=== PATIENT | male | born 1935 | race Caucasian/White ===

== ENCOUNTER 2017-04-10 13:11 | Emergency (ER) | payer OTHER ==
[~2017-04-10] VITALS: Ht 172.7 cm; Wt 80.1 kg
[~2017-04-10 13:11] MED LIST: ASPI81TA28 PO; CHOL1CAP57 PO; METO25TA3 PO; RXC5 PO
[2017-04-10 13:22] VITALS: TEMP 36.6; Ht 172.7 cm; Wt 80.1 kg
[2017-04-10] MEDS ORDERED: UNKNOWN ABX (14:14)
[2017-04-10] MEDS ORDERED: SODIUM CHLORIDE 0.9% 1000ML 1,000 ML IV STA (14:14)
--- NOTE | 2017-04-10 14:25 | EMERGENCY ROOM VISIT NOTE ---
History Report prepared by Luci: Raymundo Martinez Under the Supervision of: Dr. Robbin Doyle M.D. First contact with patient: 13:57 Chief Complaint: URINARY SYMPTOMS Stated Complaint: BLOCKED KIDNEYS Nursing Triage Summary: Patient states he does not have a bladder. Patient states his neprostomy tubes were not draining last night or this AM finally started to drain now but here to be evaluated. History of Present Illness The patient is a 81 year old male who presents to the Emergency Room with complaints of lack of urine drainage in his nephrostomy bag that her first noticed last night. The patient states that there was no urine draining into his nephrostomy bag last night, but it started to drain today on their way into the department. The bag normally fills up constantly. The patient notes that he usually drinks a lot of water throughout the day, and did so yesterday. There was no urine in the nephrostomy bag with his water consumption. He also notes not eating much yesterday, secondary to having some stomach pain yesterday which ruined his appetite. This pain is resolved now. He is currently diagnosed with a Kidney Stone and follows with Dr. Vital. He cannot have the stone operated on due to is positioning. The patient has his nephrostomy tubes secondary to prostate cancer and total bladder and prostate removal. He denies any further fevers, chills, chest pain, vomiting, or headaches. Source of History: patient Onset: Last night Position: other () Quality: other (Nephrostomy not draining) Timing: resolved Associated Symptoms: + abdominal pain, No fevers, No chest pain, No vomiting Review of Systems See HPI for pertinent positives and negatives. A total of ten systems were reviewed and were otherwise negative. Past Medical & Surgical Medical Problems: (1) Prostate cancer Surgical Problems: (1) Heart valve replaced PMHx of Prostate Cancer, cardiac valve replacement, nephrostomies. Family History FH: arthritis Fx of Arthritis. Social History Smoking Status: Never Smoker Drug Use: none Marital Status: Housing Status: lives with significant other Occupation Status: retired Current/Historical Medications Scheduled Aspirin (Aspirin Ec), 81 MG PO DAILY Cefpodoxime Proxetil (Cefpodoxime Proxetil), 1 TAB PO BID Cephalexin Monohydrate (Keflex), 1 CAP PO QID Saccharomyces Boulardii (Florastor), 1 CAP PO BID Scheduled PRN Oxycodone HCl (Oxycodone HCl), 5-10 MG PO Q4H PRN for Pain Allergies Coded Allergies: Ciprofloxacin (Verified Allergy, Unknown, ITCHING, 03/15/14) Tetanus Toxoid (Verified Allergy, Unknown, ITCHING, 03/15/14) Physical Exam Vital Signs Date Time Temp Pulse Resp B/P (MAP) Pulse Ox O2 Delivery O2 Flow Rate FiO2 04/10/17 18:51 91 16 123/65 96 Room Air 04/10/17 18:20 67 18 163/91 99 Room Air 04/10/17 16:08 72 18 138/57 98 Room Air 04/10/17 15:53 73 04/10/17 15:28 72 18 109/43 04/10/17 13:22 36.6 99 16 117/71 98 Room Air Physical Exam GENERAL: Awake, alert, well-appearing, in no distress HENT: Normocephalic, atraumatic. Oropharynx unremarkable. EYES: Normal conjunctiva. Sclera non-icteric. NECK: Supple. No nuchal rigidity. FROM. No JVD. RESPIRATORY: Clear to auscultation. CARDIAC: Regular rate, normal rhythm. Extremities warm and well perfused. Pulses equal. ABDOMEN: Soft, non-distended. No tenderness to palpation. No rebound or guarding. No masses. RECTAL: Deferred. There is a nephrostomy bag in the RLQ draining light yellow urine, no blood. MUSCULOSKELETAL: Chest examination reveals no tenderness. The back is symmetrical on inspection without obvious abnormality. There is no CVA tenderness to palpation. No joint edema. LOWER EXTREMITIES: Calves are equal size bilaterally and non-tender. No edema. No discoloration. NEURO: Normal sensorium. No sensory or motor deficits noted. SKIN: No rash or jaundice noted. Medical Decision & Procedures ER Provider Diagnostic Interpretation: Radiology results as stated below per my review and radiologist interpretation: CT OF THE ABDOMEN AND PELVIS WITH CONTRAST CLINICAL HISTORY: flank pain, ?obstructed nephrostomy COMPARISON STUDY: CT of the abdomen and pelvis March 27, 2017. TECHNIQUE: Following IV administration of 94 mL of Optiray-320, axial images of the abdomen and pelvis were obtained from the lung bases to the proximal femurs. Images were reviewed in the axial, sagittal, and coronal planes. IV contrast was administered without complication. A dose lowering technique was utilized adhering to the principles of ALARA. CT DOSE: 409.93 mGy.cm FINDINGS: Visualized portions of the lower chest demonstrate moderate cardiomegaly. There is a prosthetic aortic valve. There is mild nodularity of the liver surface. No hepatic lesions are identified on this portal venous phase study. The spleen, adrenal glands and pancreas are unremarkable. There is no biliary or pancreatic ductal dilatation. Postoperative findings within the lumbosacral spine are noted. There are several old lower thoracic and lumbar spine compression fractures. No pneumatosis, free air or portal venous gas is present. The patient is status post prostatectomy and cystectomy with a right lower quadrant ileal diversion with urostomy. Moderate left and mild right hydronephrosis is noted. Left-sided collecting system dilatation has slightly diminished compared to exam of March 27, 2017. Right-sided collecting system dilatation has mildly increased. Note is made of a 2.5 x 1.1 x 0.8 cm proximal left ureteral calculus which is more proximal in location when compared to study of March 27, 2017. Urothelial thickening, slightly greater on the left is again noted, most prominent within the left ureter. Minimal left perinephric infiltration has diminished since exam of March 27, 2017. There is a 2.2 cm cyst within the lower pole of the left kidney. A right lower quadrant parastomal hernia is noted. There is also a left lower abdominal ventral hernia which contains small bowel loops. There is no bowel obstruction. No lymphadenopathy is present. There are no suspicious osseous lesions. IMPRESSION: 1. Status post cystectomy and prostatectomy with a right lower quadrant ileal diversion with urostomy. Moderate left and mild right hydronephrosis. Left-sided collecting system dilatation slightly improved since study of March 27, 2017 and right sided dilatation slightly increased. Minimal delayed left nephrogram with minimal left perinephric infiltration which is diminished since prior CT. Nonspecific urothelial thickening which could be correlated with urinalysis as this represents a nonspecific finding. 2. 2.5 x 1.1 x 0.8 cm proximal left ureteral calculus which is not resulting in the collecting system dilatation. 3. Several lower abdominal bowel containing hernias without resultant bowel obstruction. 4. Suspected cirrhosis. Electronically signed by: Jose Luis Damon M.D. 04/10/2017 5:17 PM Dictated Date/Time: 04/10/2017 5:06 PM Laboratory Results 04/10/17 14:50 Red Blood Count 3.60, Mean Corpuscular Volume 81.7, Mean Corpuscular Hemoglobin 28.1, Mean Corpuscular Hemoglobin Concent 34.4, Mean Platelet Volume 9.3, Neutrophils (%) (Auto) 64.0, Lymphocytes (%) (Auto) 19.9, Monocytes (%) (Auto) 11.7, Eosinophils (%) (Auto) 2.2, Basophils (%) (Auto) 0.5, Neutrophils # (Auto ) 7.02, Lymphocytes # (Auto) 2.18, Monocytes # (Auto) 1.29, Eosinophils # (Auto ) 0.24, Basophils # (Auto) 0.06 04/10/17 14:50 Test 04/10/17 14:50 04/10/17 15:10 White Blood Count 10.98 K/uL (4.8-10.8) Red Blood Count 3.60 M/uL (4.7-6.1) Hemoglobin 10.1 g/dL (14.0-18.0) Hematocrit 29.4 % (42-52) Mean Corpuscular Volume 81.7 fL (80-100) Mean Corpuscular Hemoglobin 28.1 pg (25-34) Mean Corpuscular Hemoglobin Concent 34.4 g/dl (32-36) Platelet Count 417 K/uL (130-400) Mean Platelet Volume 9.3 fL (7.4-10.4) Neutrophils (%) (Auto) 64.0 % Lymphocytes (%) (Auto) 19.9 % Monocytes (%) (Auto) 11.7 % Eosinophils (%) (Auto) 2.2 % Basophils (%) (Auto) 0.5 % Neutrophils # (Auto) 7.02 K/uL (1.4-6.5) Lymphocytes # (Auto) 2.18 K/uL (1.2-3.4) Monocytes # (Auto) 1.29 K/uL (0.11-0.59) Eosinophils # (Auto) 0.24 K/uL (0-0.5) Basophils # (Auto) 0.06 K/uL (0-0.2) RDW Standard Deviation 45.9 fL (36.4-46.3) RDW Coefficient of Variation 15.2 % (11.5-14.5) Immature Granulocyte % (Auto) 1.7 % Immature Granulocyte # (Auto) 0.19 K/uL (0.00-0.02) Red Blood Cell Morphology Unremarkable Anion Gap 8.0 mmol/L (3-11) Est Creatinine Clear Calc Drug Dose 61.0 ml/min Estimated GFR () 87.9 Estimated GFR (Non- 75.8 BUN/Creatinine Ratio 12.9 (10-20) Calcium Level 8.3 mg/dl (8.5-10.1) Total Bilirubin 0.2 mg/dl (0.2-1) Direct Bilirubin < 0.1 mg/dl (0-0.2) Aspartate Amino Transf (AST/SGOT) 12 U/L (15-37) Alanine Aminotransferase (ALT/SGPT) 14 U/L (12-78) Alkaline Phosphatase 80 U/L (45-117) Total Protein 8.0 gm/dl (6.4-8.2) Albumin 2.7 gm/dl (3.4-5.0) Lipase 142 U/L (73-393) Urine Color YELLOW Urine Appearance CLOUDY (CLEAR) Urine pH 8.5 (4.5-7.5) Urine Specific Emma 1.015 (1.000-1.030) Urine Protein 1+ (NEG) Urine Glucose (UA) NEG (NEG) Urine Ketones TRACE (NEG) Urine Occult Blood NEG (NEG) Urine Nitrite POS (NEG) Urine Bilirubin NEG (NEG) Urine Urobilinogen NEG (NEG) Urine Leukocyte Esterase LARGE (NEG) Urine WBC (Auto) >30 /hpf (0-5) Urine RBC (Auto) 0-4 /hpf (0-4) Urine Hyaline Casts (Auto) 1-5 /lpf (0-5) Urine Epithelial Cells (Auto) 5-10 /lpf (0-5) Urine Bacteria (Auto) 3+ (NEG) Laboratory results reviewed by me Medications Administered Medications (Trade) Dose Ordered Sig/Latonya Route Start Time Stop Time Status Last Admin Dose Admin Sodium Chloride 1,000 ml @ 999 mls/hr Q1H1M STAT IV 04/10/17 14:14 04/10/17 15:14 DC 04/10/17 14:14 999 MLS/HR Ceftriaxone Sodium (Rocephin Inj) 1 gm NOW STAT IV 04/10/17 17:34 04/10/17 17:36 DC 04/10/17 17:34 1 GM ED Course 141: The patient was evaluated in room B10. A complete history and physical exam was performed. 141: Ordered Sodium Chloride 1000 mL @ 999 mL/hr IV. 1733: Ordered Rocephin Inj 1 gm IV. 1911: I reevaluated the patient. Discussed results and discharge instructions: He verbalized understanding and agreement. The patient is ready for discharge. Medical Decision I reviewed the patient's past medical history, medications, and the nursing notes as described above. Differential diagnosis: Etiologies such as appendicitis, diverticulitis, PUD, biliary pathology, UTI, pancreatitis, obstruction, mesenteric ischemia, aortic pathology, infections, inflammatory bowel disease, renal colic, as well as others were entertained. The patient is a 81 y/o gentleman with a pmhx of prostate cancer s/p bladder resection s/p urostomy who presents to the emergency department with ?transient nephrostomy obstruction that occurred last night but apparently resolved [employer] and has clear yellow urine in bag per HPI. On arrival, the patient is well- appearing in NAD, AFVSS. Nephrostomy site is c/d/i. CT scan shows mildly increased right-sided collecting fullness overall improvement from prior and known left 2.5cm ureteral stone without signs of obstruction. WBC marginally elevated 10.9. Sodium 129 in the setting of clinically dry appearance. Given IVF. UA c/w infection. Given IV dose of CTX. Patient had previously been on Keflex for ?UTI/infected stone. Thus coverage broadened with cefpodoxime. Patient is currently being followed by Dr. Vital, urology, with plan for decompression of his large left ureter stone. Given well-appearing, afebrile and stable vitals no indication for admission at this time for emergent procedure. Reasonable to d/c with close f/u for scheduled procedure. Findings and plan for follow-up reviewed with patient. Patient agreeable and d/c'd per discharge instructions. Medication Reconcilliation Current Medication List: was personally reviewed by me Impression Primary Impression: Urinary tract infection Additional Impressions: Ureterolithiasis Hyponatremia Scribe Attestation The scribe's documentation has been prepared under my direction and personally reviewed by me in its entirety. I confirm that the note above accurately reflects all work, treatment, procedures, and medical decision making performed by me. Departure Information Dispostion Home / Self-Care Prescriptions Saccharomyces Boulardii (Florastor) 250 Mg Cap 1 CAP PO BID for 10 Days, #20 CAP Prov: Robbin Doyle M.D. 04/10/17 Cefpodoxime Proxetil (CEFPODOXIME PROXETIL) 100 Mg Tab 1 TAB PO BID for 7 Days, #14 TABS Prov: Robbin Doyle M.D. 04/10/17 Referrals Kobi Escobar M.D. (PCP) Lg Vital M.D. Patient Instructions ED Hyponatremia, Kidney Stones, [facility], Urinary Tract Infecs Men Additional Instructions Please follow up with your urologist, Dr. Vital, tomorrow for re-evaluation. You should also follow up with your doctor to recheck you sodium, which was low today (likely from mild dehydration). Your urine showed signs of infection. Your CT scan overall shows improvement. Otherwise, your exam, lab results, and CT scan did not show signs of an emergent condition at this time. Cefpodoxime as directed. Florastor, probiotic, to help prevent antibiotic associated diarrhea. Drink plenty of fluids to ensure hydration. Return to the emergency department for worsening symptoms as described in the accompanying instructions. Problem Qualifiers
[2017-04-10] MEDS ORDERED: CEPH500C2 PO (14:30)
[2017-04-10] MEDS ORDERED: OPTIRAY 320 IV PRN (14:45)
[2017-04-10 15:06] LABS: HEMATOCRIT 29.4 % (42-52); HEMOGLOBIN 10.1 g/dL (14.0-18.0); MEAN CELL VOLUME 81.7 fL (80-100); MEAN CORPUSCULAR HEMOGLOBIN 28.1 pg (25-34); MEAN CORPUSCULAR HGB CONC 34.4 g/dl (32-36); MEAN PLATELET VOLUME 9.3 fL (7.4-10.4); PLATELET COUNT 417 K/uL (130-400); RED CELL DISTRIBUTION WIDTH CV 15.2 % (11.5-14.5); RED CELL DISTRIBUTION WIDTH SD 45.9 fL (36.4-46.3); WHITE BLOOD COUNT 10.98 K/uL (4.8-10.8)
[2017-04-10 15:22] LABS: ALBUMIN 2.7 gm/dl (3.4-5.0); ALT/SGPT 14 U/L (12-78); BLOOD UREA NITROGEN 12 mg/dl (7-18); CALCIUM 8.3 mg/dl (8.5-10.1); CARBON DIOXIDE 21 mmol/L (21-32); CREATININE 0.95 mg/dl (0.60-1.40); GLUCOSE 110 mg/dl (70-99); LIPASE 142 U/L (73-393); POTASSIUM 3.7 mmol/L (3.5-5.1); SODIUM 129 mmol/L (136-145)
[2017-04-10 15:25] LABS: ALKALINE PHOSPHATASE 80 U/L (45-117); AST/SGOT 12 U/L (15-37)
[2017-04-10 15:58] LABS: BASO % 0.5 %; BASO ABS # 0.06 K/uL (0-0.2); EOS % 2.2 %; EOS ABS # 0.24 K/uL (0-0.5); IG# 0.19 K/uL (0.00-0.02); LYMPH % 19.9 %; LYMPH ABS # 2.18 K/uL (1.2-3.4); MONO % 11.7 %; MONO ABS # 1.29 K/uL (0.11-0.59); NEUT ABS # 7.02 K/uL (1.4-6.5)
--- NOTE | 2017-04-10 17:18 | DIAGNOSTIC IMAGING REPORT ---
CT OF THE ABDOMEN AND PELVIS WITH CONTRAST CLINICAL HISTORY: flank pain, ?obstructed nephrostomy COMPARISON STUDY: CT of the abdomen and pelvis March 27, 2017. TECHNIQUE: Following IV administration of 94 mL of Optiray-320, axial images of the abdomen and pelvis were obtained from the lung bases to the proximal femurs. Images were reviewed in the axial, sagittal, and coronal planes. IV contrast was administered without complication. A dose lowering technique was utilized adhering to the principles of ALARA. CT DOSE: 409.93 mGy.cm FINDINGS: Visualized portions of the lower chest demonstrate moderate cardiomegaly. There is a prosthetic aortic valve. There is mild nodularity of the liver surface. No hepatic lesions are identified on this portal venous phase study. The spleen, adrenal glands and pancreas are unremarkable. There is no biliary or pancreatic ductal dilatation. Postoperative findings within the lumbosacral spine are noted. There are several old lower thoracic and lumbar spine compression fractures. No pneumatosis, free air or portal venous gas is present. The patient is status post prostatectomy and cystectomy with a right lower quadrant ileal diversion with urostomy. Moderate left and mild right hydronephrosis is noted. Left-sided collecting system dilatation has slightly diminished compared to exam of March 27, 2017. Right-sided collecting system dilatation has mildly increased. Note is made of a 2.5 x 1.1 x 0.8 cm proximal left ureteral calculus which is more proximal in location when compared to study of March 27, 2017. Urothelial thickening, slightly greater on the left is again noted, most prominent within the left ureter. Minimal left perinephric infiltration has diminished since exam of March 27, 2017. There is a 2.2 cm cyst within the lower pole of the left kidney. A right lower quadrant parastomal hernia is noted. There is also a left lower abdominal ventral hernia which contains small bowel loops. There is no bowel obstruction. No lymphadenopathy is present. There are no suspicious osseous lesions. IMPRESSION: 1. Status post cystectomy and prostatectomy with a right lower quadrant ileal diversion with urostomy. Moderate left and mild right hydronephrosis. Left-sided collecting system dilatation slightly improved since study of March 27, 2017 and right sided dilatation slightly increased. Minimal delayed left nephrogram with minimal left perinephric infiltration which is diminished since prior CT. Nonspecific urothelial thickening which could be correlated with urinalysis as this represents a nonspecific finding. 2. 2.5 x 1.1 x 0.8 cm proximal left ureteral calculus which is not resulting in the collecting system dilatation. 3. Several lower abdominal bowel containing hernias without resultant bowel obstruction. 4. Suspected cirrhosis. Electronically signed by: Jose Luis Damon M.D. 04/10/2017 5:17 PM Dictated Date/Time: 04/10/2017 5:06 PM
[2017-04-10] MEDS ORDERED: CEFTRIAXONE SOD INJ 1 GM ADDVIAL IV STA (17:34)
[2017-04-10 18:51] VITALS: BP 123/65; PULSE 91; O2SAT 96
[2017-04-10] MEDS ORDERED: CEFP100T7 PO (19:02)
[2017-04-10] MEDS ORDERED: SACC250C3 PO (19:05)
== END 2017-04-10 19:19 | disposition home or self-care (01) ==
LOC: C.EDB 13:12
DX: N39.0 Urinary tract infection, site not specified (principal); N20.1 Calculus of ureter; E87.1 Hypo-osmolality and hyponatremia; Z85.46 Personal history of malignant neoplasm of prostate; Z95.2 Presence of prosthetic heart valve; Z93.6 Other artificial openings of urinary tract status; Z90.79 Acquired absence of other genital organ(s); Z90.6 Acquired absence of other parts of urinary tract; Z82.61 Family history of arthritis; Z79.82 Long term (current) use of aspirin

== ENCOUNTER 2017-05-22 06:45 | Day surgery (SDC) | payer MEDICARE, OTHER ==
[2017-05-07 13:48] VITALS: Ht 170.2 cm; Wt 80.3 kg
--- NOTE | 2017-05-07 14:22 | PAT Medication Instructions ---
Service Date May 07, 2017. Current Home Medication List Aspirin (Aspirin Ec), 81 MG PO QPM Metoprolol Succinate (Metoprolol Succinate ER), 1 TAB PO QAM Nitrofurantoin Monohyd Macrocr (Macrobid), 1 TAB PO QAM Omeprazole (Prilosec), 20 MG PO QAM Oxycodone Hcl (Oxycontin), 1 TAB PO TID PRN for Pain Senna/Docusate Sod (Senokot S), 1 TAB PO QPM Medication Instructions For Your Scheduled Surgery -Contact your prescriber for instructions for: Aspirin (Aspirin Ec), 81 MG PO QPM - Take the following medications the morning of surgery with a sip of water: Metoprolol Succinate (Metoprolol Succinate ER), 1 TAB PO QAM Nitrofurantoin Monohyd Macrocr (Macrobid), 1 TAB PO QAM Omeprazole (Prilosec), 20 MG PO QAM Oxycodone Hcl (Oxycontin), 1 TAB PO TID PRN for Pain (if needed, can be taken up to four hours before surgery) - Take the following medications as scheduled the night before surgery: Oxycodone Hcl (Oxycontin), 1 TAB PO TID PRN for Pain (if needed) Senna/Docusate Sod (Senokot S), 1 TAB PO QPM If you have any questions please call us at [phone] or [phone] or [phone]
[2017-05-07 15:22] LABS: BASO % 0.7 %; BASO ABS # 0.07 K/uL (0-0.2); EOS % 1.5 %; EOS ABS # 0.15 K/uL (0-0.5); HEMATOCRIT 31.9 % (42-52); HEMOGLOBIN 10.5 g/dL (14.0-18.0); IG# 0.08 K/uL (0.00-0.02); LYMPH % 24.1 %; LYMPH ABS # 2.41 K/uL (1.2-3.4); MEAN CELL VOLUME 81.2 fL (80-100); MEAN CORPUSCULAR HEMOGLOBIN 26.7 pg (25-34); MEAN CORPUSCULAR HGB CONC 32.9 g/dl (32-36); MONO % 10.5 %; MONO ABS # 1.05 K/uL (0.11-0.59); NEUT % 62.4 %; NEUT ABS # 6.24 K/uL (1.4-6.5); PLATELET COUNT 367 K/uL (130-400); RED CELL DISTRIBUTION WIDTH CV 16.5 % (11.5-14.5); RED CELL DISTRIBUTION WIDTH SD 49.4 fL (36.4-46.3)
[2017-05-07 15:28] LABS: BLOOD UREA NITROGEN 14 mg/dl (7-18); CALCIUM 8.3 mg/dl (8.5-10.1); CARBON DIOXIDE 23 mmol/L (21-32); CREATININE 1.05 mg/dl (0.60-1.40); GLUCOSE 104 mg/dl (70-99); SODIUM 133 mmol/L (136-145)
[~2017-05-22] VITALS: Ht 170.2 cm; Wt 80.3 kg
[~2017-05-22 06:45] MED LIST changes: +CEFAZOLIN 2000MG IV PUSH 15 ML IV SCH; -CHOL1CAP57 PO; +LACTATED RINGER'S 1000ML 1,000 ML IV SCH; -METO25TA3 PO; +NITR-5 PO; +OXYC20TA50 PO; +PRLSR20 PO; -RXC5 PO; +SENN-65 PO; +TPRSR/25 PO
[2017-05-22 07:23] VITALS: BP 104/63; PULSE 89; TEMP 37; O2SAT 97
[2017-05-22] MEDS ORDERED: fentanyl patch (07:51)
[2017-05-22] MEDS ORDERED: EpHEDrine SULFATE INJ 50 MG/ML AMP IV PRN (08:15)
[2017-05-22] MEDS ORDERED: ATROPINE SULFATE 0.1 MG/ML 5ML SYR IV PRN (08:15)
[2017-05-22] MEDS ORDERED: ONDANSETRON INJ 2 MG/ML 2 ML VIAL IV PRN (08:15)
--- NOTE | 2017-05-22 08:15 | History & Physical Bridge Note ---
H&P Re-Evaluation Bridge Note: I have examined the patient, reviewed the History & Physical and in the interval since the performance of the History & Physical I have noted the following changes of clinical significance: No changes noted
[2017-05-22] MEDS ORDERED: LIDOCAINE HCL 2% 2 ML VIAL (20MG/ML) ONE (08:24)
[2017-05-22] MEDS ORDERED: OXYTOCIN INJ 10 UNITS/ML VIAL ONE (08:24)
[2017-05-22] MEDS ORDERED: PROPOFOL IV EMULSION 10 MG/ML 20 ML VIAL IV ONE (08:24)
[2017-05-22] MEDS ORDERED: DEXAMETHASONE SOD INJ 4 MG/ML VIAL ONE (08:24)
[2017-05-22] MEDS ORDERED: ONDANSETRON INJ 2 MG/ML 2 ML VIAL ONE (08:25)
[2017-05-22] MEDS ORDERED: LIDOCAINE/EPINEPHRINE 1% 20 ML VIAL ONE (08:25)
[2017-05-22] MEDS ORDERED: FENTANYL CITRATE INJ 50 MCG/1 ML 2 ML VIAL ONE (08:26)
[2017-05-22] MEDS ORDERED: CEFU250T15 PO (08:44)
--- NOTE | 2017-05-22 08:48 | Discharge Instructions ---
Discharge Instructions Date of Service May 22, 2017. Admission Reason for Admission: Left Ureteral Stone, Ileal Conduit Discharge Discharge Diagnosis / Problem: Stone Discharge Goals Goal(s): Decrease discomfort, Improve function Activity Recommendations Activity Limitations: per Instructions/Follow-up section Lifting Limitations: gradually increase as tolerated Exercise/Sports Limitations: gradually increase as tolerated Shower/Bathe: tomorrow . Instructions / Follow-Up Instructions / Follow-Up Call if any fevers or chills. Call if any severe issues or worsening issues. May have pain in flank or pain in abd and pelvis. Monitor output. Expect to have blood in urine. Current Hospital Diet Patient's current hospital diet: Discharge Diet Recommended Diet: Regular Diet Procedures Procedures Performed: Antegrade ureteroscopy with nephrostogram and laser lithotripsy with stent placement and nephrostomy exchange. Pending Studies Studies pending at discharge: no Medical Emergencies . Who to Call and When: Medical Emergencies: If at any time you feel your situation is an emergency, please call 911 immediately. . Non-Emergent Contact Non-Emergency issues call your: Primary Care Provider, Urologist Call Non-Emergent contact if: you have a fever, temperature is above 101, temperature is above 101.5, your pain is not controlled, your pain is worsening . . "Provider Documentation" section prepared by Lg Constantino. .
[2017-05-22] MEDS ORDERED: OXYCODONE HCL IR 5 MG TAB (IMMEDIATE RELEASE) PO PRN (09:00)
[2017-05-22] MEDS ORDERED: Cysto-Conray II 17.2% 250ML BOTTLE ONE (09:28)
[2017-05-22] MEDS ORDERED: PHENYLEPHRINE 100MCG/ML 5ML SYR ONE (10:25)
--- NOTE | 2017-05-22 10:36 | [facility] Operative Report ---
Operative Report Operative Date May 22, 2017. Pre-Operative Diagnosis Left Obstructing Distal Stone with Ileal Conduit diversion Post-Operative Diagnosis Same Procedure(s) Performed Left Antegrade ureteroscopy with nephrostogram, dilation of nephrotomy, exchange of nephrostomy tube, stent placement, Antegrade pyelogram, laser lithotripsy. Surgeon Amanuel Constantino Needle Leader Surgeon(s) Stu Estimated Blood Loss Minimal Findings Large obstructing stone of left distal ureter Specimens Stone Fragment Drains 10 Fr Nephrostomy Tube on left. 7 x 28 Ureteral Stent Left Anesthesia Type General Complication(s) none Disposition Recovery Room / PACU Indications Large obstructing stone that could not be accessed retrograde through conduit. Had nephrostomy tube placed. Risks and benefits discussed. Description of Procedure Patient was consented and brought back to the operating room. Patient was placed under anesthesia in the supine position. The patient was moved to the lateral position with the left flank up. Patient was prepped and draped in the regular sterile fashion. The nephrostomy tube was prepped into the field. A time out was completed. A nephrostogram was completed and the pelvis examined with fluoroscopy. The nephrostomy tube was released and a wire was placed. It was visualized into the pelvis. The tube was removed and a incision was made into the skin at the site of the wire. The 8-10 dilator was selected and the track was dilated. A dual lumen ureteral catheter was placed and nephrostogram was completed with antegrade pyelogram. At this point, a second safety wire was placed and secured. The sheath was removed and a ureteral access 12-14Fr x 28cm was placed. A flexible ureteroscope was placed. The entire ureter was examined down to the distal segment. The large stone was appreciated to have migrated to the renal pelvis. A laser fiber was selected and the stone was pulverized to dust and small fragments. Larger fragments were removed with a basket. The stone was completely fragmented. A ureteral balloon dilator was then selected and the distal ureter was dilated up to 12mmhg. The scope was moved into the conduit. At this point, a 7fr ureteral stent was placed. The scope was removed and the sheath was removed. The 10 Fr Nephrostomy tube was placed over the safety wire. It was secured in place with a 3-0 nylon suture. The patient was cleaned and bandaged and transferred to the supine position. The patient was cleaned, aroused from anesthesia, and transferred to the pacu in stable condition having tolerated the procedure well with no complications. I was present and participated in all aspects of the procedure. Dr. Vital was intergral and assisted with the entire case including dilation, wire manipulation, and tube placements. Also assisted with access and stone treatment. Nurse Peraza was madden in manipulation of wire and management of scope as well as dilation. The patient will be monitored in the PACU until transferred. I attest to the content of the Intraoperative Record and any orders documented therein. Any exceptions are noted below.
--- NOTE | 2017-05-22 10:52 | DIAGNOSTIC IMAGING REPORT ---
RETROGRADE INCLUDES KUB CLINICAL HISTORY: LEFT PERCUTANEOUS ANTEGRADE lithotripsy TECHNIQUE: Image intensifier assistance for operative guidance COMPARISON STUDY: None FINDINGS: Image intensifier assistance for laser lithotripsy and ureteroscopy IMPRESSION: Image intensifier assistance for laser lithotripsy and ureteroscopy. The above report was generated using voice recognition software. It may contain grammatical, syntax or spelling errors. Electronically signed by: Alan Martínez M.D. 05/22/2017 10:51 AM Dictated Date/Time: 05/22/2017 10:50 AM
[2017-05-22] MEDS: FENTANYL CITRATE INJ 50 MCG/1 ML 2 ML VIAL IV PRN ×2 (10:57→11:15)
--- NOTE | 2017-05-22 11:25 | Anesthesiology Progress Note ---
Anesthesia Post Op Note Date & Time May 22, 2017 at 11:24 Vital Signs Pain Intensity: 4.0 Vital Signs Past 12 Hours Date Time Temp Pulse Resp B/P (MAP) Pulse Ox O2 Delivery O2 Flow Rate FiO2 05/22/17 11:15 36.0 70 19 118/56 100 Nasal Cannula 2 05/22/17 11:05 66 10 116/58 100 Nasal Cannula 2 05/22/17 10:55 70 20 98/59 100 Nasal Cannula 2 05/22/17 10:45 81 26 115/64 95 Nasal Cannula 2 05/22/17 10:38 36.0 72 14 121/62 100 Nasal Cannula 2 05/22/17 07:23 37 89 18 104/63 (77) 97 Room Air Notes Mental Status: alert / awake / arousable, participated in evaluation Pt Amnestic to Procedure: Yes Nausea / Vomiting: adequately controlled Pain: adequately controlled Airway Patency, RR, SpO2: stable & adequate BP & HR: stable & adequate Hydration State: stable & adequate Anesthetic Complications: no major complications apparent
[2017-05-22 11:50] VITALS: BP 115/58; PULSE 70; TEMP 36.6; O2SAT 94
[2017-05-22 12:20] VITALS: BP 105/51; PULSE 77; O2SAT 92
[2017-05-22 12:55] VITALS: BP 100/56; PULSE 77; TEMP 36.6; O2SAT 96
--- NOTE | 2017-05-30 08:49 | EDITING REQUIRED CODING QUERY ---
CALCULUS SIZE Please provide the size of the calculus that was treated during this admission" SIZE OF CALCULUS: 2.6 CM Thank you for your assistance, Libby Mckeon - Cytogeneticist
== END 2017-05-22 13:30 | disposition home or self-care (01) ==
LOC: C.ACU 06:45
PROVIDERS: ATTEND Urology
DX: N20.2 Calculus of kidney with calculus of ureter (principal); F11.20 Opioid dependence, uncomplicated; Z93.6 Other artificial openings of urinary tract status; Z87.440 Personal history of urinary (tract) infections; I25.10 Atherosclerotic heart disease of native coronary artery without angina pectoris; Z95.2 Presence of prosthetic heart valve; Z90.79 Acquired absence of other genital organ(s); Z79.82 Long term (current) use of aspirin

== ENCOUNTER → 2017-06-26 | Outpatient (CLI) | payer OTHER ==
[~2017-06-26] MED LIST changes: -ASPI81TA28 PO; -CEFAZOLIN 2000MG IV PUSH 15 ML IV SCH; -LACTATED RINGER'S 1000ML 1,000 ML IV SCH; +fentanyl patch
[2017-06-26 17:33] LABS: BLOOD UREA NITROGEN 24 mg/dl (7-18); CREATININE 1.21 mg/dl (0.60-1.40)
== END | disposition home or self-care (01) ==
LOC: C.LABPBG 15:11
PROVIDERS: ATTEND Urology
DX: Z12.5 Encounter for screening for malignant neoplasm of prostate (principal)

== ENCOUNTER → 2017-07-02 | Outpatient (CLI) | payer OTHER ==
--- NOTE | 2017-07-02 12:31 | DIAGNOSTIC IMAGING REPORT ---
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 A dose lowering technique was utilized adhering to the principles of ALARA. COMPARISON STUDY: 04/10/2017 FINDINGS: Lung bases remain clear. Minimal dependent basilar atelectasis. Configuration of the liver and gallbladder are unremarkable. Right kidney is considered negative for hydronephrosis. There is no right ureteral distention. There has been placement of a left ureteral stent. The fullness of the left renal pelvis and left ureter at the prior study has resolved. Calcification procedure described in the mid and or proximal left ureter is not identified currently. There are findings of cystectomy and prostatectomy. There is a right-sided ileal conduit. There are no obstructive urinary tract changes at the current time. The bowel pattern is considered nonobstructive. Postoperative changes are again noted. Several ventral hernias have been described are similar. These contain several loops of bowel but are considered nonobstructing. Postoperative changes of the low lumbar spine are noted and appear stable. IMPRESSION: 1. Interval placement of a left ureteral stent with removal of the previously described left ureteral calculus. 2. Left renal hydronephrosis has resolved. 3. Stable postoperative changes of a cystectomy and prostatectomy with a patent right ileal conduit. 3. Minimal findings of hepatic cirrhosis unchanged. The above report was generated using voice recognition software. It may contain grammatical, syntax or spelling errors. Electronically signed by: Alan Martínez M.D. 07/02/2017 12:30 PM Dictated Date/Time: 07/02/2017 12:24 PM
== END | disposition home or self-care (01) ==
LOC: C.CTS 10:50
PROVIDERS: ATTEND Urology
DX: N20.1 Calculus of ureter (principal); Z90.79 Acquired absence of other genital organ(s); K74.60 Unspecified cirrhosis of liver

== ENCOUNTER 2018-07-28 20:00 | Inpatient (IN) ==
--- OUTSIDE RECORDS SUMMARY | 2018-07-28 20:03 | External Medical Summary | Continuity of Care Document ---
:1935 Author Name Leo Matthews, Provider Address Unavailable Unavailable , Care Team Providers Name Role Phone Unavailable Unavailable Unavailable Lg Constantino II, DO Unavailable [email or web address] 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 Dougie PENALOZA DO Lg Start: 07-May-2017 Quantity: 20 Refills: 0 Triamcinolone Acetonide Cassie SEXTON Refills: 0 Senokot TABS , M.D. Refills: 0 Omeprazole TBEJesus M.DRico Refills: 0 Nystatin 188955 UNIT/GM External Cream , M.D. Refills: 0 Ketoconazole 2 % External Shampoo , M.DRico Refills: 0 Cephalexin TABS , M.D. Refills: 0 Metoprolol Succinate ER 25 MG Oral Tablet Extended Release 2 4 Hour , M.D. Refills: 0 oxyCODONE HCl TABS , M.D. Refills: 0 Aspirin 81 MG TABS; Take 1 tablet daily KATERIN Salgado Start: 15-Mar-2014 Refills: 0 Procedures Aortic Valve Replacement History of Lower Back Surgery Status: Co mpleted History of Bladder Cystectomy Status: Co mpleted History of hernia repair Status: Complet ed History of prostatectomy Status: Complet ed Immunizations Immunizations not documented Family History Mother Family history of cerebrovascular accident (V17.1) (Z82.3) S tatus: Active Family history of diabetes mellitus (V18.0) (Z83.3) Status: Active Father Family history of colon cancer (V16.0) (Z80.0) Status: Activ e Social History - Smoking Status Former smoker Plan of Treatment Planned Observations Planned Goals not documented Results No Known Results Results not documented Encounters Appointment; Zhao Vital M.D. 16-Feb-2018 14:45 Encounter Diagnosis: Problem not documented Appointment; Zhao Vital M.D. 30-Sep-2017 14:00 Encounter Diagnosis: Problem not documented Appointment; Zhao Vital M.D. 02-Jul-2017 13:10 Encounter Diagnosis: Problem not documented Appointment; Zhao Vital M.D. 04-Jun-2017 14:15 Encounter Diagnosis: Problem not documented Appointment; Zhao Vital M.D. 22-May-2017 11:00 Encounter Diagnosis: Problem not documented Appointment; Lg Constantino II, DO 22-May-2017 11:00 Encounter Diagnosis: Problem not documented Appointment; Adelina Peraza CRNP 22-May-2017 11:00 Encounter Diagnosis: Problem not documented Appointment; Lg Constantino II, DO 07-May-2017 11:20 Encounter Diagnosis: Problem not documented Appointment; Zhao Vital M.D. 03-Apr-2017 13:45 Encounter Diagnosis: Problem not documented
[2018-07-28] MEDS ORDERED: SODIUM CHLORIDE 0.9% 1000ML 1,000 ML IV SCH (21:00)
--- NOTE | 2018-07-28 21:13 | XRay Report ---
XR chest 1V portable CLINICAL HISTORY: 82 years-old Male presenting with Chest Pain. TECHNIQUE: Portable upright AP view of the chest was obtained. COMPARISON: 03/15/2014. FINDINGS: Median sternotomy wires with breakage of several wires and significant wire displacement into the par asternal soft tissues at the level of the clavicular heads. Atherosclerosis of the aortic arch. Posts urgical changes of aortic valve replacement. Cardiac silhouette mildly enlarged. Mitral annular calci fication. Mild pulmonary vascular prominence and bronchial wall cuffing. Coarsened lung markings like ly indicate prominent interstitial lung markings/interlobular septal thickening. Mildly low lung volu mes. No large effusion or pneumothorax. Degenerative changes of the thoracic spine. Degenerative singletary ges of the left glenohumeral joint. Upper abdomen normal. IMPRESSION: 1. Breakage in displacement of the median sternotomy wires. Displacement of the wires is new from pr ior. 2. Mild cardiomegaly with volume overload and congestive change. No vinny pulmonary edema. 3. Low lung volumes with hypoventilatory changes. Electronically signed by: Patrick Mosher M.D. 07/28/2018 9:11 PM
[2018-07-28 21:54] LABS: Appearance Urine Clear (Clear); Bilirubin Urine Negative (Negative); Blood Urine Trace (Negative); Color Urine Yellow; Epithelial Cell Urine Auto >30 /lpf (0-5); Glucose Urine UA Negative (Negative); Ketones Urine 1+ (Negative); Leukocyte Esterase Urine Trace (Negative); Nitrite Urine Negative (Negative); Protein Urine Negative (Negative); Specific Gravity Urine 1.013 (1.000-1.030); Urobilinogen Urine Negative (Negative); pH Urine 5.5 (4.5-7.5)
[2018-07-28 22:00] LABS: INR 1.3 (0.9-1.1); Prothrombin Time 12.8 Seconds (9.0-12.0)
[2018-07-28 22:14] LABS: Bacteria Urine Automated 1+ (Negative)
[2018-07-28 22:15] LABS: RBC Urine Automated 0-4 /hpf (0-4)
[2018-07-28 22:15] LABS: Base Excess VBG -5.8 mEq/L; Oxygen Saturation VBG 62.6 %; pH VBG 7.38 (7.36-7.41)
[2018-07-28 22:27] LABS: Albumin Globulin Ratio 0.7 (0.9-2); Albumin Level 3.7 gm/dl (3.4-5.0); BUN Creatinine Ratio 7.9 (10-20); Bilirubin,Total 0.4 mg/dl (0.2-1); Calcium 9.6 mg/dl (8.5-10.1); Est GFR (African American) 93.6; Est GFR (Non-African American) 80.8; Globulin 5.2 gm/dl (2.5-4.0); Magnesium 2.3 mg/dl (1.8-2.4); Phosphorus 3.3 mg/dl (2.5-4.9); Total Protein 8.9 gm/dl (6.4-8.2); Troponin I 0.04 ng/ml (0-0.045)
--- NOTE | 2018-07-28 22:28 | CT Scan Report ---
CT head/brain wo con CLINICAL HISTORY: 82 years-old Male presenting with ams. TECHNIQUE: Multidetector CT imaging of the head was performed without the use of intravenous contrast . IV contrast: None. One or more dose lowering techniques were used consistent with the principles of ALARA (as low as reasonably achievable), including automatic exposure control, mA or kV adjustment t o individual patient size, and/or use of iterative reconstruction. COMPARISON: None. CT DOSE (mGy.cm): The estimated cumulative dose is 537.48 mGy.cm. 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 Proportional ventricular and sulcal prominence, likely age-related parenchymal volume loss. No hemorr citlali. Periventricular and subcortical white matter hypoattenuation, nonspecific but likely indicative of chronic small vessel ischemic change. Old left cerebellar hemispheric infarct. Old acute or infar ct in the right caudate head. Old lacunar infarct may also be present in the periventricular white ma tter of the right parietal lobe. No acute territorial infarct. No mass effect or midline shift. No ex tra-axial fluid collection. Paranasal sinuses and mastoid air cells clear. Calvarium intact. IMPRESSION: 1. Chronic small vessel ischemic change and multiple lacunar and/or small infarcts. No acute intracr anial abnormality. Electronically signed by: Patrick Mosher M.D. 07/28/2018 10:27 PM
[2018-07-28] MEDS ORDERED: cefTRIAXone SODIUM 1,000 MG/50 ML BAG IV STA (23:09)
[2018-07-28 23:54] LABS: Basophils # (auto) 0.08 K/uL (0-0.2); Basophils % (auto) 0.9 %; Eosinophils % (auto) 4.7 %; Hematocrit (blood only) 36.1 % (42-52); Immature Granulocytes # (auto) 0.06 K/uL (0.00-0.02); Immature Granulocytes % (auto) 0.7 %; Lymphocytes # (auto) 1.82 K/uL (1.2-3.4); Lymphocytes % (auto) 21.5 %; Mean Corpuscular Hgb Conc 33.2 g/dL (32-36); Mean Platelet Volume 11.3 fL (7.4-10.4); Monocytes # (auto) 0.78 K/uL (0.11-0.59); Monocytes % (auto) 9.2 %; Neutrophils # (auto) 5.32 K/uL (1.4-6.5); Platelet Count 376 K/uL (130-400); RDW Coefficient of Variation 15.9 % (11.5-14.5); RDW Standard Deviation 48.3 fL (36.4-46.3); White Blood Count 8.46 K/uL (4.8-10.8)
--- NOTE | 2018-07-29 00:41 | Emergency Department Note ---
Entered by Shena Strickland acting as a scribe for Robbin Doyle MD History of Present Illness General Chief complaint: Weakness Stated complaint: weakness Time Seen by Provider: 07/28/18 20:36 Source: family History of Present Illness Onset (ago): hour(s) (today) Location: head Pain Consistency: + other (worsening) Quality: + other (weakness) Associated symptoms: no fever/chills and no nausea/vomiting The patient is a 82 year old male who presents to the Emergency Room with complaints of worsening weakness that began today, per the patient's family. The patient's family states that the patient has been asleep all day and is unable to stand. The patient's family states that the patient has been confused over the past month, but states that this is worse from his baseline. Per the patient's family, the patient went to [facility] 3 days ago after seizure activity, and state that the patient had an EEG done that showed seizure activity. The patient's family states that the patient was discharged today, and state that they were told the patient was confused this morning at [place] prior to discharge. The patient's family states that the patient was started on Depakote last night for his seizure activity. The patient's family denies fever, nausea, vomiting, and diarrhea. The patient's family states that the patient takes aspirin regularly. Home Medications Home Medications Medication Instructions Recorded Confirmed Type Lactobacillus acidophilus 0 cell PO DAILY 07/28/18 07/28/18 History [Probiotic] aspirin 325 mg PO DAILY 07/28/18 07/28/18 History divalproex 250 mg PO BID 07/28/18 07/28/18 History oxycodone 15 mg PO Q6 PRN 07/28/18 07/28/18 History ranitidine HCl [Zantac] 150 mg PO BID 07/28/18 07/28/18 History Allergies Allergy/AdvReac Type Severity Reaction Status Date / Time tetanus toxoid, adsorbed AdvReac Mild ITCHING Verified 07/28/18 20:31 RASH Past Med/Surg History Medical History Prostate cancer (Chronic) Social History Preferred Language: Danish Communication Ability: Effective Dish Technician Required: No Beliefs That Will Affect Care: None Current Living Situation: Significant Other Other Information That Helps Us Care for You: No Feels Safe at Home: Yes Safety Concerns: Feels Safe At This Time Smoking Status: Former smoker Do You Dip or Chew Tobacco: No Smoking End Date: 1969 Tobacco Cessation Education Requested by Patient: No Hx Alcohol Use: No Hx Substance Use: No Review of Systems See HPI for pertinent positives & negatives. and A total of 10 systems reviewed and were otherwise negative Physical Exam Vital Signs Vital Signs - 24 hr 07/28/18 23:30 07/28/18 23:37 07/28/18 23:38 Pulse Rate 84 88 Pulse Rate [Apical] 76 Pulse Rate from SpO2 Sensor 84 89 Respiratory Rate 21 18 19 Blood Pressure 148/78 H 151/81 H Blood Pressure [Right Arm] 151/81 H Blood Pressure Mean 101 104 Blood Pressure Mean [Right Arm] 104 Pulse Oximetry 92 98 98 Oxygen Delivery Method Room Air 07/29/18 00:00 07/29/18 00:01 07/29/18 00:02 Pulse Rate 82 77 97 H Pulse Rate [Apical] Pulse Rate from SpO2 Sensor 82 76 89 Respiratory Rate 21 23 20 Blood Pressure 64/37 L 87/61 L Blood Pressure [Right Arm] Blood Pressure Mean 46 69 Blood Pressure Mean [Right Arm] Pulse Oximetry 94 99 85 L Oxygen Delivery Method 07/29/18 00:04 Pulse Rate 86 Pulse Rate [Apical] Pulse Rate from SpO2 Sensor 85 Respiratory Rate 19 Blood Pressure 128/80 Blood Pressure [Right Arm] Blood Pressure Mean 96 Blood Pressure Mean [Right Arm] Pulse Oximetry 100 Oxygen Delivery Method GENERAL: Fatigued appearing. Awake, alert, in no distress HENT: Normocephalic, atraumatic. Oropharynx with dry mucous membranes and otherwise unremarkable. EYES: Normal conjunctiva. Sclera non-icteric. EOMI. No nystamgus. PEARRL. NECK: Supple. No nuchal rigidity. FROM. No JVD. RESPIRATORY: CTAB. CARDIAC: Regular rate, normal rhythm. Extremities warm and well perfused. Pulses equal. ABDOMEN: Soft, non-distended. No tenderness to palpation. No rebound or guarding . No masses. RECTAL: Deferred. MUSCULOSKELETAL: Chest examination reveals no tenderness. The back is symmetrical on inspection without obvious abnormality. There is no CVA tenderness to palpation. No joint edema. LOWER EXTREMITIES: Calves are equal size bilaterally and non-tender. No edema. No discoloration. NEURO: Normal sensorium. No sensory or motor deficits noted. Generalized weakness with 4/5 strength and SILT x4 extremities. SKIN: No rash or jaundice noted. Course 2036: The patient was evaluated in room C12B, and a complete history and physical examination were performed. 2342: I [facility] for further evaluation. Consultations Consultation #1: I discussed the [facility] the patient for further evaluation. Time: 23:42 Administered Medications Aspirin (Ecotrin) 325 mg PO DAILY YOUSIF Stop: 08/28/18 08:59 Last Admin: 07/29/18 08:04 Dose: 325 mg Documented by: [id number] Gadobutrol (Gadavist 65ml) 7.5 ml IV ONCE PRN PRN Reason: Interaction Checking Stop: 08/02/18 14:03 Last Admin: 07/29/18 14:05 Dose: 7.5 ml Documented by: [id number] Ceftriaxone Sodium 1,000 mg/ (Dextrose) 50 mls @ 100 mls/hr IV Q24H YOUSIF; Protocol Stop: 08/07/18 21:59 Last Infusion: 07/29/18 22:10 Dose: 0 mls/hr Documented by: [id number] Admin: 07/29/18 21:40 Dose: 100 mls/hr Documented by: [id number] Oxycodone HCl (Roxicodone Immediate Rel) 5 mg PO Q4H PRN PRN Reason: Pain Stop: 08/12/18 01:15 Last Admin: 07/29/18 22:39 Dose: 5 mg Documented by: [id number] Admin: 07/29/18 11:37 Dose: 5 mg Documented by: [id number] Admin: 07/29/18 06:40 Dose: 5 mg Documented by: [id number] Ranitidine HCl (Zantac) 150 mg PO BID YOUSIF Stop: 08/28/18 08:59 Last Admin: 07/29/18 21:40 Dose: 150 mg Documented by: [id number] Admin: 07/29/18 08:04 Dose: 150 mg Documented by: [id number] Discontinued Medications Sodium Chloride (Nss 1000ml) 1,000 mls @ 999 mls/hr IV .Q1H1M YOUSIF Stop: 07/28/18 22:00 Last Infusion: 07/29/18 00:48 Dose: 0 mls/hr Documented by: [id number] Admin: 07/28/18 22:47 Dose: 999 mls/hr Documented by: [id number] Ceftriaxone Sodium (Rocephin) 1,000 mg in 50 mls @ 100 mls/hr IV NOW STA Stop: 07/28/18 23:38 Last Infusion: 07/29/18 00:34 Dose: 0 mls/hr Documented by: [id number] Admin: 07/28/18 23:39 Dose: 100 mls/hr Documented by: [id number] Medical Decision Making Differential Diagnosis Differential diagnosis: Etiologies such as metabolic, infection, hypo/hyperglycemia, electrolyte abnormalities, cardiac sources, intracerebral event, toxicologic, neurologic, as well as others were entertained. Medical Records Attestation: I reviewed the patient's medical records. Home Medications Current Medication List: was personally reviewed by me Laboratory Data Attestation: I reviewed the patient's lab results. Result diagrams: 07/28/18 21:04 07/28/18 21:04 Lab Results 07/28/18 07/28/18 07/28/18 Range/Units 21:04 21:04 21:04 WBC 8.46 (4.8-10.8) K/uL RBC 4.30 L (4.7-6.1) M/uL Hgb 12.0 L (14.0-18.0) g/dL Hct 36.1 L (42-52) % MCV 84.0 (80-100) fL MCH 27.9 (25-34) pg MCHC 33.2 (32-36) g/dL RDW Std Deviation 48.3 H (36.4-46.3) fL RDW Coeff of Dandre 15.9 H (11.5-14.5) % Plt Count 376 (130-400) K/uL MPV 11.3 H (7.4-10.4) fL Immature Gran % (Auto) 0.7 % Neut % (Auto) 63.0 % Lymph % (Auto) 21.5 % Mcduffie % (Auto) 9.2 % Eos % (Auto) 4.7 % Baso % (Auto) 0.9 % Immature Gran # (Auto) 0.06 H (0.00-0.02) K/uL Neut # (Auto) 5.32 (1.4-6.5) K/uL Lymph # (Auto) 1.82 (1.2-3.4) K/uL Mcduffie # (Auto) 0.78 H (0.11-0.59) K/uL Eos # (Auto) 0.40 (0-0.5) K/uL Baso # (Auto) 0.08 (0-0.2) K/uL PT 12.8 H (9.0-12.0) Seconds INR 1.3 H (0.9-1.1) VBG pH (7.36-7.41) VBG pCO2 (38-50) mmHg VBG pO2 mmHg VBG HCO3 mmol/L VBG O2 Saturation % VBG Base Excess mEq/L Barometric Pressure mm/Hg Sodium 141 (136-145) mmol/L Potassium 4.0 (3.5-5.1) mmol/L Chloride 111 H (98-107) mmol/L Carbon Dioxide 20 L (21-32) mmol/L Anion Gap 9.0 (3-11) BUN 7 (7-18) mg/dl Creatinine 0.89 (0.6-1.4) mg/dl Est Cr Clr Drug Dosing 64.0 ml/min Est GFR ( Amer) 93.6 Est GFR (Non-Af Amer) 80.8 BUN/Creatinine Ratio 7.9 L (10-20) Glucose 84 (70-99) mg/dl Calcium 9.6 (8.5-10.1) mg/dl Phosphorus 3.3 (2.5-4.9) mg/dl Magnesium 2.3 (1.8-2.4) mg/dl Total Bilirubin 0.4 (0.2-1) mg/dl Direct Bilirubin (0-0.2) mg/dl AST 25 (15-37) U/L ALT 18 (12-78) U/L Alkaline Phosphatase 89 (45-117) U/L Ammonia Troponin I 0.040 (0-0.045) ng/ml Total Protein 8.9 H (6.4-8.2) gm/dl Albumin 3.7 (3.4-5.0) gm/dl Globulin 5.2 H (2.5-4.0) gm/dl Albumin/Globulin Ratio 0.7 L (0.9-2) Lipase 106 (73-393) U/L TSH 1.190 (0.300-4.500) uIu/ml Urine Color Urine Appearance (Clear) Urine pH (4.5-7.5) Ur Specific [place] (1.000-1.030) Urine Protein (Negative) Urine Glucose (UA) (Negative) Urine Ketones (Negative) Urine Blood (Negative) Urine Nitrite (Negative) Urine Bilirubin (Negative) Urine Urobilinogen (Negative) Ur Leukocyte Esterase (Negative) Urine WBC (Auto) (0-5) /hpf Urine RBC (Auto) (0-4) /hpf U Hyaline Cast (Auto) (0-5) /lpf U Epithel Cells (Auto) (0-5) /lpf Urine Bacteria (Auto) (Negative) Ur Renal Epithelial Cell Valproic Acid (50-100) mcg/ml 07/28/18 07/28/18 07/28/18 Range/Units 21:04 21:06 22:03 WBC (4.8-10.8) K/uL RBC (4.7-6.1) M/uL Hgb (14.0-18.0) g/dL Hct (42-52) % MCV (80-100) fL MCH (25-34) pg MCHC (32-36) g/dL RDW Std Deviation (36.4-46.3) fL RDW Coeff of Dandre (11.5-14.5) % Plt Count (130-400) K/uL MPV (7.4-10.4) fL Immature Gran % (Auto) % Neut % (Auto) % Lymph % (Auto) % Mcduffie % (Auto) % Eos % (Auto) % Baso % (Auto) % Immature Gran # (Auto) (0.00-0.02) K/uL Neut # (Auto) (1.4-6.5) K/uL Lymph # (Auto) (1.2-3.4) K/uL Mcduffie # (Auto) (0.11-0.59) K/uL Eos # (Auto) (0-0.5) K/uL Baso # (Auto) (0-0.2) K/uL PT (9.0-12.0) Seconds INR (0.9-1.1) VBG pH (7.36-7.41) VBG pCO2 (38-50) mmHg VBG pO2 mmHg VBG HCO3 mmol/L VBG O2 Saturation % VBG Base Excess mEq/L Barometric Pressure mm/Hg Sodium (136-145) mmol/L Potassium (3.5-5.1) mmol/L Chloride (98-107) mmol/L Carbon Dioxide (21-32) mmol/L Anion Gap (3-11) BUN (7-18) mg/dl Creatinine (0.6-1.4) mg/dl Est Cr Clr Drug Dosing ml/min Est GFR ( Amer) Est GFR (Non-Af Amer) BUN/Creatinine Ratio (10-20) Glucose (70-99) mg/dl Calcium (8.5-10.1) mg/dl Phosphorus (2.5-4.9) mg/dl Magnesium (1.8-2.4) mg/dl Total Bilirubin (0.2-1) mg/dl Direct Bilirubin (0-0.2) mg/dl AST (15-37) U/L ALT (12-78) U/L Alkaline Phosphatase (45-117) U/L Ammonia Cancelled Troponin I (0-0.045) ng/ml Total Protein (6.4-8.2) gm/dl Albumin (3.4-5.0) gm/dl Globulin (2.5-4.0) gm/dl Albumin/Globulin Ratio (0.9-2) Lipase (73-393) U/L TSH (0.300-4.500) uIu/ml Urine Color Yellow Urine Appearance Clear (Clear) Urine pH 5.5 (4.5-7.5) Ur Specific [place] 1.013 (1.000-1.030) Urine Protein Negative (Negative) Urine Glucose (UA) Negative (Negative) Urine Ketones 1+ H (Negative) Urine Blood Trace H (Negative) Urine Nitrite Negative (Negative) Urine Bilirubin Negative (Negative) Urine Urobilinogen Negative (Negative) Ur Leukocyte Esterase Trace H (Negative) Urine WBC (Auto) 10-30 H (0-5) /hpf Urine RBC (Auto) 0-4 (0-4) /hpf U Hyaline Cast (Auto) 10-30 H (0-5) /lpf U Epithel Cells (Auto) >30 H (0-5) /lpf Urine Bacteria (Auto) 1+ H (Negative) Ur Renal Epithelial Cell Not Reportable Valproic Acid 34 L (50-100) mcg/ml 07/28/18 Range/Units 22:03 WBC (4.8-10.8) K/uL RBC (4.7-6.1) M/uL Hgb (14.0-18.0) g/dL Hct (42-52) % MCV (80-100) fL MCH (25-34) pg MCHC (32-36) g/dL RDW Std Deviation (36.4-46.3) fL RDW Coeff of Dandre (11.5-14.5) % Plt Count (130-400) K/uL MPV (7.4-10.4) fL Immature Gran % (Auto) % Neut % (Auto) % Lymph % (Auto) % Mcduffie % (Auto) % Eos % (Auto) % Baso % (Auto) % Immature Gran # (Auto) (0.00-0.02) K/uL Neut # (Auto) (1.4-6.5) K/uL Lymph # (Auto) (1.2-3.4) K/uL Mcduffie # (Auto) (0.11-0.59) K/uL Eos # (Auto) (0-0.5) K/uL Baso # (Auto) (0-0.2) K/uL PT (9.0-12.0) Seconds INR (0.9-1.1) VBG pH 7.38 (7.36-7.41) VBG pCO2 31 L (38-50) mmHg VBG pO2 33 mmHg VBG HCO3 18 mmol/L VBG O2 Saturation 62.6 % VBG Base Excess -5.8 mEq/L Barometric Pressure 735.3 mm/Hg Sodium (136-145) mmol/L Potassium (3.5-5.1) mmol/L Chloride (98-107) mmol/L Carbon Dioxide (21-32) mmol/L Anion Gap (3-11) BUN (7-18) mg/dl Creatinine (0.6-1.4) mg/dl Est Cr Clr Drug Dosing ml/min Est GFR ( Amer) Est GFR (Non-Af Amer) BUN/Creatinine Ratio (10-20) Glucose (70-99) mg/dl Calcium (8.5-10.1) mg/dl Phosphorus (2.5-4.9) mg/dl Magnesium (1.8-2.4) mg/dl Total Bilirubin (0.2-1) mg/dl Direct Bilirubin (0-0.2) mg/dl AST (15-37) U/L ALT (12-78) U/L Alkaline Phosphatase (45-117) U/L Ammonia Troponin I (0-0.045) ng/ml Total Protein (6.4-8.2) gm/dl Albumin (3.4-5.0) gm/dl Globulin (2.5-4.0) gm/dl Albumin/Globulin Ratio (0.9-2) Lipase (73-393) U/L TSH (0.300-4.500) uIu/ml Urine Color Urine Appearance (Clear) Urine pH (4.5-7.5) Ur Specific [place] (1.000-1.030) Urine Protein (Negative) Urine Glucose (UA) (Negative) Urine Ketones (Negative) Urine Blood (Negative) Urine Nitrite (Negative) Urine Bilirubin (Negative) Urine Urobilinogen (Negative) Ur Leukocyte Esterase (Negative) Urine WBC (Auto) (0-5) /hpf Urine RBC (Auto) (0-4) /hpf U Hyaline Cast (Auto) (0-5) /lpf U Epithel Cells (Auto) (0-5) /lpf Urine Bacteria (Auto) (Negative) Ur Renal Epithelial Cell Valproic Acid (50-100) mcg/ml Imaging Data Radiologist's Impression: Radiology results as stated below per my review and the radiologist's interpretation: XR chest 1V portable CLINICAL HISTORY: 82 years-old Male presenting with Chest Pain. TECHNIQUE: Portable upright AP view of the chest was obtained. COMPARISON: 03/15/2014. FINDINGS: Median sternotomy wires with breakage of several wires and significant wire displacement into the parasternal soft tissues at the level of the clavicular heads. Atherosclerosis of the aortic arch. Postsurgical changes of aortic valve replacement. Cardiac silhouette mildly enlarged. Mitral annular calcification. Mild pulmonary vascular prominence and bronchial wall cuffing. Coarsened lung markings likely indicate prominent interstitial lung markings/interlobular septal thickening. Mildly low lung volumes. No large effusion or pneumothorax. Degenerative changes of the thoracic spine. Degenerative changes of the left glenohumeral joint. Upper abdomen normal. IMPRESSION: 1. Breakage in displacement of the median sternotomy wires. Displacement of the wires is new from prior. 2. Mild cardiomegaly with volume overload and congestive change. No vinny pulmonary edema. 3. Low lung volumes with hypoventilatory changes. Electronically signed by: Patrick Mosher M.D. 07/28/2018 9:[address] head/brain wo con CLINICAL HISTORY: 82 years-old Male presenting with ams. TECHNIQUE: Multidetector CT imaging of the head was performed without the use of intravenous contrast. IV contrast: None. One or more dose lowering techniques were used consistent with the principles of ALARA (as low as reasonably achievable), including automatic exposure control, mA or kV adjustment to individual patient size, and/or use of iterative reconstruction. COMPARISON: None. CT DOSE (mGy.cm): The estimated cumulative dose is 537.48 mGy.cm. FINDINGS: [employer] topogram: Unremarkable. Proportional ventricular and sulcal prominence, likely age-related parenchymal volume loss. No hemorrhage. Periventricular and subcortical white matter hypoattenuation, nonspecific but likely indicative of chronic small vessel ischemic change. Old left cerebellar hemispheric infarct. Old acute or infarct in the right caudate head. Old lacunar infarct may also be present in the periventricular white matter of the right parietal lobe. No acute territorial infarct. No mass effect or midline shift. No extra-axial fluid collection. Paranasal sinuses and mastoid air cells clear. Calvarium intact. IMPRESSION: 1. Chronic small vessel ischemic change and multiple lacunar and/or small infarcts. No acute intracranial abnormality. Electronically signed by: Patirck Mosher M.D. 07/28/2018 10:27 PM ECG Data Attestation: I personally reviewed and interpreted this ECG as follows: Indication: weakness Rate (beats per minute): 77 Rhythm: sinus rhythm Findings: + other (no overt acute ischemia) and + left axis deviation Blood Pressure Blood Pressure Findings: Elevated blood pressure Blood Pressure Disposition: further management by hospitalist MAT Lopez The patient is a pleasant 82 y/o gentleman with a pmhx of GERD who presents to the emergency department with persistent generalized weakness and confusion after being discharged from [facility] after admission for new seizure episode, which per family was identified on spot EEG and patient was placed on Depakote per HPI. Of note, family report patient was confused this morning and exhibit generalized weakness. They report he did not ambulate prior to discharge and needed significant assistance to get in and out of the car. On arrival the patient is in NAD, AFVSS. He appears clinically dry. He exhibits generalized weakness without any focal deficits. He is alert and oriented. EKG unremarkable without evidence of acute ischemia. CXR with question of pulmonary congestion h owever patient is without respiratory symptoms and 100% on RA. Unclear significance of displacement of sternotomy wire. WBC and platelets wnl. H/H 12/36.1 similar to prior range. Bicarb 20 c/w patient's clinically dry appearance. Electrolytes unremarkable. Troponin within normal range. UA c/w infection and ordered for CTX. CT head with chronic small vessel ischemic change and multiple lacunar and/or small infarcts. Given patient's generalized weakness in the setting of UTI and new seziure d/o, reasonable to admit for further management. Case d/w Dr. Gleason, [facility] hospitalist, who will evaluate the patient for admission. Impression & Plan UTI (urinary tract infection), Generalized weakness Discharge Plan Visit Data *Final* Discharge Date/Time: 07/29/18 00:54 Chief Complaint: Weakness Stated Complaint: weakness ED Provider: Robbin Doyle Discharge Problem: UTI (urinary tract infection), Generalized weakness Patient Disposition: Admitted As Inpatient Discharge Instructions Interventions: ED Discharge Assessment Last Done: 07/29/18 00:54 Discharge Problem: UTI (urinary tract infection) Qualifiers: Urinary tract infection type: site unspecified Hematuria presence: with hematuria Qualified Code(s): N39.0 - Urinary tract infection, site not specified The scribe's documentation has been prepared under my direction and personally reviewed by me in its entirety. I confirm that the note above accurately reflects all work, treatment, procedures, and medical decision making performed by me.
--- NOTE | 2018-07-29 00:53 | History & Physical Report ---
Date of Service July 29, 2018 Assessment & Plan (1) Generalized weakness: 82 y/o M Hx suspected CVA, urostomy with recurrent UTIs, GERD, new diagnosis of seizure disorder, dementia, chronic back pain. The pt was admitted to [facility] one day prior following what was apparently witnessed seizure activity by his while he was sleeping. A seizure disorder was confirmed on EEG by a neurologist at [facility], and he was then placed on Keppra and discharged. The family states that at the time of discharge he was exhibiting lethargy, confusion and was too weak to support his own weight. He was wheeled out of [facility] in a chair. The family wanted to return him to [facility], however, he was diverted to [facility] as [facility] now claims that they do not actually have a neurologist in house. Initial labs demonstrate a + UA without additional abnormalities. A CT head does not show acute abnormalities but does show multiple prior lacunar infarcts. 1) AMS, weakness, cannot ambulate independently - current differential includes a UTI or effects of Keppra which he was started on one day prior. We have placed the pt on IVF, antibiotics and held his Keppra. Would consider a neurology consult AM if we can confirm a seizure disorder and his lethargy is confirmed as related to Keppra. PT/OT requested. 2) Regarding his seizure disorder, he does have risk factors of dementia and CVAs. We will obtain an MRI with gadolinium. As above Keppra is held and we may need an alternative. 3) Chronic back pain - I have cut back his narcotic dose due to lethargy. 4) GERD - cont Ranitidine. Full code - SCDs due to seizure risk Total time for this admit including review of labs, meds, imaging, records - discussion with pt, family and ER attending - 38 min History of Present Illness Chief Complaint: Weakness, confusion, cannot ambulate Primary Care Provider: Kobi Parr 82 y/o M Hx suspected CVA, urostomy with recurrent UTIs, GERD, new diagnosis of seizure disorder, dementia, chronic back pain. The pt was admitted to [facility] one day prior following what was apparently witnessed seizure activity by his while he was sleeping. A seizure disorder was confirmed on EEG by a neurologist at [facility], and he was then placed on Keppra and discharged. The family states that at the time of discharge he was exhibiting lethargy, confusion and was too weak to support his own weight. He was wheeled out of [facility] in a chair. The family wanted to return him to [facility], however, he was diverted to [facility] as [facility] now claims that they do not actually have a neurologist in house. Initial labs demonstrate a + UA without additional abnormalities. A CT head does not show acute abnormalities but does show multiple prior lacunar infarcts. PMH: 1) Prostate CA - radical prostatectomy 2) Urostomy resulted form complicated prostatectomy - recurrent UTIs 3) Lumbar and cervical spinal stenosis 4) Dementia - family states cognitive decline has been recent since of brother 5) GERD 6) Suspected seizure disorder 7) Chronic back pain with narcotic dependence 8) Family states that he had an MRI one month ago which showed an occult CVA - multiple CVA are reported on current CT Surgical: 1) Lumbar surgery 2) Cervical spinal surgery 3) Radical prostatectomy 4) Urostomy 5) Penile implant Social: Does not drink or smoke Family: Mother - DM, multiple CVAs Father owing to bladder CA Allergies Allergy/AdvReac Type Severity Reaction Status Date / Time tetanus toxoid, adsorbed AdvReac Mild ITCHING Verified 07/28/18 20:31 RASH Home Medications Home Medications Medication Instructions Recorded Confirmed Type Lactobacillus acidophilus 0 cell PO DAILY 07/28/18 07/28/18 History [Probiotic] aspirin 325 mg PO DAILY 07/28/18 07/28/18 History divalproex 250 mg PO BID 07/28/18 07/28/18 History oxycodone 15 mg PO Q6 PRN 07/28/18 07/28/18 History ranitidine HCl [Zantac] 150 mg PO BID 07/28/18 07/28/18 History Past Med/Surg History Medical History Prostate cancer (Chronic) Social History Preferred Language: German Current Living Situation: Significant Other Feels Safe at Home: Yes Smoking Status: Former smoker Review of Systems Review of Systems: The pt cannot provide an ROS - he is brought in for weakness, confusion and as he cannot ambulate Physical Exam Physical Exam: General: Lethargic, eldelry male, AAO x 1, no distress ENT: No erythema or exudates, no thrush Eyes: STEPHAN, EOMI Head and neck: Normocephalic, atraumatic, No JVD, neck is supple. Chest/heart: Nontender, S1,2, RRR, no murmurs, no gallops Lungs: CTAB, no wheezing or crackles Abdomen: Nontender, nondistended, BS+ - a urostomy bag i functional and contains clear urine. Neuro: AAO x 3, speech is clear, no unilateral weakness or loss of sensation, coordination intact Musculoskeletal: No joint inflammation, muscle tenderness, FROM Skin: No acute rashes or ulcers Extremities: No clubbing, cyanosis, edema Results & Data Vital Signs (Past 12 Hours) Vital Signs Temp Pulse Pulse Resp BP BP Pulse Ox 07/28/18 23:37 76 18 151/81 H 98 07/28/18 22:32 82 18 110/72 98 07/28/18 20:55 99 07/28/18 20:30 75 18 123/65 98 07/28/18 20:04 97.7 F 81 18 97/74 L 97
[2018-07-29] MEDS ORDERED: ONDANSETRON INJ 2 MG/ML 2 ML VIAL IV PRN (01:16)
[2018-07-29] MEDS ORDERED: ALUMINUM/MAGNESIUM SUSP 30 ML UDC PO PRN (01:16)
[2018-07-29] MEDS ORDERED: MAGNESIUM HYDROXIDE SUSP 30 ML UDC PO PRN (01:16)
[2018-07-29] MEDS ORDERED: ACETAMINOPHEN 325 MG TAB PO PRN (01:16)
[2018-07-29] MEDS ORDERED: POLYETHYLENE (MIRALAX) 17 GM PACK PO PRN (01:16)
[2018-07-29] MEDS: OXYCODONE HCL IR 5 MG TAB (IMMEDIATE RELEASE) PO PRN ×3 (06:40→22:39)
[2018-07-29] MEDS: ASPIRIN 325 MG ECTAB PO SCH (08:04)
[2018-07-29] MEDS ORDERED: PNEUMOCOCCAL POLYSACCHARIDES 25 MCG/0.5 ML VIAL/SYR IM ONE (09:00)
[2018-07-29] MEDS ORDERED: PNEUMOCOCCAL ADMINISTRATION CHARGE ONE (09:00)
--- NOTE | 2018-07-29 10:12 | Neurology Consultation ---
Date of Consultation July 29, 2018 Assessment & Plan (1) Observed seizure-like activity: Observed seizure-like episode that occurred Friday afternoon during sleep. This patient reportedly had another similar episode sometime within the past 6 months. At this point, I am not really sure if this patient has epilepsy. Other possibilities could include periodic limb movement disorder, other parasomnia, or myoclonic jerking related to narcotic analgesic use. I have recommended an up-to-date EEG. Would hold on anticonvulsant therapy at this point in time. Would also consider an outpatient sleep medicine evaluation. (2) Cerebrovascular disease: This patient's CT of the head does reveal fairly extensive chronic cerebrovascular disease as well as several old lacunar infarcts. He may have an element of mild cognitive impairment related to cerebrovascular disease. However, he only exhibits mild difficulty with orientation and short-term memory at this point in time. He otherwise seems to have fairly intact cognitive functioning. Nonetheless, a more thorough outpatient cognitive assessment should be completed. I agree with obtaining the brain MRI as ordered to evaluate for acute or subacute stroke. I would also recommend a carotid ultrasound. Continue with daily aspirin. This patient appears to be taking a daily full dose aspirin which may be acceptable in light of his cardiac history. However, for stroke risk reduction I would typically recommend 81 mg/day or Plavix 75 mg/day. It may also be of value to check a fasting lipid panel and an echocardiogram as well in this patient. History of Present Illness Reason for Consultation: Recent diagnosis of seizure, lethargy, weakness Requesting Physician: Toan Gleason MD Attending Physician: Nick Calvo History of Present Illness The patient is an 82-year-old male who was brought to [facility] for further assessment of generalized weakness, somnolence, and inability to care for himself which is been a progressive problem for the past few months. He was admitted to [facility] this past Friday after an episode of seizure-like activity that occurred during an afternoon nap. The episode was witnessed by his fishery biologist who reportedly heard some noises and thrashing around from the other room. He reportedly was exhibiting some generalized shaking movements which lasted for less than a minute. There was no incontinence. 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 The above event was described to me by this patient's daughter, Sally, over the telephone this morning. The patient's grandson was at bedside who is aware of some of the above details. In speaking with the patient's family, it sounds like the patient was admitted to [facility] for several days and was just discharged yesterday. He reportedly had an EEG completed which was interpreted as possible seizures and he was started on Depakote. He was not seen by a neurologist during his admission to [facility] as it sounds like they do not have an inpatient neurology service. In speaking with the patient's daughter further, it sounds like he may have had a similar episode sometime within the past 6 months. He does not have a past medical history of epilepsy or seizure disorder. However, as above, he has a history of a suspected mild dementia, chronic cerebrovascular disease, aortic valve replacement surgery, most recently done in February in [place], and chronic low back pain for which he uses oxycodone, typically on a daily basis. The patient indicates that he often takes his oxycodone prior to his afternoon nap. His grandson does indicate that he does tend to sleep throughout the day. The patient is not a very reliable historian, however. In fact, he is not really aware of the seizure-like episode that resulted in his admission to [facility] recently. He currently denies headache, fever, weakness, or other more specific neurological symptoms at this point in time. Additional details as below. Family history noncontributory in light of patient's advanced age Allergies Allergy/AdvReac Type Severity Reaction Status Date / Time tetanus toxoid, adsorbed AdvReac Mild ITCHING Verified 07/28/18 20:31 RASH Home Medications Home Medications Medication Instructions Recorded Confirmed Type Lactobacillus acidophilus 0 cell PO DAILY 07/28/18 07/28/18 History [Probiotic] aspirin 325 mg PO DAILY 07/28/18 07/28/18 History divalproex 250 mg PO BID 07/28/18 07/28/18 History oxycodone 15 mg PO Q6 PRN 07/28/18 07/28/18 History ranitidine HCl [Zantac] 150 mg PO BID 07/28/18 07/28/18 History Patient History Medical History Prostate cancer (Chronic) Social History Preferred Language: Ecuadorean 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 Beliefs That Will Affect Care: None Current Living Situation: Significant Other Other Information That Helps Us Care for You: No Feels Safe at Home: Yes Safety Concerns: Feels Safe At This Time Smoking Status: Former smoker Do You Dip or Chew Tobacco: No Smoking End Date: 1969 Tobacco Cessation Education Requested by Patient: No Hx Alcohol Use: No Hx Substance Use: No Review of Systems Constitutional: + fatigue, + weakness and + daytime sleepiness; no fever and no chills Eyes: no blind spots and no diplopia Ear, Nose, Mouth, Throat: + hearing loss Respiratory: no cough and no dyspnea Cardiovascular: no chest pain and no palpitations Gastrointestinal: no nausea and no vomiting Genitourinary: no dysuria Musculoskeletal: + back pain; no myalgia Integumentary: no rash and no lesions Neurologic: as per Subjective / HPI, + seizure-like activity, + behavioral changes and + confusion; no headache(s) Psychiatric: + behavioral changes and + confusion; no depression, no anxiety, no hallucinations and no auditory hallucinations Hematologic / Lymphatic: + easy bruising; no lymphadenopathy Physical Exam Physical Exam: The patient is a well-developed, well-nourished elderly male. He is alert and oriented to person, place, and day of the week. Recent memory mildly impaired, 2 out of 3 objects with delayed recall, remote memory intact. Attention and concentration intact. Patient able to spell world forwards and backwards. Patient exhibits a normal spontaneous speech pattern. He is able to name objects and repeat phrases. Patient exhibits an age-appropriate fund of knowledge and normal comprehension of vocabulary. Visual chua full to confrontation. Visual acuity normal. Pupils equal round react to light and accommodation. Eye movements normal. Facial sensation and expression are intact. No facial droop. Hearing intact to finger rub bilaterally. Palate elevates to midline. Shoulder shrug intact. Tongue protrudes to midline. There are no signs of lingual laceration or tongue bite. Sensation intact to all modalities in all 4 limbs. Deep tendon reflexes are intact and symmetrical, plantar responses equivocal bilaterally. There is no dysdiadochokinesia or dysmetria vraxex-im-[id number] or [id number]-jj-[id number] bilaterally. Ophthalmoscopic examination reveals normal-appearing optic disks and posterior segments. No papilledema or hemorrhages. Carotid pulses normal bilaterally, no bruits to auscultation. There is a sternotomy scar and a soft systolic murmur at the right sternal border. Gait and station not tested due to safety concerns. Patient exhibits normal muscle strength and tone for all 4 limbs. No atrophy. No abnormal movements observed. Results & Data Vital Signs (Past 12 Hours) Vital Signs Temp Pulse Pulse Resp BP BP Pulse Ox 07/29/18 07:12 36.9 C 84 18 102/65 94 07/29/18 01:55 78 07/29/18 01:17 36.6 C 84 16 121/77 100 07/29/18 01:05 36.6 C 77 18 121/77 100 07/29/18 00:54 76 21 122/84 99 07/29/18 00:41 79 21 122/89 100 07/29/18 00:33 87 22 122/89 100 07/29/18 00:32 89 19 07/29/18 00:04 86 19 128/80 100 07/29/18 00:02 97 H 20 87/61 L 85 L 07/29/18 00:01 77 23 64/37 L 99 07/29/18 00:00 82 21 94 07/28/18 23:38 88 19 151/81 H 98 07/28/18 23:37 76 18 151/81 H 98 07/28/18 23:30 84 21 148/78 H 92 07/28/18 23:01 67 18 154/88 H 92 07/28/18 23:00 63 19 99 07/28/18 22:32 82 18 110/72 98 07/28/18 22:31 81 21 97 07/28/18 22:30 77 22 119/75 98 07/28/18 22:29 82 26 H 110/72 98 07/28/18 22:00 78 19 100 Pulse Ox 07/29/18 07:12 07/29/18 01:55 07/29/18 01:17 07/29/18 01:05 100 07/29/18 00:54 07/29/18 00:41 07/29/18 00:33 07/29/18 00:32 07/29/18 00:04 07/29/18 00:02 07/29/18 00:01 07/29/18 00:00 07/28/18 23:38 07/28/18 23:37 07/28/18 23:30 07/28/18 23:01 07/28/18 23:00 07/28/18 22:32 07/28/18 22:31 07/28/18 22:30 07/28/18 22:29 07/28/18 22:00 Laboratory Results Recent labs reviewed. WBC 8.46, hemoglobin 12.0, hematocrit 36.1, platelet count 376, sodium 141, potassium 4.0, BUN 7, creatinine 0.89, glucose 84, calcium 9.6, magnesium 2.3, transaminases normal, TSH 1.190, urinalysis positive, valproic acid level [address] of the head completed yesterday reveals generalized atrophy, periventricular and subcortical white matter hypoattenuation suggestive of chronic small vessel ischemic change, and old left cerebellar infarct as well as an old lacunar infarct within the right caudate head. Images and report reviewed. No hemorrhage or acute process appreciated. A chest x-ray reveals mild cardiomegaly with volume overload and congestive change, no vinny pulmonary edema. Electrocardiogram reveals normal sinus rhythm, 77 bpm
--- NOTE | 2018-07-29 13:18 | Procedure Note ---
EEG Procedure Note Date of Service July 29, 2018 Start / End Times Start Time: 11:01 AM End Time: 11:13 AM Referring Physician Gage Betancur MD History History of recent seizure-like episode occurring during sleep Home Medication List Home Medications Medication Instructions Recorded Confirmed Type Lactobacillus acidophilus 0 cell PO DAILY 07/28/18 07/28/18 History [Probiotic] aspirin 325 mg PO DAILY 07/28/18 07/28/18 History divalproex 250 mg PO BID 07/28/18 07/28/18 History oxycodone 15 mg PO Q6 PRN 07/28/18 07/28/18 History ranitidine HCl [Zantac] 150 mg PO BID 07/28/18 07/28/18 History Inpatient Medication List Aspirin (Ecotrin) 325 mg PO DAILY [facility] Stop: 08/28/18 08:59 Last Admin: 07/29/18 08:04 Dose: 325 mg Documented by: [id number] Oxycodone HCl (Roxicodone Immediate Rel) 5 mg PO Q4H PRN PRN Reason: Pain Stop: 08/12/18 01:15 Last Admin: 07/29/18 11:37 Dose: 5 mg Documented by: [id number] Admin: 07/29/18 06:40 Dose: 5 mg Documented by: [id number] Ranitidine HCl (Zantac) 150 mg PO BID [facility] Stop: 08/28/18 08:59 Last Admin: 07/29/18 08:04 Dose: 150 mg Documented by: [id number] Discontinued Medications Sodium Chloride (Nss 1000ml) 1,000 mls @ 999 mls/hr IV .Q1H1M YOUSIF Stop: 07/28/18 22:00 Last Infusion: 07/29/18 00:48 Dose: 0 mls/hr Documented by: [id number] Admin: 07/28/18 22:47 Dose: 999 mls/hr Documented by: [id number] Ceftriaxone Sodium (Rocephin) 1,000 mg in 50 mls @ 100 mls/hr IV NOW STA Stop: 07/28/18 23:38 Last Infusion: 07/29/18 00:34 Dose: 0 mls/hr Documented by: [id number] Admin: 07/28/18 23:39 Dose: 100 mls/hr Documented by: [id number] Description This is a 21 electrode EEG with a single channel dedicated to limited EKG. The electrodes were placed in accordance with the International 10-20 system. There is a posterior dominant rhythm of 9 Hz which is symmetrically distributed and attenuates with eye opening. There is a normal anterior to posterior organization. Photic stimulation is unremarkable. Hyperventilation is not performed. There is admixed polymorphic 6 Hz theta activity, of moderate amplitude, seen throughout the majority of the study. There is intermittent movement artifact. Sleep was not captured. There is no focal or lateralized slowing. No epileptiform abnormalities observed. Interpretation This awake/drowsy EEG captures a relatively normal-appearing 9 Hz background rhythm. There is a moderate degree of admixed theta activity potentially consistent with a mild nonspecific encephalopathy. Clinical Correlation There is a relatively normal-appearing awake/drowsy EEG with some findings suggestive of a mild nonspecific encephalopathy. There are no findings suggestive of a seizure disorder at this time. Further clinical correlation may be needed.
[2018-07-29] MEDS ORDERED: GADOBUTROL 65ML VIAL IV PRN (14:04)
--- NOTE | 2018-07-29 14:15 | Magnetic Resonance Report ---
MR brain wo/w con CLINICAL HISTORY: new sz d/o seizure. Mental status change. COMPARISON STUDY: CT brain 07/28/2018 7.5 TECHNIQUE: Utilizing a 1.5 Yanni magnet and dedicated coil, multiplanar, multiecho imaging of the br ain was performed pre and postcontrast administration. IV administration of 7.5 mL of Gadavist contr ast was uneventful. FINDINGS: Atrophy. Considerable chronic small vessel change. Compensatory prominence of the ventricular system. Small old infarcts of the left cerebellum, right fani, as well as periventricular regions. No abnormal postcontrast enhancement. IMPRESSION: 1. Findings of generalized cerebellar as well as cerebral atrophy. 2. Compensatory ventricular dilatation. 3. Several old scattered infarcts. 4. No abnormal postcontrast enhancement The above report was generated using voice recognition software. It may contain grammatical, syntax or spelling errors. Electronically signed by: Alan Matrínez M.D. 07/29/2018 2:14 PM
--- NOTE | 2018-07-29 14:50 | Ultrasound Report ---
BILATERAL CAROTID DOPPLER STUDY HISTORY: Old infarcts. cerebrovascular disease COMPARISON: None. TECHNIQUE: Real-time, grayscale, and color Doppler sonography of the carotid arteries was performed. Imaging reviewed in the transverse and longitudinal planes. All measurements were calculated based on NASCET criteria. FINDINGS: Antegrade flow is seen in the bilateral vertebral arteries. The brachial pressures were not obtained. Mild calcified plaque within the right carotid bifurcation. The peak systolic velocity within the right ICA is 63 cm/s. The right systolic ratio is 0.9. The peak systolic velocity within the left ICA is 79 cm/s. The left systolic ratio is 1.2. IMPRESSION: No hemodynamically significant stenosis seen within the carotid arteries. Electronically signed by: Rigo Rodriguez M.D. 07/29/2018 2:48 PM
[2018-07-29] MEDS: cefTRIAXone SODIUM 1,000 MG in DEXTROSE 5% 50 ML IV SCH (21:40)
[2018-07-30 07:06] LABS: Chol HDL Ratio 4; Cholesterol 123 mg/dl (0-200); HDL Cholesterol 29 mg/dl; LDL Cholesterol Calculated 81 mg/dl; Triglycerides 63 mg/dl (0-150); VLDL Cholesterol 13 mg/dl
[2018-07-30] MEDS: ASPIRIN 325 MG ECTAB PO SCH (08:06)
--- NOTE | 2018-07-30 09:57 | Neurology Progress Note ---
Date of Service July 30, 2018 Assessment & Plan (1) Cerebrovascular disease: Chronic cerebrovascular disease with evidence of a few scattered small chronic lacunar infarcts. 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 As recommended previously, continue with antiplatelet therapy. PT/OT. Patient may need placement if he is unable to care for himself. (2) Observed seizure-like activity: No convincing evidence for epilepsy in this patient, at least at this time. I would hold on restarting the Depakote. Consider obtaining an outpatient sleep medicine evaluation as the observed episode occurred during sleep. I am unable to exclude periodic limb movement disorder, parasomnia, or myoclonic jerking related to narcotic analgesic use. Subjective Follow-up for functional decline, recent episode of seizure-like activity, test results The patient is an 82-year-old male who was admitted for further assessment of generalized weakness, functional decline, and a recent seizure-like episode that occurred this past Friday afternoon during sleep. He was initially evaluated at [facility] and thought to possibly have a seizure disorder and was started on Depakote. He was not seen by a neurologist at that time but did have an EEG completed. The patient was subsequently admitted to [facility] for further assessment although he has not experienced any further seizure-like episodes. He did complete the requested follow-up EEG yesterday. This study was generally unremarkable and without evidence of an underlying seizure disorder. He also completed the requested brain MRI as well. This test was negative for acute stroke or other acute process but did reveal chronic small vessel ischemic disease as well as scattered lacunar infarcts as described below. There is also an element of generalized atrophy. Currently, the patient is without specific neurological complaint. He denies headache, vision disturbance, focal weakness, or muscle pain. Additional details as below. Review of Systems Constitutional: no fever, no chills and no body aches Eyes: no blind spots and no diplopia Musculoskeletal: no back pain and no myalgia Neurologic: as per Subjective / HPI; no headache(s) Physical Exam Physical Exam: The patient is alert and oriented to person and hospital only. He exhibits some difficulty with delayed recall but otherwise has intact memory. Attention and concentration are normal. Patient exhibits a normal spontaneous speech pattern and normal comprehension of vocabulary. Visual chua full to confrontation. Visual acuity normal. Pupils equal round reactive to light and accommodation. Eye movements normal. Horizontal and vertical gaze intact. There is no nystagmus. Facial sensation intact. There is no facial droop or weakness. Hearing intact. Palate elevates to midline. Shoulder shrug intact. Tongue protrudes to midline. There is no pronator drift. There is no dysdiadochokinesia or dysmetria [id number]-sx-[id number] or jczy-ng-[id number] bilaterally. Muscle strength normal throughout. Muscle tone normal. No atrophy. No abnormal movements appreciated. Results & Data Vital Signs (Past 12 Hours) Vital Signs Temp Pulse Pulse Resp BP Pulse Ox 07/30/18 07:43 37.5 C 79 22 125/73 100 07/30/18 06:46 36.5 C 83 20 116/72 99 07/30/18 03:03 36.5 C 80 20 119/66 96 07/29/18 23:24 36.6 C 91 H 20 117/68 98 07/29/18 23:18 84 Diagnostic Findings A carotid ultrasound completed yesterday was unremarkable. No hemodynamically significant stenosis. Antegrade flow in both vertebral arteries. Brain MRI completed yesterday reviewed. There is generalized atrophy involving the cerebellum and cerebrum. There are scattered small chronic infarcts within the left cerebellum, right fani, and right caudate head as identified on the previous CT of the head. There is an element of hydrocephalus ex vacuo. There is no evidence of acute or subacute stroke. I reviewed the images as well as the radiologist interpretation of this test and agree. An EEG was completed yesterday. This study revealed a normal-appearing 9 Hz background rhythm with admixed theta activity suggestive of a mild nonspecific encephalopathy. Epileptiform abnormalities were not observed.
[2018-07-30] MEDS: OXYCODONE HCL IR 5 MG TAB (IMMEDIATE RELEASE) PO PRN (12:25)
[2018-07-30] MEDS: cefTRIAXone SODIUM 1,000 MG in DEXTROSE 5% 50 ML IV SCH (20:47)
--- NOTE | 2018-07-30 22:14 | Hospitalist Progress Note ---
Date of Service July 30, 2018 Assessment & Plan (1) Generalized weakness: 82 y/o M Hx suspected CVA, urostomy with recurrent UTIs, GERD, new diagnosis of seizure disorder, dementia, chronic back pain. The pt was admitted to [facility] one day prior following what was apparently witnessed seizure activity by his while he was sleeping. A seizure disorder was confirmed on EEG by a neurologist at [facility], and he was then placed on Keppra and discharged. The family states that at the time of discharge he was exhibiting lethargy, confusion and was too weak to support his own weight. He was wheeled out of [facility] in a chair. The family wanted to return him to [facility], however, he was diverted to [facility] as [facility] now claims that they do not actually have a neurologist in house. Initial labs demonstrate a + UA without additional abnormalities. A CT head does not show acute abnormalities but does show multiple prior lacunar infarcts. 1) AMS, weakness, cannot ambulate independently Patient has imgaing that supports chronic cerebrovascular disease which likely is playing a role in his confusion and memory problems. Appreciate input from Neurology. - Chronic cerebrovascular disease with evidence of a few scattered small chronic lacunar infarcts. 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 As recommended previously, continue with antiplatelet therapy. PT/OT. Patient may need placement if he is unable to care for himself. Observed seizure-like activity: No convincing evidence for epilepsy in this patient, at least at this time. I would hold on restarting the Depakote. Consider obtaining an outpatient sleep medicine evaluation as the observed episode occurred during sleep. I am unable to exclude periodic limb movement disorder, parasomnia, or myoclonic jerking related to narcotic analgesic use. 2) Regarding his seizure disorder, he does have risk factors of dementia and CVAs. 3) Chronic back pain - I have cut back his narcotic dose due to lethargy. Patient is currently improved in regards to his lethargy. 4) GERD - cont Ranitidine. Full code - SCDs due to seizure risk Spent 25 minutes in management of patient. Subjective Patient currently has no new complaints at this time. Patient denies any headaches, nausea, vomiting, diarrhea. Review of Systems Review of Systems: All systems reviewed & are unremarkable except as noted in HPI & below Physical Exam Physical Exam: General: In no distress, no longer lethargic, eldelry male ENT: No erythema or exudates, no thrush Eyes: STEPHAN, EOMI Head and neck: Normocephalic, atraumatic, No JVD, neck is supple. Chest/heart: Nontender, S1,2, RRR, no murmurs, no gallops Lungs: CTAB, no wheezing or crackles Abdomen: Nontender, nondistended, BS+ - a urostomy bag i functional and contains clear urine. Neuro: AAO x 2, speech is clear, no unilateral weakness or loss of sensation, coordination intact Musculoskeletal: No joint inflammation, muscle tenderness, FROM Skin: No acute rashes or ulcers Extremities: No clubbing, cyanosis, edema Results & Data Vital Signs (Past 12 Hours) Vital Signs Temp Pulse Pulse Resp BP BP Pulse Ox 07/30/18 19:27 37.1 C 85 20 119/71 97 07/30/18 18:02 77 07/30/18 15:40 36.6 C 76 18 120/72 98 07/30/18 11:17 36.9 C 86 22 137/82 96
[2018-07-31] MEDS: ASPIRIN 325 MG ECTAB PO SCH (07:45)
--- NOTE | 2018-07-31 10:22 | Neurology Progress Note ---
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 Further evaluation and management as an outpatient may be beneficial. Would not start a cholinesterase inhibitor at this time, however. (2) Cerebrovascular disease: Chronic cerebrovascular disease. Patient should continue with daily aspirin. 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 He does not have signs or symptoms suggestive of Parkinson's disease at this time. (3) Observed seizure-like activity: Episode of seizure-like activity occurring during an afternoon nap this past Friday. Patient's recent EEG was negative for epileptiform abnormalities, but did reveal a mild nonspecific encephalopathy, probably consistent with what appears to be a mild dementia in the context of cerebrovascular disease. I would hold on restarting an anticonvulsant at this time. Would consider obtaining an outpatient sleep medicine assessment to exclude other potential sleep associated issues such as periodic limb movement disorder, parasomnias, or myoclonic jerking of the limbs. However, if this patient were to have additional episodes concerning for seizures, I would reconsider another trial of an anticonvulsant in that context. Subjective Follow-up for functional decline, seizure-like episode The patient is an 82-year-old male who was admitted for further evaluation of functional decline and a recent seizure-like episode that occurred this past Friday afternoon while the patient was taking a nap. He was initially assessed at [facility] and thought to possibly have a seizure disorder on the basis of an EEG done at that institution at that time. He was not seen by a neurologist, however. He was discharged with a prescription for a low-dose of Depakote. However, due to generalized weakness, somnolence, an apparent inability of the patient to care for himself he was brought to [facility] for further evaluation. A repeat EEG done in our institution revealed some changes suggestive of a mild encephalopathy but was not suggestive of epilepsy. A brain MRI has revealed generalized atrophy with an element of hydrocephalus ex vacuo as well as scattered chronic lacunar infarcts and periventricular white matter ischemic disease. A carotid ultrasound is unremarkable. The patient has not had any witnessed seizure-like episodes during this hospitalization although he remains modestly confused. He expresses an interest in going home today if possible. He currently denies headache, vision loss, or difficulty with speech or swallowing. He has been evaluated by physical therapy. The patient is able to ambulate with a walker with supervision. He has reportedly had a few falls at home since this past February. Recommendations are for a short stay in rehabilitation. Review of Systems Constitutional: no fever and no chills Eyes: no blind spots and no diplopia Musculoskeletal: no myalgia Neurologic: as per Subjective / HPI, + gait abnormality, + falls and + generalized weakness Physical Exam Physical Exam: The patient is alert and oriented to person and hospital only. Delayed recall is impaired. Attention intact although concentration slightly impaired. Patient exhibits a normal spontaneous speech pattern. He is able to name objects and repeat phrases. Patient is up with normal fund of knowledge and comprehension of vocabulary. Visual chua full to confrontation. Visual acuity normal. Pupils equal round reactive to light and accommodation. Eye movements normal. There is no nystagmus. Facial sensation intact. There is no facial droop or weakness. Hearing intact. Palate elevates to midline. Shoulder shrug intact. Tongue protrudes to midline. There is no dysdiadochokinesia or dysmetria [id number] or [id number] bilaterally. Patient exhibits normal muscle strength and tone for all 4 limbs proximally and distally. There is no atrophy. No abnormal movements observed. Results & Data Vital Signs (Past 12 Hours) Vital Signs Temp Pulse Pulse Resp BP BP Pulse Ox 07/31/18 07:44 37.5 C 96 H 18 103/56 L 96 07/31/18 03:19 36.5 C 93 H 18 125/78 100 07/31/18 00:03 87 07/30/18 23:07 36.8 C 86 16 118/77 98 Diagnostic Findings Brain MRI completed July 29, 2018 reveals generalized cerebellar and cerebral atrophy with an element of compensatory ventricular dilatation and several scattered old lacunar infarcts. I reviewed the images as well as the radiologist interpretation of this test. A carotid ultrasound completed July 29, 2018 was negative for hemodynamically significant stenosis within either carotid artery. Antegrade flow for both vertebral arteries appreciated. EEG completed July 29, 2018 revealed a mild nonspecific encephalopathy due to the presence of a moderate degree of admixed theta activity seen throughout the study. No epileptiform abnormalities observed, however.
[2018-07-31] MEDS: OXYCODONE HCL IR 5 MG TAB (IMMEDIATE RELEASE) PO PRN (16:48)
[2018-07-31] MEDS: cefTRIAXone SODIUM 1,000 MG in DEXTROSE 5% 50 ML IV SCH (21:46)
--- NOTE | 2018-07-31 23:13 | Hospitalist Progress Note ---
Date of Service July 31, 2018 Assessment & Plan (1) Generalized weakness: 82 y/o M Hx suspected CVA, urostomy with recurrent UTIs, GERD, new diagnosis of seizure disorder, dementia, chronic back pain. The pt was admitted to [facility] one day prior following what was apparently witnessed seizure activity by his while he was sleeping. A seizure disorder was confirmed on EEG by a neurologist at [facility], and he was then placed on Keppra and discharged. The family states that at the time of discharge he was exhibiting lethargy, confusion and was too weak to support his own weight. He was wheeled out of [facility] in a chair. The family wanted to return him to [facility], however, he was diverted to [facility] as [facility] now claims that they do not actually have a neurologist in house. Initial labs demonstrate a + UA without additional abnormalities. A CT head does not show acute abnormalities but does show multiple prior lacunar infarcts. 1) AMS, weakness, cannot ambulate independently Patient has imgaing that supports chronic cerebrovascular disease which likely is playing a role in his confusion and memory problems. Appreciate input from Neurology. - Chronic cerebrovascular disease with evidence of a few scattered small chronic lacunar infarcts. 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 As recommended previously, continue with antiplatelet therapy. PT/OT. Patient may need placement if he is unable to care for himself. Observed seizure-like activity: No convincing evidence for epilepsy in this patient, at least at this time. I would hold on restarting the Depakote. Consider obtaining an outpatient sleep medicine evaluation as the observed episode occurred during sleep. I am unable to exclude periodic limb movement disorder, parasomnia, or myoclonic jerking related to narcotic analgesic use. Patient is currently going through a family appeal for placement. 2) Regarding his seizure disorder, he does have risk factors of dementia and CVAs. 3) Chronic back pain - I have cut back his narcotic dose due to lethargy. Patient is currently improved in regards to his lethargy. 4) GERD - cont Ranitidine. Full code - SCDs due to seizure risk Spent 25 minutes in management of patient. Subjective Patient states that he would like to go home today. He currently denies any headaches, blurry vision, paralysis, chest pain, nausea vomiting. Family is working on the [employer]. Review of Systems Review of Systems: All systems reviewed & are unremarkable except as noted in HPI & below Physical Exam Physical Exam: General: In no distress, no longer lethargic, eldelry male ENT: No erythema or exudates, no thrush Eyes: STEPHAN, EOMI Head and neck: Normocephalic, atraumatic, No JVD, neck is supple. Chest/heart: Nontender, S1,2, RRR, no murmurs, no gallops Lungs: CTAB, no wheezing or crackles Abdomen: Nontender, nondistended, BS+ - a urostomy bag i functional and contains clear urine. Neuro: AAO x 2, speech is clear, no unilateral weakness or loss of sensation, coordination intact Musculoskeletal: No joint inflammation, muscle tenderness, FROM Skin: No acute rashes or ulcers Extremities: No clubbing, cyanosis, edema Results & Data Vital Signs (Past 12 Hours) Vital Signs Temp Pulse Resp BP Pulse Ox 07/31/18 15:09 37 C 87 16 96/63 L 99 07/31/18 13:10 36.4 C L 88 18 124/81 99 07/31/18 12:00 36.7 C 104 H 18 114/69 99
[2018-08-01] MEDS: ASPIRIN 325 MG ECTAB PO SCH (08:58)
[2018-08-01] MEDS: OXYCODONE HCL IR 5 MG TAB (IMMEDIATE RELEASE) PO PRN (14:48)
[2018-08-01] MEDS: cefTRIAXone SODIUM 1,000 MG in DEXTROSE 5% 50 ML IV SCH (21:13)
--- NOTE | 2018-08-01 23:57 | Hospitalist Progress Note ---
Date of Service August 01, 2018 Assessment & Plan (1) Generalized weakness: 82 y/o M Hx suspected CVA, urostomy with recurrent UTIs, GERD, new diagnosis of seizure disorder, dementia, chronic back pain. The pt was admitted to [facility] one day prior following what was apparently witnessed seizure activity by his while he was sleeping. A seizure disorder was confirmed on EEG by a neurologist at [facility], and he was then placed on Keppra and discharged. The family states that at the time of discharge he was exhibiting lethargy, confusion and was too weak to support his own weight. He was wheeled out of [facility] in a chair. The family wanted to return him to [facility], however, he was diverted to [facility] as [facility] now claims that they do not actually have a neurologist in house. Initial labs demonstrate a + UA without additional abnormalities. A CT head does not show acute abnormalities but does show multiple prior lacunar infarcts. 1) AMS, weakness, cannot ambulate independently Patient has imgaing that supports chronic cerebrovascular disease which likely is playing a role in his confusion and memory problems. Appreciate input from Neurology. - Chronic cerebrovascular disease with evidence of a few scattered small chronic lacunar infarcts. 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 As recommended previously, continue with antiplatelet therapy. PT/OT. Patient may need placement if he is unable to care for himself. Observed seizure-like activity: No convincing evidence for epilepsy in this patient, at least at this time. I would hold on restarting the Depakote. Consider obtaining an outpatient sleep medicine evaluation as the observed episode occurred during sleep. I am unable to exclude periodic limb movement disorder, parasomnia, or myoclonic jerking related to narcotic analgesic use. Patient is currently going through a family appeal for placement. 2) Regarding his seizure disorder, he does have risk factors of dementia and CVAs. 3) Chronic back pain - I have cut back his narcotic dose due to lethargy. Patient is currently improved in regards to his lethargy. 4) GERD - cont Ranitidine. Full code - SCDs due to seizure risk Spent 25 minutes in management of patient. Awaiting family appeal. Subjective Patient is a poor historian. Does not recall any previous conversations. Only concern is that he wants to go home. No other complaints. Review of Systems Review of Systems: Unobtainable due to mental health condition Physical Exam Physical Exam: General: In no distress, no longer lethargic, eldelry male ENT: No erythema or exudates, no thrush Eyes: STEPHAN, EOMI Head and neck: Normocephalic, atraumatic, No JVD, neck is supple. Chest/heart: Nontender, S1,2, RRR, no murmurs, no gallops Lungs: CTAB, no wheezing or crackles Abdomen: Nontender, nondistended, BS+ - a urostomy bag i functional and contains clear urine. Neuro: AAO x 2, speech is clear, no unilateral weakness or loss of sensation, coordination intact Musculoskeletal: No joint inflammation, muscle tenderness, FROM Skin: No acute rashes or ulcers Extremities: No clubbing, cyanosis, edema Results & Data Vital Signs (Past 12 Hours) Vital Signs Temp Pulse Resp BP Pulse Ox 08/01/18 23:00 36.7 C 93 H 20 94/60 L 98 08/01/18 16:00 37.2 C 76 18 113/74 100
[2018-08-02] MEDS: OXYCODONE HCL IR 5 MG TAB (IMMEDIATE RELEASE) PO PRN ×4 (01:19→18:12)
[2018-08-02] MEDS: ASPIRIN 325 MG ECTAB PO SCH (08:55)
[2018-08-02] MEDS: cefTRIAXone SODIUM 1,000 MG in DEXTROSE 5% 50 ML IV SCH (21:40)
--- NOTE | 2018-08-02 22:35 | Hospitalist Progress Note ---
Date of Service August 02, 2018 Assessment & Plan (1) Generalized weakness: 82 y/o M Hx suspected CVA, urostomy with recurrent UTIs, GERD, new diagnosis of seizure disorder, dementia, chronic back pain. The pt was admitted to [facility] one day prior following what was apparently witnessed seizure activity by his while he was sleeping. A seizure disorder was confirmed on EEG by a neurologist at [facility], and he was then placed on Keppra and discharged. The family states that at the time of discharge he was exhibiting lethargy, confusion and was too weak to support his own weight. He was wheeled out of [facility] in a chair. The family wanted to return him to [facility], however, he was diverted to [facility] as [facility] now claims that they do not actually have a neurologist in house. Initial labs demonstrate a + UA without additional abnormalities. A CT head does not show acute abnormalities but does show multiple prior lacunar infarcts. 1) AMS, weakness, cannot ambulate independently Patient has imgaing that supports chronic cerebrovascular disease which likely is playing a role in his confusion and memory problems. Appreciate input from Neurology. - Chronic cerebrovascular disease with evidence of a few scattered small chronic lacunar infarcts. 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 As recommended previously, continue with antiplatelet therapy. PT/OT. Patient may need placement if he is unable to care for himself. Observed seizure-like activity: No convincing evidence for epilepsy in this patient, at least at this time. I would hold on restarting the Depakote. Consider obtaining an outpatient sleep medicine evaluation as the observed episode occurred during sleep. I am unable to exclude periodic limb movement disorder, parasomnia, or myoclonic jerking related to narcotic analgesic use. Patient is currently going through a family appeal for placement. 2) Regarding his seizure disorder, he does have risk factors of dementia and CVAs. 3) Chronic back pain - I have cut back his narcotic dose due to lethargy. Patient is currently improved in regards to his lethargy. 4) GERD - cont Ranitidine. Full code - SCDs due to seizure risk Spent 25 minutes in management of patient. Awaiting family appeal for placement. Subjective Family is at [facility] and are updated. Currently awaiting for family appeal. Patient is comfortable and does not provide further medical history. Review of Systems Review of Systems: All systems reviewed & are unremarkable except as noted in HPI & below Physical Exam Physical Exam: General: In no distress, no longer lethargic, eldelry male ENT: No erythema or exudates, no thrush Eyes: STEPHAN, EOMI Head and neck: Normocephalic, atraumatic, No JVD, neck is supple. Chest/heart: Nontender, S1,2, RRR, no murmurs, no gallops Lungs: CTAB, no wheezing or crackles Abdomen: Nontender, nondistended, BS+ - a urostomy bag i functional and contains clear urine. Neuro: AAO x 2 (knows location and self), speech is clear, no unilateral weakness or loss of sensation, coordination intact Musculoskeletal: No joint inflammation, muscle tenderness, FROM Skin: No acute rashes or ulcers Extremities: No clubbing, cyanosis, edema Results & Data Vital Signs (Past 12 Hours) Vital Signs Temp Pulse Resp BP Pulse Ox 08/02/18 15:04 36.8 C 88 18 92/54 L 95
[2018-08-03] MEDS: ASPIRIN 325 MG ECTAB PO SCH (07:51)
[2018-08-03] MEDS: OXYCODONE HCL IR 5 MG TAB (IMMEDIATE RELEASE) PO PRN ×3 (08:06→17:52)
[2018-08-03] MEDS ORDERED: NICOTINE POLACRILEX 2 MG GUM MT PRN (10:00)
--- NOTE | 2018-08-03 10:02 | Hospitalist Progress Note ---
Date of Service August 03, 2018 Assessment & Plan (1) Generalized weakness: 82 y/o M Hx suspected CVA, urostomy with recurrent UTIs, GERD, new diagnosis of seizure disorder, dementia, chronic back pain. The pt was admitted to [place] one day prior following what was apparently witnessed seizure activity by his while he was sleeping. A seizure disorder was confirmed on EEG by a neurologist at [place], and he was then placed on Keppra and discharged. The family states that at the time of discharge he was exhibiting lethargy, confusion and was too weak to support his own weight. He was wheeled out of [place] in a chair. The family wanted to return him to [place], however, he was diverted to [facility] as [facility] now claims that they do not actually have a neurologist in house. Initial labs demonstrate a + UA without additional abnormalities. A CT head does not show acute abnormalities but does show multiple prior lacunar infarcts. AMS, weakness, cannot ambulate independently Patient has imgaing that supports chronic cerebrovascular disease which likely i s playing a role in his confusion and memory problems. Appreciate input from Neurology. - Chronic cerebrovascular disease with evidence of a few scattered small chronic lacunar infarcts. 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 As recommended previously, continue with antiplatelet therapy. PT/OT. Patient may need placement if he is unable to care for himself. Patient is currently going through a family appeal for placement. (2) Observed seizure-like activity: per neurology: Observed seizure-like activity: No convincing evidence for epilepsy in this patient, at least at this time. I would hold on restarting the Depakote. Consider obtaining an outpatient sleep medicine evaluation as the observed episode occurred during sleep. I am unable to exclude periodic limb movement disorder, parasomnia, or myoclonic jerking related to narcotic analgesic use. (3) Cerebrovascular disease: imaging of brain shows several areas of prior infarct contributing to mild dementia he is cooperative per neurology, would not initiate medications for dementia at this time (4) Mild dementia: see above (5) Lumbar stenosis: narcotic dosing decreased during admission less lethargy would continue on lower dose on discharge (6) GERD (gastroesophageal reflux disease): continue on Ranitidine Subjective patient doing well, c/o about not having his Snuff says he has chewed since he was 14 yo, says he goes through a can a week I told RN that if it would make him calm and cooperative, he can have his snuff no other complaints patient oriented to person, place, time, he knew today was no seizure activity seen while here, appreciate plan for discharge currently undergoing family appeal for SNF, not likely to get answer today with the holiday Review of Systems Review of Systems: All systems reviewed & are unremarkable except as noted in HPI & below Respiratory: no cough and no dyspnea Cardiovascular: no chest pain and no edema Gastrointestinal: no abdominal pain, no nausea, no vomiting, no constipation and no diarrhea/loose stools Musculoskeletal: + back pain (chronic, mild to moderate) Physical Exam Constitutional: WD/WN, vitals as above Eyes: PERRL, conjunctivae normal, anicteric sclerae ENMT: external ear and nose normal, oropharynx normal Neck: trachea midline, no thyromegaly Respiratory: normal respiratory effort, lungs clear to auscultation Cardiovascular: RRR, no murmur, no edema Gastrointestinal (Abdomen): normal bowel sounds, soft, nontender, no hepatosplenomegaly Musculoskeletal: Head/Neck/Chest: normocephalic and head atraumatic Spine: + limited thoraco-lumbar ROM (due to pain) Extremities: strength 5/5 throughout; no muscle atrophy, no cyanosis and no clubbing Skin: no rashes, warm and dry Neurologic: patellar DTR's 2+ bilat, sensation intact and PERRL, EOMI, accommodation nl, no face palsy, no dysarthria Psychiatric: A+Ox3, euthymic affect Lymphatic: no cervical or axillary lymphadenopathy Results & Data Vital Signs (Past 12 Hours) Vital Signs Temp Pulse Resp BP Pulse Ox 08/03/18 07:21 36.2 C L 94 H 18 107/72 98 08/02/18 23:05 36.8 C 83 18 101/65 96 Medications Administered Current Inpatient Medications Acetaminophen (Tylenol) 650 mg PO Q4H PRN PRN Reason: Pain or Fever Stop: 08/28/18 01:15 Al Hydrox/Mg Hydrox/Simethicone (Maalox) 15 ml PO Q4H PRN PRN Reason: Dyspepsia Stop: 08/28/18 01:15 Aspirin (Ecotrin) 325 mg PO DAILY [facility] Stop: 08/28/18 08:59 Last Admin: 08/03/18 07:51 Dose: 325 mg Documented by: Ceftriaxone Sodium 1,000 mg/ (Dextrose) 50 mls @ 100 mls/hr IV Q24H YOUSIF; Protocol Stop: 08/07/18 21:59 Last Infusion: 08/02/18 22:10 Dose: Infused Documented by: Magnesium Hydroxide (Milk Of Magnesia) 30 ml PO Q12H PRN PRN Reason: Constipation Stop: 08/28/18 01:15 Nicotine Polacrilex (Nicorette 2mg) 1 piece MT Q8 PRN PRN Reason: Agitation Stop: 09/02/18 09:59 Ondansetron HCl (Zofran) 4 mg IV Q6H PRN PRN Reason: Nausea Stop: 08/28/18 01:15 Oxycodone HCl (Roxicodone Immediate Rel) 5 mg PO Q4H PRN PRN Reason: Pain Stop: 08/12/18 01:15 Last Admin: 08/03/18 12:00 Dose: 5 mg Documented by: Polyethylene Glycol (Miralax Powder Packet) 17 gm PO DAILY PRN PRN Reason: Constipation Stop: 08/28/18 01:15 Ranitidine HCl (Zantac) 150 mg PO BID [facility] Stop: 08/28/18 08:59 Last Admin: 08/03/18 07:51 Dose: 150 mg Documented by:
[2018-08-03] MEDS: cefTRIAXone SODIUM 1,000 MG in DEXTROSE 5% 50 ML IV SCH (21:29)
[2018-08-04] MEDS: OXYCODONE HCL IR 5 MG TAB (IMMEDIATE RELEASE) PO PRN ×2 (08:40→18:50)
[2018-08-04] MEDS: ASPIRIN 325 MG ECTAB PO SCH (08:40)
[2018-08-04] MEDS: cefTRIAXone SODIUM 1,000 MG in DEXTROSE 5% 50 ML IV SCH (21:13)
[2018-08-05] MEDS: OXYCODONE HCL IR 5 MG TAB (IMMEDIATE RELEASE) PO PRN ×2 (05:55→10:56)
[2018-08-05] MEDS: ASPIRIN 325 MG ECTAB PO SCH (07:39)
--- NOTE | 2018-08-12 07:03 | Discharge Summary ---
Date of Service August 05, 2018 Admission HPI Per Admitting Provider 82 y/o M Hx suspected CVA, urostomy with recurrent UTIs, GERD, new diagnosis of seizure disorder, dementia, chronic back pain. The pt was admitted to [facility] one day prior following what was apparently witnessed seizure activity by his while he was sleeping. A seizure disorder was confirmed on EEG by a neurologist at [facility], and he was then placed on Keppra and discharged. The family states that at the time of discharge he was exhibiting lethargy, confusion and was too weak to support his own weight. He was wheeled out of [facility] in a chair. The family wanted to return him to [facility], however, he was diverted to [facility] as [facility] now claims that they do not actually have a neurologist in house. Initial labs demonstrate a + UA without additional abnormalities. A CT head does not show acute abnormalities but does show multiple prior lacunar infarcts. PMH: 1) Prostate CA - radical prostatectomy 2) Urostomy resulted form complicated prostatectomy - recurrent UTIs 3) Lumbar and cervical spinal stenosis 4) Dementia - family states cognitive decline has been recent since of brother 5) GERD 6) Suspected seizure disorder 7) Chronic back pain with narcotic dependence 8) Family states that he had an MRI one month ago which showed an occult CVA - multiple CVA are reported on current CT Surgical: 1) Lumbar surgery 2) Cervical spinal surgery 3) Radical prostatectomy 4) Urostomy 5) Penile implant Social: Does not drink or smoke Family: Mother - DM, multiple CVAs Father owing to bladder CA Admission Exam Per Admitting Provider General: Lethargic, eldelry male, AAO x 1, no distress ENT: No erythema or exudates, no thrush Eyes: STEPHAN, EOMI Head and neck: Normocephalic, atraumatic, No JVD, neck is supple. Chest/heart: Nontender, S1,2, RRR, no murmurs, no gallops Lungs: CTAB, no wheezing or crackles Abdomen: Nontender, nondistended, BS+ - a urostomy bag i functional and contains clear urine. Neuro: AAO x 3, speech is clear, no unilateral weakness or loss of sensation, coordination intact Musculoskeletal: No joint inflammation, muscle tenderness, FROM Skin: No acute rashes or ulcers Extremities: No clubbing, cyanosis, edema Principal Diagnosis Chronic cerebrovascular disease Discharge Exam Constitutional WD/WN, vitals as above Eyes PERRL, conjunctivae normal, anicteric sclerae ENMT external ear and nose normal, oropharynx normal Neck trachea midline, no thyromegaly Respiratory normal respiratory effort, lungs clear to auscultation Cardiovascular RRR, no murmur, no edema Gastrointestinal (Abdomen) normal bowel sounds, soft, nontender, no hepatosplenomegaly Musculoskeletal Head/Neck/Chest: normocephalic and head atraumatic Spine: + limited thoraco-lumbar ROM (due to pain) Extremities: strength 5/5 throughout; no muscle atrophy, no cyanosis and no clubbing Skin no rashes, warm and dry Neurologic patellar DTR's 2+ bilat, sensation intact and PERRL, EOMI, accommodation nl, no face palsy, no dysarthria Psychiatric A+Ox3, euthymic affect Lymphatic no cervical or axillary lymphadenopathy Discharge Data Allergies Allergy/AdvReac Type Severity Reaction Status Date / Time tetanus toxoid, adsorbed AdvReac Mild ITCHING Verified 07/28/18 20:31 RASH Consultations 07/28/18 23:27 ED Decision to Admit Stat 07/29/18 01:16 Consult Neurology Routine Ordered Studies 07/28/18 20:56 CT head/brain wo con Stat 07/29/18 02:28 MR brain wo/w con Stat 07/29/18 10:12 US carotid doppler BI Routine Hospital Course (1) Generalized weakness: 82 y/o M Hx suspected CVA, urostomy with recurrent UTIs, GERD, new diagnosis of seizure disorder, dementia, chronic back pain. The pt was admitted to [facility] one day prior following what was apparently witnessed seizure activity by his while he was sleeping. A seizure disorder was confirmed on EEG by a neurologist at [facility], and he was then placed on Keppra and discharged. The family states that at the time of discharge he was exhibiting lethargy, confusion and was too weak to support his own weight. He was wheeled out of [facility] in a chair. The family wanted to return him to [facility], however, he was diverted to [facility] as [facility] now claims that they do not actually have a neurologist in house. Initial labs demonstrate a + UA without additional abnormalities. A CT head does not show acute abnormalities but does show multiple prior lacunar infarcts. AMS, weakness, cannot ambulate independently Patient has imgaing that supports chronic cerebrovascular disease which likely is playing a role in his confusion and memory problems. Appreciate input from Neurology. - Chronic cerebrovascular disease with evidence of a few scattered small chronic lacunar infarcts. 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 As recommended previously, continue with antiplatelet therapy. PT/OT. Patient may need placement if he is unable to care for himself. patient was denied rehab as well as SNF due to being too strong he will go home with family and home PT/OT, home nursing checks patient very happy about going home (2) Observed seizure-like activity: per neurology: Observed seizure-like activity: No convincing evidence for epilepsy in this patient, at least at this time. I would hold on restarting the Depakote. Consider obtaining an outpatient sleep medicine evaluation as the observed episode occurred during sleep. I am unable to exclude periodic limb movement disorder, parasomnia, or myoclonic jerking related to narcotic analgesic use. discussed on discharge instructions that it would be important to arrange for formal sleep study as outpatient (3) Cerebrovascular disease: imaging of brain shows several areas of prior infarct contributing to mild dementia he is cooperative per neurology, would not initiate medications for dementia at this time (4) Mild dementia: see above (5) Lumbar stenosis: narcotic dosing decreased during admission less lethargy would continue on lower dose on discharge, see instructions (6) GERD (gastroesophageal reflux disease): continue on Ranitidine Total Time Total Time Spent Total Time Spent (In Minutes): 35 minutes Total Time Includes: Examination of the Patient, Discharge Planning and Medication Reconciliation Discharge Plan Discharge Items Patient Disposition: Home - Home Health Services Reason For Visit: WEAKNESS, AMS, SEIZURES, UTI Discharge Diagnosis: Weakness Chronic cerebrovascular disease Observed seizure like activity, no true seizures Condition: Good Discharge Goals: Improve disease control and Improve function Activity: Resume your previous activity Non-emergency contact: Primary Care Provider Call non-emergency contact if: you have any medication questions, your symptoms worsen, your pain is not controlled and you have a fever Follow-up/Referrals: Kobi Escobar [Primary Care Provider] - 08/28/18 9:40 am Diet: Regular Addtl Provider Instructions: Medications: - Oxycodone: on this chronically, dose reduced to 5mg from 15mg because he was lethargic tolerating the lower dose of 5mg, pain reasonably controlled - DIVALPROEX: this medication stopped under direction of neurology Admitted for concerns for seizures, noted at home no seizure activity on EEG, just some slowing neurology does not recommend starting anticonvulsant at this time feels that the patient needs to have dedicated sleep movement study to rule out limb movement disorders patient has some weakness, will go home with home health Cerebrovascular disease, mild vascular dementia pleasant, cooperative, oriented neurology does not recommend starting Aricept or Namenda at this time FOLLOW UP - Dr. Escobar within one week, call for follow up - [facility], Dr. eBtancur, in one month [phone] Prescriptions: New oxycodone 5 mg Tablet 5 mg PO Q4H PRN (Reason: pain) 30 Days Qty: 60 RF: 0 Continued aspirin 325 mg Tablet 325 mg PO DAILY RF: 0 ranitidine HCl [Zantac] 150 mg Tablet 150 mg PO BID RF: 0 Probiotic 10 billion cell Capsule PO DAILY RF: 0 Discontinued divalproex 250 mg Tablet,Delayed Release (Dr/Ec) 250 mg PO BID RF: 0 oxycodone 15 mg Tablet 15 mg PO Q6 PRN (Reason: Pain) RF: 0 Stand-Alone Forms: [facility] Discharge Orders: Discharge Order (Routine); Ordered 08/05/18 Ordered By: Armando Luna Admission Data Admit Date/Time: 07/31/18 09:25 Attending Provider: Armando Luna Admit Provider: Toan Gleason Primary Care Provider: Kobi Escobar Other Providers: Gage Betancur Roy Service: Medical Other Interventions: Discharge Summary Assessment (RN) Last Done: 08/05/18 12:05 DC Date/Time DO NOT enter until pt leaves facility: 08/05/18 14:21
== END 2018-08-05 14:21 | disposition home health service (06) | DRG 948 ==
LOC: ED 20:00 → 2S 20:00 → SUATTDRO 07-29 00:23 → 2S 07-29 00:54 → SUATTDRO 07-31 09:25 → 4E 07-31 12:55
DX: Z85.46 Personal history of malignant neoplasm of prostate; F03.90 Unspecified dementia, unspecified severity, without behavioral disturbance, psychotic disturbance, mood disturbance, and anxiety; K21.9 Gastro-esophageal reflux disease without esophagitis; M48.061 Spinal stenosis, lumbar region without neurogenic claudication; Z96.0 Presence of urogenital implants; G40.909 Epilepsy, unspecified, not intractable, without status epilepticus; Z90.79 Acquired absence of other genital organ(s); G89.29 Other chronic pain; Z86.73 Personal history of transient ischemic attack (TIA), and cerebral infarction without residual deficits; I67.9 Cerebrovascular disease, unspecified; R41.82 Altered mental status, unspecified; R53.1 Weakness

== ENCOUNTER 2018-09-09 20:21 | Inpatient (IN) ==
[2018-09-09] MEDS ORDERED: SODIUM CHLORIDE 0.9% 500 ML IV SCH (21:30)
[2018-09-09] MEDS ORDERED: SODIUM CHLORIDE 0.9% 1000ML 1,000 ML IV SCH (21:30)
--- NOTE | 2018-09-09 21:47 | XRay Report ---
XR chest 1V portable CLINICAL HISTORY: weakness COMPARISON STUDY: 07/28/2018 FINDINGS: The heart is at the upper limits of normal in size. There are postsurgical changes of a mid line sternotomy. Aortic valve prosthesis visualized. There are mitral annulus calcifications. There i s no overt failure. There is minor left lung interstitial thickening slightly improved when compared to prior study. There are no pleural effusions. Fractured sternal wire right which project over the m edial clavicles.[ IMPRESSION: AP portable study. No evidence of focal pulmonary consolidation. No evidence of overt darrick lure. Electronically signed by: Se Butt M.D. 09/09/2018 9:46 PM
--- NOTE | 2018-09-09 22:29 | CT Scan Report ---
CT head/brain wo con CLINICAL HISTORY: Acute change in mental status COMPARISON STUDY: 07/28/2018 TECHNIQUE: Axial CT of the brain is performed from the vertex to the skull base. IV contrast was not administered for this examination. A dose lowering technique was utilized adhering to the principles of ALARA. CT DOSE: 537.48 mGy.cm FINDINGS: No intra or extra-axial mass lesions are visualized. There is no CT evidence of acute cortical infarc tion. There is no evidence of midline shift. There is no acute hemorrhage. No calvarial fractures ar e visualized. There are extensive white matter hypodensities likely on a small vessel basis. There is an old left c erebellar infarct. There is an old right caudate lacunar infarct. There is mild ventricular prominence a finding which is felt to be secondary to volume loss There is no evidence of acute sinusitis IMPRESSION: 1. No acute intracranial findings 2. Extensive white matter disease likely on a small vessel ischemic basis. Chronic lacunar infarcts. 3. No evidence of acute hemorrhage Electronically signed by: Se Butt M.D. 09/09/2018 10:28 PM
[2018-09-09 23:01] LABS: Basophils # (auto) 0.05 K/uL (0-0.2); Basophils % (auto) 0.4 %; Eosinophils # (auto) 0.01 K/uL (0-0.5); Eosinophils % (auto) 0.1 %; Hemoglobin 10.5 g/dL (14.0-18.0); Immature Granulocytes # (auto) 0.09 K/uL (0.00-0.02); Immature Granulocytes % (auto) 0.7 %; Lymphocytes # (auto) 1.12 K/uL (1.2-3.4); Mean Corpuscular Hgb Conc 33.9 g/dL (32-36); Mean Corpuscular Volume 81.2 fL (80-100); Mean Platelet Volume 10.3 fL (7.4-10.4); Monocytes # (auto) 1.16 K/uL (0.11-0.59); Monocytes % (auto) 9.3 %; Neutrophils # (auto) 10.08 K/uL (1.4-6.5); Neutrophils % (auto) 80.5 %; Platelet Count 279 K/uL (130-400); RDW Coefficient of Variation 14.9 % (11.5-14.5); RDW Standard Deviation 44.2 fL (36.4-46.3); Red Blood Count 3.82 M/uL (4.7-6.1); White Blood Count 12.51 K/uL (4.8-10.8)
[2018-09-09 23:18] LABS: Albumin Level 3.2 gm/dl (3.4-5.0); BUN Creatinine Ratio 15.6 (10-20); Calcium 8.5 mg/dl (8.5-10.1); Est GFR (African American) 90.7; Est GFR (Non-African American) 78.3; Magnesium 2.3 mg/dl (1.8-2.4)
[2018-09-09 23:28] LABS: Albumin Globulin Ratio 0.7 (0.9-2); Bilirubin,Total 0.4 mg/dl (0.2-1); Globulin 4.4 gm/dl (2.5-4.0); Total Protein 7.6 gm/dl (6.4-8.2); Troponin I 0.016 ng/ml (0-0.045)
[2018-09-10 01:31] LABS: Appearance Urine Turbid (Clear); Bacteria Urine Automated 4+ (Negative); Bilirubin Urine Negative (Negative); Blood Urine 2+ (Negative); Color Urine Yellow; Epithelial Cell Urine Auto >30 /lpf (0-5); Glucose Urine UA Negative (Negative); Ketones Urine Negative (Negative); Leukocyte Esterase Urine 3+ (Negative); Nitrite Urine Negative (Negative); Protein Urine 1+ (Negative); Specific Gravity Urine 1.017 (1.000-1.030); Urobilinogen Urine Negative (Negative); WBC Urine Automated >30 /hpf (0-5)
[2018-09-10] MEDS ORDERED: cefTRIAXone SODIUM 2,000 MG in DEXTROSE 5% 50 ML IV STA (01:50)
--- NOTE | 2018-09-10 03:29 | History & Physical Report ---
Date of Service September 10, 2018 Assessment & Plan (1) Altered mental status: Uncertain baseline functional status. Patient is answering most questions appropriately at present. Oriented to self and location. Possibly secondary to underlying infection. Patient thought to have a seizure disorder during his last hospital stay. He was evaluated by Neurology who states there was no convincing evidence for epilepsy. Presently not on any AEDs. -Observation to medical floor -Delirium prevention strategies with frequent orientation -IVF and antibiotics as below. Present on Admission?: Yes (2) Acute UTI: Family voiced some concern for possible UTI. Patient with history of recurrent UTIs. UA is difficult to interpret - patient with urostomy, poor specimen. Presently afebrile, hemodynamically stable, mild leukocytosis -Ceftriaxone 1gm IV daily -Follow cultures Present on Admission?: Yes (3) Fracture of left fibula: S/p mechanical fall. No pain at present -Ortho consult - appreciate assistance -PT/OT evaluation for gait instability -Percocent PRN pain - patient is on 5mg po TID PRN at home, will continue this (was previously on 15mg po TID which was decreased during last hospital stay due to lethargy) Present on Admission?: Yes (4) GERD (gastroesophageal reflux disease): Chronic. Stable -Continue Ranitidine 150mg po BID Present on Admission?: Yes (5) Mild dementia: Most likely secondary from vascular dementia. Unknown baseline functional status -Continue Aricept -Family discussion for additional history per day team Present on Admission?: Yes (6) Cerebrovascular disease: Patient with nonfocal exam. No concern for TIA/CVA at this time -Continue ASA 325mg po daily F/E/N - NSS at 80mL/hr x 1 liter, montior electrolytes Ppx - low risk for DVT Code - Full Dispo - Observation to medical floor History of Present Illness Chief Complaint: AMS Primary Care Provider: Kobi Parr Patient is a poor historian. No family at bedside. History obtained through ER physician Donny Muhammad is an 82yo C male with history of Dementia, urostomy tube, recently diagnosed seizure disorder, GERD presenting with AMS, increased confusion. Also with mechanical fall yesterday resulting in pain in left ankle. Patient sleeping comfortably, easily arousable. No complaints ER Course: Ceftriaxone, NSS 1500mL Allergies Allergy/AdvReac Type Severity Reaction Status Date / Time tetanus toxoid, adsorbed AdvReac Mild ITCHING Verified 09/09/18 22:36 RASH Home Medications Home Medications Medication Instructions Recorded Confirmed Type Probiotic 0 cell PO DAILY 07/28/18 09/09/18 History aspirin 325 mg PO DAILY 07/28/18 09/09/18 History ranitidine HCl [Zantac] 150 mg PO BID 07/28/18 09/09/18 History donepezil 5 mg PO HS 09/09/18 09/09/18 History megestrol 10 PO QAM 09/09/18 History oxycodone 15 mg PO TID PRN 09/09/18 09/09/18 History quetiapine 25 mg PO HS 09/09/18 09/09/18 History Past Med/Surg History Medical History GERD (gastroesophageal reflux disease) Mild dementia Cerebrovascular disease Observed seizure-like activity UTI (urinary tract infection) (Acute) Generalized weakness (Acute) Lumbar stenosis (Acute 03/23/14) Prostate cancer (Chronic) Surgical History History of prostatectomy History of urostomy Family History Other Family history non-contributory Social History Preferred Language: Czech Communication Ability: Effective Beliefs That Will Affect Care: None Current Living Situation: Significant Other Feels Safe at Home: Yes Smoking Status: Current some day smoker Hx Alcohol Use: No Hx Substance Use: No Review of Systems Review of Systems: Unobtainable due to cognitive status Patient with no additional complaints Physical Exam Physical Exam: General: patient resting comfortably, NAD, non-toxic in appearance, AA&O to person and location Skin: warm, dry, intact, no rashes or lesions HEENT: NC/AT, PERRL, EOMI, anicteric sclera, conjunctiva without injection, external ear normal to inspection and nontender, nares patent, moist mucus membranes, dentition intact, no oropharyngeal lesions, neck supple, trachea midline, no LAD, no thyromegaly, no JVD Heart: +S1/S2, regular, no m/r/g Lungs: equal air entry bilaterally, no rales/rhonchi/wheezes Abd: +BS, soft, NT/ND, no masses/organomegaly/ascites, urostomy in place with urine in bag, slightly cloudy with some sediment Ext: warm, 2+ pulses in UE/LE bilaterally, no clubbing/cyanosis or edema, soft wrap on left ankle Neuro: nonfocal, patient AA&O x 2, speech intact, no facial droop, moving all extremities on command with equal strength 5/5 Results & Data Vital Signs (Past 12 Hours) Vital Signs Temp Pulse Pulse Resp BP BP Pulse Ox 09/10/18 02:30 87 18 117/64 09/10/18 01:10 85 18 124/73 95 09/09/18 22:23 88 18 118/79 93 09/09/18 20:33 36.8 C 90 18 112/51 L 92 Laboratory Results Lab Results 09/09/18 09/09/18 09/10/18 Range/Units 22:49 22:49 01:00 WBC 12.51 H (4.8-10.8) K/uL RBC 3.82 L (4.7-6.1) M/uL Hgb 10.5 L (14.0-18.0) g/dL Hct 31.0 L (42-52) % MCV 81.2 (80-100) fL MCH 27.5 (25-34) pg MCHC 33.9 (32-36) g/dL RDW Std Deviation 44.2 (36.4-46.3) fL RDW Coeff of Dandre 14.9 H (11.5-14.5) % Plt Count 279 (130-400) K/uL MPV 10.3 (7.4-10.4) fL Immature Gran % (Auto) 0.7 % Neut % (Auto) 80.5 % Lymph % (Auto) 9.0 % [place] % (Auto) 9.3 % Eos % (Auto) 0.1 % Baso % (Auto) 0.4 % Immature Gran # (Auto) 0.09 H (0.00-0.02) K/uL Neut # (Auto) 10.08 H (1.4-6.5) K/uL Lymph # (Auto) 1.12 L (1.2-3.4) K/uL [place] # (Auto) 1.16 H (0.11-0.59) K/uL Eos # (Auto) 0.01 (0-0.5) K/uL Baso # (Auto) 0.05 (0-0.2) K/uL Sodium 135 L (136-145) mmol/L Potassium 4.0 (3.5-5.1) mmol/L Chloride 107 (98-107) mmol/L Carbon Dioxide 20 L (21-32) mmol/L Anion Gap 8.0 (3-11) BUN 14 (7-18) mg/dl Creatinine 0.92 (0.6-1.4) mg/dl Est Cr Clr Drug Dosing 62.0 ml/min Est GFR ( Amer) 90.7 Est GFR (Non-Af Amer) 78.3 BUN/Creatinine Ratio 15.6 (10-20) Glucose 114 H (70-99) mg/dl Calcium 8.5 (8.5-10.1) mg/dl Magnesium 2.3 (1.8-2.4) mg/dl Total Bilirubin 0.4 (0.2-1) mg/dl AST 34 (15-37) U/L ALT 20 (12-78) U/L Alkaline Phosphatase 78 (45-117) U/L Troponin I 0.016 (0-0.045) ng/ml Total Protein 7.6 (6.4-8.2) gm/dl Albumin 3.2 L (3.4-5.0) gm/dl Globulin 4.4 H (2.5-4.0) gm/dl Albumin/Globulin Ratio 0.7 L (0.9-2) TSH 1.920 (0.300-4.500) uIu/ml Urine Color Yellow Urine Appearance Turbid A (Clear) Urine pH 6.0 (4.5-7.5) Ur Specific [place] 1.017 (1.000-1.030) Urine Protein 1+ H (Negative) Urine Glucose (UA) Negative (Negative) Urine Ketones Negative (Negative) Urine Blood 2+ H (Negative) Urine Nitrite Negative (Negative) Urine Bilirubin Negative (Negative) Urine Urobilinogen Negative (Negative) Ur Leukocyte Esterase 3+ H (Negative) Urine WBC (Auto) >30 H (0-5) /hpf Urine RBC (Auto) 5-10 H (0-4) /hpf U Hyaline Cast (Auto) 5-10 H (0-5) /lpf U Epithel Cells (Auto) >30 H (0-5) /lpf Urine Bacteria (Auto) 4+ H (Negative) Urine Crystals Not Reportable Diagnostic Findings CT head/brain wo con CLINICAL HISTORY: Acute change in mental status COMPARISON STUDY: 07/28/2018 TECHNIQUE: Axial CT of the brain is performed from the vertex to the skull base. IV contrast was not administered for this examination. A dose lowering technique was utilized adhering to the principles of ALARA. CT DOSE: 537.48 mGy.cm FINDINGS: No intra or extra-axial mass lesions are visualized. There is no CT evidence of acute cortical infarction. There is no evidence of midline shift. There is no acute hemorrhage. No calvarial fractures are visualized. There are extensive white matter hypodensities likely on a small vessel basis. 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 There is an old right caudate lacunar infarct. There is mild ventricular prominence a finding which is felt to be secondary to volume loss There is no evidence of acute sinusitis IMPRESSION: 1. No acute intracranial findings 2. Extensive white matter disease likely on a small vessel ischemic basis. Chronic lacunar infarcts. 3. No evidence of acute hemorrhage Electronically signed by: Se Butt M.D. 09/09/2018 10:28 PM Dictated: 09/09/[id number] Transcribed: 09/09/[id number] XR chest 1V portable CLINICAL HISTORY: weakness COMPARISON STUDY: 07/28/2018 FINDINGS: The heart is at the upper limits of normal in size. There are posts urgical changes of a midline sternotomy. Aortic valve prosthesis visualized. There are mitral annulus calcifications. There is no overt failure. There is minor left lung interstitial thickening slightly improved when compared to prior study. There are no pleural effusions. Fractured sternal wire right which project over the medial clavicles.[ IMPRESSION: AP portable study. No evidence of focal pulmonary consolidation. No evidence of overt failure. Electronically signed by: Se Butt M.D. 09/09/2018 9:46 PM Dictated: [id number]/[id number] Transcribed: 09/09/182143 Ankle X-ray - small fracture of distal left fibula Code Status & VTE Plan Code Status FULL PG Care Time/CCT Total # of Minutes Spent Total Time Spent with Patient: Total time spent is greater than 50% in coordination of care (as documented) at patient's floor/unit and/or counseling patient: (1) Altered mental status Altered mental status type: unspecified Qualified Code(s): R41.82 - Altered mental status, unspecified (2) Fracture of left fibula Encounter type: initial encounter Fibula location: distal Fracture morphology: unspecified fracture morphology Fracture type: closed Qualified Code(s): S82.832A - Other fracture of upper and lower end of left fibula, initial encounter for closed fracture (3) GERD (gastroesophageal reflux disease) Esophagitis presence: esophagitis presence not specified Qualified Code(s): K21.9 - Gastro-esophageal reflux disease without esophagitis
--- NOTE | 2018-09-10 03:51 | Emergency Department Note ---
Entered by Cj Gan acting as a scribe for ED Provider Note CHIEF COMPLAINT: Altered Mental Status HISTORY OF PRESENT ILLNESS: The patient is an 82 year old male who presents to the Emergency Room with complaints of constant generalized weakness that was noticed by family today. Per the family, he has increased fatigue and has slept for most of the day. When he finally went to get out of bed this evening, the patient fell slowly to the ground. Per his , he was " weight" at the time and extremely weak. Per the family, the patient has been healthy for the past couple of days with exception of some confusion yesterday. Per the nursing note, the patient also had a fever en route, but upon arrival to the ED, he did not have one. Per the patient's family, the patient is susceptible to UTIs because of his Urostomy that he has. His family notes that these symptoms are typical for him when he has a UTI. He originally had the urostomy placed due to problems with his prost ate. Per the daughter, the patient was just started on Seroquel 2 weeks ago, but has not had any other medications changes. Pt denies LOC, headache, chills, diaphoresis, visual changes, neck pain, chest pain, breathing difficulties, nausea, vomiting, abdominal pain, back pain, melena, hematochezia, urinary symptoms, numbness, lymphadenopathy, rash, or other complaints. REVIEW OF SYSTEMS: See HPI for pertinent positives and negatives. A total of ten systems were r eviewed and were otherwise negative. PMHx/PSHx: GERD, Mild Dementia, UTI, Generalized weakness, Lumbar stenosis, Prostate cancer SOCIAL HISTORY: Patient lives at home. PHYSICAL EXAM: GENERAL: Sleeping but easily arousable, very tired-appearing, in no distress HENT: Normocephalic, atraumatic. Oropharynx unremarkable. EYES: Normal conjunctiva. Sclera non-icteric. NECK: Inspection normal. Non-tender. Supple. No nuchal rigidity. FROM. No masses. RESPIRATORY: Clear to auscultation. No wheezes. No rales. Normal respiratory effort. CARDIAC: Normal rate. Normal rhythm. No murmurs. No rubs. Extremities warm and well perfused. Pulses equal. No JVD. GI: Soft, non-distended. No tenderness to palpation. No rebound or guarding. No masses. Urostomy in the RLQ. RECTAL: Deferred. MUSCULOSKELETAL: Atraumatic. Chest examination reveals no tenderness. The back is symmetrical on inspection without obvious abnormality. There is no CVA tenderness to palpation. No joint edema. LOWER EXTREMITIES: Calves are equal size bilaterally and non-tender. No edema. No discoloration. NEURO: Mildly demented sensorium. No sensory or motor deficits noted. SKIN: No rash or jaundice noted. EMERGENCY DEPARTMENT COURSE: 2119: The patient was evaluated in room A03, and a complete history and physical examination were performed. 2357: I reevaluated the patient and updated him and his family with all results obtained thus far. 0045: The patient is now complaining of right knee and left ankle pain so I am ordering X-Rays on those two areas. 0235: I spoke to Dr. Wilkerson - [facility] Hospitalist about the patient's case and she will be accepting him for further evaluation. PROCEDURE: Splinting Indication: Left fibula fracture Verbal consent obtained. Risks and benefits were explained with the usual customary discussion. The injured extremity was identified. The patient was prepped and measured for the placement of a short leg posterior Ortho-glass splint. Splint applied in the standard fashion over a layer of webril and secured using an elastic bandage. Set into a position of function. Normal neurovascular status after placement verified. The patient tolerated the procedure well and the care of the splint was discussed with the patient/family. No complications. MEDICAL DECISION MAKING: Prior records/ancillary studies reviewed and summarized above. Nursing notes reviewed and agree them. Additional history obtained from family. The patient's history was concerning for altered mental status. Differential diagnosis: Etiologies such as infection, hypoglycemia, electrolyte abnormalities, cardiac sources, intracerebral event, toxicologic, neurologic, as well as others were entertained. Physical examination: As above. The patient was noted to have increased swelling in the left ankle after initial examination and he did have some lateral distal fibular tenderness. The patient was easily arousable and would converse. He would easily fall back asleep. ER treatment provided: IV Lock Normal saline hydration Splinting IV Rocephin On reassessment the patient was stable. Diagnostics interpretation by me: ECG: No acute ischemia. The labs revealed mild leukocytosis on CBC. Chemistry panel was unremarkable. Urinalysis concerning. Culture pending. Imaging studies: CT scan of the head negative for acute process. Chest x-ray, right knee x-ray, and left ankle x-ray performed. No acute process other than distal fibula cortical fracture noted. Consultation: A consultation was placed with the hospitalist. The case was discussed and diagnostics were reviewed. The patient was evaluated in the ER for further treatment. IMPRESSION: Altered mental status UTI Left fibula fracture PLAN: Admitted as inpatient The scribe's documentation has been prepared under my direction and personally reviewed by me in its entirety. I confirm that the note above accurately reflects all work, treatment, procedures, and medical decision making performed by me. Impression & Plan Altered mental status, Acute UTI, Fracture of left fibula Past Med/Surg History Medical History GERD (gastroesophageal reflux disease) Mild dementia Cerebrovascular disease Observed seizure-like activity UTI (urinary tract infection) (Acute) Generalized weakness (Acute) Lumbar stenosis (Acute 03/23/14) Prostate cancer (Chronic) Surgical History History of prostatectomy History of urostomy Family History Other Family history non-contributory Social History Preferred Language: Tanzanian Communication Ability: Effective Beliefs That Will Affect Care: None Current Living Situation: Significant Other Feels Safe at Home: Yes Smoking Status: Current some day smoker Hx Alcohol Use: No Hx Substance Use: No Results & Data Vital Signs Vital Signs - 24 hr 09/09/18 20:33 09/09/18 22:23 09/10/18 01:10 Temperature 36.8 C Temperature Source Oral Sepsis Recent Fever Within 48 Hours No Sepsis New/Unexplained Change in Mental Status No Sepsis Action Taken by Nursing No Action Required Pulse Rate 90 Pulse Rate [Apical] 88 85 Pulse Rhythm [Apical] Regular Pulse Strength [Apical] Normal Respiratory Rate 18 18 18 Respiratory Effort / Characteristics Non-Labored Spontaneous Respiratory Depth Normal Respiratory Pattern Regular Blood Pressure 112/51 L Blood Pressure [Left Arm] 118/79 124/73 Blood Pressure Mean 71 Blood Pressure Mean [Left Arm] 92 90 Blood Pressure Position [Left Arm] Sitting Pulse Oximetry 92 93 95 Oxygen Delivery Method Room Air Room Air Room Air 09/10/18 02:30 Temperature Temperature Source Sepsis Recent Fever Within 48 Hours Sepsis New/Unexplained Change in Mental Status Sepsis Action Taken by Nursing Pulse Rate Pulse Rate [Apical] 87 Pulse Rhythm [Apical] Regular Pulse Strength [Apical] Normal Respiratory Rate 18 Respiratory Effort / Characteristics Non-Labored Spontaneous Respiratory Depth Normal Respiratory Pattern Regular Blood Pressure Blood Pressure [Left Arm] 117/64 Blood Pressure Mean Blood Pressure Mean [Left Arm] 81 Blood Pressure Position [Left Arm] Lying Pulse Oximetry Oxygen Delivery Method Home Medications Current Medication List: was personally reviewed by me Laboratory Data Attestation: I reviewed the patient's lab results. Result diagrams: 09/09/18 22:49 09/09/18 22:49 Lab Results 09/09/18 09/09/18 09/10/18 Range/Units 22:49 22:49 01:00 WBC 12.51 H (4.8-10.8) K/uL RBC 3.82 L (4.7-6.1) M/uL Hgb 10.5 L (14.0-18.0) g/dL Hct 31.0 L (42-52) % MCV 81.2 (80-100) fL MCH 27.5 (25-34) pg MCHC 33.9 (32-36) g/dL RDW Std Deviation 44.2 (36.4-46.3) fL RDW Coeff of Dandre 14.9 H (11.5-14.5) % Plt Count 279 (130-400) K/uL MPV 10.3 (7.4-10.4) fL Immature Gran % (Auto) 0.7 % Neut % (Auto) 80.5 % Lymph % (Auto) 9.0 % Mcduffie % (Auto) 9.3 % Eos % (Auto) 0.1 % Baso % (Auto) 0.4 % Immature Gran # (Auto) 0.09 H (0.00-0.02) K/uL Neut # (Auto) 10.08 H (1.4-6.5) K/uL Lymph # (Auto) 1.12 L (1.2-3.4) K/uL Mcduffie # (Auto) 1.16 H (0.11-0.59) K/uL Eos # (Auto) 0.01 (0-0.5) K/uL Baso # (Auto) 0.05 (0-0.2) K/uL Sodium 135 L (136-145) mmol/L Potassium 4.0 (3.5-5.1) mmol/L Chloride 107 (98-107) mmol/L Carbon Dioxide 20 L (21-32) mmol/L Anion Gap 8.0 (3-11) BUN 14 (7-18) mg/dl Creatinine 0.92 (0.6-1.4) mg/dl Est Cr Clr Drug Dosing 62.0 ml/min Est GFR ( Amer) 90.7 Est GFR (Non-Af Amer) 78.3 BUN/Creatinine Ratio 15.6 (10-20) Glucose 114 H (70-99) mg/dl Calcium 8.5 (8.5-10.1) mg/dl Magnesium 2.3 (1.8-2.4) mg/dl Total Bilirubin 0.4 (0.2-1) mg/dl AST 34 (15-37) U/L ALT 20 (12-78) U/L Alkaline Phosphatase 78 (45-117) U/L Troponin I 0.016 (0-0.045) ng/ml Total Protein 7.6 (6.4-8.2) gm/dl Albumin 3.2 L (3.4-5.0) gm/dl Globulin 4.4 H (2.5-4.0) gm/dl Albumin/Globulin Ratio 0.7 L (0.9-2) TSH 1.920 (0.300-4.500) uIu/ml Urine Color Yellow Urine Appearance Turbid A (Clear) Urine pH 6.0 (4.5-7.5) Ur Specific Harris 1.017 (1.000-1.030) Urine Protein 1+ H (Negative) Urine Glucose (UA) Negative (Negative) Urine Ketones Negative (Negative) Urine Blood 2+ H (Negative) Urine Nitrite Negative (Negative) Urine Bilirubin Negative (Negative) Urine Urobilinogen Negative (Negative) Ur Leukocyte Esterase 3+ H (Negative) Urine WBC (Auto) >30 H (0-5) /hpf Urine RBC (Auto) 5-10 H (0-4) /hpf U Hyaline Cast (Auto) 5-10 H (0-5) /lpf U Epithel Cells (Auto) >30 H (0-5) /lpf Urine Bacteria (Auto) 4+ H (Negative) Urine Crystals Not Reportable Administered Medications Sodium Chloride (Nss 1000ml) 1,000 mls @ 125 mls/hr IV .Q8H YOUSIF Stop: 09/10/18 05:29 Last Admin: 09/10/18 01:02 Dose: 125 mls/hr Documented by: [id number] Discontinued Medications Sodium Chloride (Nss) 500 mls @ 999 mls/hr IV .Q31M YOUSIF Stop: 09/09/18 22:00 Last Infusion: 09/09/18 23:00 Dose: 0 mls/hr Documented by: [id number] Admin: 09/09/18 22:20 Dose: 999 mls/hr Documented by: [id number] Ceftriaxone Sodium 2,000 mg/ (Dextrose) 70 mls @ 100 mls/hr IV NOW STA Stop: 09/10/18 02:31 Last Admin: 09/10/18 02:23 Dose: 100 mls/hr Documented by: [id number] Imaging Data Attestation: I personally reviewed and interpreted this imaging study as follows: My Impression: X ray results are stated below per my interpretation: Left Ankle X-Ray Findings concerning for a distal fibula fracture. Right Knee X-Ray No fracture or dislocation. Radiologist's Impression: Radiology results as stated below per my review and the radiologist's interpretation: XR chest 1V portable CLINICAL HISTORY: weakness COMPARISON STUDY: 07/28/2018 FINDINGS: The heart is at the upper limits of normal in size. There are postsurgical changes of a midline sternotomy. Aortic valve prosthesis visu alized. There are mitral annulus calcifications. There is no overt failure. There is minor left lung interstitial thickening slightly improved when compared to prior study. There are no pleural effusions. Fractured sternal wire right which project over the medial clavicles.[ IMPRESSION: AP portable study. No evidence of focal pulmonary consolidation. No evidence of overt failure. Electronically signed by: Se Butt M.D. 09/09/2018 9:[address] head/brain wo con CLINICAL HISTORY: Acute change in mental status COMPARISON STUDY: 07/28/2018 TECHNIQUE: Axial CT of the brain is performed from the vertex to the skull base. IV contrast was not administered for this examination. A dose lowering technique was utilized adhering to the principles of ALARA. CT DOSE: 537.48 mGy.cm FINDINGS: No intra or extra-axial mass lesions are visualized. There is no CT evidence of acute cortical infarction. There is no evidence of midline shift. There is no acute hemorrhage. No calvarial fractures are visualized. There are extensive white matter hypodensities likely on a small vessel basis. 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 There is an old right caudate lacunar infarct. There is mild ventricular prominence a finding which is felt to be secondary to volume loss There is no evidence of acute sinusitis IMPRESSION: 1. No acute intracranial findings 2. Extensive white matter disease likely on a small vessel ischemic basis. Chronic lacunar infarcts. 3. No evidence of acute hemorrhage Electronically signed by: Se Butt M.D. 09/09/2018 10:28 PM ECG Data Attestation: I personally reviewed and interpreted this ECG as follows: Indication: altered mental status Rate (beats per minute): 91 Rhythm: normal sinus Findings: + 1st degree AV block; no PAC, no PVC, no ST depression and no ST elevation Blood Pressure Blood Pressure Findings: Normal blood pressure Discharge Plan Visit Data Chief Complaint: Altered Mental Status ED Provider: Vin Calixto Discharge Problem: Altered mental status, Acute UTI, Fracture of left fibula Patient Disposition: Being Evaluated by Hospitalist Forms Stand Alone Forms: My [facility] Prescriptions Prescriptions: No Action aspirin 325 mg Tablet 325 mg PO DAILY RF: 0 ranitidine HCl [Zantac] 150 mg Tablet 150 mg PO BID RF: 0 Probiotic 10 billion cell Capsule PO DAILY RF: 0 megestrol 400 mg/10 mL (40 mg/mL) suspension 10 PO QAM RF: 0 donepezil 5 mg Tablet 5 mg PO HS RF: 0 quetiapine 25 mg tablet 25 mg PO HS RF: 0 oxycodone 15 mg tablet 15 mg PO TID PRN (Reason: Pain) RF: 0 Referrals Referrals: Kobi Parr [Primary Care Provider] - Discharge Problem: Altered mental status Qualifiers: Altered mental status type: unspecified Qualified Code(s): R41.82 - Altered mental status, unspecified Fracture of left fibula Qualifiers: Encounter type: initial encounter Fibula location: distal Fracture type: closed Fracture morphology: unspecified fracture morphology Qualified Code(s): S82.832A - Other fracture of upper and lower end of left fibula, initial encounter for closed fracture The scribe's documentation has been prepared under my direction and personally reviewed by me in its entirety. I confirm that the note above accurately reflects all work, treatment, procedures, and medical decision making performed by me.
[2018-09-10] MEDS ORDERED: SODIUM CHLORIDE 0.9% 1000ML 1,000 ML IV SCH (04:24)
--- NOTE | 2018-09-10 06:13 | XRay Report ---
XR ankle LT min 3V routine HISTORY: 82 years-old Male fall acute left ankle pain status post fall COMPARISON: None available TECHNIQUE: 3 views of the left ankle FINDINGS: Mild to moderate anterolateral soft tissue swelling with small joint effusion. Acute nondisplaced fra cture of the distal fibula is noted at the level of the tibial plafond and. Tibia and talus appear in tact. Marginal spurring of the calcaneus. Peripheral arterial calcifications noted. 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 IMPRESSION: Acute nondisplaced fracture of the distal fibula. The above report was generated using voice recognition software. It may contain grammatical, syntax o r spelling errors. Electronically signed by: Lawrence Dennis M.D. 09/10/2018 6:11 AM
--- NOTE | 2018-09-10 06:25 | XRay Report ---
XR knee RT 2V routine HISTORY: 82 years-old Male fall, pain acute right knee pain status post fall COMPARISON: None available TECHNIQUE: 3 views of the right knee FINDINGS: Demineralized appearance of the bones. Oblique imaging on the crosstable lateral view limits the stud y. There is no definite acute fracture or dislocation identified. Ill-defined lucency projecting over the posterior tibial plateau on the lateral projection may be artifactual. Mild tricompartmental ost eoarthritis. Trace joint effusion. IMPRESSION: 1. Limited study secondary to positioning. 2. No acute fracture or dislocation identified. 3. Mild tricompartmental osteoarthritis with trace joint effusion. The above report was generated using voice recognition software. It may contain grammatical, syntax o r spelling errors. Electronically signed by: Lawrence Dennis M.D. 09/10/2018 6:24 AM
[2018-09-10] MEDS ORDERED: LACTOBACILLUS ACIDOPHILUS CELL PO SCH (09:00)
[2018-09-10] MEDS: ASPIRIN 325 MG ECTAB PO SCH (09:02)
--- NOTE | 2018-09-10 09:11 | Orthopedic Consultation ---
Date of Consultation September 10, 2018 Assessment & Plan (1) Fracture of left fibula: Nondisplaced distal fibula fracture, continue nonweightbearing left lower extremity, orthotics consult placed for cam boot walker, ice/elevation and pain control. Patient will need to follow-up in the office in 1 to 2 weeks for repeat x-rays, [id number]. Thank you for the consultation. History of Present Illness Reason for Consultation: Left distal fibula fracture Attending Physician: Nick Calvo History of Present Illness Patient is an 82-year-old male who presented to [facility] secondary to altered mental status, sustained fall from standing height. Patient is poor historian. Diagnosed with left nondisplaced distal fibula fracture. Patient currently denies pain. Denies any associated injuries. Patient reports "that about both knees went out on him." Allergies Allergy/AdvReac Type Severity Reaction Status Date / Time tetanus toxoid, adsorbed AdvReac Mild ITCHING Verified 09/09/18 22:36 RASH Home Medications Home Medications Medication Instructions Recorded Confirmed Type Probiotic 0 cell PO DAILY 07/28/18 09/09/18 History aspirin 325 mg PO DAILY 07/28/18 09/09/18 History ranitidine HCl [Zantac] 150 mg PO BID 07/28/18 09/09/18 History donepezil 5 mg PO HS 09/09/18 09/09/18 History megestrol 10 PO QAM 09/09/18 History oxycodone 15 mg PO TID PRN 09/09/18 09/09/18 History quetiapine 25 mg PO HS 09/09/18 09/09/18 History Patient History Medical History GERD (gastroesophageal reflux disease) Mild dementia Cerebrovascular disease Observed seizure-like activity UTI (urinary tract infection) (Acute) Generalized weakness (Acute) Lumbar stenosis (Acute 03/23/14) Prostate cancer (Chronic) Surgical History History of prostatectomy History of urostomy Family History Other Family history non-contributory Social History Preferred Language: Faroese Communication Ability: Effective Educational Adviser Required: No Beliefs That Will Affect Care: None Current Living Situation: Other Current Living Situation Comment: scar Feels Safe at Home: Yes Smoking Status: Unknown if ever smoked Hx Alcohol Use: No Hx Substance Use: No Review of Systems Review of Systems: All systems reviewed & are unremarkable except as noted in HPI & below Constitutional: as per Subjective / HPI Physical Exam Physical Exam: Left lower extremity neurovascular sensory intact, physical exam limited secondary to mental status. Skin clean dry and intact, compartment soft nontender. Constitutional: WD/WN, vitals as above Results & Data Vital Signs (Past 12 Hours) Vital Signs Temp Pulse Pulse Pulse Resp BP BP 09/10/18 07:01 37.3 C 93 H 16 133/79 09/10/18 04:10 37.3 C 95 H 16 116/71 09/10/18 04:00 87 18 128/81 09/10/18 02:30 87 18 117/64 09/10/18 01:10 85 18 124/73 09/09/18 22:23 88 18 118/79 Pulse Ox 09/10/18 07:01 96 09/10/18 04:10 95 09/10/18 04:00 94 09/10/18 02:30 09/10/18 01:10 95 09/09/18 22:23 93 Diagnostic Findings XR knee RT 2V routine HISTORY: 82 years-old Male fall, pain acute right knee pain status post fall COMPARISON: None available TECHNIQUE: 3 views of the right knee FINDINGS: Demineralized appearance of the bones. Oblique imaging on the crosstable lateral view limits the study. There is no definite acute fracture or dislocation identified. Ill-defined lucency projecting over the posterior tibial plateau on the lateral projection may be artifactual. Mild tricompartmental osteoarthritis. Trace joint effusion. IMPRESSION: 1. Limited study secondary to positioning. 2. No acute fracture or dislocation identified. 3. Mild tricompartmental osteoarthritis with trace joint effusion. XR ankle LT min 3V routine HISTORY: 82 years-old Male fall acute left ankle pain status post fall COMPARISON: None available TECHNIQUE: 3 views of the left ankle FINDINGS: Mild to moderate anterolateral soft tissue swelling with small joint effusion. Acute nondisplaced fracture of the distal fibula is noted at the level of the tibial plafond and. Tibia and talus appear intact. Marginal spurring of the calcaneus. Peripheral arterial calcifications noted. There is mild tibiotalar osteoarthritis. IMPRESSION: Acute nondisplaced fracture of the distal fibula. (1) Fracture of left fibula Encounter type: initial encounter Fibula location: distal Fracture morphology: unspecified fracture morphology Fracture type: closed Qualified Code(s): S82.832A - Other fracture of upper and lower end of left fibula, initial encounter for closed fracture
[2018-09-10 18:30] LABS: Basophils # (auto) 0.05 K/uL (0-0.2); Basophils % (auto) 0.5 %; Eosinophils % (auto) 0.9 %; Hematocrit (blood only) 33.7 % (42-52); Hemoglobin 11.3 g/dL (14.0-18.0); Immature Granulocytes # (auto) 0.11 K/uL (0.00-0.02); Lymphocytes # (auto) 1.19 K/uL (1.2-3.4); Lymphocytes % (auto) 10.8 %; Mean Corpuscular Hgb Conc 33.5 g/dL (32-36); Mean Platelet Volume 10.8 fL (7.4-10.4); Monocytes # (auto) 1.51 K/uL (0.11-0.59); Monocytes % (auto) 13.7 %; Neutrophils # (auto) 8.05 K/uL (1.4-6.5); Neutrophils % (auto) 73.1 %; Platelet Count 260 K/uL (130-400); RDW Coefficient of Variation 14.9 % (11.5-14.5); RDW Standard Deviation 45.3 fL (36.4-46.3); Red Blood Count 4.06 M/uL (4.7-6.1); White Blood Count 11.01 K/uL (4.8-10.8)
[2018-09-10 18:46] LABS: BUN Creatinine Ratio 15.6 (10-20); Calcium 8.3 mg/dl (8.5-10.1); Creatinine Clr Calc Pharmacy 70.4 ml/min; Est GFR (African American) 97.3; Est GFR (Non-African American) 83.9; Potassium 3.8 mmol/L (3.5-5.1)
[2018-09-10] MEDS: DONEPEZIL HCL 5 MG TAB PO SCH (20:14)
[2018-09-10] MEDS: QUETIAPINE FUMARATE 25 MG TABLET PO SCH (20:14)
[2018-09-10] MEDS: cefTRIAXone SODIUM 1,000 MG in DEXTROSE 5% 50 ML IV SCH (22:04)
[2018-09-11] MEDS: ACETAMINOPHEN 325 MG TAB PO PRN (03:52)
[2018-09-11 07:16] LABS: BUN Creatinine Ratio 19.1 (10-20); Calcium 8.3 mg/dl (8.5-10.1); Est GFR (African American) 99.9; Est GFR (Non-African American) 86.2; Potassium 3.6 mmol/L (3.5-5.1)
[2018-09-11] MEDS: ASPIRIN 325 MG ECTAB PO SCH (09:17)
[2018-09-11] MEDS: DONEPEZIL HCL 5 MG TAB PO SCH (20:18)
[2018-09-11] MEDS: QUETIAPINE FUMARATE 25 MG TABLET PO SCH (20:18)
[2018-09-11] MEDS: OXYCODONE HCL IR 5 MG TAB (IMMEDIATE RELEASE) PO PRN (21:24)
[2018-09-11] MEDS: cefTRIAXone SODIUM 1,000 MG in DEXTROSE 5% 50 ML IV SCH (22:04)
--- NOTE | 2018-09-11 22:57 | Hospitalist Progress Note ---
Date of Service September 11, 2018 Assessment & Plan (1) Altered mental status: Uncertain baseline functional status. Patient is answering most questions appropriately at present. Oriented to self and location. Possibly secondary to underlying infection. Patient thought to have a seizure disorder during his last hospital stay. He was evaluated by Neurology who states there was no convincing evidence for epilepsy. Presently not on any AEDs. -Admit to medical floor. -Delirium prevention strategies with frequent orientation -IVF and antibiotics as below. It appears to likely is more toxic encephalopathy from CBD oil rather than encephalopathy from UTI. However, givien elevated WBC and confusion and dirty urine. These findings force us to treat the UTI. (2) Acute UTI: Family voiced some concern for possible UTI. Patient with history of recurrent UTIs. UA is difficult to interpret - patient with urostomy, poor specimen. Presently afebrile, hemodynamically stable, mild leukocytosis -Ceftriaxone 1gm IV daily -Follow cultures: final cultures pending. No sensitivities as of yet. WBC though is improving. (3) Fracture of left fibula: S/p mechanical fall. No pain at present continue nonweightbearing left lower extremity, orthotics consult placed for cam boot walker, ice/elevation and pain control. Patient will need to follow-up in the Ortho office in 1 to 2 weeks for repeat x- ray -PT/OT evaluation for gait instability -Percocent PRN pain - patient is on 5mg po TID PRN at home, will continue this (was previously on 15mg po TID which was decreased during last hospital stay due to lethargy) (4) GERD (gastroesophageal reflux disease): Chronic. 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 Unknown baseline functional status -Continue Aricept - (6) Cerebrovascular disease: Patient with nonfocal exam. No concern for TIA/CVA at this time -Continue ASA 325mg po daily Ppx - low risk for DVT Code - Full Dispo: Pending placement. Patient will need to be non weight bearing. This will be difficult for patient. Subjective Patient had been sleepy the day prior. But today is more wake. His daughter is at bedside and states he took 4 drops of a drug know as CBD. Daughter suspects this is what causing him to be drowsy and unresponsive for 2 days (day rior to hospital stay and yesterday). Patient is more awake and has no complaints at this time. Review of Systems Review of Systems: All systems reviewed & are unremarkable except as noted in HPI & below Physical Exam Physical Exam: General: patient resting comfortably, NAD, non-toxic in appearance Skin: warm, dry, intact, no rashes or lesions HEENT: NC/AT, PERRL, EOMI, anicteric sclera, conjunctiva without injection, external ear normal to inspection and nontender, nares patent, moist mucus membranes, dentition intact, no oropharyngeal lesions, neck supple, trachea midline, no LAD, no thyromegaly, no JVD Heart: +S1/S2, regular, no m/r/g Lungs: equal air entry bilaterally, no rales/rhonchi/wheezes Abd: +BS, soft, NT/ND, no masses/organomegaly/ascites, urostomy in place with urine in bag, urine appears more clear today. Ext: warm, 2+ pulses in UE/LE bilaterally, no clubbing/cyanosis or edema, left ankle in boot. Neuro: nonfocal, patient AA&O x 2, speech intact, no facial droop, moving all extremities on command with equal strength 5/5 Results & Data Vital Signs (Past 12 Hours) Vital Signs Temp Pulse Resp BP Pulse Ox 09/11/18 15:38 36.5 C 79 18 107/62 98 PG Care Time/CCT Total # of Minutes Spent Total Time Spent with Patient: Total time spent is greater than 50% in coordination of care (as documented) at patient's floor/unit and/or counseling patient: (1) Fracture of left fibula Encounter type: initial encounter Fibula location: distal Fracture morphology: unspecified fracture morphology Fracture type: closed Qualified Code(s): S82.832A - Other fracture of upper and lower end of left fibula, initial encounter for closed fracture (2) Altered mental status Altered mental status type: unspecified Qualified Code(s): R41.82 - Altered mental status, unspecified (3) GERD (gastroesophageal reflux disease) Esophagitis presence: esophagitis presence not specified Qualified Code(s): K21.9 - Gastro-esophageal reflux disease without esophagitis
[2018-09-12] MEDS: OXYCODONE HCL IR 5 MG TAB (IMMEDIATE RELEASE) PO PRN ×3 (06:31→21:49)
[2018-09-12] MEDS: ASPIRIN 325 MG ECTAB PO SCH (07:31)
--- NOTE | 2018-09-12 16:29 | Hospitalist Progress Note ---
Date of Service September 12, 2018 Assessment & Plan (1) Altered mental status: It appears to likely is more toxic encephalopathy from CBD oil rather than encephalopathy from UTI. However, given elevated WBC and confusion and dirty urine, cannot definitively rule out urinary tract infection. (2) Acute UTI: See above, treating with ceftriaxone, bug is pansensitive. (3) Fracture of left fibula: S/p mechanical fall. No pain at present continue nonweightbearing left lower extremity, orthotics consult placed for cam boot walker, ice/elevation and pain control. for SNF/rehab emphasis (4) GERD (gastroesophageal reflux disease): Chronic. Stable. no complaints today. 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 Unknown baseline functional status -Continue Aricept -dtr present, notes that he's around baseline (6) Cerebrovascular disease: no acute symptoms. continue current meds. consider ?81mg asa as outpt. Dispo: Pending placement. Patient will need to be non weight bearing. This will be difficult for patient. (7) DVT prophylaxis: lovenox Subjective Generally feeling okay. Pain controlled. Not able to get around very well. Wants to go home. Later revisited with daughter present, and as we discussed the situation, home is absolutely not a viable option, in his current status. Review of Systems Review of Systems: All systems reviewed & are unremarkable except as noted in HPI & below Physical Exam Physical Exam: General he is awake and alert pleasant no distress. HEENT normocephalic atraumatic mucous membranes moist. Breathing is unlabored no accessory muscle use good effort. Skin shows no rashes no pallor or icterus. Left leg is in a boot, no tenderness, distally appears neurovascularly intact. Results & Data Vital Signs (Past 12 Hours) Vital Signs Temp Pulse Resp BP Pulse Ox 09/12/18 15:37 36.7 C 90 16 98/63 L 98 09/12/18 07:17 36.6 C 93 H 16 108/69 97 PG Care Time/CCT Total # of Minutes Spent Total Time Spent with Patient: Total time spent is greater than 50% in coordination of care (as documented) at patient's floor/unit and/or counseling patient: (1) Altered mental status Altered mental status type: unspecified Qualified Code(s): R41.82 - Altered mental status, unspecified (2) Fracture of left fibula Encounter type: initial encounter Fibula location: distal Fracture morphology: unspecified fracture morphology Fracture type: closed Qualified Code(s): S82.832A - Other fracture of upper and lower end of left fibula, initial encounter for closed fracture (3) GERD (gastroesophageal reflux disease) Esophagitis presence: esophagitis presence not specified Qualified Code(s): K21.9 - Gastro-esophageal reflux disease without esophagitis
[2018-09-12] MEDS: QUETIAPINE FUMARATE 25 MG TABLET PO SCH (20:06)
[2018-09-12] MEDS: DONEPEZIL HCL 5 MG TAB PO SCH (20:06)
[2018-09-12] MEDS: cefTRIAXone SODIUM 1,000 MG in DEXTROSE 5% 50 ML IV SCH (21:51)
[2018-09-12 22:08] LABS: INR 1.2 (0.9-1.1); Prothrombin Time 12.1 Seconds (9.0-12.0)
[2018-09-12] MEDS: ACETAMINOPHEN 325 MG TAB PO PRN (22:26)
[2018-09-13] MEDS: OXYCODONE HCL IR 5 MG TAB (IMMEDIATE RELEASE) PO PRN ×2 (04:57→17:58)
[2018-09-13] MEDS: ASPIRIN 325 MG ECTAB PO SCH (09:11)
[2018-09-13] MEDS: ENOXAPARIN INJ 40 MG/0.4 ML SYR SQ SCH (09:11)
--- NOTE | 2018-09-13 14:39 | Hospitalist Progress Note ---
Date of Service September 13, 2018 Assessment & Plan (1) Altered mental status: most likely toxic encephalopathy from CBD oil rather than encephalopathy from UTI. However, given elevated WBC and confusion and dirty urine, cannot definitively rule out urinary tract infection. -recommend against CBD/THC preps in the future -treat urine (2) Acute UTI: See above, treating with ceftriaxone, will have to treat for 7 days total, but since pansensitive, transition to PO abx at discharge (3) Fracture of left fibula: S/p mechanical fall. No pain at present continue nonweightbearing left lower extremity, orthotics consult placed for cam boot walker, ice/elevation and pain control. for SNF/rehab emphasis -emphasized need for non weight bearing (and PHYSICIAN PRESIDENT came to room when i left to continue to monitor/redirect) (4) GERD (gastroesophageal reflux disease): Chronic. 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 Unknown baseline functional status -Continue Aricept -continue to reassure, redirect -dtr present, notes that he's around baseline (6) Cerebrovascular disease: no acute symptoms. continue current meds. consider ?81mg asa as outpt. Dispo: Pending placement. anticipate SNF 09/14/18 (7) DVT prophylaxis: jessica Turcios Seems a little bit confused today asking if he can go home tonight and come back tomorrow. Seems to have forgotten all of her conversations from yesterday including the ones with his daughter. Denies any complaints. No significant leg pain. Review of Systems Review of Systems: Unobtainable due to cognitive status Physical Exam Physical Exam: gen - pleasantly confused but nad heent - nc at mmm lungs - unlabored no accessory muscles good effort skin - no rashes no pallor or icterus msk - L leg walking boot, doing a poor job of not bearing weight (had to redirect even during interview/exam) but no noted pain/external deformity neuro - no focal deficits Results & Data Vital Signs (Past 12 Hours) Vital Signs Temp Pulse Resp BP Pulse Ox 09/13/18 07:13 36.9 C 85 16 96/59 L 99 PG Care Time/CCT Total # of Minutes Spent Total Time Spent with Patient: Total time spent is greater than 50% in coordination of care (as documented) at patient's floor/unit and/or counseling patient: (1) Altered mental status Altered mental status type: unspecified Qualified Code(s): R41.82 - Altered mental status, unspecified (2) Fracture of left fibula Encounter type: initial encounter Fibula location: distal Fracture morphology: unspecified fracture morphology Fracture type: closed Qualified Code(s): S82.832A - Other fracture of upper and lower end of left fibula, initial encounter for closed fracture (3) GERD (gastroesophageal reflux disease) Esophagitis presence: esophagitis presence not specified Qualified Code(s): K21.9 - Gastro-esophageal reflux disease without esophagitis
[2018-09-13] MEDS: QUETIAPINE FUMARATE 25 MG TABLET PO SCH (20:19)
[2018-09-13] MEDS: DONEPEZIL HCL 5 MG TAB PO SCH (20:19)
[2018-09-13] MEDS: cefTRIAXone SODIUM 1,000 MG in DEXTROSE 5% 50 ML IV SCH (22:08)
[2018-09-14] MEDS: OXYCODONE HCL IR 5 MG TAB (IMMEDIATE RELEASE) PO PRN ×3 (02:02→20:46)
[2018-09-14] MEDS: ACETAMINOPHEN 325 MG TAB PO PRN (05:50)
[2018-09-14] MEDS: ASPIRIN 325 MG ECTAB PO SCH (08:26)
[2018-09-14] MEDS: ENOXAPARIN INJ 40 MG/0.4 ML SYR SQ SCH (08:28)
[2018-09-14] MEDS: cephALEXin 500 MG CAP PO SCH ×3 (09:12→20:48)
--- NOTE | 2018-09-14 17:17 | Hospitalist Progress Note ---
Date of Service September 14, 2018 Assessment & Plan (1) Altered mental status: most likely toxic encephalopathy from CBD oil rather than encephalopathy from UTI. However, given elevated WBC and confusion and dirty urine, cannot definitively rule out urinary tract infection. -recommend against CBD/THC preps in the future -Finish course of treatment for urine culture with Keflex. (2) Acute UTI: See above, initially treated with ceftriaxone, will finish out 7 days of total treatment for presumed complicated UTI, but given that it is pansensitive we will DC ceftriaxone and utilize cephalexin instead. (3) Fracture of left fibula: S/p mechanical fall. No pain at present continue nonweightbearing left lower extremity, orthotics consult placed for cam boot walker, ice/elevation and pain control. for SNF/rehab emphasis -Stable once approved (4) GERD (gastroesophageal reflux disease): Chronic. 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 Unknown baseline functional status -Continue Aricept -continue to reassure, redirect -Per discussion with daughter on Friday, notes that he's around baseline (6) Cerebrovascular disease: no acute symptoms. continue current meds. consider ?81mg asa as outpt. Dispo: Pending placement. anticipate SNF (7) DVT prophylaxis: lovenox Subjective Feeling okay. No significant pain. Awaiting transfer to [facility], awaiting insurance authorization for this. No new complaints otherwise. Review of Systems Review of Systems: All systems reviewed & are unremarkable except as noted in HPI & below Physical Exam Physical Exam: General he is awake and alert pleasant no distress. HEENT normocephalic atraumatic mucous membranes moist. Breathing unlabored no accessory muscle use good effort. Skin shows no rashes no pallor or icterus. Left leg in a walking boot. Results & Data Vital Signs (Past 12 Hours) Vital Signs Temp Pulse Resp BP BP Pulse Ox 09/14/18 15:13 36.3 C L 78 18 106/58 L 97 09/14/18 08:30 36.9 C 82 18 107/60 PG Care Time/CCT Total # of Minutes Spent Total Time Spent with Patient: Total time spent is greater than 50% in coordination of care (as documented) at patient's floor/unit and/or counseling patient: (1) Altered mental status Altered mental status type: unspecified Qualified Code(s): R41.82 - Altered mental status, unspecified (2) Fracture of left fibula Encounter type: initial encounter Fibula location: distal Fracture morphology: unspecified fracture morphology Fracture type: closed Qualified Code(s): S82.832A - Other fracture of upper and lower end of left fibula, initial encounter for closed fracture (3) GERD (gastroesophageal reflux disease) Esophagitis presence: esophagitis presence not specified Qualified Code(s): K21.9 - Gastro-esophageal reflux disease without esophagitis
[2018-09-14] MEDS: DONEPEZIL HCL 5 MG TAB PO SCH (20:48)
[2018-09-14] MEDS: QUETIAPINE FUMARATE 25 MG TABLET PO SCH (20:48)
[2018-09-15] MEDS: OXYCODONE HCL IR 5 MG TAB (IMMEDIATE RELEASE) PO PRN ×2 (03:14→09:30)
[2018-09-15 06:03] LABS: Hematocrit (blood only) 33.9 % (42-52); Hemoglobin 11.5 g/dL (14.0-18.0); Mean Corpuscular Hgb Conc 33.9 g/dL (32-36); Mean Corpuscular Volume 82.3 fL (80-100); Mean Platelet Volume 10.1 fL (7.4-10.4); Platelet Count 382 K/uL (130-400); RDW Coefficient of Variation 14.6 % (11.5-14.5); RDW Standard Deviation 44.1 fL (36.4-46.3); Red Blood Count 4.12 M/uL (4.7-6.1); White Blood Count 8.25 K/uL (4.8-10.8)
[2018-09-15 06:32] LABS: Creatinine Clr Calc Pharmacy 67.1 ml/min; Est GFR (African American) 95.4; Est GFR (Non-African American) 82.3
[2018-09-15] MEDS: ENOXAPARIN INJ 40 MG/0.4 ML SYR SQ SCH (08:34)
[2018-09-15] MEDS: cephALEXin 500 MG CAP PO SCH (08:35)
[2018-09-15] MEDS: ASPIRIN 325 MG ECTAB PO SCH (08:35)
[2018-09-15] MEDS: ACETAMINOPHEN 325 MG TAB PO PRN (12:09)
--- NOTE | 2018-09-15 15:53 | Discharge Summary ---
Date of Service September 15, 2018 Admission HPI Per Admitting Provider Patient is a poor historian. No family at bedside. History obtained through ER physician Donny Muhammad is an 82yo C male with history of Dementia, urostomy tube, recently diagnosed seizure disorder, GERD presenting with AMS, increased confusion. Also with mechanical fall yesterday resulting in pain in left ankle. Patient sleeping comfortably, easily arousable. 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 HEENT normocephalic atraumatic mucous members moist. Breathing unlabored no accessory muscle use good effort. Skin shows no rashes no pallor or icterus. Foot in walking boot. Discharge Data Allergies Allergy/AdvReac Type Severity Reaction Status Date / Time tetanus toxoid, adsorbed AdvReac Mild ITCHING Verified 09/09/18 22:36 RASH Consultations 09/10/18 01:33 ED Decision to Admit Stat 09/10/18 02:01 ED Decision to Admit Stat 09/10/18 04:24 Consult Case Management - Discharge Planning Routine Consult Orthopedic Surgery Routine Ordered Studies 09/09/18 21:21 CT head/brain wo con Stat Hospital Course (1) Altered mental status: most likely toxic encephalopathy from CBD oil rather than encephalopathy from UTI. However, given elevated WBC and confusion and dirty urine, cannot definitively rule out urinary tract infection. -recommend against CBD/THC preps in the future -Finish course of treatment for urine culture with Keflex. -Seems to be back to baseline mentation (2) Acute UTI: See above, initially treated with ceftriaxone, will finish out 7 days of total treatment for presumed complicated UTI, course of treatment to be completed with cephalexin (3) Fracture of left fibula: S/p mechanical fall. No pain at present continue nonweightbearing left lower extremity, orthotics consult placed for cam boot walker, ice/elevation and pain control. for SNF/rehab emphasis Outpatient orthopedic follow-up (4) GERD (gastroesophageal reflux disease): Chronic. 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 Unknown baseline functional status -Continue Aricept -continue to reassure, redirect -Per discussion with daughter on Friday, notes that he's around baseline (6) Cerebrovascular disease: no acute symptoms. continue current meds. consider ?81mg asa as outpt. Dispo: SNF, rehab emphasis (7) DVT prophylaxis: lovenox Total Time Total Time Spent Total Time Spent (In Minutes): Less than 30 Discharge Plan Discharge Items Patient Disposition: Transfer [facility] Reason For Visit: FALL Discharge Diagnosis: fall, fibular fracture Discharge Goals: Decrease discomfort, Diagnostic testing and Therapeutic intervention Activity: Per 'Additional Instructions' section Non-emergency contact: Primary Care Provider and Surgeon Call non-emergency contact if: you have any medication questions, your symptoms worsen and your pain is not controlled Follow-up/Referrals: Kobi Parr [Primary Care Provider] - Diet: Regular Addtl Provider Instructions: altered mental status -most likely was toxic induced encephalopathy from CBD oil, but could not rule out delirium from UTI - urine culture positive for [place] sensitive Klebsiella -stable for SNF transfer -no CBD -finish 2 more days keflex 500mg TID for possible UTI fibular fracture -boot, PT/OT, orthopedics follow up (Dr Magana, [facility]) -----A/P from Dr Magana' consult as follows: (1) Fracture of left fibula: Nondisplaced distal fibula fracture, continue nonweightbearing left lower extremity, orthotics consult placed for cam boot walker, ice/elevation and pain control. Patient will need to follow-up in the office in 1 to 2 weeks for repeat x-rays, [id number]. Thank you for the consultation. Prescriptions: New acetaminophen [Mapap (acetaminophen)] 325 mg Tablet 650 mg PO Q4H Qty: 20 RF: 0 cephalexin 500 mg Capsule 500 mg PO TID Qty: 9 RF: 0 Continued aspirin 325 mg Tablet 325 mg PO DAILY RF: 0 ranitidine HCl [Zantac] 150 mg Tablet 150 mg PO BID RF: 0 Probiotic 10 billion cell Capsule PO DAILY RF: 0 megestrol 400 mg/10 mL (40 mg/mL) suspension 10 PO QAM RF: 0 donepezil 5 mg Tablet 5 mg PO HS RF: 0 quetiapine 25 mg tablet 25 mg PO HS RF: 0 oxycodone 15 mg tablet 15 mg PO TID PRN (Reason: Pain) Qty: 20 RF: 0 Stand-Alone Forms: [facility] Discharge Orders: Discharge Order (Routine); Ordered 09/15/18 Ordered By: Jered López Skilled Items Patient informed of condition?: Yes DNR: No Discharge Level of Care: Skilled Communicable Disease: No Discharge Prognosis: Improving Admission Data Admit Date/Time: 09/11/18 17:33 Attending Provider: Jered López Admit Provider: Cheyenne Wilkerson Primary Care Provider: Kobi Parr Other Providers: Cheyenne Wilkerson ; Justin Mcgrath ; Master Cam ; Israel Jackson ; Carlyn Burks Thomas J ; Kenia Fong ; Karlos Felix ; Alan Lew ; Allen Sherman ; Alan Goss Andrew J. ; Allen Crooks ; Ubaldo Lazcano ; Pietro Farfan ; Leonel Rosario ; Patrick Barillas ; Ben Shaikh ; Kenia Aguilar Casey R ; Manuel Lopez ; Vin Chen ; Nick Calvo Service: Medical Other Interventions: Discharge Summary Assessment (RN) Last Done: 09/15/18 11:31 DC Date/Time DO NOT enter until pt leaves facility: 09/15/18 12:30
== END 2018-09-15 12:30 | DRG 917 ==
LOC: 3N 20:21 → ED 20:21 → SUATTDRO 09-10 03:05 → 3N 09-10 04:00 → SUATTDRO 09-11 17:33

== ENCOUNTER 2019-11-01 17:07 | Inpatient (IN) ==
[2019-11-01] MEDS ORDERED: ONDANSETRON INJ 2 MG/ML 2 ML VIAL IV PRN (20:58)
[2019-11-01] MEDS ORDERED: bisacodyL 10 MG SUPP PR PRN (20:58)
[2019-11-01] MEDS ORDERED: NALOXONE HCL 0.4 MG/1 ML VIAL/CARP IV PRN (20:58)
[2019-11-01] MEDS ORDERED: MAGNESIUM HYDROXIDE SUSP 30 ML UDC PO PRN (20:58)
[2019-11-01] MEDS ORDERED: MELATONIN 3 MG TAB PO PRN (21:07)
[2019-11-01] MEDS ORDERED: LORazepam 0.5 MG/1 ML VIAL IV PRN (21:07)
[2019-11-01] MEDS: ACETAMINOPHEN 325 MG TAB PO PRN (21:29)
[2019-11-01] MEDS: D5W AND NSS 1,000 ML IV SCH (21:31)
--- NOTE | 2019-11-01 21:33 | History & Physical Report ---
Date of Service November 01, 2019 Assessment & Plan (1) Closed right hip fracture: Donny Muhammad is a 83 y/o male with past medical hx of prostate cancer, ostomy, heart valve replacement, vascular dementia, bladder cancer, failure to thrive who presented from [facility] for Transfer for Orthopedic consultation for right hip fracture. Xray from outside facility reported acute minimally displaced fracture of right femoral neck. - Outside images sent to radiology to upload for our veiw - Pre-op labs, ECG, CXR ordered. Outside labs reviewed and unremarkable. - Case Management consult, will not be able to return to retirement. Daughter notes that they were unable to be discharged back to retirement from ED as Donny's pain from hip fracture couldn't be managed at facility, this may have led to decision to transfer here. - Hip fracture nursing protocols ordered - Fall precautions - Analgesic orders placed - Anesthesiology and Ortho consult orders placed. - Not currently on any blood thinners or anti-platelets. 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 She is aware of risk of opioids causing further drop in BP that could be life threatening and would like to have pain managed. - Will have maintenance fluids running (3) Dementia: c/w home Quietapine 25mg PO qHS. 1:1 PRN On Ativan PRN at home, will add Ativan 0.5mg IV PRN order for agitation. (4) Prostate cancer: noted in hx Admission and Anticipated Discharge Date Admission Date: November 01, 2019 History of Present Illness Chief Complaint: Right Hip Fracture Primary Care Provider: Radha Oconnor MD Caveat: History Limited by dementia Donny Muhammad is a 83 y/o male with past medical hx of prostate cancer, ostomy, heart valve replacement, vascular dementia, bladder cancer, failure to thrive who presented from [facility] for Transfer for Orthopedic consultation for right hip fracture. He had a fall at assisted living home about one week ago. Donny states he tripped on bedsheets and fell onto right side. He's been having right hip pain, unable to ambulate, been in wheelchair. He was on hospice at longterm for failure to thrive. Staff thought injury was minor hip bruise. He had an outpatient xray yesterday that resulted in acute minimally displaced fracture of right femoral neck. Family notes that they sought surgical repair and patient was transferred here. Daughter notes that Dr. Kristina Hennessy was notified prior to arrival of patient to our facility. Allergies Allergy/AdvReac Type Severity Reaction Status Date / Time ciprofloxacin [From Cipro] Allergy Unknown Unknown Verified 11/01/19 21:10 tetanus toxoid, adsorbed AdvReac Mild ITCHING Verified 12/25/18 11:03 RASH Home Medications Home Medications Medication Instructions Recorded Confirmed Type Probiotic 0 cell PO DAILY 07/28/18 12/25/18 History aspirin 325 mg PO DAILY 07/28/18 12/25/18 History ranitidine HCl [Zantac] 150 mg PO BID 07/28/18 12/25/18 History quetiapine 25 mg PO HS 09/09/18 12/25/18 History acetaminophen [Mapap 650 mg PO Q4H #20 tab 09/14/18 12/25/18 Rx (acetaminophen)] oxycodone 15 mg PO TID PRN #20 tab 09/14/18 12/25/18 Rx artificial tears(hypromellose) 0.3 1 drops OP BID PRN 12/25/18 12/25/18 History % eye drops paroxetine HCl 10 mg tablet 10 mg PO DAILY 12/25/18 12/25/18 History vitamin B complex-vitamin C-folic 1 tab PO DAILY 12/25/18 12/25/18 History acid 0.8 mg tablet donepezil 5 mg tablet 5 mg PO DAILY #30 tab 02/17/19 Rx Past Med/Surg History Medical History (Updated 11/01/19 @ 21:26 by Louis Mari DO) Cerebrovascular disease Generalized weakness GERD (gastroesophageal reflux disease) Lumbar stenosis (03/23/14) Mild dementia Observed seizure-like activity Prostate cancer UTI (urinary tract infection) Surgical History History of prostatectomy History of urostomy Family History Other Family history non-contributory Social History Smoking Status: Former smoker Second Hand Exposure: No; Do You Dip or Chew Tobacco: Yes; Tobacco Cessation Education Requested by Patient: No Hx Alcohol Use: No Hx Substance Use: No Preferred Language: Burmese Communication Ability: Effective Family Nurse Required: No Beliefs That Will Affect Care: None Current Living Situation: Personal Care Facility Current Living Situation Comment: fiance Other Information That Helps Us Care for You: No Feels Safe at Home: Yes Safety Concerns: Feels Safe At This Time Review of Systems Constitutional: no fever and no chills Eyes: no diplopia and no spots in vision Ear, Nose, Mouth, Throat: no nasal congestion, no nasal obstruction and no epistaxis Respiratory: no cough and no dyspnea Cardiovascular: no chest pain and no palpitations Gastrointestinal: no abdominal pain, no nausea and no vomiting Genitourinary: no dysuria Musculoskeletal: as per Subjective / HPI Integumentary: no rash and no lesions Neurologic: + falls; no localized weakness and no headache(s) Physical Exam Constitutional: WD/WN, vitals as above cooperative and comfortable Eyes: PERRL, conjunctivae normal, anicteric sclerae ENMT: external ear and nose normal, oropharynx normal Neck: normal visual inspection and trachea midline Respiratory: normal respiratory effort, lungs clear to auscultation Cardiovascular: Rate/Rhythm: regular rate and regular rhythm Heart Sounds: + murmur (3/6 systolic) Extremities: no pedal edema old well healed midline sternal surgical scar Gastrointestinal (Abdomen): Percussion/Palpation: abdomen soft; abdomen nontender, no guarding and abdomen not rigid right abdomen with ostomy Musculoskeletal: Head/Neck/Chest: normocephalic and head atraumatic in bed supine with legs crossed, tenderness to palpation to right hip, N/V intact distally; no deformity or tenderness to ankle or knee. Skin: no rashes, warm and dry Neurologic: moves all extremities and awake Psychiatric: Orientation: alert, oriented to person and oriented to place Genitourinary: Mcdonald urine cath in place Results & Data Results & Data ([facility]) Vital Signs (Past 12 Hours) Vital Signs Temp Pulse Resp BP Pulse Ox 11/01/19 20:33 36.6 C 89 20 81/47 L 94 Code Status & VTE Plan VTE Prophylaxis Plan VTE Prophylaxis will be ordered: Yes Supervising Physician Co-Signing Physician Notes Patient seen and examined, chart reviewed, case discussed with Dr. aGrcia and I agree with his assessment and plan as documented above. Briefly, patient is an 83-year-old male presenting with closed right hip fracture after a fall approximately 1 week ago. Patient with history of prostate cancer, urostomy tube, heart valve replacement, vascular dementia. On physical exam patient is afebrile, low blood pressure currently 91/58, no respiratory distress Generalresting comfortably, no acute distress, nontoxic in appearance, very hard of hearing Skinwarm, dry, intact, no rashes or lesions Heart+ S1, S2, regular, 3/6 systolic ejection murmur Lungs CTA Abdomen+ bowel sounds, soft, nontender Extremitieswarm, well-perfused, 2+ pulses Labs and images reviewed Assessment/[id number] male presenting with closed right hip fracture. Patient with RCR I score = 1, advanced age of 83, elevated proBNP = 506. He may proceed to surgery with no additional testing. He should have an EKG obtained in the PACU and daily troponin monitoring in the postoperative period Remainder of plan as above Resident Activity Tracking Resident Involvement: Resident Care Provided Care Provided: Adult [facility] Medicine
[2019-11-01 22:06] LABS: Basophils # (auto) 0.06 K/uL (0-0.2); Basophils % (auto) 0.6 %; Eosinophils % (auto) 2.8 %; Hematocrit (blood only) 29.7 % (42-52); Immature Granulocytes # (auto) 0.06 K/uL (0.00-0.02); Immature Granulocytes % (auto) 0.6 %; Lymphocytes # (auto) 1.65 K/uL (1.2-3.4); Lymphocytes % (auto) 15.3 %; Mean Corpuscular Hemoglobin 30.2 pg (25-34); Mean Corpuscular Hgb Conc 33.7 g/dL (32-36); Mean Corpuscular Volume 89.7 fL (80-100); Mean Platelet Volume 11.6 fL (7.4-10.4); Monocytes # (auto) 1.11 K/uL (0.11-0.59); Monocytes % (auto) 10.3 %; Neutrophils # (auto) 7.59 K/uL (1.4-6.5); Neutrophils % (auto) 70.4 %; Platelet Count 354 K/uL (130-400); RDW Coefficient of Variation 13.9 % (11.5-14.5); Red Blood Count 3.31 M/uL (4.7-6.1); White Blood Count 10.77 K/uL (4.8-10.8)
[2019-11-01 22:16] LABS: INR 1.3 (0.9-1.1); Prothrombin Time 13.5 Seconds (9.0-12.0)
[2019-11-01 22:24] LABS: Albumin Level 2.4 gm/dl (3.4-5.0); Calcium 8.4 mg/dl (8.5-10.1); Est GFR (African American) 72.6; Est GFR (Non-African American) 62.6; Potassium 3.8 mmol/L (3.5-5.1)
[2019-11-01] MEDS: DOCUSATE SODIUM/SENNA 50/8.6MG TAB PO SCH (22:25)
[2019-11-01 22:29] LABS: Albumin Globulin Ratio 0.5 (0.9-2); Bilirubin,Total 0.3 mg/dl (0.2-1); Globulin 4.9 gm/dl (2.5-4.0); Total Protein 7.3 gm/dl (6.4-8.2)
--- NOTE | 2019-11-01 23:01 | Billing Data ---
Date of Service November 01, 2019 Coding Level of Care Code 99627 Initial Inpt Care Lvl 3
[2019-11-01] MEDS: MoRPHine SULFATE 2 MG/ML CARP IV PRN (23:32)
[2019-11-02] MEDS ORDERED: VANCOMYCIN CONSULT ACTIVE PRN (07:22)
--- NOTE | 2019-11-02 07:53 | XRay Report ---
XR chest 1V portable CLINICAL HISTORY: pre-op COMPARISON STUDY: Chest radiograph September 09, 2018. FINDINGS: Lung volumes are normal. Lungs are clear. There is no pneumothorax or pleural effusion. The re is no evidence for pulmonary edema. Note is made of median sternotomy wires (several of which are fractured, unchanged), prosthetic aortic valve and extensive mitral annular calcification. Cardiomedi astinal silhouette is stable. Postoperative findings within the cervical spine are incidentally noted . IMPRESSION: No acute cardiopulmonary findings. No change in appearance of the chest. ACT 112: Negative or not required by law. Electronically signed by: Jose Luis Damon M.D. 11/02/2019 7:52 AM
--- NOTE | 2019-11-02 08:43 | Electrocardiogram Report ---
Test Reason : Blood Pressure : / mmHG Vent. Rate : 086 BPM Atrial Rate : 086 BPM P-R Int : 218 ms QRS Dur : 070 ms QT Int : 350 ms P-R-T Axes : 017 -20 -06 degrees QTc Int : 418 ms Poor data quality, interpretation may be adversely affected Sinus rhythm with 1st degree A-V block Low voltage QRS Borderline ECG When compared with ECG of 09-SEP-2018 21:01, No significant change was found Confirmed by Mega Perez ([id number]) on 11/02/2019 8:43:01 AM Referred By: Jeremy Brown Confirmed By:Mega Perez
[2019-11-02] MEDS ORDERED: VANCOMYCIN HCL 1,000 MG/270 ML BAG IV SCH (09:00)
--- NOTE | 2019-11-02 09:26 | Ultrasound Report ---
US venous doppler LE BI CLINICAL HISTORY: right hip fracture DECREASED MOBILITY. POSSIBLE DVT. COMPARISON STUDY: No previous studies for comparison. FINDINGS: Real-time and color flow Doppler imaging were performed. Flow was seen within the femoral, popliteal and calf veins with no intraluminal thrombus demonstrated. The saphenous vein is patent. IMPRESSION: No evidence of lower extremity DVT. ACT 112: Negative or not required by law. Electronically signed by: Se Butt M.D. 11/02/2019 9:25 AM
--- NOTE | 2019-11-02 10:06 | Orthopedic Consultation ---
Date of Consultation November 02, 2019 Assessment & Plan (1) Closed right hip fracture: Patient is scheduled for hemiarthroplasty of his right hip later today. Surgery is planned for November 02, 2019. He has been admitted by the medical service and has been cleared for surgery without any further preoperative testing. Due to him lying in bed for the last week bilateral lower extremity ultrasounds were performed. He was negative for DVT. He is currently n.p.o. He is not on any blood thinners. Dr. Acevedo will get consent from his daughter over the phone. Risks and complications of the procedure were explained and include but are not limited to infection, pain, bleeding, scarrin g, nerve and blood vessel damage, wound problems, weakness, stiffness, incomplete relief of symptoms, hardware failure, loosening, wear, leg length discrepancy, dislocation, blood clots, embolism, heart attack, stroke and . All questions were answered and informed consent was obtained by Dr. Acevedo. Postoperative course was discussed. After surgery he will be allowed to be out of bed, weight-bear as tolerated with posterior hip precautions in place. All questions were answered. Please call with any further questions. History of Present Illness Reason for Consultation: Left hip pain Attending Physician: Sarita Cohn MD History of Present Illness Patient is an 83-year-old male who presented to [facility]. He was transferred from the [facility]. He had an outpatient x-ray of his right hip which revealed femoral neck fracture. That he fell approximately 1 week ago and has been unable to ambulate since. He has been on bed rest and currently on hospice due to failure to thrive. According to him his facility stopped thought that he had a bruise on his right hip. He was out of bed to wheelchair but was unable to ambulate. He has had continued pain in his right hip so an x-ray was obtained. He was found to have a right femoral neck fracture. He was transferred to [facility] for further orthopedic care. He was admitted to the [facility]. He denies any other complaints. Denies any other injuries. Dr. Acevedo has seen and evaluated the patient. He was consulted for care of his right hip fracture. Allergies Allergy/AdvReac Type Severity Reaction Status Date / Time ciprofloxacin [From Cipro] Allergy Unknown Unknown Verified 11/01/19 21:10 tetanus toxoid, adsorbed AdvReac Mild ITCHING Verified 12/25/18 11:03 RASH Home Medications Home Medications Medication Instructions Recorded Confirmed Type Probiotic 0 cell PO DAILY 07/28/18 12/25/18 History aspirin 325 mg PO DAILY 07/28/18 12/25/18 History ranitidine HCl [Zantac] 150 mg PO BID 07/28/18 12/25/18 History quetiapine 25 mg PO HS 09/09/18 12/25/18 History acetaminophen [Mapap 650 mg PO Q4H #20 tab 09/14/18 12/25/18 Rx (acetaminophen)] oxycodone 15 mg PO TID PRN #20 tab 09/14/18 12/25/18 Rx artificial tears(hypromellose) 0.3 1 drops OP BID PRN 12/25/18 12/25/18 History % eye drops paroxetine HCl 10 mg tablet 10 mg PO DAILY 12/25/18 12/25/18 History vitamin B complex-vitamin C-folic 1 tab PO DAILY 12/25/18 12/25/18 History acid 0.8 mg tablet donepezil 5 mg tablet 5 mg PO DAILY #30 tab 02/17/19 Rx Patient History Medical History (Updated 11/01/19 @ 21:26 by Louis Mari DO) Cerebrovascular disease Generalized weakness GERD (gastroesophageal reflux disease) Lumbar stenosis (03/23/14) Mild dementia Observed seizure-like activity Prostate cancer UTI (urinary tract infection) Surgical History History of prostatectomy History of urostomy Family History Other Family history non-contributory Social History Smoking Status: Former smoker Second Hand Exposure: No; Do You Dip or Chew Tobacco: Yes; Tobacco Cessation Education Requested by Patient: No Hx Alcohol Use: No Hx Substance Use: No Preferred Language: Greenlandic Communication Ability: Effective Deaf And Hard Of Hearing Teacher Required: No Beliefs That Will Affect Care: None Current Living Situation: Personal Care Facility Current Living Situation Comment: fiance Other Information That Helps Us Care for You: No Feels Safe at Home: Yes Safety Concerns: Feels Safe At This Time Review of Systems Review of Systems: All systems reviewed & are unremarkable except as noted in HPI & below Physical Exam Constitutional: + thin; no acute distress and no language barrier Eyes: PERRL, conjunctivae normal, anicteric sclerae ENMT: external ear and nose normal, oropharynx normal Neck: normal visual inspection Respiratory: normal respiratory effort, lungs clear to auscultation Cardiovascular: RRR, no murmur, no edema Vessels: posterior tibial pulses present and dorsalis pedis pulses present Extremities: normal capillary refill; no calf tenderness and no pedal edema Gastrointestinal (Abdomen): normal bowel sounds, soft, nontender, no hepatosplenomegaly Musculoskeletal: Exam of bilateral upper extremities and left lower extremity reveals no evidence of tenderness with range of motion of all joints. He is able to actively move his arms without discomfort. He tolerates range of motion of his left ankle, left knee and left hip without discomfort. There is no distal edema to other extremity. He does have some old healing excoriations on his left thigh left lower leg and right lower leg. No effusion to either knee. His right leg is slightly shortened and held in a mild external rotation. He has pain with logrolling of his right hip. He is nontender of his right knee today. He has no calf tenderness. Nontender throughout his right foot or right ankle. Distal sensation seems to be normal. He has an old healed incision on the lateral aspect of his right thigh. No evidence of ecchymosis or skin breakdown but his right lower extremity. Results & Data ([facility]) Vital Signs (Past 12 Hours) Vital Signs Temp Pulse Resp BP Pulse Ox 11/02/19 07:57 36.9 C 77 14 99/61 L 97 11/01/19 22:55 36.6 C 83 16 91/58 L 96 Laboratory Results 11/01/19 11/01/19 11/01/19 Range/Units Unknown 22:10 22:10 WBC (4.8-10.8) K/uL RBC (4.7-6.1) M/uL Hgb (14.0-18.0) g/dL Hct (42-52) % MCV (80-100) fL MCH (25-34) pg MCHC (32-36) g/dL RDW Std Deviation (36.4-46.3) fL RDW Coeff of Dandre (11.5-14.5) % Plt Count (130-400) K/uL MPV (7.4-10.4) fL Immature Gran % (Auto) % Neut % (Auto) % Lymph % (Auto) % Monroe % (Auto) % Eos % (Auto) % Baso % (Auto) % Neut # (Auto) (1.4-6.5) K/uL Lymph # (Auto) (1.2-3.4) K/uL Monroe # (Auto) (0.11-0.59) K/uL Eos # (Auto) (0-0.5) K/uL Baso # (Auto) (0-0.2) K/uL Immature Gran # (Auto) (0.00-0.02) K/uL PT (9.0-12.0) Seconds INR (0.9-1.1) Sodium (136-145) mmol/L Potassium (3.5-5.1) mmol/L Chloride (98-107) mmol/L Carbon Dioxide (21-32) mmol/L Anion Gap (3-11) BUN (7-18) mg/dl Creatinine (0.6-1.4) mg/dl Est Cr Clr Drug Dosing ml/min Est GFR ( Amer) Est GFR (Non-Af Amer) BUN/Creatinine Ratio (10-20) Glucose (70-99) mg/dl Calcium (8.5-10.1) mg/dl Total Bilirubin (0.2-1) mg/dl AST (15-37) U/L ALT (12-78) U/L Alkaline Phosphatase (45-117) U/L NT-Pro-B Natriuret Pep (0-1800) pg/ml Total Protein (6.4-8.2) gm/dl Albumin (3.4-5.0) gm/dl Globulin (2.5-4.0) gm/dl Albumin/Globulin Ratio (0.9-2) Nasal Screen MRSA (PCR) Positive A (Negative) COVID-19 Eval Order Covid19 [facility]Now [facility] SARS-CoV-2, RNA, NAAT NEGATIVE (NEGATIVE) Blood Type Antibody Screen 11/01/19 11/01/19 11/01/19 Range/Units 21:57 21:57 21:57 WBC 10.77 (4.8-10.8) K/uL RBC 3.31 L (4.7-6.1) M/uL Hgb 10.0 L (14.0-18.0) g/dL Hct 29.7 L (42-52) % MCV 89.7 (80-100) fL MCH 30.2 (25-34) pg MCHC 33.7 (32-36) g/dL RDW Std Deviation 46.0 (36.4-46.3) fL RDW Coeff of Dandre 13.9 (11.5-14.5) % Plt Count 354 (130-400) K/uL MPV 11.6 H (7.4-10.4) fL Immature Gran % (Auto) 0.6 % Neut % (Auto) 70.4 % Lymph % (Auto) 15.3 % Monroe % (Auto) 10.3 % Eos % (Auto) 2.8 % Baso % (Auto) 0.6 % Neut # (Auto) 7.59 H (1.4-6.5) K/uL Lymph # (Auto) 1.65 (1.2-3.4) K/uL Monroe # (Auto) 1.11 H (0.11-0.59) K/uL Eos # (Auto) 0.30 (0-0.5) K/uL Baso # (Auto) 0.06 (0-0.2) K/uL Immature Gran # (Auto) 0.06 H (0.00-0.02) K/uL PT 13.5 H (9.0-12.0) Seconds INR 1.3 H (0.9-1.1) Sodium 136 (136-145) mmol/L Potassium 3.8 (3.5-5.1) mmol/L Chloride 108 H (98-107) mmol/L Carbon Dioxide 21 (21-32) mmol/L Anion Gap 7.0 (3-11) BUN 21 H (7-18) mg/dl Creatinine 1.10 (0.6-1.4) mg/dl Est Cr Clr Drug Dosing 51.0 ml/min Est GFR ( Amer) 72.6 Est GFR (Non-Af Amer) 62.6 BUN/Creatinine Ratio 19.0 (10-20) Glucose 137 H (70-99) mg/dl Calcium 8.4 L (8.5-10.1) mg/dl Total Bilirubin 0.3 (0.2-1) mg/dl AST 27 (15-37) U/L ALT 28 (12-78) U/L Alkaline Phosphatase 142 H (45-117) U/L NT-Pro-B Natriuret Pep 506 (0-1800) pg/ml Total Protein 7.3 (6.4-8.2) gm/dl Albumin 2.4 L (3.4-5.0) gm/dl Globulin 4.9 H (2.5-4.0) gm/dl Albumin/Globulin Ratio 0.5 L (0.9-2) Nasal Screen MRSA (PCR) (Negative) COVID-19 Eval Order SARS-CoV-2, RNA, NAAT (NEGATIVE) Blood Type Antibody Screen 11/01/19 Range/Units 21:57 WBC (4.8-10.8) K/uL RBC (4.7-6.1) M/uL Hgb (14.0-18.0) g/dL Hct (42-52) % MCV (80-100) fL MCH (25-34) pg MCHC (32-36) g/dL RDW Std Deviation (36.4-46.3) fL RDW Coeff of Dandre (11.5-14.5) % Plt Count (130-400) K/uL MPV (7.4-10.4) fL Immature Gran % (Auto) % Neut % (Auto) % Lymph % (Auto) % Monroe % (Auto) % Eos % (Auto) % Baso % (Auto) % Neut # (Auto) (1.4-6.5) K/uL Lymph # (Auto) (1.2-3.4) K/uL Monroe # (Auto) (0.11-0.59) K/uL Eos # (Auto) (0-0.5) K/uL Baso # (Auto) (0-0.2) K/uL Immature Gran # (Auto) (0.00-0.02) K/uL PT (9.0-12.0) Seconds INR (0.9-1.1) Sodium (136-145) mmol/L Potassium (3.5-5.1) mmol/L Chloride (98-107) mmol/L Carbon Dioxide (21-32) mmol/L Anion Gap (3-11) BUN (7-18) mg/dl Creatinine (0.6-1.4) mg/dl Est Cr Clr Drug Dosing ml/min Est GFR ( Amer) Est GFR (Non-Af Amer) BUN/Creatinine Ratio (10-20) Glucose (70-99) mg/dl Calcium (8.5-10.1) mg/dl Total Bilirubin (0.2-1) mg/dl AST (15-37) U/L ALT (12-78) U/L Alkaline Phosphatase (45-117) U/L NT-Pro-B Natriuret Pep (0-1800) pg/ml Total Protein (6.4-8.2) gm/dl Albumin (3.4-5.0) gm/dl Globulin (2.5-4.0) gm/dl Albumin/Globulin Ratio (0.9-2) Nasal Screen MRSA (PCR) (Negative) COVID-19 Eval Order SARS-CoV-2, RNA, NAAT (NEGATIVE) Blood Type A Positive Antibody Screen NEGATIVE Diagnostic Findings US venous doppler LE BI CLINICAL HISTORY: right hip fracture DECREASED MOBILITY. POSSIBLE DVT. COMPARISON STUDY: No previous studies for comparison. FINDINGS: Real-time and color flow Doppler imaging were performed. Flow was seen within the femoral, popliteal and calf veins with no intraluminal thrombus demonstrated. The saphenous vein is patent. IMPRESSION: No evidence of lower extremity DVT. XR chest 1V portable CLINICAL HISTORY: pre-op COMPARISON STUDY: Chest radiograph September 09, 2018. FINDINGS: Lung volumes are normal. Lungs are clear. There is no pneumothorax or pleural effusion. There is no evidence for pulmonary edema. Note is made of median sternotomy wires (several of which are fractured, unchanged), prosthetic aortic valve and extensive mitral annular calcification. Cardiomediastinal silhouette is stable. Postoperative findings within the cervical spine are incidentally noted. IMPRESSION: No acute cardiopulmonary findings. No change in appearance of the chest. HIP UNI w Pelvis 2-3 views; report noted, report shows recent right femoral neck fracture with modest displacement.
[2019-11-02] MEDS: NICOTINE 14 MG/24 HR PATCH TD SCH (10:08)
[2019-11-02] MEDS: OXYCODONE HCL IR 5 MG TAB (IMMEDIATE RELEASE) PO PRN (10:09)
[2019-11-02] MEDS: D5W AND NSS 1,000 ML IV SCH ×2 (10:10→23:34)
--- NOTE | 2019-11-02 10:18 | Orthopedic Progress Note ---
Date of Service November 02, 2019 Assessment & Plan Admission and Anticipated Discharge Date Admission Date: November 01, 2019 X-rays are reviewed demonstrating a displaced femoral neck fracture. There is evidence of a prior femur fracture which is healed with mild varus deformity. His labs are noted. Medical consult noted. Spoke with both of his daughters. Clare has power of real estate attorney. They were educated about the options. We talked about the diagnosis. We discussed nonoperative and operative management. He does ambulate with a walker and was previously in assisted living. I discussed with him that there is a possibility that we might not be able to fix it given the length of time. I did because of his immobility ordered an ultrasound which was negative for DVT in both lower extremities. He will need DVT prophylaxis postoperatively. We discussed the indications options risks and benefits of operative intervention specifically a hip hemiarthroplasty and they agreed to proceed. An informed consent was obtained over the phone. Subjective Don is 83. He was in a detention for dementia. He fell 2 weeks ago and is not ambulated since. He was evaluated yesterday and found to have a hip fracture and transferred to [facility]. He complains of pain in the right hip and is not been able to ambulate. Physical Exam Physical Exam: The right leg is shortened and externally rotated. He has a lateral hip incision which is well-healed there is tenderness of the right hip area he has a 1+ dorsalis pedis pulse. He reports intact sensation to the foot he can flex and extend his ankle and toes with strength 4+ to 5- out of 5. He cannot move his knee. He can bend the left leg without difficulty. He is alert and oriented to person place and year but not month or day of the week. Results & Data ([facility]) Vital Signs (Past 12 Hours) Vital Signs Temp Pulse Resp BP Pulse Ox 11/02/19 07:57 36.9 C 77 14 99/61 L 97 11/01/19 22:55 36.6 C 83 16 91/58 L 96
--- NOTE | 2019-11-02 11:16 | Hospitalist Progress Note ---
Date of Service November 02, 2019 Assessment & Plan (1) Closed right hip fracture: Donny Muhammad is a 83 y/o male with past medical hx of prostate cancer, urostomy w/ ileal conduit, AVR, vascular dementia, bladder cancer, failure to thrive who presented from [facility] for Transfer for Orthopedic consultation for right hip fracture. He and his daughter have revoked Hospice for treatment of his hip fracture due to severe pain. Xray from outside facility reported acute minimally displaced fracture of right femoral neck. -pain management with APAP, oxycodone, IV morphine -bowel regimen -bedrest -awaiting Ortho consultation, plan for surgery-with a h/o TAVR, no ongoing chest pain. Patient with RCR I score = 1, advanced age of 83, elevated proBNP = 506. He may proceed to surgery with no additional testing. He should have an EKG obtained in the PACU and daily troponin monitoring in the postoperative period. Check stat ECHO now for EF and valve function -check baseline trop now -follow CBC as was anemic preop, type and screen already completed -PT/OT evals post-op keep NPO and continue IVFs, Mcdonald in place (2) Hypotension: Daughter notes he chronically has low BP. She is aware of risk of opioids causing further drop in BP that could be life threatening and would like to have pain managed. - Will have maintenance fluids running (3) Dementia: c/w home Quietapine 25mg PO qHS. 1:1 PRN On Ativan PRN at home, will add Ativan 0.5mg IV PRN order for agitation. (4) Prostate cancer: noted in hx (5) S/P TAVR (transcatheter aortic valve replacement): x 2, most recent was 2019 at [facility] No recent ECHO in our system, asymptomatic No evidence of heart failure here Check STAT ECHO now for EF and valve fxn (6) History of urostomy: noted, urine slightly cloudy from ileal conduit (7) Nicotine dependence: chews tobacco/snuff -continue NRT TD patch (8) DVT prophylaxis: SCDs -Dispo-continued stay, will need rehab Admission and Anticipated Discharge Date Admission Date: November 01, 2019 Subjective Having pain in right hip. Denies CP or SOB, no nausea or abd pain. Is hard of hearing and daughter at bedside. Reports he fell 2 weeks ago and pain became unmanageable Pt does inquire if he can have a penile implant while he is here. Discussed his care with ANesthesiology Review of Systems Review of Systems: All systems reviewed & are unremarkable except as noted in HPI & below Physical Exam Constitutional: WD/WN, vitals as above Eyes: + anicteric sclerae Neck: trachea midline, no thyromegaly Respiratory: normal respiratory effort, lungs clear to auscultation Cardiovascular: Rate/Rhythm: regular rate and regular rhythm Heart Sounds: + murmur (1/6 PEPE at RUSB) Vessels: no JVD Extremities: no edema Chest (Breasts): Chest: normal inspection of chest Gastrointestinal (Abdomen): normal bowel sounds, soft, nontender, no hepatosplenomegaly Inspection/Auscultation: + abdomen abnormal to inspection (ileal conduit urostomy in place with bag with cloudy yellow urine) Musculoskeletal: Extremities: extremities normal to inspection (+TTP over right hip, shortened and int rotated, 2+ DP pulses bilat); no cyanosis and no clubbing Skin: no rashes, warm and dry Neurologic: moves all extremities and awake; no focal motor deficits Psychiatric: Orientation: alert, oriented to person, oriented to place and cooperative Eye Contact: good eye contact Speech: normal rate/rhythm/volume of speech Affect: euthymic affect Lymphatic: no lymphedema Results & Data Results & Data ([facility]) Vital Signs (Past 12 Hours) Vital Signs Temp Pulse Resp BP Pulse Ox 11/02/19 07:57 36.9 C 77 14 99/61 L 97 Laboratory Results 11/01/19 11/01/19 11/01/19 Range/Units Unknown 22:10 22:10 WBC (4.8-10.8) K/uL RBC (4.7-6.1) M/uL Hgb (14.0-18.0) g/dL Hct (42-52) % MCV (80-100) fL MCH (25-34) pg MCHC (32-36) g/dL RDW Std Deviation (36.4-46.3) fL RDW Coeff of Dandre (11.5-14.5) % Plt Count (130-400) K/uL MPV (7.4-10.4) fL Immature Gran % (Auto) % Neut % (Auto) % Lymph % (Auto) % [place] % (Auto) % Eos % (Auto) % Baso % (Auto) % Neut # (Auto) (1.4-6.5) K/uL Lymph # (Auto) (1.2-3.4) K/uL [place] # (Auto) (0.11-0.59) K/uL Eos # (Auto) (0-0.5) K/uL Baso # (Auto) (0-0.2) K/uL Immature Gran # (Auto) (0.00-0.02) K/uL PT (9.0-12.0) Seconds INR (0.9-1.1) Sodium (136-145) mmol/L Potassium (3.5-5.1) mmol/L Chloride (98-107) mmol/L Carbon Dioxide (21-32) mmol/L Anion Gap (3-11) BUN (7-18) mg/dl Creatinine (0.6-1.4) mg/dl Est Cr Clr Drug Dosing ml/min Est GFR ( Amer) Est GFR (Non-Af Amer) BUN/Creatinine Ratio (10-20) Glucose (70-99) mg/dl Calcium (8.5-10.1) mg/dl Total Bilirubin (0.2-1) mg/dl AST (15-37) U/L ALT (12-78) U/L Alkaline Phosphatase (45-117) U/L NT-Pro-B Natriuret Pep (0-1800) pg/ml Total Protein (6.4-8.2) gm/dl Albumin (3.4-5.0) gm/dl Globulin (2.5-4.0) gm/dl Albumin/Globulin Ratio (0.9-2) Nasal Screen MRSA (PCR) Positive A (Negative) COVID-19 Eval Order Covid19 IDNow [facility] SARS-CoV-2, RNA, NAAT NEGATIVE (NEGATIVE) Blood Type Antibody Screen 11/01/19 11/01/19 11/01/19 Range/Units 21:57 21:57 21:57 WBC 10.77 (4.8-10.8) K/uL RBC 3.31 L (4.7-6.1) M/uL Hgb 10.0 L (14.0-18.0) g/dL Hct 29.7 L (42-52) % MCV 89.7 (80-100) fL MCH 30.2 (25-34) pg MCHC 33.7 (32-36) g/dL RDW Std Deviation 46.0 (36.4-46.3) fL RDW Coeff of Dandre 13.9 (11.5-14.5) % Plt Count 354 (130-400) K/uL MPV 11.6 H (7.4-10.4) fL Immature Gran % (Auto) 0.6 % Neut % (Auto) 70.4 % Lymph % (Auto) 15.3 % [place] % (Auto) 10.3 % Eos % (Auto) 2.8 % Baso % (Auto) 0.6 % Neut # (Auto) 7.59 H (1.4-6.5) K/uL Lymph # (Auto) 1.65 (1.2-3.4) K/uL [place] # (Auto) 1.11 H (0.11-0.59) K/uL Eos # (Auto) 0.30 (0-0.5) K/uL Baso # (Auto) 0.06 (0-0.2) K/uL Immature Gran # (Auto) 0.06 H (0.00-0.02) K/uL PT 13.5 H (9.0-12.0) Seconds INR 1.3 H (0.9-1.1) Sodium 136 (136-145) mmol/L Potassium 3.8 (3.5-5.1) mmol/L Chloride 108 H (98-107) mmol/L Carbon Dioxide 21 (21-32) mmol/L Anion Gap 7.0 (3-11) BUN 21 H (7-18) mg/dl Creatinine 1.10 (0.6-1.4) mg/dl Est Cr Clr Drug Dosing 51.0 ml/min Est GFR ( Amer) 72.6 Est GFR (Non-Af Amer) 62.6 BUN/Creatinine Ratio 19.0 (10-20) Glucose 137 H (70-99) mg/dl Calcium 8.4 L (8.5-10.1) mg/dl Total Bilirubin 0.3 (0.2-1) mg/dl AST 27 (15-37) U/L ALT 28 (12-78) U/L Alkaline Phosphatase 142 H (45-117) U/L NT-Pro-B Natriuret Pep 506 (0-1800) pg/ml Total Protein 7.3 (6.4-8.2) gm/dl Albumin 2.4 L (3.4-5.0) gm/dl Globulin 4.9 H (2.5-4.0) gm/dl Albumin/Globulin Ratio 0.5 L (0.9-2) Nasal Screen MRSA (PCR) (Negative) COVID-19 Eval Order SARS-CoV-2, RNA, NAAT (NEGATIVE) Blood Type Antibody Screen 11/01/19 Range/Units 21:57 WBC (4.8-10.8) K/uL RBC (4.7-6.1) M/uL Hgb (14.0-18.0) g/dL Hct (42-52) % MCV (80-100) fL MCH (25-34) pg MCHC (32-36) g/dL RDW Std Deviation (36.4-46.3) fL RDW Coeff of Dandre (11.5-14.5) % Plt Count (130-400) K/uL MPV (7.4-10.4) fL Immature Gran % (Auto) % Neut % (Auto) % Lymph % (Auto) % [place] % (Auto) % Eos % (Auto) % Baso % (Auto) % Neut # (Auto) (1.4-6.5) K/uL Lymph # (Auto) (1.2-3.4) K/uL [place] # (Auto) (0.11-0.59) K/uL Eos # (Auto) (0-0.5) K/uL Baso # (Auto) (0-0.2) K/uL Immature Gran # (Auto) (0.00-0.02) K/uL PT (9.0-12.0) Seconds INR (0.9-1.1) Sodium (136-145) mmol/L Potassium (3.5-5.1) mmol/L Chloride (98-107) mmol/L Carbon Dioxide (21-32) mmol/L Anion Gap (3-11) BUN (7-18) mg/dl Creatinine (0.6-1.4) mg/dl Est Cr Clr Drug Dosing ml/min Est GFR ( Amer) Est GFR (Non-Af Amer) BUN/Creatinine Ratio (10-20) Glucose (70-99) mg/dl Calcium (8.5-10.1) mg/dl Total Bilirubin (0.2-1) mg/dl AST (15-37) U/L ALT (12-78) U/L Alkaline Phosphatase (45-117) U/L NT-Pro-B Natriuret Pep (0-1800) pg/ml Total Protein (6.4-8.2) gm/dl Albumin (3.4-5.0) gm/dl Globulin (2.5-4.0) gm/dl Albumin/Globulin Ratio (0.9-2) Nasal Screen MRSA (PCR) (Negative) COVID-19 Eval Order SARS-CoV-2, RNA, NAAT (NEGATIVE) Blood Type A Positive Antibody Screen NEGATIVE Diagnostic Findings Images reviewed PG Care Time/CCT Total # of Minutes Spent Total Time Spent with Patient: Total time spent is greater than 50% in coordination of care (as documented) at patient's floor/unit and/or counseling patient: Coding Level of Care Code 39831 Subseq Hosp Care Lvl 3 Diagnoses Closed right hip fracture S72.001A Hypotension I95.9 Dementia F03.90 Prostate cancer C61 S/P TAVR (transcatheter aortic valve replacement) Z95.2 History of urostomy Z98.890 Nicotine dependence F17.200 DVT prophylaxis Z29.9
--- NOTE | 2019-11-02 11:36 | Anesthesiology Consultation ---
Date of Service November 02, 2019 Assessment & Plan Chart Review Chart Review: Acceptable Risk for Surgery (Pending echocardiogram) Consults Requested none Teaching & Discussion Discussed with Hospitalist: Echocardiogram requested to assess EF and exclude hemodynamically significant valvular disease. History Surgery Operation Date: 11/02/19 12:10 Proposed Procedures p Right Bipolar Hemiarthroplasty - Patrick Acevedo MD Height/Weight Height: 5 ft 8 in Weight: 70.6 kg Allergies Allergy/AdvReac Type Severity Reaction Status Date / Time ciprofloxacin [From Cipro] Allergy Unknown Unknown Verified 11/01/19 21:10 tetanus toxoid, adsorbed AdvReac Mild ITCHING Verified 12/25/18 11:03 RASH Medications Home Medications Medication Instructions Recorded Confirmed Last Taken Probiotic 0 cell PO DAILY 07/28/18 12/25/18 07/28/18 aspirin 325 mg PO DAILY 07/28/18 12/25/18 07/28/18 ranitidine HCl [Zantac] 150 mg PO BID 07/28/18 12/25/18 07/28/18 08:00 quetiapine 25 mg PO HS 09/09/18 12/25/18 Unknown acetaminophen [Mapap 650 mg PO Q4H #20 tab 09/14/18 12/25/18 Unknown (acetaminophen)] oxycodone 15 mg PO TID PRN #20 tab 09/14/18 12/25/18 Unknown artificial tears(hypromellose) 0.3 1 drops OP BID PRN 12/25/18 12/25/18 Unknown % eye drops paroxetine HCl 10 mg tablet 10 mg PO DAILY 12/25/18 12/25/18 Unknown vitamin B complex-vitamin C-folic 1 tab PO DAILY 12/25/18 12/25/18 Unknown acid 0.8 mg tablet donepezil 5 mg tablet 5 mg PO DAILY #30 tab 02/17/19 Unknown Active Medications Generic Name Dose Route Start Last Admin Trade Name Freq PRN Reason Stop Dose Admin Acetaminophen 650 mg 11/01/19 20:58 11/01/19 21:29 Acetaminophen 325 Mg Tab PO 12/01/19 20:57 650 mg Q6H PRN Administration MILD Pain (Scale 1,2,3) Dextrose/Sodium Chloride 1,000 mls @ 100 mls/hr 11/01/19 21:00 11/02/19 10:10 D5w And Nss IV 12/01/19 20:59 100 mls/hr .Q10H YOUSIF Administration Miscellaneous 1 ea 11/02/19 08:59 11/02/19 10:10 Remove Nicoderm Patch N/A 12/02/19 08:58 1 ea [id number] YOUSIF Administration Morphine Sulfate 2 mg 11/01/19 20:58 11/01/19 23:32 Morphine Sulfate 2 Mg/Ml Carp IV 11/15/19 20:57 2 mg Q2H PRN Administration SEVERE Pain (Scale 7,8,9,10) Nicotine 14 mg 11/02/19 09:00 11/02/19 10:08 Nicotine 14 Mg/24 Hr Patch TD 12/02/19 08:59 14 mg QAM YOUSIF Administration Oxycodone HCl 5 mg 11/01/19 20:58 11/02/19 10:09 Oxycodone Hcl Ir 5 Mg Tab (Immediate Release) PO 11/15/19 20:57 5 mg Q4H PRN Administration MODERATE Pain (Scale 4,5,6) Senna/Docusate Sodium 2 tab 11/01/19 21:00 11/01/19 22:25 Docusate Sodium/Senna 50/8.6mg Tab PO 12/01/19 20:59 2 tab HS YOUSIF Administration NPO Date Last Intake of Fluids: 11/01/19 Date Last Intake of Solids: 11/01/19 Past Medical History Medical History Cerebrovascular disease Generalized weakness GERD (gastroesophageal reflux disease) Lumbar stenosis (03/23/14) Nicotine dependence Observed seizure-like activity Prostate cancer UTI (urinary tract infection) Past Family History Family History Other Family history non-contributory Past Surgical History Surgical History History of prostatectomy History of urostomy S/P TAVR (transcatheter aortic valve replacement) Social History Smoking Status: Former smoker Do You Dip or Chew Tobacco: Yes Hx Alcohol Use: No Hx Substance Use: No substance use type: does not use Physical Exam Vital Signs Last Vital Signs Temp 36.9 C 11/02/19 07:57 Pulse 77 11/02/19 07:57 Resp 14 11/02/19 07:57 BP 99/61 L 11/02/19 07:57 Pulse Ox 97 11/02/19 07:57 Testing Laboratory Results 11/01/19 21:57 11/01/19 21:57 PT 13.5 Seconds (9.0-12.0) H 11/01/19 21:57 INR 1.3 (0.9-1.1) H 11/01/19 21:57 Blood Type A Positive 11/01/19 21:57 Antibody Screen NEGATIVE 11/01/19 21:57
[2019-11-02] MEDS: MoRPHine SULFATE 2 MG/ML CARP IV PRN ×2 (11:51→20:22)
[2019-11-02 12:18] LABS: Basophils # (auto) 0.05 K/uL (0-0.2); Basophils % (auto) 0.6 %; Eosinophils # (auto) 0.45 K/uL (0-0.5); Hemoglobin 10.4 g/dL (14.0-18.0); Immature Granulocytes # (auto) 0.07 K/uL (0.00-0.02); Immature Granulocytes % (auto) 0.8 %; Lymphocytes % (auto) 15.4 %; Mean Corpuscular Hgb Conc 32.5 g/dL (32-36); Mean Corpuscular Volume 92.2 fL (80-100); Mean Platelet Volume 11.5 fL (7.4-10.4); Monocytes # (auto) 0.97 K/uL (0.11-0.59); Monocytes % (auto) 10.7 %; Neutrophils # (auto) 6.14 K/uL (1.4-6.5); Neutrophils % (auto) 67.5 %; Platelet Count 364 K/uL (130-400); RDW Coefficient of Variation 14.2 % (11.5-14.5); RDW Standard Deviation 47.8 fL (36.4-46.3); Red Blood Count 3.47 M/uL (4.7-6.1); White Blood Count 9.08 K/uL (4.8-10.8)
[2019-11-02 12:35] LABS: BUN Creatinine Ratio 17.7 (10-20); Calcium 8.4 mg/dl (8.5-10.1); Creatinine Clr Calc Pharmacy 58.4 ml/min; Est GFR (African American) 85.6; Est GFR (Non-African American) 73.8; Potassium 3.8 mmol/L (3.5-5.1)
--- NOTE | 2019-11-02 13:59 | XCELERA ---
[id number]
[2019-11-02] MEDS ORDERED: PROPOFOL IV EMULSION 10 MG/ML 20 ML VIAL IV ONE (15:31)
[2019-11-02] MEDS ORDERED: LIDOCAINE HCL 2% 2 ML VIAL/AMP(20MG/ML) INFIL ONE (15:31)
[2019-11-02] MEDS ORDERED: fentaNYL citrate 100 MCG/2 ML VIAL ONE (15:31)
[2019-11-02] MEDS ORDERED: ONDANSETRON INJ 2 MG/ML 2 ML VIAL IV PRN (15:45)
[2019-11-02] MEDS ORDERED: ePHEDrine sulfate 50 MG/ML AMP IV PRN (15:45)
[2019-11-02] MEDS ORDERED: ATROPINE SULFATE 0.1 MG/ML 10ML SYR IV PRN (15:45)
[2019-11-02] MEDS ORDERED: VANCOMYCIN HCL 1000MG/20ML VIAL ONE ×3 (16:08→17:00)
[2019-11-02] MEDS ORDERED: THROMBIN FOR SOLN 20000 UNIT KIT ONE (16:08)
[2019-11-02] MEDS ORDERED: BACITRACIN INJ 50,000 UNIT VIAL ONE (16:08)
[2019-11-02] MEDS ORDERED: TRANEXAMIC ACID / 0.7% NACL 1000MG/100ML BAG IV ONE (17:40)
[2019-11-02] MEDS ORDERED: PHENYLEPHRINE 100MCG/ML 5ML SYR ONE (18:39)
[2019-11-02] MEDS ORDERED: PHENYLEPHRINE HCL 10 MG/ML VIAL ONE (18:39)
--- NOTE | 2019-11-02 18:54 | Operative Report ---
Post Operative Report Pre & Post Diagnosis Operation Date: 11/02/19 12:10 Pre-Op Diagnosis: RIGHT HIP FRACTURE Post-Op Diagnosis: RIGHT HIP FRACTURE I identified the patient and participated in the time-out.: Yes Procedure Operation Date: 11/02/19 12:10 Actual Procedures p Right Bipolar Hemiarthroplasty, Cemented (Right) - Patrick Acevedo MD Surgeon Patrick Acevedo MD Blood Typer Libby Allen Estimated Blood Loss 25 Findings Consistent with Post-Op Diagnosis Specimens Femoral head Drains None Anesthesia Type Spinal MAC Complications none Disposition Accompanied Patient To Recovery: No Disposition: Recovery Room Indications Patient is 83. 2-week status post fall resulting in a right hip fracture. He has some dementia and lives in a fpc. He was transferred here from [place]. The exam and radiographs are consistent with a subacute right femoral neck fracture. Ultrasound of both lower extremity showed no evidence of blood clot preoperatively. Description of Procedure His family identified the operative site as the right hip. I marked with my initials and a preop surgical timeout was performed. Preop dose of IV antibiotics was given. He received vancomycin and Ancef preoperatively. He was positioned lateral decubitus with the right side up after administration of the anesthetic. Bony prominences of the lower extremity were padded and the axillary roll was inserted. Both hips were somewhat stiff. The other knee did not fully straighten. DVT prophylaxis with SCDs. Postoperatively we will get him on Lovenox. Routine prep and drape was performed followed by a posterior approach to the hip. He had a prior femoral fracture and had a anterolateral incision which could not be incorporated. Electrocautery was utilized down through the subcutaneous tissues. The iliotibial band and gluteal fascia were divided in line with the incision. Charnley retractor inserted. Short external rotators were released off of the proximal femur. The gluteus minimus was dissected off of the joint capsule and a capsulotomy was performed. There was some old bone fragments present and no hemorrhage was noted there was some serous fluid within the joint and the fracture margins looked to be nonacute in nature whitish-araujo without acute hemorrhage. The capsule and short external rotators were tagged and dissected posteriorly for later repair. The femoral head was then removed and sized to a 54. Ligamentum teres was cauterized. The labrum was intact and the socket looked unremarkable. Leg was placed into the 9090 position. Soft tissue around the lateral neck was removed. Box osteotome was utilized followed by the canal finder and lateralizing reamer. Broaching began at size 2 and proceeded up to a size 8 with good fit and fill. Broaching done and 30 degrees anteversion. Trialing was performed and there was reasonable stability with the +1.5 neck. Subsequently the trial components were removed. 3 bags of Simplex P cement were mixed along with 2 g of vancomycin powder per bag. The canals. Prepared with plugging and pulse lavage as well as meticulously dried. The cement was retrograde filled pressurized and the implant was inserted and 30 degrees anteversion with care to avoid varus. Prior to insertion of the final stem with a trial in place a lateral radiograph was obtained demonstrating good positioning of the implant which I wanted to check because of his lateral bowing of the proximal femur from his prior fracture. The shaft of the femur was very large. Implant was held until the cement had hardened. Trialing again was performed in the best stability was obtained with the +5 neck length. Negative shuck in mid position in full extension. A little tight in full extension. There was instability in maximum abduction at 45 degrees internal rotation. The final implants were inserted. Short external rotators and joint capsule were repaired back to the greater trochanter through the abductor mechanism and bone as appropriate with #1 Ethibond. Copious irrigation was performed. Meticulous hemostasis was performed. The gluteal fascia and IT band were closed with running and interrupted #1 Vicryl. Skin was closed in layers with 0 and 2-0 Vicryl and adriano on the skin. Xeroform 4 x 4's ABD foam tape. Abduction pillow. Patient wake from anesthesia without difficulty taken to the recovery room in stable condition. The femoral head was sent for specimen. There were no complications. Counts were correct. Blood loss is estimated to be 25 cc. At the conclusion the operation spoke the patient's daughter informed her of my findings. Postoperative instructions were discussed. He will be started on Lovenox the morning after surgery. He can weight-bear as tolerated with total hip precautions. I attest to the content of the Intraoperative Record and any orders documented therein. Any exceptions are noted below.
[2019-11-02] MEDS: fentaNYL citrate 100 MCG/2 ML VIAL IV PRN ×4 (19:07→19:26)
--- NOTE | 2019-11-02 19:35 | Anesthesiology Progress Note ---
Date of Service November 02, 2019 Anesthesia Post Procedure Vital Signs Vital Signs: Temp Pulse Pulse Pulse Resp BP BP 11/02/19 19:25 90 13 106/60 11/02/19 19:15 89 15 94/54 L 11/02/19 19:05 89 17 92/48 L 11/02/19 18:58 36.2 C L 90 18 91/65 L 11/02/19 14:56 36.9 C 71 16 86/52 L 11/02/19 07:57 36.9 C 77 14 99/61 L 11/01/19 22:55 36.6 C 83 16 91/58 L 11/01/19 20:33 36.6 C 89 20 81/47 L Pulse Ox 11/02/19 19:25 100 11/02/19 19:15 98 11/02/19 19:05 100 11/02/19 18:58 100 11/02/19 14:56 95 11/02/19 07:57 97 11/01/19 22:55 96 11/01/19 20:33 94 Pain Intensity Right Hip: Pain Intensity: 5 Transfer of Care Handoff Completed per policy Notes Mental Status: alert / awake / arousable Patient Amnestic to Procedure: Yes Nausea / Vomiting: adequately controlled Pain: adequately controlled Airway Patency, RR, SpO2: stable & adequate BP & HR: stable & adequate Hydration State: stable & adequate Neuraxial Anesthesia: was administered and sensory block is resolving Anesthetic Complications: no major complications apparent
--- NOTE | 2019-11-02 19:42 | XRay Report ---
XR hip RT min 2V CLINICAL HISTORY: Post-Operative implant position. Right hip prosthesis. COMPARISON STUDY: None. FINDINGS: Status post right hip hemiarthroplasty. The hardware is intact. No fracture or dislocation. Skin adriano are in place. Surgical clips within the deep pelvis. Partially visualized lumbar spinal fusion hardware. Small plug-like radiopaque foreign body overlying the left anterior pelvis may be e xternal to the patient. IMPRESSION: Status post right hip hemiarthroplasty. No evidence for hardware complications. A small plug-like radiopaque foreign body overlying the left anterior pelvis may be external to the patient. Clinical correlation recommended. ACT 112: Negative or not required by law. Electronically signed by: Rigo Rodriguez M.D. 11/02/2019 7:41 PM
--- NOTE | 2019-11-02 19:43 | Fluoroscopy Report ---
FL hip RT 2-3V CLINICAL HISTORY: Right hip prosthesis. COMPARISON STUDY: None. FLUOROSCOPY TIME: 7 seconds. FINDINGS: 3 fluoroscopic spot images of the right hip demonstrate placement of a femoral spacer which appears in good position. A skin retractor is also noted. IMPRESSION: Fluoroscopy provided for right hip prosthesis. ACT 112: Negative or not required by law. Electronically signed by: Rigo Rodriguez M.D. 11/02/2019 7:41 PM
[2019-11-02] MEDS ORDERED: CALCIUM CARBONATE 500 MG CHEWABLE TAB PO PRN (20:06)
[2019-11-02] MEDS: DOCUSATE SODIUM/SENNA 50/8.6MG TAB PO SCH (20:43)
[2019-11-02] MEDS: QUETIAPINE FUMARATE 25 MG TABLET PO SCH (20:44)
[2019-11-03] MEDS: D5W AND NSS 1,000 ML IV SCH ×2 (02:22→12:37)
[2019-11-03] MEDS: ACETAMINOPHEN 325 MG TAB PO PRN ×2 (04:13→08:45)
[2019-11-03 06:35] LABS: Basophils # (auto) 0.07 K/uL (0-0.2); Basophils % (auto) 0.5 %; Eosinophils # (auto) 0.15 K/uL (0-0.5); Eosinophils % (auto) 1.1 %; Hemoglobin 10.4 g/dL (14.0-18.0); Immature Granulocytes # (auto) 0.09 K/uL (0.00-0.02); Immature Granulocytes % (auto) 0.7 %; Lymphocytes # (auto) 1.06 K/uL (1.2-3.4); Lymphocytes % (auto) 8.1 %; Mean Corpuscular Hemoglobin 29.7 pg (25-34); Mean Corpuscular Hgb Conc 32.5 g/dL (32-36); Mean Corpuscular Volume 91.4 fL (80-100); Mean Platelet Volume 12.2 fL (7.4-10.4); Monocytes # (auto) 1.13 K/uL (0.11-0.59); Monocytes % (auto) 8.6 %; Neutrophils # (auto) 10.63 K/uL (1.4-6.5); Platelet Count 337 K/uL (130-400); RDW Coefficient of Variation 14.3 % (11.5-14.5); RDW Standard Deviation 46.7 fL (36.4-46.3); White Blood Count 13.13 K/uL (4.8-10.8)
[2019-11-03 07:05] LABS: BUN Creatinine Ratio 12.8 (10-20); Calcium 8.2 mg/dl (8.5-10.1); Est GFR (Non-African American) 68.1
--- NOTE | 2019-11-03 08:20 | Anesthesiology Progress Note ---
Date of Service November 03, 2019 Anesthesia Post Procedure Vital Signs Vital Signs: Temp Pulse Pulse Resp BP BP Pulse Ox 11/03/19 07:03 38.0 C H 106 H 18 102/56 L 100 11/03/19 05:07 37.2 C 11/03/19 04:18 97/63 L 11/03/19 04:12 11/03/19 04:06 38 C H 102 H 20 96/57 L 98 11/02/19 23:30 11/02/19 23:05 37.4 C 114 H 20 101/66 99 11/02/19 22:13 104 H 18 111/74 96 11/02/19 21:01 71 16 118/75 95 11/02/19 20:35 36.5 C 71 16 115/76 95 11/02/19 20:05 36.6 C 71 20 96/56 L 95 11/02/19 19:45 91 H 13 115/62 99 11/02/19 19:35 36.4 C L 89 12 116/66 100 11/02/19 19:25 90 13 106/60 100 11/02/19 19:15 89 15 94/54 L 98 11/02/19 19:05 89 17 92/48 L 100 11/02/19 18:58 36.2 C L 90 18 91/65 L 100 11/02/19 14:56 36.9 C 71 16 86/52 L 95 Pulse Ox 11/03/19 07:03 11/03/19 05:07 11/03/19 04:18 11/03/19 04:12 99 11/03/19 04:06 11/02/19 23:30 99 11/02/19 23:05 11/02/19 22:13 11/02/19 21:01 11/02/19 20:35 11/02/19 20:05 11/02/19 19:45 11/02/19 19:35 11/02/19 19:25 11/02/19 19:15 11/02/19 19:05 11/02/19 18:58 11/02/19 14:56 Pain Intensity Right Hip: Pain Intensity: 0 Back: Pain Intensity: 0 Notes Mental Status: alert / awake / arousable Nausea / Vomiting: adequately controlled Pain: adequately controlled Airway Patency, RR, SpO2: stable & adequate BP & HR: stable & adequate Hydration State: stable & adequate Neuraxial Anesthesia: was administered and sensory block resolved Anesthetic Complications: no major complications apparent and Pt Satisfied with anesthetic care
[2019-11-03] MEDS: NICOTINE 14 MG/24 HR PATCH TD SCH (08:46)
[2019-11-03] MEDS: ENOXAPARIN INJ 40 MG/0.4 ML SYR SQ SCH (08:46)
[2019-11-03] MEDS ORDERED: NICOTINE 14 MG/24 HR PATCH TD SCH (09:00)
[2019-11-03] MEDS ORDERED: VANCOMYCIN CONSULT ACTIVE PRN (09:29)
--- NOTE | 2019-11-03 09:38 | Orthopedic Progress Note ---
Date of Service November 03, 2019 Assessment & Plan (1) Closed right hip fracture: May be out of bed, weight bear as tolerated right hip. Posterior hip precautions at all times. Abduction pillow when in bed, standard pillow/abduction pillow between legs when in chair Use walker to assist with ambulation. Ice to right hip as needed for pain/swelling. Elevate right leg as needed for swelling Keep heels off of bed. Continue post op antibiotics Start Lovenox today for DVT prophylaxis. Lovenox 40 mg daily x 2-4 weeks. PT/OT to start today Regular diet Will recheck tomorrow and plan to change dressing then. Reinforce as needed today. Will discuss findings with Dr. Acevedo. (2) Vitamin D deficiency: Will plan to order Vitamin D 50,000 IU weekly x 6 weeks. Order placed for 1 dose today. Recheck Vitamin D is approximately 6 weeks. Admission and Anticipated Discharge Date Admission Date: November 01, 2019 Subjective Resting in bed, sleepy, but arousable. Alberto to get him to follow some commands. States that he does have pain. Physical Exam Physical Exam: Exam of right lower extremity: Dressing clean, dry, intact. Mild distal edema into foot and toes. Dorsalis pedis and posterior tibial pulse 1+. states he's able to feel me touching his toes of both feet. Foot and right knee nontender. no calf tenderness. Abduction pillow in place. Foot is warm. Able to dorsiflex both great toes and hold against resistance. Will not dorsiflex his right or left ankle. Results & Data ([facility]) Vital Signs (Past 12 Hours) Vital Signs Temp Pulse Resp BP BP Pulse Ox Pulse Ox 11/03/19 07:03 38.0 C H 106 H 18 102/56 L 100 11/03/19 05:07 37.2 C 11/03/19 04:18 97/63 L 11/03/19 04:12 99 11/03/19 04:06 38 C H 102 H 20 96/57 L 98 11/02/19 23:30 99 11/02/19 23:05 37.4 C 114 H 20 101/66 99 11/02/19 22:13 104 H 18 111/74 96 Laboratory Results 11/03/19 11/03/19 11/03/19 Range/Units 05:22 05:22 05:22 WBC 13.13 H (4.8-10.8) K/uL RBC 3.50 L (4.7-6.1) M/uL Hgb 10.4 L (14.0-18.0) g/dL Hct 32.0 L (42-52) % MCV 91.4 (80-100) fL MCH 29.7 (25-34) pg MCHC 32.5 (32-36) g/dL RDW Std Deviation 46.7 H (36.4-46.3) fL RDW Coeff of Dandre 14.3 (11.5-14.5) % Plt Count 337 (130-400) K/uL MPV 12.2 H (7.4-10.4) fL Immature Gran % (Auto) 0.7 % Neut % (Auto) 81.0 % Lymph % (Auto) 8.1 % [place] % (Auto) 8.6 % Eos % (Auto) 1.1 % Baso % (Auto) 0.5 % Neut # (Auto) 10.63 H (1.4-6.5) K/uL Lymph # (Auto) 1.06 L (1.2-3.4) K/uL [place] # (Auto) 1.13 H (0.11-0.59) K/uL Eos # (Auto) 0.15 (0-0.5) K/uL Baso # (Auto) 0.07 (0-0.2) K/uL Immature Gran # (Auto) 0.09 H (0.00-0.02) K/uL Sodium 140 (136-145) mmol/L Potassium 4.0 (3.5-5.1) mmol/L Chloride 112 H (98-107) mmol/L Carbon Dioxide 21 (21-32) mmol/L Anion Gap 7.0 (3-11) BUN 13 (7-18) mg/dl Creatinine 1.02 (0.6-1.4) mg/dl Est Cr Clr Drug Dosing 54.0 ml/min Est GFR ( Amer) 79.0 Est GFR (Non-Af Amer) 68.1 BUN/Creatinine Ratio 12.8 (10-20) Glucose 168 H (70-99) mg/dl Calcium 8.2 L (8.5-10.1) mg/dl Troponin I (0-0.045) ng/ml 25-OH Vitamin D Total 14.1 L (30-100) ng/ml 11/02/19 11/02/19 11/02/19 Range/Units 11:54 11:54 11:54 WBC 9.08 (4.8-10.8) K/uL RBC 3.47 L (4.7-6.1) M/uL Hgb 10.4 L (14.0-18.0) g/dL Hct 32.0 L (42-52) % MCV 92.2 (80-100) fL MCH 30.0 (25-34) pg MCHC 32.5 (32-36) g/dL RDW Std Deviation 47.8 H (36.4-46.3) fL RDW Coeff of Dandre 14.2 (11.5-14.5) % Plt Count 364 (130-400) K/uL MPV 11.5 H (7.4-10.4) fL Immature Gran % (Auto) 0.8 % Neut % (Auto) 67.5 % Lymph % (Auto) 15.4 % [place] % (Auto) 10.7 % Eos % (Auto) 5.0 % Baso % (Auto) 0.6 % Neut # (Auto) 6.14 (1.4-6.5) K/uL Lymph # (Auto) 1.40 (1.2-3.4) K/uL [place] # (Auto) 0.97 H (0.11-0.59) K/uL Eos # (Auto) 0.45 (0-0.5) K/uL Baso # (Auto) 0.05 (0-0.2) K/uL Immature Gran # (Auto) 0.07 H (0.00-0.02) K/uL Sodium 139 (136-145) mmol/L Potassium 3.8 (3.5-5.1) mmol/L Chloride 111 H (98-107) mmol/L Carbon Dioxide 23 (21-32) mmol/L Anion Gap 5.0 (3-11) BUN 17 (7-18) mg/dl Creatinine 0.96 (0.6-1.4) mg/dl Est Cr Clr Drug Dosing 58.4 ml/min Est GFR ( Amer) 85.6 Est GFR (Non-Af Amer) 73.8 BUN/Creatinine Ratio 17.7 (10-20) Glucose 127 H (70-99) mg/dl Calcium 8.4 L (8.5-10.1) mg/dl Troponin I < 0.015 (0-0.045) ng/ml 25-OH Vitamin D Total (30-100) ng/ml Vitamin D 14.1 Diagnostic Findings XR hip RT min 2V CLINICAL HISTORY: Post-Operative implant position. Right hip prosthesis. COMPARISON STUDY: None. FINDINGS: Status post right hip hemiarthroplasty. The hardware is intact. No fracture or dislocation. Skin adriano are in place. Surgical clips within the deep pelvis. Partially visualized lumbar spinal fusion hardware. Small plug-like radiopaque foreign body overlying the left anterior pelvis may be external to the patient. IMPRESSION: Status post right hip hemiarthroplasty. No evidence for hardware complications. A small plug-like radiopaque foreign body overlying the left anterior pelvis may be external to the patient. Clinical correlation recommended.
[2019-11-03] MEDS ORDERED: ERGOCALCIFEROL 50,000 UNITS CAP PO SCH (10:00)
[2019-11-03] MEDS ORDERED: CEFAZOLIN 1000MG 1,000 MG/7.5 ML SYR IV ONE (10:00)
[2019-11-03] MEDS ORDERED: VANCOMYCIN HCL 1,000 MG in SODIUM CHLORIDE 0.9% 500 ML IV ONE (10:00)
[2019-11-03 11:07] LABS: Appearance Urine Turbid (Clear); Bacteria Urine Automated Negative (Negative); Bilirubin Urine Negative (Negative); Blood Urine 2+ (Negative); Color Urine Dark Yellow; Epithelial Cell Urine Auto >30 /lpf (0-5); Glucose Urine UA Negative (Negative); Ketones Urine Negative (Negative); Leukocyte Esterase Urine 3+ (Negative); Nitrite Urine Negative (Negative); Protein Urine 2+ (Negative); Specific Gravity Urine 1.015 (1.000-1.030); Urobilinogen Urine Negative (Negative); WBC Urine Automated >30 /hpf (0-5); pH Urine 6.5 (4.5-7.5)
[2019-11-03 11:28] LABS: Cast Urine Automated 0 /lpf (0-5); Mucus Urine Present (None Prsent)
[2019-11-03] MEDS ORDERED: [UNRECOGNIZED DRUG - OTHER] PO SCH (11:30)
[2019-11-03] MEDS: OXYCODONE HCL IR 5 MG TAB (IMMEDIATE RELEASE) PO PRN ×2 (14:04→20:24)
[2019-11-03] MEDS: DOCUSATE SODIUM/SENNA 50/8.6MG TAB PO SCH (20:23)
[2019-11-03] MEDS: QUETIAPINE FUMARATE 25 MG TABLET PO SCH (20:23)
--- NOTE | 2019-11-03 23:22 | Hospitalist Progress Note ---
Date of Service November 03, 2019 Assessment & Plan (1) Closed right hip fracture: Donny Muhammad is a 83 y/o male with past medical hx of prostate cancer, urostomy w/ ileal conduit, AVR, vascular dementia, bladder cancer, failure to thrive who presented from [facility] for Transfer for Orthopedic consultation for right hip fracture. He and his daughter have revoked Hospice for treatment of his hip fracture due to severe pain. Xray from outside facility reported acute minimally displaced fracture of right femoral neck. Now s/p bipolar hemiarthroplasty on 11/01 -pain management with APAP, oxycodone, IV morphine -bowel regimen -trop post-op day #1 neg -hgb stable from preop, follow CBC in AM -PT/OT evals -with low grade fever--> could be atelectasis but will check UA although caution given ileal conduit may provide false positive culture IS (2) Hypotension: Daughter notes he chronically has low BP. She is aware of risk of opioids causing further drop in BP that could be life threatening and would like to have pain managed. - stable (3) Dementia: c/w home Quietapine 25mg PO qHS. On Ativan PRN at home, continue Ativan 0.5mg IV PRN order for agitation. (4) Prostate cancer: noted in hx (5) S/P TAVR (transcatheter aortic valve replacement): x 2, most recent was 2019 at [facility] ECHO here with preserved EF (6) History of urostomy: noted, urine slightly cloudy from ileal conduit (7) Nicotine dependence: chews tobacco/snuff -continue NRT TD patch (8) Vitamin D deficiency: Vit D level here low at 14 started Vit D2 24946 units once weekly x 6 weeks f/u levels in 6 weeks as outpt (9) DVT prophylaxis: SCDs, Lovenox SQ -Dispo-continued stay, will need rehab Admission and Anticipated Discharge Date Admission Date: November 01, 2019 Subjective Pt c/o pain in right hip and right knee. Otherwise denies CP/SOB, no nausea. Is eating and drinking.Had a fever today and was given tylenol. RN reports he then slept all morning but woke up to eat, took oxycodone and did not get drowsy with that. Review of Systems Review of Systems: All systems reviewed & are unremarkable except as noted in HPI & below Physical Exam Constitutional: WD/WN, vitals as above Eyes: + anicteric sclerae Neck: trachea midline, no thyromegaly Respiratory: normal respiratory effort, lungs clear to auscultation Cardiovascular: Rate/Rhythm: regular rate and regular rhythm Heart Sounds: + murmur (1/6 PEPE at RUSB) Vessels: no JVD Extremities: no edema Chest (Breasts): Chest: normal inspection of chest Gastrointestinal (Abdomen): normal bowel sounds, soft, nontender, no hepatosplenomegaly Inspection/Auscultation: + abdomen abnormal to inspection (ileal conduit urostomy in place with bag with cloudy yellow urine) Musculoskeletal: Extremities: + extremities abnormal to inspection (right hip with dressing in place), no cyanosis and no clubbing Skin: no rashes, warm and dry Neurologic: moves all extremities and awake; no focal motor deficits Psychiatric: Orientation: alert, oriented to person, oriented to place and cooperative Eye Contact: good eye contact Speech: normal rate/rhythm/volume of speech Affect: euthymic affect Lymphatic: no lymphedema Results & Data Results & Data ([facility]) Vital Signs (Past 12 Hours) Vital Signs Temp Pulse Resp BP Pulse Ox 11/03/19 20:29 108 H 17 93/51 L 100 11/03/19 15:24 36.7 C 95 H 16 106/64 99 Laboratory Results 11/03/19 11/03/19 11/03/19 Range/Units Unknown 05:22 05:22 WBC (4.8-10.8) K/uL RBC (4.7-6.1) M/uL Hgb (14.0-18.0) g/dL Hct (42-52) % MCV (80-100) fL MCH (25-34) pg MCHC (32-36) g/dL RDW Std Deviation (36.4-46.3) fL RDW Coeff of Dandre (11.5-14.5) % Plt Count (130-400) K/uL MPV (7.4-10.4) fL Immature Gran % (Auto) % Neut % (Auto) % Lymph % (Auto) % [place] % (Auto) % Eos % (Auto) % Baso % (Auto) % Neut # (Auto) (1.4-6.5) K/uL Lymph # (Auto) (1.2-3.4) K/uL [place] # (Auto) (0.11-0.59) K/uL Eos # (Auto) (0-0.5) K/uL Baso # (Auto) (0-0.2) K/uL Immature Gran # (Auto) (0.00-0.02) K/uL Sodium (136-145) mmol/L Potassium (3.5-5.1) mmol/L Chloride (98-107) mmol/L Carbon Dioxide (21-32) mmol/L Anion Gap (3-11) BUN (7-18) mg/dl Creatinine (0.6-1.4) mg/dl Est Cr Clr Drug Dosing ml/min Est GFR ( Amer) Est GFR (Non-Af Amer) BUN/Creatinine Ratio (10-20) Glucose (70-99) mg/dl Calcium (8.5-10.1) mg/dl Troponin I < 0.015 (0-0.045) ng/ml 25-OH Vitamin D Total 14.1 L (30-100) ng/ml Urine Color Dark Yellow Urine Appearance Turbid A (Clear) Urine pH 6.5 (4.5-7.5) Ur Specific [place] 1.015 (1.000-1.030) Urine Protein 2+ H (Negative) Urine Glucose (UA) Negative (Negative) Urine Ketones Negative (Negative) Urine Blood 2+ H (Negative) Urine Nitrite Negative (Negative) Urine Bilirubin Negative (Negative) Urine Urobilinogen Negative (Negative) Ur Leukocyte Esterase 3+ H (Negative) Urine WBC (Auto) >30 H (0-5) /hpf Urine RBC (Auto) 10-30 H (0-4) /hpf U Hyaline Cast (Auto) 0 (0-5) /lpf U Epithel Cells (Auto) >30 H (0-5) /lpf Urine Bacteria (Auto) Negative (Negative) Urine Mucus Present A (None Prsent) Urine Yeast Not Reportable 11/03/19 11/03/19 Range/Units 05:22 05:22 WBC 13.13 H (4.8-10.8) K/uL RBC 3.50 L (4.7-6.1) M/uL Hgb 10.4 L (14.0-18.0) g/dL Hct 32.0 L (42-52) % MCV 91.4 (80-100) fL MCH 29.7 (25-34) pg MCHC 32.5 (32-36) g/dL RDW Std Deviation 46.7 H (36.4-46.3) fL RDW Coeff of Dandre 14.3 (11.5-14.5) % Plt Count 337 (130-400) K/uL MPV 12.2 H (7.4-10.4) fL Immature Gran % (Auto) 0.7 % Neut % (Auto) 81.0 % Lymph % (Auto) 8.1 % [place] % (Auto) 8.6 % Eos % (Auto) 1.1 % Baso % (Auto) 0.5 % Neut # (Auto) 10.63 H (1.4-6.5) K/uL Lymph # (Auto) 1.06 L (1.2-3.4) K/uL [place] # (Auto) 1.13 H (0.11-0.59) K/uL Eos # (Auto) 0.15 (0-0.5) K/uL Baso # (Auto) 0.07 (0-0.2) K/uL Immature Gran # (Auto) 0.09 H (0.00-0.02) K/uL Sodium 140 (136-145) mmol/L Potassium 4.0 (3.5-5.1) mmol/L Chloride 112 H (98-107) mmol/L Carbon Dioxide 21 (21-32) mmol/L Anion Gap 7.0 (3-11) BUN 13 (7-18) mg/dl Creatinine 1.02 (0.6-1.4) mg/dl Est Cr Clr Drug Dosing 54.0 ml/min Est GFR ( Amer) 79.0 Est GFR (Non-Af Amer) 68.1 BUN/Creatinine Ratio 12.8 (10-20) Glucose 168 H (70-99) mg/dl Calcium 8.2 L (8.5-10.1) mg/dl Troponin I (0-0.045) ng/ml 25-OH Vitamin D Total (30-100) ng/ml Urine Color Urine Appearance (Clear) Urine pH (4.5-7.5) Ur Specific [place] (1.000-1.030) Urine Protein (Negative) Urine Glucose (UA) (Negative) Urine Ketones (Negative) Urine Blood (Negative) Urine Nitrite (Negative) Urine Bilirubin (Negative) Urine Urobilinogen (Negative) Ur Leukocyte Esterase (Negative) Urine WBC (Auto) (0-5) /hpf Urine RBC (Auto) (0-4) /hpf U Hyaline Cast (Auto) (0-5) /lpf U Epithel Cells (Auto) (0-5) /lpf Urine Bacteria (Auto) (Negative) Urine Mucus (None Prsent) Urine Yeast PG Care Time/CCT Total # of Minutes Spent Total Time Spent with Patient: Total time spent is greater than 50% in coordination of care (as documented) at patient's floor/unit and/or counseling patient: Coding Level of Care Code 76471 Subseq Hosp Care Lvl 2 Diagnoses Closed right hip fracture S72.001A Hypotension I95.9 Dementia F03.90 Prostate cancer C61 S/P TAVR (transcatheter aortic valve replacement) Z95.2 History of urostomy Z98.890 Nicotine dependence F17.200 Vitamin D deficiency E55.9 DVT prophylaxis Z29.9
[2019-11-04] MEDS: ACETAMINOPHEN 325 MG TAB PO PRN (00:26)
[2019-11-04 05:47] LABS: Hematocrit (blood only) 25.8 % (42-52); Hemoglobin 8.3 g/dL (14.0-18.0); Mean Corpuscular Hemoglobin 29.7 pg (25-34); Mean Corpuscular Hgb Conc 32.2 g/dL (32-36); Mean Corpuscular Volume 92.5 fL (80-100); Mean Platelet Volume 11.4 fL (7.4-10.4); Platelet Count 282 K/uL (130-400); RDW Coefficient of Variation 14.2 % (11.5-14.5); RDW Standard Deviation 47.4 fL (36.4-46.3); Red Blood Count 2.79 M/uL (4.7-6.1); White Blood Count 14.41 K/uL (4.8-10.8)
[2019-11-04 06:45] LABS: BUN Creatinine Ratio 14.7 (10-20); Creatinine Clr Calc Pharmacy 61.9 ml/min; Est GFR (African American) 92.3; Est GFR (Non-African American) 79.6; Potassium 3.4 mmol/L (3.5-5.1)
[2019-11-04] MEDS ORDERED: NSS + 20MEQ KCL 20 MEQ/1,000 ML BAG IV SCH (08:30)
[2019-11-04] MEDS: NICOTINE 14 MG/24 HR PATCH TD SCH (08:55)
[2019-11-04] MEDS: ENOXAPARIN INJ 40 MG/0.4 ML SYR SQ SCH (08:55)
--- NOTE | 2019-11-04 11:01 | Orthopedic Progress Note ---
Date of Service November 04, 2019 Assessment & Plan (1) Closed right hip fracture: Continue OOB with assistance of a walker PT/OT as ordered Posterior hip precautions at all times Keep hip incision covered at all times, change daily or as needed. Ice to right hip PRN pain/swelling Abduction pillow when in bed, standard pillow or abduction pillow when in chair I.S. q2h while awake Continue Lovenox 40 mg x 2-4 weeks, until discontinued by Dr. Acevedo May weight bear as tolerated right hip. Regular diet as ordered Tylenol or Tramadol as needed for pain. Dandy stockings bilateral lower extremities - thigh high, on during the day, off at night. Follow up with Dr. Acevedo in 10-14 days after surgery. Okay from ortho standpoint for discharge when medically stable. Case management for disposition. Dr. Acevedo present for today's visit. Admission and Anticipated Discharge Date Admission Date: November 01, 2019 Subjective Lying in bed, states that he has pain in his right hip. Physical Exam Physical Exam: Exam of right leg: abduction pillow in place, dressing right h ip changed today by nursing. Dressing clean and dry. No distal edema. Able to active dorsiflex his foot and toes right foot. Strength 5/5. Dorsalis pedis pulse 1+. Results & Data ([facility]) Vital Signs (Past 12 Hours) Vital Signs Temp Pulse Resp BP BP Pulse Ox 11/04/19 09:15 36.9 C 92 H 16 101/61 96 11/04/19 00:31 108 H 91/55 L Laboratory Results 11/04/19 11/04/19 11/03/19 Range/Units 05:18 05:18 Unknown WBC 14.41 H (4.8-10.8) K/uL RBC 2.79 L (4.7-6.1) M/uL Hgb 8.3 L (14.0-18.0) g/dL Hct 25.8 L (42-52) % MCV 92.5 (80-100) fL MCH 29.7 (25-34) pg MCHC 32.2 (32-36) g/dL RDW Std Deviation 47.4 H (36.4-46.3) fL RDW Coeff of Dandre 14.2 (11.5-14.5) % Plt Count 282 (130-400) K/uL MPV 11.4 H (7.4-10.4) fL Sodium 140 (136-145) mmol/L Potassium 3.4 L (3.5-5.1) mmol/L Chloride 114 H (98-107) mmol/L Carbon Dioxide 19 L (21-32) mmol/L Anion Gap 7.0 (3-11) BUN 13 (7-18) mg/dl Creatinine 0.89 (0.6-1.4) mg/dl Est Cr Clr Drug Dosing 61.9 ml/min Est GFR ( Amer) 92.3 Est GFR (Non-Af Amer) 79.6 BUN/Creatinine Ratio 14.7 (10-20) Glucose 126 H (70-99) mg/dl Calcium 8.0 L (8.5-10.1) mg/dl Urine Color Dark Yellow Urine Appearance Turbid A (Clear) Urine pH 6.5 (4.5-7.5) Ur Specific [place] 1.015 (1.000-1.030) Urine Protein 2+ H (Negative) Urine Glucose (UA) Negative (Negative) Urine Ketones Negative (Negative) Urine Blood 2+ H (Negative) Urine Nitrite Negative (Negative) Urine Bilirubin Negative (Negative) Urine Urobilinogen Negative (Negative) Ur Leukocyte Esterase 3+ H (Negative) Urine WBC (Auto) >30 H (0-5) /hpf Urine RBC (Auto) 10-30 H (0-4) /hpf U Hyaline Cast (Auto) 0 (0-5) /lpf U Epithel Cells (Auto) >30 H (0-5) /lpf Urine Bacteria (Auto) Negative (Negative) Urine Mucus Present A (None Prsent) Urine Yeast Not Reportable
[2019-11-04] MEDS: OXYCODONE HCL IR 5 MG TAB (IMMEDIATE RELEASE) PO PRN ×2 (12:02→17:32)
--- NOTE | 2019-11-04 16:19 | Hospitalist Progress Note ---
Date of Service November 04, 2019 Assessment & Plan (1) Closed right hip fracture: Donny Muhammad is a 83 y/o male with past medical hx of prostate cancer, urostomy w/ ileal conduit, AVR, vascular dementia, bladder cancer, failure to thrive who presented from [facility] for Transfer for Orthopedic consultation for right hip fracture. He and his daughter have revoked Hospice for treatment of his hip fracture due to severe pain. Xray from outside facility reported acute minimally displaced fracture of right femoral neck. Now s/p bipolar hemiarthroplasty on 11/01 Having significant pain postoperatively, but lower blood pressures are limiting use of opioids for pain -Continue pain management with APAP, oxycodone, IV morphine -Continue bowel regimen with senna/docusate, last BM recorded on 11/02 -trop post-op day #1 neg -hgb slight drop today to 8.3 from 10.4 but blood pressures remained stable from previous, follow CBC in AM -PT/OT evals -with low grade fever on POD #1--> likely was from atelectasis-UA was checked but is chronically contaminated due to ileal conduit, urine culture showed mixed organisms -Continue with IS (2) Hypotension: Daughter notes he chronically has low BP. She is aware of risk of opioids causing further drop in BP that could be life threatening and would like to have pain managed. -Blood pressures were lower this morning than previous, give 1 more liter of normal saline with potassium today at 100 mL's per hour (3) Dementia: c/w home Quietapine 25mg PO qHS. On Ativan PRN at home, continue Ativan 0.5mg IV PRN order for agitation. (4) Prostate cancer: noted in hx (5) S/P TAVR (transcatheter aortic valve replacement): x 2, most recent was 2018 at [facility] ECHO here with preserved EF Troponin negative pre-and postop (6) History of urostomy: noted, urine slightly cloudy from ileal conduit (7) Nicotine dependence: chews tobacco/snuff -continue NRT TD patch (8) Vitamin D deficiency: Vit D level here low at 14 started Vit D2 16505 units once weekly x 6 weeks f/u levels in 6 weeks as outpt (9) DVT prophylaxis: SCDs, Lovenox SQ -Dispo-continued stay, will need rehab-referrals were made to [facility] which may have a bed by the end of the week as per case management notes Admission and Anticipated Discharge Date Admission Date: November 01, 2019 Subjective Patient again complains of pain in the right hip and knee. Overall feeling a little bit better it seems. Denies chest pain or shortness of breath. Review of Systems Review of Systems: All systems reviewed & are unremarkable except as noted in HPI & below Physical Exam Constitutional: WD/WN, vitals as above Eyes: + anicteric sclerae Neck: trachea midline, no thyromegaly Respiratory: normal respiratory effort, lungs clear to auscultation Cardiovascular: Rate/Rhythm: regular rate and regular rhythm Heart Sounds: + murmur (1/6 PEPE at RUSB) Vessels: no JVD Extremities: no edema Chest (Breasts): Chest: normal inspection of chest Gastrointestinal (Abdomen): normal bowel sounds, soft, nontender, no hepatosplenomegaly Inspection/Auscultation: + abdomen abnormal to inspection (ileal conduit urostomy in place with bag with cloudy yellow urine) Musculoskeletal: Extremities: + extremities abnormal to inspection (right hip with dressing in place), no cyanosis and no clubbing Skin: no rashes, warm and dry Neurologic: moves all extremities and awake; no focal motor deficits Psychiatric: Orientation: alert, oriented to person, oriented to place and cooperative Eye Contact: good eye contact Speech: normal rate/rhythm/volume of speech Lymphatic: no lymphedema Results & Data Results & Data ([facility]) Vital Signs (Past 12 Hours) Vital Signs Temp Pulse Pulse Resp BP BP Pulse Ox 11/04/19 15:14 37.1 C 105 H 18 94/58 L 90 11/04/19 12:00 36.5 C 92 H 20 107/72 94 11/04/19 09:15 36.9 C 92 H 16 101/61 96 Laboratory Results 11/04/19 11/04/19 Range/Units 05:18 05:18 WBC 14.41 H (4.8-10.8) K/uL RBC 2.79 L (4.7-6.1) M/uL Hgb 8.3 L (14.0-18.0) g/dL Hct 25.8 L (42-52) % MCV 92.5 (80-100) fL MCH 29.7 (25-34) pg MCHC 32.2 (32-36) g/dL RDW Std Deviation 47.4 H (36.4-46.3) fL RDW Coeff of Dandre 14.2 (11.5-14.5) % Plt Count 282 (130-400) K/uL MPV 11.4 H (7.4-10.4) fL Sodium 140 (136-145) mmol/L Potassium 3.4 L (3.5-5.1) mmol/L Chloride 114 H (98-107) mmol/L Carbon Dioxide 19 L (21-32) mmol/L Anion Gap 7.0 (3-11) BUN 13 (7-18) mg/dl Creatinine 0.89 (0.6-1.4) mg/dl Est Cr Clr Drug Dosing 61.9 ml/min Est GFR ( Amer) 92.3 Est GFR (Non-Af Amer) 79.6 BUN/Creatinine Ratio 14.7 (10-20) Glucose 126 H (70-99) mg/dl Calcium 8.0 L (8.5-10.1) mg/dl PG Care Time/CCT Total # of Minutes Spent Total Time Spent with Patient: Total time spent is greater than 50% in coordination of care (as documented) at patient's floor/unit and/or counseling patient: Coding Level of Care Code 87768 Subseq Hosp Care Lvl 2 Diagnoses Closed right hip fracture S72.001A Hypotension I95.9 Dementia F03.90 Prostate cancer C61 S/P TAVR (transcatheter aortic valve replacement) Z95.2 History of urostomy Z98.890 Nicotine dependence F17.200 Vitamin D deficiency E55.9 DVT prophylaxis Z29.9
[2019-11-04] MEDS: QUETIAPINE FUMARATE 25 MG TABLET PO SCH (20:17)
[2019-11-04] MEDS: DOCUSATE SODIUM/SENNA 50/8.6MG TAB PO SCH (20:17)
[2019-11-05 06:09] LABS: Basophils # (auto) 0.05 K/uL (0-0.2); Basophils % (auto) 0.4 %; Eosinophils # (auto) 0.49 K/uL (0-0.5); Eosinophils % (auto) 3.7 %; Hematocrit (blood only) 26.6 % (42-52); Hemoglobin 8.7 g/dL (14.0-18.0); Immature Granulocytes # (auto) 0.08 K/uL (0.00-0.02); Immature Granulocytes % (auto) 0.6 %; Lymphocytes # (auto) 1.39 K/uL (1.2-3.4); Lymphocytes % (auto) 10.4 %; Mean Corpuscular Hemoglobin 29.8 pg (25-34); Mean Corpuscular Hgb Conc 32.7 g/dL (32-36); Mean Corpuscular Volume 91.1 fL (80-100); Mean Platelet Volume 11.5 fL (7.4-10.4); Monocytes # (auto) 1.38 K/uL (0.11-0.59); Monocytes % (auto) 10.3 %; Neutrophils # (auto) 10.02 K/uL (1.4-6.5); Neutrophils % (auto) 74.6 %; Platelet Count 299 K/uL (130-400); RDW Coefficient of Variation 14.2 % (11.5-14.5); RDW Standard Deviation 47.1 fL (36.4-46.3); Red Blood Count 2.92 M/uL (4.7-6.1); White Blood Count 13.41 K/uL (4.8-10.8)
[2019-11-05 06:49] LABS: BUN Creatinine Ratio 15.5 (10-20); Calcium 8.1 mg/dl (8.5-10.1); Creatinine Clr Calc Pharmacy 72.5 ml/min; Est GFR (African American) 98.5; Potassium 3.8 mmol/L (3.5-5.1)
[2019-11-05] MEDS: ACETAMINOPHEN 325 MG TAB PO PRN (07:56)
[2019-11-05] MEDS: OXYCODONE HCL IR 5 MG TAB (IMMEDIATE RELEASE) PO PRN ×2 (07:56→21:19)
[2019-11-05] MEDS: ENOXAPARIN INJ 40 MG/0.4 ML SYR SQ SCH (08:19)
[2019-11-05] MEDS: NICOTINE 14 MG/24 HR PATCH TD SCH (08:20)
[2019-11-05] MEDS ORDERED: POLYETHYLENE (MIRALAX) 17 GM PACK PO SCH (09:00)
[2019-11-05] MEDS ORDERED: SODIUM CHLORIDE 0.9% 1000ML 1,000 ML IV SCH (09:00)
[2019-11-05] MEDS: MoRPHine SULFATE 2 MG/ML CARP IV PRN (10:24)
--- NOTE | 2019-11-05 10:55 | Operative Report ---
Post Operative Report Pre & Post Diagnosis Operation Date: 11/02/19 12:10 Pre-Op Diagnosis: RIGHT HIP FRACTURE Post-Op Diagnosis: RIGHT HIP FRACTURE I identified the patient and participated in the time-out.: Yes Procedure Operation Date: 11/02/19 12:10 Actual Procedures p Right Bipolar Hemiarthroplasty, Cemented (Right) - Patrick Acevedo MD Surgeon Patrick Acevedo M.D. Housing Assistant Property Manager Libby Allen Estimated Blood Loss 25 Findings Consistent with Post-Op Diagnosis Specimens femoral head Anesthesia Type Spinal MAC Complications none Description of Procedure Patient was taken to the recovery room placed in the left lateral decubitus position. Time out performed, prepped and draped in routine sterile fashion. I was present during the entire procedure. I assisted with positioning, tissue retraction, implantation of hardware, trialing of implants, closure and dressing s. Please see Dr. Acevedo's operative report for further detail. Patient was awakened and taken to the recovery room in stable condition. I attest to the content of the Intraoperative Record and any orders documented therein. Any exceptions are noted below.
--- NOTE | 2019-11-05 12:21 | Hospitalist Progress Note ---
Date of Service November 05, 2019 Assessment & Plan (1) Closed right hip fracture: Donny Muhammad is a 83 y/o male with past medical hx of prostate cancer, urostomy w/ ileal conduit, AVR, vascular dementia, bladder cancer, failure to thrive who presented from [facility] for Transfer for Orthopedic consultation for right hip fracture. He and his daughter have revoked Hospice for treatment of his hip fracture due to severe pain. Xray from outside facility reported acute minimally displaced fracture of right femoral neck. Now s/p bipolar hemiarthroplasty on 11/01 Continues to be complaining of pain postoperatively -Continue pain management with APAP-changed to 1000 mg p.o. every 8 hours scheduled, hydrocodone as needed And now p.o. morphine as needed -Continue bowel regimen with senna/docusate, however had 2 loose stools on the morning of 11/04, MiraLAX not given as ordered -trop post-op day #1 neg -hgb slight drop to 8.7 from 10.4, no transfusion needed -PT/OT evals -with low grade fever on POD #1 and again on POD #2--> likely secondary to atelectasis as he has not been out of bed at all in 3 days-UA was checked but is chronically contaminated due to ileal conduit, urine culture showed mixed organisms -Continue with IS-discussed with nursing about being more aggressive with this with him -Needs mobilization out of bed (2) Hypotension: Daughter notes he chronically has low BP. Blood pressures again in the systolic in the 80s this morning but improved with IV fluids -Give 1 more liter of normal saline today (3) Dementia: c/w home Quietapine 25mg PO qHS. On Ativan PRN at home, continue Ativan 0.5mg IV PRN order for agitation. (4) Prostate cancer: noted in hx (5) S/P TAVR (transcatheter aortic valve replacement): x 2, most recent was 2018 at [facility] ECHO here with preserved EF Troponin negative pre-and postop (6) History of urostomy: noted, urine slightly cloudy from ileal conduit, urine culture mixed organisms (7) Nicotine dependence: chews tobacco/snuff -continue NRT TD patch (8) Vitamin D deficiency: Vit D level here low at 14 started Vit D2 79547 units once weekly x 6 weeks f/u levels in 6 weeks as outpt (9) Fever: As above, likely secondary to atelectasis No evidence on exam or by history of pneumonia or DVT, urine without infection Encourage IS Tylenol as needed (10) Metabolic acidosis: Serum bicarbonate again slightly lower today at 17, non-anion gap Unclear reason except maybe mild dehydration? Give another 1 L normal saline Follow BMP in the morning (11) DVT prophylaxis: SCDs, Lovenox SQ -Dispo-continued stay, will need rehab-referrals were [facility] to [facility]-they cannot accept until he is afebrile for 48 hours, most likely discharge on Friday or Friday Continue PT/OT daily Admission and Anticipated Discharge Date Admission Date: November 01, 2019 Subjective Patient again complains of pain in the right hip despite just receiving liquid morphine by mouth. He had another low-grade fever overnight which I suspect is atelectasis. He has not gotten out of bed at all in 3 days since his surgery except to sit on the side of the bed today with physical therapy for about 2 minutes as per nursing. He denies cough or shortness of breath and in fact has been weaned completely to room air and is not hypoxic. Chest pains. Denies abdominal pains. No problems with his urine output in his urostomy bag. He did not have a bowel movement for several days but then had 2 loose stools this morning. Nursing reports that he does not use his incentive spirometry very well and only when instructed to given his mild dementia. Review of Systems Review of Systems: All systems reviewed & are unremarkable except as noted in HPI & below Physical Exam Constitutional: WD/WN, vitals as above Eyes: + anicteric sclerae Neck: trachea midline, no thyromegaly Respiratory: normal respiratory effort, lungs clear to auscultation Cardiovascular: Rate/Rhythm: regular rate and regular rhythm Heart Sounds: + murmur (1/6 PEPE at RUSB) Vessels: no JVD Extremities: no edema Chest (Breasts): Chest: normal inspection of chest Gastrointestinal (Abdomen): normal bowel sounds, soft, nontender, no hepatosplenomegaly Inspection/Auscultation: + abdomen abnormal to inspection (ileal conduit urostomy in place with bag with cloudy yellow urine) Musculoskeletal: Extremities: + extremities abnormal to inspection (right hip with dressing in place), no cyanosis and no clubbing Skin: no rashes, warm and dry Neurologic: moves all extremities and awake; no focal motor deficits Psychiatric: Orientation: alert, oriented to person, oriented to place and cooperative Eye Contact: good eye contact Speech: normal rate/rhythm/volume of speech Affect: euthymic affect Lymphatic: no lymphedema Results & Data Results & Data ([facility]) Vital Signs (Past 12 Hours) Vital Signs Temp Pulse Resp BP Pulse Ox 11/05/19 10:24 103/61 11/05/19 08:22 36.6 C 11/05/19 07:11 37.6 C H 94 H 18 81/54 L 94 Laboratory Results 11/05/19 11/05/19 Range/Units 05:40 05:40 WBC 13.41 H (4.8-10.8) K/uL RBC 2.92 L (4.7-6.1) M/uL Hgb 8.7 L (14.0-18.0) g/dL Hct 26.6 L (42-52) % MCV 91.1 (80-100) fL MCH 29.8 (25-34) pg MCHC 32.7 (32-36) g/dL RDW Std Deviation 47.1 H (36.4-46.3) fL RDW Coeff of Dandre 14.2 (11.5-14.5) % Plt Count 299 (130-400) K/uL MPV 11.5 H (7.4-10.4) fL Immature Gran % (Auto) 0.6 % Neut % (Auto) 74.6 % Lymph % (Auto) 10.4 % [place] % (Auto) 10.3 % Eos % (Auto) 3.7 % Baso % (Auto) 0.4 % Neut # (Auto) 10.02 H (1.4-6.5) K/uL Lymph # (Auto) 1.39 (1.2-3.4) K/uL [place] # (Auto) 1.38 H (0.11-0.59) K/uL Eos # (Auto) 0.49 (0-0.5) K/uL Baso # (Auto) 0.05 (0-0.2) K/uL Immature Gran # (Auto) 0.08 H (0.00-0.02) K/uL Sodium 135 L (136-145) mmol/L Potassium 3.8 (3.5-5.1) mmol/L Chloride 109 H (98-107) mmol/L Carbon Dioxide 17 L (21-32) mmol/L Anion Gap 9.0 (3-11) BUN 12 (7-18) mg/dl Creatinine 0.76 (0.6-1.4) mg/dl Est Cr Clr Drug Dosing 72.5 ml/min Est GFR ( Amer) 98.5 Est GFR (Non-Af Amer) 85.0 BUN/Creatinine Ratio 15.5 (10-20) Glucose 130 H (70-99) mg/dl Calcium 8.1 L (8.5-10.1) mg/dl PG Care Time/CCT Total # of Minutes Spent Total Time Spent with Patient: Total time spent is greater than 50% in coordination of care (as documented) at patient's floor/unit and/or counseling patient: Coding Level of Care Code 18481 Subseq Hosp Care Lvl 3 Diagnoses Closed right hip fracture S72.001A Hypotension I95.9 Dementia F03.90 Prostate cancer C61 S/P TAVR (transcatheter aortic valve replacement) Z95.2 History of urostomy Z98.890 Nicotine dependence F17.200 Vitamin D deficiency E55.9 Fever R50.9 Metabolic acidosis E87.2 DVT prophylaxis Z29.9
[2019-11-05] MEDS ORDERED: LORazepam 0.5 MG TAB PO PRN (12:27)
[2019-11-05] MEDS: ACETAMINOPHEN 500 MG TAB PO SCH ×2 (14:33→21:18)
--- NOTE | 2019-11-05 15:47 | Progress Notes ---
DATE: 11/05/2019 Don is resting comfortably in bed. He complains of right hip and leg pain. Nurse reports that therapy was able to get him to sit at the edge of the bed, but otherwise he has not been out of bed to chair nor has he been ambulating. He has had a temperature of 38.1 overnight. Pulse is between 90 and 105. BP and vitals noted. Urine output adequate. White count decreased to 13, hemoglobin stable at 8.7. His dressing is clean and dry with scant serosanguineous drainage. There is no hematoma and no erythema. He reports discomfort in the right hip area. He can bend his knee to about 60 or so degrees limited by right hip pain. His distal neurovascular function is intact with intact motor strength. Does not comply very well for detailed strength or neuro exam. He is status post a right hip bipolar hemiarthroplasty. His fevers are likely secondary to prolonged immobility and atelectasis. Out of bed to chair and ambulation encouraged. We will check x-rays of right hip and femur to further evaluate for any other sources of pain. Pulmonary toilet. We will continue to monitor his white count. He may weightbear as tolerated and should continue his Lovenox for DVT prophylaxis.
--- NOTE | 2019-11-05 16:15 | XRay Report ---
XR hip RT min 2V CLINICAL HISTORY: Right hip and thigh pain. History of right hip arthroplasty COMPARISON: 11/02/2019 DISCUSSION: There is a bipolar right hip arthroplasty. There is no dislocation. No acute fractures ar e visualized. There is gas present within the soft tissues consistent with recent surgery. There are overlying skin adriano. Surgical clips are present within the right pelvic basin. There is stable cor tical thickening involving the proximal right femur. IMPRESSION: Right hip hemiarthroplasty. No acute fractures or dislocations. ACT 112: Negative or not required by law. Electronically signed by: Se Butt M.D. 11/05/2019 4:13 PM
--- NOTE | 2019-11-05 16:16 | XRay Report ---
XR femur RT 2V routine CLINICAL HISTORY: Right thigh pain; s/p sincere right hip COMPARISON: 10/28/2019 DISCUSSION: There are postsurgical changes of a right hip hemiarthroplasty. There is no dislocation. The bones are osteopenic. No acute fractures are visualized. Degenerative changes are present within the knee. There is soft tissue gas in the right hip region consistent with recent surgery. There are overlying skin adriano. IMPRESSION: 1. Postsurgical changes of a right hip hemiarthroplasty 2. No acute fractures. ACT 112: Negative or not required by law. Electronically signed by: Se Butt M.D. 11/05/2019 4:14 PM
[2019-11-05] MEDS: QUETIAPINE FUMARATE 25 MG TABLET PO SCH (21:19)
[2019-11-05] MEDS: DOCUSATE SODIUM/SENNA 50/8.6MG TAB PO SCH (21:20)
[2019-11-06] MEDS: ACETAMINOPHEN 500 MG TAB PO SCH ×3 (05:39→22:00)
[2019-11-06 06:34] LABS: Basophils # (auto) 0.05 K/uL (0-0.2); Basophils % (auto) 0.5 %; Eosinophils # (auto) 0.85 K/uL (0-0.5); Eosinophils % (auto) 7.9 %; Hematocrit (blood only) 25.2 % (42-52); Hemoglobin 8.5 g/dL (14.0-18.0); Immature Granulocytes # (auto) 0.08 K/uL (0.00-0.02); Immature Granulocytes % (auto) 0.7 %; Lymphocytes # (auto) 1.64 K/uL (1.2-3.4); Lymphocytes % (auto) 15.2 %; Mean Corpuscular Hemoglobin 30.1 pg (25-34); Mean Corpuscular Hgb Conc 33.7 g/dL (32-36); Mean Corpuscular Volume 89.4 fL (80-100); Mean Platelet Volume 10.8 fL (7.4-10.4); Monocytes # (auto) 1.07 K/uL (0.11-0.59); Monocytes % (auto) 9.9 %; Neutrophils # (auto) 7.13 K/uL (1.4-6.5); Neutrophils % (auto) 65.8 %; Platelet Count 338 K/uL (130-400); RDW Coefficient of Variation 14.1 % (11.5-14.5); RDW Standard Deviation 46.9 fL (36.4-46.3); Red Blood Count 2.82 M/uL (4.7-6.1); White Blood Count 10.82 K/uL (4.8-10.8)
[2019-11-06 07:00] LABS: BUN Creatinine Ratio 13.9 (10-20); Calcium 8.2 mg/dl (8.5-10.1); Creatinine Clr Calc Pharmacy 71.6 ml/min; Est GFR (African American) 97.9; Est GFR (Non-African American) 84.5; Potassium 3.7 mmol/L (3.5-5.1)
[2019-11-06] MEDS: NICOTINE 14 MG/24 HR PATCH TD SCH (09:00)
[2019-11-06] MEDS: OXYCODONE HCL IR 5 MG TAB (IMMEDIATE RELEASE) PO PRN (09:00)
[2019-11-06] MEDS: ENOXAPARIN INJ 40 MG/0.4 ML SYR SQ SCH (11:40)
--- NOTE | 2019-11-06 13:07 | Hospitalist Progress Note ---
Date of Service November 06, 2019 Assessment & Plan (1) Closed right hip fracture: Donny Muhammad is a 83 y/o male with past medical hx of prostate cancer, urostomy w/ ileal conduit, AVR, vascular dementia, bladder cancer, failure to thrive who presented from [facility] for Transfer for Orthopedic consultation for right hip fracture. He and his daughter have revoked Hospice for treatment of his hip fracture due to severe pain. Xray from outside facility reported acute minimally displaced fracture of right femoral neck. Now s/p bipolar hemiarthroplasty on 11/01 Continues to be complaining of pain postoperatively and has a high tolerance for opioids as per his daughter -Continue pain management with APAP-changed to 1000 mg p.o. every 8 hours scheduled, oxycodone 10 mg p.o. every 6 hours as needed -Continue bowel regimen with senna/docusate, however had 2 loose stools on the morning of 11/04, MiraLAX not given as ordered -trop post-op day #1 neg -hgb slight drop to 8.5 from 10.4, no transfusion needed -PT/OT evals-recommend rehab -with low grade fever on POD #1 and again on POD #2, but now afebrile for 36 hours--> likely secondary to atelectasis as he has not been out of bed much at all in 4 days-UA was checked but is chronically contaminated due to ileal conduit, urine culture showed mixed organisms, repeat x-rays and no evidence of infection on x-ray or on wound. Do not suspect PE -Continue with IS-discussed with nursing about being more aggressive with this with him -Needs mobilization out of bed -Bony pathology with small area of acute focal osteomyelitis-orthopedics does not think he has osteomyelitis based on intraoperative appearance of bone and will discuss with pathology-we will not be aggressive with bone biopsy or IV antibiotics at this time given low suspicion (2) Hypotension: Daughter notes he chronically has low BP. Blood pressures were low in the systolic in the 80s for couple of days postoperatively but are now improved after IV fluids No further IV fluids needed (3) Dementia: c/w home Quietapine 25mg PO qHS. On Ativan PRN at home, continue Ativan 0.5mg IV PRN order for agitation. With some depressed mood-restart his previous Paxil 10 mg daily (4) Prostate cancer: noted in hx (5) S/P TAVR (transcatheter aortic valve replacement): x 2, most recent was 2018 at [facility] ECHO here with preserved EF Troponin negative pre-and postop (6) History of urostomy: noted, urine slightly cloudy from ileal conduit, urine culture mixed organisms (7) Nicotine dependence: chews tobacco/snuff -continue NRT TD patch (8) Vitamin D deficiency: Vit D level here low at 14 started Vit D2 48491 units once weekly x 6 weeks f/u levels in 6 weeks as outpt (9) Fever: As above, likely secondary to atelectasis, now afebrile for over 36 hours No evidence on exam or by history of pneumonia or DVT, urine without infection, no bony or wound infection Now improving, leukocytosis trending downward to 10 Encourage IS Tylenol as needed (10) Metabolic acidosis: Serum bicarbonate was low at 17, non-anion gap, now improved with further IV fluid hydration Follow BMP in the morning (11) DVT prophylaxis: SCDs, Lovenox SQ -Dispo-continued stay, will need rehab-referrals were [facility]-they cannot accept until he is afebrile for 48 hours, most likely discharge on Friday or Friday Continue PT/OT daily Admission and Anticipated Discharge Date Admission Date: November 01, 2019 Subjective Patient continues to complain of right hip pain. He is not motivated to get out of bed at all. He is eating some but has low appetite. He denies chest pains or shortness of breath, no coughing. I discussed his care with his daughter Sally on the phone who reports that her dad is very depressed and has lost motivation to get better. She reports that he previously was on an antidepressant which I looked up in the pharmacy system and was paroxetine. He did not have any adverse side effects, but reports that it was discontinued when he went on hospice. She would like it to be restarted as she feels that any isolation at the [facility] upon discharge will make his mood worse. She also tells me that he has been "addicted" to opioids for 20+ years and is not surprised that he has a high tolerance. I discussed the case with orthopedic surgery and infectious disease at [facility] today regarding the acute focal osteomyelitis noted on the pathology report, however orthopedics reported that there was no evidence of that intraoperatively. He will discussed with pathology. Fevers have resolved, and leukocytosis is improving. Do not suspect bony infection. Review of Systems Review of Systems: All systems reviewed & are unremarkable except as noted in HPI & below Physical Exam Constitutional: WD/WN, vitals as above Eyes: + anicteric sclerae Neck: trachea midline, no thyromegaly Respiratory: normal respiratory effort, lungs clear to auscultation Cardiovascular: Rate/Rhythm: regular rate and regular rhythm Heart Sounds: + murmur (1/6 PEPE at RUSB) Vessels: no JVD Extremities: no edema Chest (Breasts): Chest: normal inspection of chest Gastrointestinal (Abdomen): normal bowel sounds, soft, nontender, no hepatosplenomegaly Inspection/Auscultation: + abdomen abnormal to inspection (ileal conduit urostomy in place with bag with cloudy yellow urine) Musculoskeletal: Extremities: + extremities abnormal to inspection (right hip with dressing in place), no cyanosis and no clubbing Skin: no rashes, warm and dry Neurologic: moves all extremities and awake; no focal motor deficits Psychiatric: Orientation: alert, oriented to person, oriented to place and cooperative Eye Contact: good eye contact Speech: normal rate/rhythm/volume of speech Affect: + depressed affect Lymphatic: no lymphedema Results & Data Results & Data ([facility]) Vital Signs (Past 12 Hours) Vital Signs Temp Pulse Pulse Resp BP BP Pulse Ox 11/06/19 07:23 36.6 C 83 16 108/71 98 11/06/19 03:50 36.9 C 86 16 91/55 L 94 Laboratory Results 11/06/19 11/06/19 Range/Units 06:09 06:09 WBC 10.82 H (4.8-10.8) K/uL RBC 2.82 L (4.7-6.1) M/uL Hgb 8.5 L (14.0-18.0) g/dL Hct 25.2 L (42-52) % MCV 89.4 (80-100) fL MCH 30.1 (25-34) pg MCHC 33.7 (32-36) g/dL RDW Std Deviation 46.9 H (36.4-46.3) fL RDW Coeff of Dandre 14.1 (11.5-14.5) % Plt Count 338 (130-400) K/uL MPV 10.8 H (7.4-10.4) fL Immature Gran % (Auto) 0.7 % Neut % (Auto) 65.8 % Lymph % (Auto) 15.2 % [place] % (Auto) 9.9 % Eos % (Auto) 7.9 % Baso % (Auto) 0.5 % Neut # (Auto) 7.13 H (1.4-6.5) K/uL Lymph # (Auto) 1.64 (1.2-3.4) K/uL [place] # (Auto) 1.07 H (0.11-0.59) K/uL Eos # (Auto) 0.85 H (0-0.5) K/uL Baso # (Auto) 0.05 (0-0.2) K/uL Immature Gran # (Auto) 0.08 H (0.00-0.02) K/uL Sodium 136 (136-145) mmol/L Potassium 3.7 (3.5-5.1) mmol/L Chloride 108 H (98-107) mmol/L Carbon Dioxide 22 (21-32) mmol/L Anion Gap 6.0 (3-11) BUN 11 (7-18) mg/dl Creatinine 0.77 (0.6-1.4) mg/dl Est Cr Clr Drug Dosing 71.6 ml/min Est GFR ( Amer) 97.9 Est GFR (Non-Af Amer) 84.5 BUN/Creatinine Ratio 13.9 (10-20) Glucose 101 H (70-99) mg/dl Calcium 8.2 L (8.5-10.1) mg/dl PG Care Time/CCT Total # of Minutes Spent Total Time Spent with Patient: Total time spent is greater than 50% in coordination of care (as documented) at patient's floor/unit and/or counseling patient: Coding Level of Care Code 85408 Subseq Hosp Care Lvl 3 Diagnoses Closed right hip fracture S72.001A Hypotension I95.9 Dementia F03.90 Prostate cancer C61 S/P TAVR (transcatheter aortic valve replacement) Z95.2 History of urostomy Z98.890 Nicotine dependence F17.200 Vitamin D deficiency E55.9 Fever R50.9 Metabolic acidosis E87.2 DVT prophylaxis Z29.9
--- NOTE | 2019-11-06 14:55 | Progress Notes ---
DATE: 11/06/2019 He has been afebrile. His vital signs are good. I spoke with Dr. Cohn and she indicated that the pathology showed osteomyelitis. I attempted to contact the pathologist; however, I could not reach anyone. This does not make a lot of clinical sense based upon the scenario as well as the findings at surgery. He has received some IV antibiotics and there is vancomycin in the cement. We will discuss pathology results with the pathologist when we can. I do not see at this point, the need to place him on any antibiotics. His white count is coming down, which is likely related to stress. There has been no evidence of infection relative to the surgical wound.
[2019-11-06] MEDS: PARoxetine HCL 10 MG TAB PO SCH (15:20)
[2019-11-06] MEDS: DOCUSATE SODIUM/SENNA 50/8.6MG TAB PO SCH (20:35)
[2019-11-06] MEDS: QUETIAPINE FUMARATE 25 MG TABLET PO SCH (22:00)
[2019-11-07] MEDS: ACETAMINOPHEN 500 MG TAB PO SCH ×3 (06:09→21:55)
[2019-11-07 06:20] LABS: Basophils # (auto) 0.05 K/uL (0-0.2); Basophils % (auto) 0.6 %; Eosinophils # (auto) 0.66 K/uL (0-0.5); Eosinophils % (auto) 7.8 %; Hemoglobin 8.1 g/dL (14.0-18.0); Immature Granulocytes % (auto) 1.2 %; Lymphocytes # (auto) 1.32 K/uL (1.2-3.4); Lymphocytes % (auto) 15.6 %; Mean Corpuscular Hemoglobin 29.1 pg (25-34); Mean Corpuscular Hgb Conc 32.4 g/dL (32-36); Mean Corpuscular Volume 89.9 fL (80-100); Monocytes # (auto) 0.84 K/uL (0.11-0.59); Monocytes % (auto) 9.9 %; Neutrophils # (auto) 5.49 K/uL (1.4-6.5); Neutrophils % (auto) 64.9 %; Platelet Count 362 K/uL (130-400); RDW Coefficient of Variation 14.1 % (11.5-14.5); RDW Standard Deviation 46.8 fL (36.4-46.3); Red Blood Count 2.78 M/uL (4.7-6.1); White Blood Count 8.46 K/uL (4.8-10.8)
[2019-11-07 06:51] LABS: BUN Creatinine Ratio 15.3 (10-20); Creatinine Clr Calc Pharmacy 86.1 ml/min; Est GFR (African American) 105.7; Est GFR (Non-African American) 91.2; Potassium 3.7 mmol/L (3.5-5.1)
[2019-11-07] MEDS: PARoxetine HCL 10 MG TAB PO SCH (10:13)
[2019-11-07] MEDS: NICOTINE 14 MG/24 HR PATCH TD SCH (10:13)
[2019-11-07] MEDS: ENOXAPARIN INJ 40 MG/0.4 ML SYR SQ SCH (10:14)
--- NOTE | 2019-11-07 11:38 | Hospitalist Progress Note ---
Date of Service November 07, 2019 Assessment & Plan (1) Closed right hip fracture: Donny Muhammad is a 83 y/o male with past medical hx of prostate cancer, urostomy w/ ileal conduit, AVR, vascular dementia, bladder cancer, failure to thrive who presented from [facility] for Transfer for Orthopedic consultation for right hip fracture. He and his daughter have revoked Hospice for treatment of his hip fracture due to severe pain. Xray from outside facility reported acute minimally displaced fracture of right femoral neck. Now s/p bipolar hemiarthroplasty on 11/01 Continues to be complaining of pain postoperatively and has a high tolerance for opioids as per his daughter-he complains of pain every day even when woken from sleep-doubt this is a significant as he says -Continue pain management with APAP-changed to 1000 mg p.o. every 8 hours scheduled, oxycodone 10 mg p.o. every 6 hours as needed -Continue bowel regimen with senna/docusate, MiraLAX -trop post-op day #1 neg -hgb slight drop to 8.1 from 10.4, no transfusion needed -PT/OT evals-recommend rehab -with low grade fever on POD #1 and again on POD #2, but now afebrile for over 48 hours--> likely secondary to atelectasis as he has not been out of bed much at all in 4 days-UA was checked but is chronically contaminated due to ileal conduit, urine culture showed mixed organisms, repeat x-rays and no evidence of infection on x-ray or on wound. Do not suspect PE -Continue with IS-discussed with nursing about being more aggressive with this with him -Needs mobilization out of bed -Bony pathology with small area of acute focal osteomyelitis-orthopedics does not think he has osteomyelitis based on intraoperative appearance of bone and will discuss with pathology-we will not be aggressive with bone biopsy or IV antibiotics at this time given low suspicion (2) Hypotension: Daughter notes he chronically has low BP. Stable for many days Blood pressures were low in the systolic in the 80s for couple of days postoperatively but are now improved after IV fluids No further IV fluids needed (3) Dementia: c/w home Quietapine 25mg PO qHS. On Ativan PRN at home, continue Ativan 0.5mg IV PRN order for agitation. With some depressed mood-restarted his previous Paxil 10 mg daily as per daughter's request (4) Prostate cancer: noted in hx (5) S/P TAVR (transcatheter aortic valve replacement): x 2, most recent was 2018 at [facility] ECHO here with preserved EF Troponin negative pre-and postop (6) History of urostomy: noted, urine slightly cloudy from ileal conduit, urine culture mixed organisms (7) Nicotine dependence: chews tobacco/snuff -continue NRT TD patch (8) Vitamin D deficiency: Vit D level here low at 14 started Vit D2 81695 units once weekly x 6 weeks f/u levels in 6 weeks as outpt (9) Fever: As above, likely secondary to atelectasis, now afebrile for over 48 hours No evidence on exam or by history of pneumonia or DVT, urine without infection, no bony or wound infection Now improving, leukocytosis trending downward to 8 Encourage IS and mobilization Tylenol as needed (10) Metabolic acidosis: Serum bicarbonate was low at 17, non-anion gap, now improved with further IV fluid hydration (11) DVT prophylaxis: SCDs, Lovenox SQ -Dispo-continued stay, awaiting rehab placement-his insurance company is not open over the weekend for insurance authorization Hopeful for discharge to rehab on Friday Continue PT/OT daily Admission and Anticipated Discharge Date Admission Date: November 01, 2019 Anticipated date of discharge: 11/08/19 Subjective Patient was woken from sleep, but then continued to complain of pain in his hip and then fell back asleep. States "I am an old man." No other complaints. Remained stable, awaiting placement on Friday. Review of Systems Review of Systems: All systems reviewed & are unremarkable except as noted in HPI & below Physical Exam Constitutional: WD/WN, vitals as above Eyes: + anicteric sclerae Neck: trachea midline, no thyromegaly Respiratory: normal respiratory effort, lungs clear to auscultation Cardiovascular: Rate/Rhythm: regular rate and regular rhythm Heart Sounds: + murmur (1/6 PEPE at RUSB) Vessels: no JVD Extremities: no edema Chest (Breasts): Chest: normal inspection of chest Gastrointestinal (Abdomen): normal bowel sounds, soft, nontender, no hepatosplenomegaly Inspection/Auscultation: + abdomen abnormal to inspection (ileal conduit urostomy in place with bag with cloudy yellow urine) Musculoskeletal: Extremities: + extremities abnormal to inspection (right hip with dressing in place), no cyanosis and no clubbing Skin: no rashes, warm and dry Neurologic: moves all extremities and awake; no focal motor deficits Psychiatric: Orientation: alert, oriented to person, oriented to place and cooperative Speech: normal rate/rhythm/volume of speech Affect: + depressed affect Lymphatic: no lymphedema Results & Data Results & Data ([facility]) Vital Signs (Past 12 Hours) Vital Signs Temp Pulse Resp BP Pulse Ox 11/07/19 07:57 36.6 C 78 16 94/55 L 97 Laboratory Results 11/07/19 11/07/19 Range/Units 05:42 05:42 WBC 8.46 (4.8-10.8) K/uL RBC 2.78 L (4.7-6.1) M/uL Hgb 8.1 L (14.0-18.0) g/dL Hct 25.0 L (42-52) % MCV 89.9 (80-100) fL MCH 29.1 (25-34) pg MCHC 32.4 (32-36) g/dL RDW Std Deviation 46.8 H (36.4-46.3) fL RDW Coeff of Dandre 14.1 (11.5-14.5) % Plt Count 362 (130-400) K/uL MPV 11.0 H (7.4-10.4) fL Immature Gran % (Auto) 1.2 % Neut % (Auto) 64.9 % Lymph % (Auto) 15.6 % Crook % (Auto) 9.9 % Eos % (Auto) 7.8 % Baso % (Auto) 0.6 % Neut # (Auto) 5.49 (1.4-6.5) K/uL Lymph # (Auto) 1.32 (1.2-3.4) K/uL Crook # (Auto) 0.84 H (0.11-0.59) K/uL Eos # (Auto) 0.66 H (0-0.5) K/uL Baso # (Auto) 0.05 (0-0.2) K/uL Immature Gran # (Auto) 0.10 H (0.00-0.02) K/uL Sodium 136 (136-145) mmol/L Potassium 3.7 (3.5-5.1) mmol/L Chloride 108 H (98-107) mmol/L Carbon Dioxide 21 (21-32) mmol/L Anion Gap 8.0 (3-11) BUN 10 (7-18) mg/dl Creatinine 0.64 (0.6-1.4) mg/dl Est Cr Clr Drug Dosing 86.1 ml/min Est GFR ( Amer) 105.7 Est GFR (Non-Af Amer) 91.2 BUN/Creatinine Ratio 15.3 (10-20) Glucose 87 (70-99) mg/dl Calcium 8.0 L (8.5-10.1) mg/dl PG Care Time/CCT Total # of Minutes Spent Total Time Spent with Patient: Total time spent is greater than 50% in coordination of care (as documented) at patient's floor/unit and/or counseling patient: Coding Level of Care Code 82128 Subseq Hosp Care Lvl 2 Diagnoses Closed right hip fracture S72.001A Hypotension I95.9 Dementia F03.90 Prostate cancer C61 S/P TAVR (transcatheter aortic valve replacement) Z95.2 History of urostomy Z98.890 Nicotine dependence F17.200 Vitamin D deficiency E55.9 Fever R50.9 Metabolic acidosis E87.2 DVT prophylaxis Z29.9
[2019-11-07] MEDS ORDERED: SODIUM CHLORIDE 0.9% 1000ML 250 ML IV ONE (18:47)
[2019-11-07] MEDS: DOCUSATE SODIUM/SENNA 50/8.6MG TAB PO SCH (20:29)
[2019-11-07] MEDS: OXYCODONE HCL IR 5 MG TAB (IMMEDIATE RELEASE) PO PRN (20:37)
[2019-11-07] MEDS: QUETIAPINE FUMARATE 25 MG TABLET PO SCH (20:37)
[2019-11-08] MEDS: OXYCODONE HCL IR 5 MG TAB (IMMEDIATE RELEASE) PO PRN ×2 (01:40→08:06)
[2019-11-08] MEDS: ACETAMINOPHEN 500 MG TAB PO SCH ×2 (05:53→13:50)
[2019-11-08] MEDS: ENOXAPARIN INJ 40 MG/0.4 ML SYR SQ SCH (08:09)
[2019-11-08] MEDS: PARoxetine HCL 10 MG TAB PO SCH (08:10)
[2019-11-08] MEDS: NICOTINE 14 MG/24 HR PATCH TD SCH (08:10)
--- NOTE | 2019-11-08 10:09 | Orthopedic Progress Note ---
Date of Service November 08, 2019 Assessment & Plan (1) Closed right hip fracture: POD 6 right hip hemiarthroplasty with Dr. Acevedo Continue OOB with assistance of a walker, encouraged OOB PT/OT as ordered Posterior hip precautions at all times Keep hip incision covered at all times, Silverlon in place. Ice to right hip PRN pain/swelling Abduction pillow when in bed, standard pillow or abduction pillow when in chair I.S. q2h while awake Continue Lovenox 40 mg x 2-4 weeks, until discontinued by Dr. Acevedo May weight bear as tolerated right hip. Regular diet as ordered Tylenol or Tramadol as needed for pain. Follow up with Dr. Acevedo as scheduled. Okay from ortho standpoint for discharge when medically stable. Case management for disposition. - Possible discharge to [facility] today, awaiting authorization. Dr. Acevedo present for today's visit. Admission and Anticipated Discharge Date Admission Date: November 01, 2019 Subjective Patient resting in bed, complaining of pain in right hip. Physical Exam Physical Exam: Abduction pillow between knees. Right foot hanging off bed when arrived. Waffle boots on bilateral feet. Incision clean, dry and intact. Silverlon on right hip, but not covering incision. New Silvelon applied after incision cleansed with sterile saline wipe. Incision clean, dry and intact. Adriano retained, no active drainage. No surrounding seroma or hematoma. Pain at incision with palpation. no surrounding erythema or ecchymosis. Dorsalis pedis pulse 1+, strength right ankle 5/5. Able to actively dorsiflex and plantarflex right foot. Results & Data ([facility]) Vital Signs (Past 12 Hours) Vital Signs Temp Pulse Resp BP BP Pulse Ox 11/08/19 07:34 36.7 C 91 H 16 91/52 L 97 11/07/19 23:29 36.4 C L 91 H 16 99/59 L 97 Diagnostic Findings XR hip RT min 2V CLINICAL HISTORY: Right hip and thigh pain. History of right hip arthroplasty COMPARISON: 11/02/2019 DISCUSSION: There is a bipolar right hip arthroplasty. There is no dislocation. No acute fractures are visualized. There is gas present within the soft tissues consistent with recent surgery. There are overlying skin adriano. Surgical clips are present within the right pelvic basin. There is stable cortical thickening involving the proximal right femur. IMPRESSION: Right hip hemiarthroplasty. No acute fractures or dislocations.
[2019-11-08] MEDS ORDERED: OXYCODONE HCL IR 5 MG TAB (IMMEDIATE RELEASE) PO PRN (11:40)
--- NOTE | 2019-11-08 16:28 | Discharge Summary ---
Date of Service November 08, 2019 Admission HPI Per Admitting Provider Caveat: History Limited by dementia Donny Muhammad is a 83 y/o male with past medical hx of prostate cancer, ostomy, heart valve replacement, vascular dementia, bladder cancer, failure to thrive who presented from [facility] for Transfer for Orthopedic consultation for right hip fracture. He had a fall at assisted living home about one week ago. Donny states he tripped on bedsheets and fell onto right side. He's been having right hip pain, unable to ambulate, been in wheelchair. He was on hospice at [facility] for failure to thrive. Staff thought injury was minor hip bruise. He had an outpatient xray yesterday that resulted in acute minimally displaced fracture of right femoral neck. Family notes that they sought surgical repair and patient was transferred here. Daughter notes that Dr. Kristina Hennessy was notified prior to arrival of patient to our facility. Principal Diagnosis Right hip fracture, status post sincere-arthroplasty Discharge Exam Constitutional WD/WN, vitals as above Eyes PERRL, conjunctivae normal, anicteric sclerae ENMT external ear and nose normal, oropharynx normal Neck trachea midline, no thyromegaly Respiratory normal respiratory effort, lungs clear to auscultation Cardiovascular RRR, no murmur, no edema Gastrointestinal (Abdomen) normal bowel sounds, soft, nontender, no hepatosplenomegaly Musculoskeletal Head/Neck/Chest: normocephalic, head atraumatic and neck supple Extremities: extremities normal to inspection, + limited ROM of extremities (right hip joint due to pain) and + abnormal strength (generalized weakness); no cyanosis and no clubbing Skin no rashes, warm and dry Neurologic patellar DTR's 2+ bilat, sensation intact and PERRL, EOMI, accommodation nl, no face palsy, no dysarthria Psychiatric A+Ox3, euthymic affect Lymphatic no cervical or axillary lymphadenopathy Discharge Data Allergies Allergy/AdvReac Type Severity Reaction Status Date / Time ciprofloxacin [From Cipro] Allergy Unknown Unknown Verified 11/01/19 21:10 tetanus toxoid, adsorbed AdvReac Mild ITCHING Verified 12/25/18 11:03 RASH Consultations 11/01/19 20:58 Consult Anesthesiology Routine Consult Case Management - Discharge Planning Routine Consult Orthopedic Surgery Routine 11/01/19 21:21 Radiology Transfer Of Images Routine 11/02/19 07:21 Consult Anesthesiology Routine 11/02/19 20:06 Consult Case Management - Discharge Planning Routine Procedures Performed Operation Date: 11/02/19 12:10 Actual Procedures p Right Bipolar Hemiarthroplasty, Cemented (Right) - Patrick Acevedo MD Ordered Studies 11/02/19 09:00 US venous doppler LE BI Urgent 11/02/19 12:30 FL fluoroscopy <1hr Routine FL hip RT 2-3V Routine Hospital Course (1) Closed right hip fracture: Donny Muhammad is a 83 y/o male with past medical hx of prostate cancer, urostomy w/ ileal conduit, AVR, vascular dementia, bladder cancer, failure to thrive who presented from [facility] for Transfer for Orthopedic consultation for right hip fracture. He and his daughter have revoked Hospice for treatment of his hip fracture due to severe pain. Xray from outside facility reported acute minimally displaced fracture of right femoral neck. Now s/p bipolar hemiarthroplasty on 11/01 -Continue pain management with APAP-changed to 1000 mg p.o. every 8 hours scheduled, oxycodone 5mg q6 for moderate pain, 10mg for severe pain -Continue bowel regimen with senna/docusate, MiraLAX -trop post-op day #1 neg -hgb stable, no further signs of blood loss -PT/OT evals-recommend rehab, will go to [facility] -with low grade fever on POD #1 and again on POD #2, but now afebrile for over 72 hours--> likely secondary to atelectasis -Continue with IS-discussed with nursing about being more aggressive with this with him -Needs mobilization out of bed -Bony pathology with small area of acute focal osteomyelitis-orthopedics does not think he has osteomyelitis based on intraoperative appearance of bone and will discuss with pathology-we will not be aggressive with bone biopsy or IV an tibiotics at this time given low suspicion will d/c to [facility] Oxycodone PRN for pain activity instructions provided by orthopedics continue on Lovenox daily for DVT prophylaxis for 2-4 weeks, only stop under direction of Dr. Acevedo follow up with Dr. Acevedo in office (2) Hypotension: Daughter notes he chronically has low BP. Stable for many days Blood pressures were low in the systolic in the 80s for couple of days postoperatively but are now improved after IV fluids No further IV fluids needed (3) Dementia: c/w home Quietapine 25mg PO qHS. On Ativan PRN at home, continue Ativan 0.5mg IV PRN order for agitation. With some depressed mood-restarted his previous Paxil 10 mg daily as per jennifer lundberg's request (4) Prostate cancer: noted in hx (5) S/P TAVR (transcatheter aortic valve replacement): x 2, most recent was 2018 at [facility] ECHO here with preserved EF Troponin negative pre-and postop (6) History of urostomy: noted, urine slightly cloudy from ileal conduit, urine culture mixed organisms (7) Nicotine dependence: chews tobacco/snuff -continue NRT TD patch (8) Vitamin D deficiency: Vit D level here low at 14 started Vit D2 23975 units once weekly x 7 weeks f/u levels in 6 weeks as outpt (9) Fever: As above, likely secondary to atelectasis, now afebrile for over 48 hours No evidence on exam or by history of pneumonia or DVT, urine without infection, no bony or wound infection Now improving, leukocytosis trending downward to 8 Encourage IS and mobilization Tylenol as needed (10) Metabolic acidosis: resolved (11) DVT prophylaxis: SCDs, Lovenox SQ -Dispo- go to [facility] Total Time Total Time Spent Total Time Spent (In Minutes): 32 minutes Total Time Includes: Examination of the Patient, Discharge Planning, Medication Reconciliation and Communication With Other Providers (ortho) Discharge Plan Discharge Items Patient Disposition: Transfer Long-Term Fac Reason For Visit: RIGHT HIP FRACTURE Discharge Diagnosis: Right hip fracture status post sincere-arthroplasty Condition on Discharge: Fair Goals: improve pain control, mobility, strength likely resume hospice services now that surgery has been completed Activity: Per Instructions section Weightbearing: Right weightbearing Weightbearing Comment: with assistance of a walker Non-emergency contact: Surgeon Call non-emergency contact if: your pain is not controlled, your pain is unusual for you, your temperature is above 101, your wound has increased redness, your wound has increased drainage and your wound pain has increased Follow-up/Referrals: Patrick Acevedo MD [Surgeon] - 11/17/19 1:00 pm Radha Oconnor MD [Primary Care Provider] - Diet: Regular Addtl Attending Provider Instructions: Medications: - OXYCODONE: 5-10mg every 6 hours as needed for pain use 5mg for moderate pain, up to 6 out of 10 use 10mg fro severe pain, > 7 out of 10 - LOVENOX: daily for DVT prophylaxis after hip surgery, continue for 2-4 weeks, Dr. Acevedo will instruct on when to stop - ERGOCALCIFEROL: take 50,000 units once a week for 7 weeks, can then start daily supplementation Addtl Person Investigator Provider Instructions: Continue OOB with assistance of a walker PT/OT Posterior hip precautions at all times Keep hip incision covered at all times, change daily or as needed. Ice to right hip PRN pain/swelling Abduction pillow when in bed, standard pillow or abduction pillow when in chair I.S. q2h while awake Continue Lovenox 40 mg x 2-4 weeks, until discontinued by Dr. Acevedo May weight bear as tolerated right hip. Regular diet as ordered Tylenol or Tramadol as needed for pain. Follow up with Dr. Acevedo in 10-14 days after surgery. Okay from ortho standpoint for discharge when medically stable. Pending Studies at Discharge: No Stand-Alone Forms: My [facility] Skilled Items Patient informed of condition?: Yes DNR: Yes Discharge Level of Care: Skilled Communicable Disease: No Discharge Prognosis: Stable Lines: None Urinary Catheter: No Medications and DC Order Prescriptions: New oxycodone 5 mg Tablet 5 - 10 mg PO Q6 PRN (Reason: pain) 14 Days Qty: 30 RF: 0 enoxaparin 40 mg/0.4 mL Syringe 40 mg subcut Q24H 28 Days Qty: 11.2 RF: 0 ergocalciferol (vitamin D2) 1,250 mcg (50,000 unit) Capsule 50,000 unit PO Q7D@0900 49 Days Qty: 7 RF: 0 Continued lorazepam [Ativan] 0.5 mg Tablet 0.5 mg PO Q4 PRN (Reason: Anxiety) RF: 0 Nutritional Drink 1 box PO QDL RF: 0 sennosides [Senna Lax] 8.6 mg Tablet 8.6 - 50 mg PO HS PRN (Reason: Constipation) RF: 0 calcium carbonate [Tums] 200 mg calcium (500 mg) Tablet,Chewable 500 mg PO Q4 PRN (Reason: Acid Reflux) RF: 0 morphine 5 mg/mL Solution 5 mg PO Q4 PRN (Reason: Pain) RF: 0 ondansetron 4 mg Tablet,Disintegrating 4 mg PO Q6H RF: 0 quetiapine 25 mg tablet 25 mg PO HS RF: 0 acetaminophen [Mapap (acetaminophen)] 325 mg Tablet 650 mg PO Q4H Qty: 20 RF: 0 Discontinued [place] 5 - 325 mg PO Q6 PRN (Reason: pain) RF: 0 Discharge Orders: Discharge Order (Routine); Ordered 11/08/19 Ordered By: Armando Luna Admission Data Admit Date/Time: 11/01/19 20:29 Attending Provider: Armando Luna Admit Provider: Louis Mari Primary Care Provider: Radha Oconnor Other Providers: Aylin Mcintyre ; Lucas Melendez Kevin ; Jay Stout Other Interventions: Discharge Summary Assessment (RN) Last Done: 11/08/19 14:13 Coding Level of Care Code D/C Day Management >30 mins Diagnoses Closed right hip fracture S72.001A Hypotension I95.9 Dementia F03.90 Prostate cancer C61 S/P TAVR (transcatheter aortic valve replacement) Z95.2 History of urostomy Z98.890 Nicotine dependence F17.200 Vitamin D deficiency E55.9 Fever R50.9 Metabolic acidosis E87.2 DVT prophylaxis Z29.9
== END 2019-11-08 16:05 | DRG 470 ==
LOC: 3W 20:29 → SUATTDRO 20:29

== ENCOUNTER 2022-07-25 12:18 | Inpatient (IN) ==
[2022-07-25 13:18] LABS: Basophils # (auto) 0.14 K/uL (0-0.2); Basophils % (auto) 0.8 %; Eosinophils # (auto) 0.21 K/uL (0-0.50); Eosinophils % (auto) 1.2 %; Hematocrit (blood only) 38.5 % (42.0-52.0); Hemoglobin 13.2 g/dl (14.0-18.0); Lymphocytes # (auto) 4.29 K/uL (1.2-3.4); Lymphocytes % (auto) 24.3 %; Mean Corpuscular Hgb Conc 34.3 g/dL (32.0-36.0); Mean Corpuscular Volume 96.3 fL (80.0-100.0); Mean Platelet Volume 11.6 fL (9.4-12.4); Monocytes # (auto) 1.61 K/uL (0.11-0.59); Monocytes % (auto) 9.1 %; Neutrophils # (auto) 10.72 K/uL (1.40-6.50); Neutrophils % (auto) 60.6 %; Platelet Count 315 K/uL (130-400); RDW Coefficient of Variation 15.2 % (11.5-14.5); RDW Standard Deviation 53.8 fL (36.4-46.3); White Blood Count 17.67 K/ul (4.8-10.8)
[2022-07-25 13:38] LABS: BUN Creatinine Ratio 21.7 (10-20); Calcium 9.1 mg/dl (8.6-10.3); Creatinine Clr Calc Pharmacy 61.7 ml/min; Est GFR (African American) 88.2 ml/min; Est GFR (Non-African American) 76.1 ml/min; Potassium 4.6 mmol/L (3.5-5.1)
[2022-07-25 13:44] LABS: Appearance Urine Turbid (Clear); Bacteria Urine Automated 4+ (Negative); Bilirubin Urine Negative (Negative); Blood Urine 1+ (Negative); Color Urine Yellow; Epithelial Cell Urine Auto 0-5 /lpf (0-5); Glucose Urine UA Negative (Negative); Ketones Urine Negative (Negative); Leukocyte Esterase Urine 3+ (Negative); Nitrite Urine Positive (Negative); Protein Urine Trace (Negative); RBC Urine Automated 0-4 /hpf (0-4); Specific Gravity Urine 1.016 (1.000-1.030); Urobilinogen Urine Negative (Negative); WBC Urine Automated >30 /hpf (0-5)
[2022-07-25] MEDS ORDERED: SODIUM CHLORIDE 0.9% 1000ML 1,000 ML IV ONE (13:58)
--- NOTE | 2022-07-25 14:12 | CT Scan Report ---
CT OF THE HEAD WITHOUT CONTRAST CLINICAL HISTORY: Seizure. COMPARISON STUDY: MRI of the brain July 29, [address] May 01, 2022. CT DOSE: 1250.21 mGy.cm TECHNIQUE: Helical axial images of the head were obtained without IV contrast. Automated exposure con trol was utilized for the study. A dose lowering technique was utilized adhering to the principles o f ALARA. FINDINGS: No acute intracranial hemorrhage, midline shift or mass effect is present. Extensive white matter hypodensities are unchanged and favor small vessel disease. A hypodense focus within the left cerebellar hemisphere is unchanged. Ventricular dilatation is likely due to atrophy. The appearance o f the brain is unchanged. No findings to suggest acute dural sinus thrombosis or acute territorial in farct. There are no acute calvarial fractures. IMPRESSION: No acute intracranial findings. No change in appearance of the brain. ACT 112: Negative or not required by law. Electronically signed by: Jose Luis Damon M.D. 07/25/2022 2:11 PM
[2022-07-25] MEDS ORDERED: cefTRIAXone SODIUM 1,000 MG in DEXTROSE 5% AD-VAN 50 ML IV STA ×2 (15:10→17:53)
[2022-07-25] MEDS ORDERED: levETIRAcetam 1,000 MG in 0.9 % SODIUM CHLORIDE 100 ML IV STA (15:14)
--- NOTE | 2022-07-25 16:02 | History & Physical Report ---
Date of Service July 25, 2022 Assessment & Plan (1) Observed seizure-like activity: (2) Sepsis: (3) UTI (urinary tract infection): (4) Dementia: Plan This is an 86-year-old male who has a significant past medical history of vascular dementia, history of bladder and prostate cancer with urostomy in place, HTN, HLD, protein calorie malnutrition with adult failure to thrive, DDD, history of aortic valve replacement, history of lacunar infarct and depression who presents to ED from [facility] after concern for seizure-like activity. Patient with witnessed generalized tonic-clonic seizure at [facility] for approximately 1 minute followed by drooling and bowel and bladder incontinence. This was then proceeded with a postictal state which gradually resolved while in ED. In ED he was loaded with 1000 mg of IV Keppra. Also evidence of UTI and meets criteria for sepsis. Seizure-like activity Admit to PCU Received Keppra load in ED, will continue with IV Keppra 500 mg twice daily with next dosing at 2100 Consult neurology, discussed with Dr. Joya, but will be followed by [facility] neurology tomorrow Obtain MRI, EEG Of note patient did recently start Trileptal approximately 1 month ago for worsening depression, impulsiveness as well as suicide behavior, ? If this should be discontinued due to possibility to lower seizure threshold Seizure precaution will have nursing do dysphagia screen, if passes will add diet IVF for now given sepsis Sepsis UTI Upon admission patient met criteria for sepsis secondary to leukocytosis and tachycardia Patient tachycardia has since resolved with proper fluid resuscitation He does continue to be hypotensive although daughter is at bedside states he typically runs with blood pressure in the low 90s. Patient received 1 g IV ceftriaxone in ED, will supplement with additional 1 g this evening followed by 2 g IV ceftriaxone daily Await urine and blood culture Vascular dementia Depression with impulsiveness History of suicidal ideations Patient on Zoloft Recently started on Trileptal due to impulsiveness and worsening depression At baseline is mostly pleasant, alert and oriented to self and family History of bladder and prostate cancer status post urostomy Routine urostomy care Sacral wound Consult wound nurse Turn reposition every 2 DVT ppx: SQ Lovenox DNR/DNI Dispo: admit to PCU, return to [facility] upon discharge PCP: Alma Pt was seen and collaborated with Dr. Walsh, please see addendum A total of 90 was spent coordinating, documenting, and providing care for this patient excluding time spent in the performance of separately billed services. This included personally viewing all current laboratories and imaging studies, medication reconciliation, outpatient chart review, and discussion with specialists. History of Present Illness Chief Complaint: Seizure-like activity prior to arrival Primary Care Provider: [facility] This is an 86-year-old male who has a significant past medical history of vascular dementia, history of bladder and prostate cancer with urostomy in place, HTN, HLD, protein calorie malnutrition with adult failure to thrive, DDD, history of aortic valve replacement, history of lacunar infarct and depression who presents to ED from [facility] after concern for seizure-like activity. History unable to be obtained from patient due to underlying dementia. Daughter is at bedside. Records from [facility] were reviewed in [employer]. KATERIN from [facility] was called to bedside today after staff witnessed patient having sudden on set of contracture of both arms with bilateral lower extremity flailing and jerking movements for approximately 1 minute. He then became unresponsive to deep physical and verbal stimulation. His vital signs remained stable and there was evidence of drooling. Per daughters at bedside patient did have bowel bladder incontinence. He was then transported via EMS to ED. Patient remained mostly unresponsive and while staying in ED had a gradual improvement of his mental state and during my examination was alert, responsive, and oriented x2. Daughters feel like he is slowly coming back to his baseline. Up until today seizure-like activity he has been in his normal state of health. For the most part he is pleasant despite the dementia. He does have underlying depression/impulsiveness and was recently started on Trileptal. He had suicidal behavior per family members and frequently states, "I want to ." Family numbers at bedside state that they are aware he is ready to be with his loved ones. Because of this he wrapped a telephone cord around his neck while in the [facility] and therefore was evaluated by psychiatry. Allergies Allergy/AdvReac Type Severity Reaction Status Date / Time ciprofloxacin [From Cipro] Allergy Unknown Unknown Verified 07/25/22 14:46 tetanus toxoid, adsorbed AdvReac Mild ITCHING Verified 07/25/22 14:46 RASH Home Medications Medication Instructions Recorded Confirmed Type ondansetron 4 mg disintegrating 4 mg PO Q6H PRN Nausea / Vomiting 11/02/19 07/25/22 History tablet acetaminophen 325 mg tablet 650 mg PO Q4 PRN pain mild scale 05/01/22 07/25/22 History (Tylenol) 1-4 acetaminophen 325 mg tablet 650 mg PO Q4 PRN temp>100.4 05/01/22 07/25/22 History (Tylenol) acetaminophen 500 mg tablet 500 mg PO QID PAIN 05/01/22 07/25/22 History carboxymethylcellulose sodium 1 % 1 drp OPB QID PRN Dry Eyes 05/01/22 07/25/22 History eye gel in a dropperette (Refresh Celluvisc) cholecalciferol (vitamin D3) 25 1,000 unit PO QAM 05/01/22 07/25/22 History mcg (1,000 unit) capsule famotidine 20 mg tablet 20 mg PO BID 05/01/22 07/25/22 History megestrol 400 mg/10 mL (40 mg/mL) 400 mg PO DAILY 05/01/22 07/25/22 History oral suspension melatonin 5 mg tablet 5 mg PO HS 05/01/22 07/25/22 History bisacodyl 10 mg rectal suppository 10 mg UT DAILY PRN Constipation 07/25/22 07/25/22 History (Dulcolax (bisacodyl)) camphor-menthol 0.5 %-0.5 % lotion 1 applic topical Q2H PRN itching 07/25/22 07/25/22 History (Sarna Original) magnesium hydroxide 400 mg/5 mL 30 ml PO DAILY PRN Constipation 07/25/22 07/25/22 History oral suspension (Milk of Magnesia) miconazole nitrate 2 % topical 1 applic topical BID 07/25/22 07/25/22 History powder oxcarbazepine 150 mg tablet 150 mg PO DAILY 07/25/22 07/25/22 History sertraline 50 mg tablet 50 mg PO QAM 07/25/22 07/25/22 History sodium phosphates 19 gram-7 118 ml UT DAILY PRN Constipation 07/25/22 07/25/22 History gram/118 mL enema (Fleet Enema) zinc oxide 1 ea topical DAILY PRN Loose Stool 07/25/22 07/25/22 History Past Med/Surg History Medical History Cerebrovascular disease Closed right hip fracture Generalized weakness GERD (gastroesophageal reflux disease) Hypotension Lumbar stenosis (03/23/14) Metabolic acidosis Nicotine dependence Observed seizure-like activity Prostate cancer UTI (urinary tract infection) Vitamin D deficiency Surgical History History of heart surgery History of hip surgery History of prostatectomy History of urostomy S/P TAVR (transcatheter aortic valve replacement) Family History Other Family history non-contributory Social History Smoking Status: Former smoker Tobacco Type: Smokeless Tobacco (Dip or Chew) Second Hand Exposure: No; Do You Dip or Chew Tobacco: No; Tobacco Cessation Education Requested by Patient: No Hx Alcohol Use: No Hx Substance Use: No Preferred Language: Estonian Communication Ability: Impaired Communication Ability Comment: [employer] Required: No Beliefs That Will Affect Care: None Current Living Situation: Half-Way Current Living Situation Comment: fiance Other Information That Helps Us Care for You: No Feels Safe at Home: Yes Safety Concerns: Feels Safe At This Time Assistive Devices: Walker and Wheelchair Review of Systems Review of Systems: All systems reviewed & are unremarkable except as noted in HPI & below Physical Exam Physical Exam: Constitutional: Elderly, male, arousable to verbal and tactile stimulation, very hard of hearing, vitals as above, NAD, sitting up in bed, pleasant, conversing easily Head: Normocephalic, Atraumatic Eyes: PERRL, conjunctivae normal, anicteric sclerae ENMT: external ear and nose normal, oropharynx dry membranes Neck: trachea midline, no thyromegaly normal visual inspection Respiratory: normal respiratory effort, lungs clear to auscultation, no wheeze, rales, rhonchi. Normal insp/exp effort, no accessory muscle use Cardiovascular: RRR, no murmur, no edema Vessels: no JVD or carotid bruit Chest: normal inspection of chest Abdomen: Positive right-sided urostomy with clear urine output, normal bowel sounds, soft, nontender, no hepatosplenomegaly Musculoskeletal: no cyanosis or clubbing, active range of motion to bilateral upper extremities, good passive range of motion of bilateral lower extremities but patient does not follow commands to actively raise his lower extremities Skin: no rashes, warm and dry normal turgor Neurologic: PERRL, EOMI, accommodation nl, no face palsy, no dysarthria CN's II-XI intact bilaterally and moves all extremities Psychiatric: A+Ox2 oriented to self, place and daughters about, euthymic affect Lymphatic: no cervical or axillary lymphadenopathy : +urostomy status Results & Data Results & Data Vital Signs (Past 12 Hours) Vital Signs Temp Pulse Pulse Resp BP BP Pulse Ox 07/25/22 15:24 92 H 16 95/64 L 95 07/25/22 12:57 07/25/22 12:57 07/25/22 12:57 36.7 C 108 H 18 99/60 L 97 07/25/22 12:29 113 H O2 Del Method 07/25/22 15:24 Room Air 07/25/22 12:57 Room Air 07/25/22 12:57 Room Air 07/25/22 12:57 Room Air 07/25/22 12:[address] 07/25/22 12:51 CT OF THE HEAD WITHOUT CONTRAST CLINICAL HISTORY: Seizure. COMPARISON STUDY: MRI of the brain July 29, [address] May 01, 2022. CT DOSE: 1250.21 mGy.cm TECHNIQUE: Helical axial images of the head were obtained without IV contrast. Automated exposure control was utilized for the study. A dose lowering technique was utilized adhering to the principles of ALARA. FINDINGS: No acute intracranial hemorrhage, midline shift or mass effect is present. Extensive white matter hypodensities are unchanged and favor small vessel disease. A hypodense focus within the left cerebellar hemisphere is unchanged. Ventricular dilatation is likely due to atrophy. The appearance of the brain is unchanged. No findings to suggest acute dural sinus thrombosis or acute territorial infarct. There are no acute calvarial fractures. IMPRESSION: No acute intracranial findings. No change in appearance of the brain. ACT 112: Negative or not required by law. Electronically signed by: Jose Luis Damon M.D. 07/25/2022 2:11 PM Medications Administered Medication List Discontinued Medications Sodium Chloride (Nss 1000ml) 1,000 mls @ 999 mls/hr IV .Q1H1M ONE Stop: 07/25/22 14:58 Last Admin: 07/25/22 15:33 Dose: 999 mls/hr Documented By: DIDI Ceftriaxone Sodium 1,000 mg/ (Dextrose) 50 mls @ 100 mls/hr IV NOW STA Stop: 07/25/22 15:39 Last Admin: 07/25/22 15:33 Dose: 100 mls/hr Documented By: DIDI ECG Additional Comments: EKG ordered Initial EKG revealed sinus tachy with possible junctional rhythm, prolonged qtc COVID-19 Results Results COVID-19 Adm Lab Results: RBC 4.00 M/uL (4.70-6.10) L 07/25/22 WBC 17.67 K/ul (4.8-10.8) H 07/25/22 Hgb 13.2 g/dl (14.0-18.0) L 07/25/22 Hct 38.5 % (42.0-52.0) L 07/25/22 Plt Count 315 K/uL (130-400) 07/25/22 Neutrophils (%) (Auto) 60.6 % 07/25/22 Lymphocytes (%) (Auto) 24.3 % 07/25/22 Monocytes # (Auto) 1.61 K/uL (0.11-0.59) H 07/25/22 Eosinophils # (Auto) 0.21 K/uL (0-0.50) 07/25/22 Immature Granulocyte % (Auto) 4.0 % 07/25/22 Neutrophils # (Auto) 10.72 K/uL (1.40-6.50) H 07/25/22 Lymphocytes # (Auto) 4.29 K/uL (1.2-3.4) H 07/25/22 Monocytes # (Auto) 1.61 K/uL (0.11-0.59) H 07/25/22 Eosinophils # (Auto) 0.21 K/uL (0-0.50) 07/25/22 Basophils # (Auto) 0.14 K/uL (0-0.2) 07/25/22 Immature Granulocyte # (Auto) 0.70 K/uL (0.01-0.20) H 07/25 Na 135 mmol/L (136-145) L 07/25/22 K 4.6 mmol/L (3.5-5.1) 07/25/22 Cl 105 mmol/L (98-107) 07/25/22 CO2 18 mmol/L (21-32) L 07/25/22 Anion Gap 12 (3-11) H 07/25/22 BUN 20 mg/dl (6-23) 07/25/22 Creatinine 0.92 mg/dl (0.6-1.4) 07/25/22 BUN/Creatinine Ratio 21.7 (10-20) H 07/25/22 Glucose Level 119 mg/dl (70-99(Fasting)) H 07/25/22 Ca 9.1 mg/dl (8.6-10.3) 07/25/22 SARS-CoV-2, RNA, NAAT NEGATIVE (NEGATIVE) 07/25/22 Code Status & VTE Plan Code Status DNR/DNI Supervising Physician Co-Signing Physician Notes Pt seen and examined by myself, Trinity Walsh MD on the day of service. Care was coordinated with Linh Shah PA-C. Please refer to her note for additional information. 86yo gentleman with PMHx significant for vascular dementia admitted for a witnessed seizure in the setting of a complicated UTI. Pt pleasantly demented on exam, resting comfortably. Head CT with no acute cause. MRI pending, continue Keppra with neurology consult. IV Rocephin for UTI Otherwise as above. (3) UTI (urinary tract infection) Hematuria presence: with hematuria Urinary tract infection type: site unspecified Qualified Code(s): N39.0 - Urinary tract infection, site not specified; R31.9 - Hematuria, unspecified (4) Dementia Dementia type: unspecified type
[2022-07-25] MEDS: LACTATED RINGER'S 1,000 ML IV SCH (17:52)
[2022-07-25] MEDS ORDERED: PROMETHAZINE HCL 6.25 MG in SODIUM CHLORIDE 0.9% 50 ML IV PRN (17:53)
[2022-07-25] MEDS ORDERED: POLYETHYLENE (MIRALAX) 17 GM PACK PO PRN (17:53)
[2022-07-25] MEDS ORDERED: ACETAMINOPHEN 325 MG TAB PO PRN (17:53)
[2022-07-25] MEDS ORDERED: MAGNESIUM HYDROXIDE SUSP 30 ML UDC PO PRN (17:53)
[2022-07-25 18:23] LABS: Magnesium 2.2 mg/dl (1.7-2.4)
--- NOTE | 2022-07-25 19:21 | Emergency Department Note ---
History of Present Illness General Chief complaint: Seizure Stated complaint: SEIZURE Time Seen by Provider: 07/25/22 12:29 Source: family (Daughter is at bedside) History of Present Illness Provider complaint: Seizure Onset (ago): hour(s) 2 86-year-old male with history of dementia presents emergency department from dementia unit at nursing facility for seizure. Per the daughters at bedside the patient was at his facility when he started having tonic-clonic jerking and became unresponsive. The symptoms resolved without any pharmacological intervention. They state the patient still appears very confused, more confused than normal. No reported trauma. This occurred while the patient was getting a wound care change dressing on his sacral wound. No reported fevers. Home Medications Medication Instructions Recorded Confirmed Type ondansetron 4 mg disintegrating 4 mg PO Q6H PRN Nausea / Vomiting 11/02/19 07/25/22 History tablet acetaminophen 325 mg tablet 650 mg PO Q4 PRN pain mild scale 05/01/22 07/25/22 History (Tylenol) 1-4 acetaminophen 325 mg tablet 650 mg PO Q4 PRN temp>100.4 05/01/22 07/25/22 History (Tylenol) acetaminophen 500 mg tablet 500 mg PO QID PAIN 05/01/22 07/25/22 History carboxymethylcellulose sodium 1 % 1 drp OPB QID PRN Dry Eyes 05/01/22 07/25/22 History eye gel in a dropperette (Refresh Celluvisc) cholecalciferol (vitamin D3) 25 1,000 unit PO QAM 05/01/22 07/25/22 History mcg (1,000 unit) capsule famotidine 20 mg tablet 20 mg PO BID 05/01/22 07/25/22 History megestrol 400 mg/10 mL (40 mg/mL) 400 mg PO DAILY 05/01/22 07/25/22 History oral suspension melatonin 5 mg tablet 5 mg PO HS 05/01/22 07/25/22 History bisacodyl 10 mg rectal suppository 10 mg ME DAILY PRN Constipation 07/25/22 07/25/22 History (Dulcolax (bisacodyl)) camphor-menthol 0.5 %-0.5 % lotion 1 applic topical Q2H PRN itching 07/25/22 07/25/22 History (Sarna Original) magnesium hydroxide 400 mg/5 mL 30 ml PO DAILY PRN Constipation 07/25/22 07/25/22 History oral suspension (Milk of Magnesia) miconazole nitrate 2 % topical 1 applic topical BID 07/25/22 07/25/22 History powder oxcarbazepine 150 mg tablet 150 mg PO DAILY 07/25/22 07/25/22 History sertraline 50 mg tablet 50 mg PO QAM 07/25/22 07/25/22 History sodium phosphates 19 gram-7 118 ml ME DAILY PRN Constipation 07/25/22 07/25/22 History gram/118 mL enema (Fleet Enema) zinc oxide 1 ea topical DAILY PRN Loose Stool 07/25/22 07/25/22 History Allergies Allergy/AdvReac Type Severity Reaction Status Date / Time ciprofloxacin [From Cipro] Allergy Unknown Unknown Verified 07/25/22 14:46 tetanus toxoid, adsorbed AdvReac Mild ITCHING Verified 07/25/22 14:46 RASH Past Med/Surg History Medical History Cerebrovascular disease Closed right hip fracture Generalized weakness GERD (gastroesophageal reflux disease) Hypotension Lumbar stenosis (03/23/14) Metabolic acidosis Nicotine dependence Observed seizure-like activity Prostate cancer UTI (urinary tract infection) Vitamin D deficiency Surgical History History of heart surgery History of hip surgery History of prostatectomy History of urostomy S/P TAVR (transcatheter aortic valve replacement) Family History Other Family history non-contributory Social History Smoking Status: Former smoker Tobacco Type: Smokeless Tobacco (Dip or Chew) Second Hand Exposure: No; Do You Dip or Chew Tobacco: No; Tobacco Cessation Education Requested by Patient: No Hx Alcohol Use: No Hx Substance Use: No Preferred Language: Luxembourger Communication Ability: Impaired Communication Ability Comment: 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 Required: No Beliefs That Will Affect Care: None Current Living Situation: Intermediate Current Living Situation Comment: fiance Other Information That Helps Us Care for You: No Feels Safe at Home: Yes Safety Concerns: Feels Safe At This Time Assistive Devices: Walker and Wheelchair Physical Exam Vital Signs Vital Signs - 24 hr 05/18/23 12:29 07/25/22 12:57 07/25/22 12:57 Temperature 36.7 C Temperature Source Temporal Artery Scan Pulse Rate 113 H 108 H Pulse Rate [Apical] Pulse Rhythm Regular Pulse Strength Normal Respiratory Rate 18 Respiratory Effort / Characteristics Non-Labored Respiratory Depth Normal Respiratory Pattern Regular Blood Pressure 99/60 L Blood Pressure [Right Arm] Blood Pressure Mean 73 Blood Pressure Mean [Right Arm] Blood Pressure Position Lying Pulse Oximetry 97 Oxygen Delivery Method Room Air Room Air Sepsis Recent Fever Within 48 Hours No Sepsis New/Unexplained Change in Mental Status Yes Sepsis Action Taken by Nursing MD Previously Notified 07/25/22 12:57 07/25/22 15:24 07/25/22 16:00 Temperature Temperature Source Pulse Rate Pulse Rate [Apical] 92 H 84 Pulse Rhythm Pulse Strength Respiratory Rate 16 14 Respiratory Effort / Characteristics Respiratory Depth Respiratory Pattern Blood Pressure Blood Pressure [Right Arm] 95/64 L 85/55 L Blood Pressure Mean Blood Pressure Mean [Right Arm] 74 65 Blood Pressure Position Pulse Oximetry 95 95 Oxygen Delivery Method Room Air Room Air Room Air Sepsis Recent Fever Within 48 Hours Sepsis New/Unexplained Change in Mental Status Sepsis Action Taken by Nursing Physical Exam HENT: Exam performed. - Head: Normocephalic and atraumatic. - Right Ear: External ear normal. No mastoid erythema - Left Ear: External ear normal. No mastoid erythema EYES: Conjunctivae and EOM are normal. Pupils are equal, round, and reactive to light. Right eye exhibits no discharge. Left eye exhibits no discharge. No scleral icterus. CV: Normal rate, regular rhythm, normal heart sounds and intact distal pulses. There is no peripheral edema. Palpable radial pulses bue. PULM/CHEST: Effort normal and breath sounds normal. No respiratory distress. No stridor. He has no wheezes. He has no rales. ABD: The abdomen is soft. NEURO: Motor and sensation grossly intact. SKIN: Stage I sacral ulcer. Course Course 1229: The patient was evaluated in room B6. A complete history and physical exam was performed Administered Medications Lactated Ringer's (Lr) 1,000 mls @ 80 mls/hr IV .[id number] YOUSIF Stop: 08/24/22 16:44 Last Admin: 07/25/22 17:52 Dose: 80 mls/hr Documented By: JUAN M Discontinued Medications Sodium Chloride (Nss 1000ml) 1,000 mls @ 999 mls/hr IV .[id number] ONE Stop: 07/25/22 14:58 Last Infusion: 07/25/22 16:34 Dose: 0 mls/hr Documented By: Admin: 07/25/22 15:33 Dose: 999 mls/hr Documented By: DIDI Ceftriaxone Sodium 1,000 mg/ (Dextrose) 50 mls @ 100 mls/hr IV NOW STA Stop: 07/25/22 15:39 Last Infusion: 07/25/22 16:03 Dose: 0 mls/hr Documented By: Admin: 07/25/22 15:33 Dose: 100 mls/hr Documented By: DIDI Levetiracetam 1,000 mg/ Sodium (Chloride) 110 mls @ 440 mls/hr IV NOW STA Stop: 07/25/22 15:28 Last Infusion: 07/25/22 16:23 Dose: 0 mls/hr Documented By: Admin: 07/25/22 16:08 Dose: 440 mls/hr Documented By: DIDI Medical Decision Making Laboratory Data Attestation: I reviewed the patient's lab results. 07/25/22 12:45 07/25/22 12:45 Lab Results 07/25/22 07/25/22 07/25/22 Range/Units 12:45 12:45 13:28 WBC 17.67 H (4.8-10.8) K/ul RBC 4.00 L (4.70-6.10) M/uL Hgb 13.2 L (14.0-18.0) g/dl Hct 38.5 L (42.0-52.0) % MCV 96.3 (80.0-100.0) fL MCH 33.0 (25.0-34.0) pg MCHC 34.3 (32.0-36.0) g/dL RDW Std Deviation 53.8 H (36.4-46.3) fL RDW Coeff of Dandre 15.2 H (11.5-14.5) % Plt Count 315 (130-400) K/uL MPV 11.6 (9.4-12.4) fL Immature Gran % (Auto) 4.0 % Neut % (Auto) 60.6 % Lymph % (Auto) 24.3 % [place] % (Auto) 9.1 % Eos % (Auto) 1.2 % Baso % (Auto) 0.8 % Neut # (Auto) 10.72 H (1.40-6.50) K/uL Lymph # (Auto) 4.29 H (1.2-3.4) K/uL [place] # (Auto) 1.61 H (0.11-0.59) K/uL Eos # (Auto) 0.21 (0-0.50) K/uL Baso # (Auto) 0.14 (0-0.2) K/uL Immature Gran # (Auto) 0.70 H (0.01-0.20) K/uL Sodium 135 L (136-145) mmol/L Potassium 4.6 (3.5-5.1) mmol/L Chloride 105 (98-107) mmol/L Carbon Dioxide 18 L (21-32) mmol/L Anion Gap 12 H (3-11) BUN 20 (6-23) mg/dl Creatinine 0.92 (0.6-1.4) mg/dl Est Cr Clr Drug Dosing 61.7 ml/min Est GFR ( Amer) 88.2 ml/min Est GFR (Non-Af Amer) 76.1 ml/min BUN/Creatinine Ratio 21.7 H (10-20) Glucose 119 H (70-99(Fasting)) mg/dl POC Glucose 138 H (70-99) mg/dl Lactate (0.4-2.0) mmol/L Calcium 9.1 (8.6-10.3) mg/dl Magnesium 2.2 (1.7-2.4) mg/dl Urine Color Urine Appearance (Clear) Urine pH (4.5-7.5) Ur Specific [place] (1.000-1.030) Urine Protein (Negative) Urine Glucose (UA) (Negative) Urine Ketones (Negative) Urine Blood (Negative) Urine Nitrite (Negative) Urine Bilirubin (Negative) Urine Urobilinogen (Negative) Ur Leukocyte Esterase (Negative) Urine WBC (Auto) (0-5) /hpf Urine RBC (Auto) (0-4) /hpf U Hyaline Cast (Auto) (0-5) /lpf U Epithel Cells (Auto) (0-5) /lpf Urine Bacteria (Auto) (Negative) Urine Yeast SARS-CoV-2, RNA, NAAT (NEGATIVE) 07/25/22 07/25/22 07/25/22 Range/Units 13:31 14:22 15:28 WBC (4.8-10.8) K/ul RBC (4.70-6.10) M/uL Hgb (14.0-18.0) g/dl Hct (42.0-52.0) % MCV (80.0-100.0) fL MCH (25.0-34.0) pg MCHC (32.0-36.0) g/dL RDW Std Deviation (36.4-46.3) fL RDW Coeff of Dandre (11.5-14.5) % Plt Count (130-400) K/uL MPV (9.4-12.4) fL Immature Gran % (Auto) % Neut % (Auto) % Lymph % (Auto) % [place] % (Auto) % Eos % (Auto) % Baso % (Auto) % Neut # (Auto) (1.40-6.50) K/uL Lymph # (Auto) (1.2-3.4) K/uL [place] # (Auto) (0.11-0.59) K/uL Eos # (Auto) (0-0.50) K/uL Baso # (Auto) (0-0.2) K/uL Immature Gran # (Auto) (0.01-0.20) K/uL Sodium (136-145) mmol/L Potassium (3.5-5.1) mmol/L Chloride (98-107) mmol/L Carbon Dioxide (21-32) mmol/L Anion Gap (3-11) BUN (6-23) mg/dl Creatinine (0.6-1.4) mg/dl Est Cr Clr Drug Dosing ml/min Est GFR ( Amer) ml/min Est GFR (Non-Af Amer) ml/min BUN/Creatinine Ratio (10-20) Glucose (70-99(Fasting)) mg/dl POC Glucose (70-99) mg/dl Lactate 1.1 (0.4-2.0) mmol/L Calcium (8.6-10.3) mg/dl Magnesium (1.7-2.4) mg/dl Urine Color Yellow Urine Appearance Turbid A (Clear) Urine pH 6.0 (4.5-7.5) Ur Specific [place] 1.016 (1.000-1.030) Urine Protein Trace H (Negative) Urine Glucose (UA) Negative (Negative) Urine Ketones Negative (Negative) Urine Blood 1+ H (Negative) Urine Nitrite Positive A (Negative) Urine Bilirubin Negative (Negative) Urine Urobilinogen Negative (Negative) Ur Leukocyte Esterase 3+ H (Negative) Urine WBC (Auto) >30 H (0-5) /hpf Urine RBC (Auto) 0-4 (0-4) /hpf U Hyaline Cast (Auto) 1-5 (0-5) /lpf U Epithel Cells (Auto) 0-5 (0-5) /lpf Urine Bacteria (Auto) 4+ H (Negative) Urine Yeast Not Reportable SARS-CoV-2, RNA, NAAT NEGATIVE (NEGATIVE) Imaging Data Radiologist's Impression: Head CT 07/25/22 12:51 CT OF THE HEAD WITHOUT CONTRAST CLINICAL HISTORY: Seizure. COMPARISON STUDY: MRI of the brain July 29, [address] May 01, 2022. CT DOSE: 1250.21 mGy.cm TECHNIQUE: Helical axial images of the head were obtained without IV contrast. Automated exposure control was utilized for the study. A dose lowering technique was utilized adhering to the principles of ALARA. FINDINGS: No acute intracranial hemorrhage, midline shift or mass effect is present. Extensive white matter hypodensities are unchanged and favor small vessel disease. A hypodense focus within the left cerebellar hemisphere is unchanged. Ventricular dilatation is likely due to atrophy. The appearance of the brain is unchanged. No findings to suggest acute dural sinus thrombosis or acute territorial infarct. There are no acute calvarial fractures. IMPRESSION: No acute intracranial findings. No change in appearance of the brain. ACT 112: Negative or not required by law. Electronically signed by: Jose Luis Damon M.D. 07/25/2022 2:11 PM [facility] Narrative Cardiac monitoring: An order was placed for continuous cardiac monitoring. The monitor shows a rate of 110 with atrial fibrilation rhythm interpreted by me Vital signs stable. Labs show leukocytosis 17.67. Lactic acid within normal limits. Urinalysis appears to be source of infection. Patient treated with Rocephin. Discussed case with Dr. Joya on-call neurology. We agreed to load patient with 1 g of Keppra and admit the patient to the hospitalist team. Linh Smith the PA-C states admit to Dr. Long. Impression & Plan New onset seizure, UTI (urinary tract infection), Dementia Discharge Plan Visit Data Chief Complaint: Seizure Stated Complaint: SEIZURE ED Provider: Olivier Erickson Discharge Problem: New onset seizure, UTI (urinary tract infection), Dementia Patient Disposition: Admitted As Inpatient Discharge Instructions Interventions: ED Discharge Assessment Last Done: 07/25/22 17:12
[2022-07-25] MEDS ORDERED: LORazepam 2 MG/1 ML VIAL IV SCH (19:57)
[2022-07-25] MEDS ORDERED: LORazepam 2 MG/1 ML VIAL IV STA (19:57)
[2022-07-25] MEDS: ENOXAPARIN INJ 40 MG/0.4 ML SYR SQ SCH (20:28)
[2022-07-25] MEDS ORDERED: GADOBUTROL 65ML VIAL IV ONE (23:27)
--- NOTE | 2022-07-26 01:17 | Magnetic Resonance Report ---
Exam(s): MRI HEAD W/WO Contrast IV Amt: 8.5cc Gadavist EXAM: MR Head Without and With Intravenous Contrast CLINICAL HISTORY: Reason for exam: seizure. TECHNIQUE: Magnetic resonance images of the head/brain without and with intravenous contrast in multiple planes. CONTRAST: Patient received 8.5cc Gadavist of IV contrast COMPARISON: Comparison made to prior noncontrast head CT from July 25, 2022. FINDINGS: Brain: Advanced nonspecific white matter changes. Remote ischemic injuries of the cerebellum bilaterally.. No mass. No hemorrhage. No acute infarct. There is a moderate sized focus of susceptibility artifact within the interhemispheric fissure, which may represent the sequelae of prior trauma. No evidence of abnormal enhancement. Ventricles: Advanced ventriculomegaly. Bones/joints: Unremarkable. Sinuses: Unremarkable as visualized. No acute sinusitis. Mastoid air cells: Unremarkable as visualized. No mastoid effusion. Orbits: Bilateral lens replacements. IMPRESSION: No evidence of acute intracranial pathology. Electronically signed by: Samantha Hanson MD 07/26/22 01:17 AM
[2022-07-26] MEDS: levETIRAcetam 500 MG in 0.9 % SODIUM CHLORIDE 100 ML IV SCH ×2 (03:08→17:06)
[2022-07-26] MEDS: LACTATED RINGER'S 1,000 ML IV SCH ×2 (05:41→20:22)
[2022-07-26 07:26] LABS: Basophils # (auto) 0.14 K/uL (0-0.2); Basophils % (auto) 1.2 %; Eosinophils # (auto) 0.45 K/uL (0-0.50); Eosinophils % (auto) 3.9 %; Hematocrit (blood only) 32.9 % (42.0-52.0); Hemoglobin 11.6 g/dl (14.0-18.0); Immature Granulocytes # (auto) 0.42 K/uL (0.01-0.20); Immature Granulocytes % (auto) 3.7 %; Lymphocytes # (auto) 2.23 K/uL (1.2-3.4); Lymphocytes % (auto) 19.5 %; Mean Corpuscular Hemoglobin 32.8 pg (25.0-34.0); Mean Corpuscular Hgb Conc 35.3 g/dL (32.0-36.0); Mean Corpuscular Volume 92.9 fL (80.0-100.0); Mean Platelet Volume 11.3 fL (9.4-12.4); Monocytes # (auto) 1.28 K/uL (0.11-0.59); Monocytes % (auto) 11.2 %; Neutrophils # (auto) 6.94 K/uL (1.40-6.50); Neutrophils % (auto) 60.5 %; Platelet Count 273 K/uL (130-400); RDW Coefficient of Variation 15.2 % (11.5-14.5); RDW Standard Deviation 52.1 fL (36.4-46.3); Red Blood Count 3.54 M/uL (4.70-6.10); White Blood Count 11.46 K/ul (4.8-10.8)
[2022-07-26 07:54] LABS: Albumin Level 3.6 gm/dl (3.4-5.0); BUN Creatinine Ratio 20.6 (10-20); Bilirubin,Total 0.5 mg/dl (0.2-1.0); Creatinine Clr Calc Pharmacy 81.6 ml/min; Est GFR (African American) 101.6 ml/min; Est GFR (Non-African American) 87.7 ml/min; Globulin 3.6 gm/dl (2.5-4.0); Potassium 3.8 mmol/L (3.5-5.1); Total Protein 7.2 gm/dl (6.0-8.3)
--- NOTE | 2022-07-26 10:20 | Electroencephalogram ---
EEG Procedure Note Date of Service July 26, 2022 Start / End Times Start Time: 07:50 End Time: 08:10 Referring Physician Emelia Shah PA-C History An 86-year-old male with seizure. EEG performed for evaluation of epileptiform activity. Home Medication List Medication Instructions Recorded Confirmed Type ondansetron 4 mg disintegrating 4 mg PO Q6H PRN Nausea / Vomiting 11/02/19 07/25/22 History tablet acetaminophen 325 mg tablet 650 mg PO Q4 PRN pain mild scale 05/01/22 07/25/22 History (Tylenol) 1-4 acetaminophen 325 mg tablet 650 mg PO Q4 PRN temp>100.4 05/01/22 07/25/22 History (Tylenol) acetaminophen 500 mg tablet 500 mg PO QID PAIN 05/01/22 07/25/22 History carboxymethylcellulose sodium 1 % 1 drp OPB QID PRN Dry Eyes 05/01/22 07/25/22 History eye gel in a dropperette (Refresh Celluvisc) cholecalciferol (vitamin D3) 25 1,000 unit PO QAM 05/01/22 07/25/22 History mcg (1,000 unit) capsule famotidine 20 mg tablet 20 mg PO BID 05/01/22 07/25/22 History megestrol 400 mg/10 mL (40 mg/mL) 400 mg PO DAILY 05/01/22 07/25/22 History oral suspension melatonin 5 mg tablet 5 mg PO HS 05/01/22 07/25/22 History bisacodyl 10 mg rectal suppository 10 mg WA DAILY PRN Constipation 07/25/22 07/25/22 History (Dulcolax (bisacodyl)) camphor-menthol 0.5 %-0.5 % lotion 1 applic topical Q2H PRN itching 07/25/22 07/25/22 History (Sarna Original) magnesium hydroxide 400 mg/5 mL 30 ml PO DAILY PRN Constipation 07/25/2207/25 History oral suspension (Milk of Magnesia) miconazole nitrate 2 % topical 1 applic topical BID 07/25/22 07/25/22 History powder oxcarbazepine 150 mg tablet 150 mg PO DAILY 07/25/22 07/25/22 History sertraline 50 mg tablet 50 mg PO QAM 07/25/22 07/25/22 History sodium phosphates 19 gram-7 118 ml WA DAILY PRN Constipation 07/25/22 07/25/22 History gram/118 mL enema (Fleet Enema) zinc oxide 1 ea topical DAILY PRN Loose Stool 07/25/22 07/25/22 History Inpatient Medication List Enoxaparin Sodium (Enoxaparin Inj 40 Mg/0.4 Ml Syr) 40 mg SQ HS YOUSIF Stop: 08/24/22 20:59 Last Admin: 07/25/22 20:28 Dose: 40 mg Documented By: FRANCISCO Lactated Ringer's (Lr) 1,000 mls @ 80 mls/hr IV .[id number] YOUSIF Stop: 08/24/22 16:44 Last Admin: 07/26/22 05:41 Dose: 80 mls/hr Documented By: Infusion: 07/26/22 05:41 Dose: 80 mls/hr Documented By: Admin: 07/25/22 17:52 Dose: 80 mls/hr Documented By: JUAN M Levetiracetam 500 mg/ Sodium (Chloride) 105 mls @ 440 mls/hr IV Q12H YOUSIF Stop: 08/25/22 03:59 Last Infusion: 07/26/22 03:23 Dose: 0 mls/hr Documented By: Admin: 07/26/22 03:08 Dose: 440 mls/hr Documented By: FRANCISCO Discontinued Medications Gadobutrol (Gadobutrol 65ml Vial) 8.5 ml IV ONCE ONE Stop: 07/25/22 23:28 Last Admin: 07/25/22 23:28 Dose: 8.5 ml Documented By: ARGENIS Sodium Chloride (Nss 1000ml) 1,000 mls @ 999 mls/hr IV .Q1H1M ONE Stop: 07/25/22 14:58 Last Infusion: 07/25/22 16:34 Dose: 0 mls/hr Documented By: Admin: 07/25/22 15:33 Dose: 999 mls/hr Documented By: DIDI Ceftriaxone Sodium 1,000 mg/ (Dextrose) 50 mls @ 100 mls/hr IV NOW STA Stop: 07/25/22 15:39 Last Infusion: 07/25/22 16:03 Dose: 0 mls/hr Documented By: Admin: 05/18/23 15:33 Dose: 100 mls/hr Documented By: DIDI Levetiracetam 1,000 mg/ Sodium (Chloride) 110 mls @ 440 mls/hr IV NOW STA Stop: 07/25/22 15:28 Last Infusion: 07/25/22 16:23 Dose: 0 mls/hr Documented By: Admin: 07/25/22 16:08 Dose: 440 mls/hr Documented By: DIDI Lorazepam (Lorazepam 2 Mg/1 Ml Vial) 0.25 mg IV TODAY@7 [facility] Stop: 07/25/22 23:59 Last Admin: 07/25/22 22:24 Dose: 0.25 mg Documented By: FRANCISCO Description This is a 21 electrode EEG with a single channel dedicated to limited EKG. The electrodes were placed in accordance with the International 10-20 system. REPORT: At the onset of the EEG the patient is in an altered mental state. The background appears symmetric and continuous. The posterior dominant rhythm is not well seen. Instead the background consists of generalized 6-7 hertz theta activity with intermixed 2-3 hertz polymorphic delta activity. There is intermittent generalized sharply contoured waves with frontal predominance with triphasic morphology. No epileptiform discharges are seen. No stage 2 sleep transients are seen. Interpretation IMPRESSION: This is an abnormal routine EEG in a patient with altered mental status due to 1. Generalized background slowing suggestive of a moderate nonspecific encephalopathy, 2. Intermittent generalized triphasic waves which are nonspecific although seen commonly in metabolic encephalopathies such as renal or hepatic encephalopathies. No electrographic seizures or epileptiform discharges are seen.
--- NOTE | 2022-07-26 15:15 | Hospitalist Progress Note ---
Date of Service July 26, 2022 Assessment & Plan (1) Observed seizure-like activity: (2) Sepsis: (3) UTI (urinary tract infection): (4) Dementia: Plan 86-year-old male who has a significant past medical history of vascular dementia, history of bladder and prostate cancer with urostomy in place, HTN, HLD, protein calorie malnutrition with adult failure to thrive, DDD, history of aortic valve replacement, history of lacunar infarct and depression who presents to ED 07/25 from [facility] after concern for seizure-like activity. Patient with witnessed generalized tonic-clonic seizure at [facility] for approximately 1 minute followed by drooling and bowel/bladder incontinence. Post-ictal state followed which gradually resolved in the ED. He was loaded w/ Keppra in the ED. He is being managed for the following: Seizure-like activity Observed at the [facility], see above. Received Keppra loading dose in the ED. CT head and MRI brain with no acute findings. Continue with Keppra 500 Mg twice daily. Seizure precaution, neurology consultawait recommendation. Dysphagia screen/speech eval, if passes can add diet. IVF until then. Sepsis POA: WBC and pulse elevated at presentation, urinalysis positive for infection. Lactate normal. UTI Upon admission patient met criteria for sepsis secondary to leukocytosis and tachycardia Patient tachycardia has since resolved with proper fluid resuscitation Per pt's daughter - he typically runs with blood pressure in the low 90s. Continue with Rocephin 07/25. Await urine and blood culture Afebrile, WBC trending down. Suicidal ideation: Noted overnight per silica dry press helper. Was not very much communicative to me in the morning. Discussed with psychiatry, appreciate recommendation. Patient is quite impulsive and has history of making statements of suicidal ideation, psychiatry to make recommendations/alternative medical options to Trileptal if Trileptal does not offer enough benefit for his impulsivity/frontal release symptoms. We will continue with 1 and 1 for now. Vascular dementia Depression with impulsiveness History of suicidal ideations Patient on Zoloft Recently started on Trileptal due to impulsiveness and worsening depression At baseline is mostly pleasant, alert and oriented to self and family History of bladder and prostate cancer status post urostomy: Routine urostomy care Sacral wound: Consult wound nurse, Turn reposition every 2 hours. DVT ppx: SQ Lovenox DNR/DNI Dispo: admit to PCU, return to [facility] upon discharge PCP: Alma Admission and Anticipated Discharge Date Admission Date: July 25, 2022 Subjective Patient seen and examined at bedside as a follow-up of sepsis, UTI, observed seizure-like activity. Patient has a history of dementia. Patient was lying in bed, on room air, NAD, does not appear to be in distress, denies pain, oriented x1, ROS not able due to cognition status and hard of hearing status. Physical Exam Physical Exam: GENERAL: Alert and awake. NAD, on RA. [place] HEENT: No pallor, no icterus. Pupils equal, round and reactive to light. Oral mucosa moist. NECK: No JVD, no neck masses. HEART: S1 and S2 heard. Regular rate and rhythm. No murmur, no gallop. RESPIRATORY SYSTEM: Normal AP diameter. No accessory muscle use. No wheezing, no crackles. ABDOMEN: Soft, bowel sounds present, nontender, no distention. Rt urostomy bag w/ clear urine. CENTRAL NERVOUS SYSTEM: No facial droop. Speech is clear. Moves extremities. EXTREMITIES: No edema, no erythema seen. Results & Data Results & Data Vital Signs (Past 12 Hours) Vital Signs Temp Pulse Resp BP BP Pulse Ox O2 Del Method 07/26/22 10:49 36.7 C 74 18 125/77 98 Room Air 07/26/22 07:00 36.7 C 75 17 106/70 94 Room Air 07/26/22 03:49 36.4 C L 84 18 119/70 95 Room Air
--- NOTE | 2022-07-26 15:19 | Electrocardiogram Report ---
Test Reason : Blood Pressure : / mmHG Vent. Rate : 127 BPM Atrial Rate : 000 BPM P-R Int : 000 ms QRS Dur : 062 ms QT Int : 362 ms P-R-T Axes : 000 -27 017 degrees QTc Int : 526 ms Probably sinus tachycardia although SVT cannot be excluded Low voltage QRS Abnormal ECG When compared with ECG of 01-MAY-2022 15:35, Vent. rate has increased BY 45 BPM Confirmed by Dev Bruner ([id number]) on 07/26/2022 3:18:41 PM Referred By: Aylin [facility] Confirmed By:David Bruner
--- NOTE | 2022-07-26 15:38 | Electrocardiogram Report ---
Test Reason : Blood Pressure : / mmHG Vent. Rate : 070 BPM Atrial Rate : 070 BPM P-R Int : 218 ms QRS Dur : 080 ms QT Int : 418 ms P-R-T Axes : -21 -06 024 degrees QTc Int : 451 ms Sinus rhythm with 1st degree A-V block Low voltage QRS Borderline ECG When compared with ECG of 25-JUL-2022 12:24, (unconfirmed) Vent. rate has decreased BY 57 BPM Confirmed by Dev Bruner ([id number]) on 07/26/2022 3:37:48 PM Referred By: Aylin [facility] Confirmed By:David Bruner
--- NOTE | 2022-07-26 15:52 | Neurology Consultation ---
Date of Consultation July 26, 2022 Assessment & Plan (1) New onset seizure: An 86 year old male with history of dementia admitted from SNF due to new onset witnessed seizure. Likely symptomatic seizure in the setting of urosepsis. EEG showed background slowing and triphasic appearing waves suggestive of metabolic encephalopathy. MRI brain Negative for acute stroke. Recommend to continue Keppra 500 mg BID on discharge. Can follow up with Neurology as outpatient and consider weaning off this medication if necessary. Will sign off for now. Please contact me with any additional questions or concerns. History of Present Illness Reason for Consultation: An 86-year-old male with a past medical history of vascular dementia, history of bladder and prostate cancer with urostomy in place, HTN, HLD, protein calorie malnutrition with adult failure to thrive, DDD, history of aortic valve replacement, history of lacunar infarct and depression who presents to ED 07/25 from [facility] after having a witnessed seizure. History is limited as tiago is demented and poor historian. He is very hard of hearing. Per chart review he was witnessed generalized tonic-clonic seizure at al[facility] for approximately 1 minute followed by drooling and bowel/bladder incontinence. Post-ictal state followed which gradually resolved in the ED. He was loaded w/ Keppra in the ED. He underwent EEG this morning and neurology consulted for additional recommendations. On admission he found to have Sepsis due to UTI. Attending Physician: Rusty Holland MD Allergies Allergy/AdvReac Type Severity Reaction Status Date / Time ciprofloxacin [From Cipro] Allergy Unknown Unknown Verified 07/25/22 14:46 tetanus toxoid, adsorbed AdvReac Mild ITCHING Verified 07/25/22 14:46 RASH Home Medications Medication Instructions Recorded Confirmed Type ondansetron 4 mg disintegrating 4 mg PO Q6H PRN Nausea / Vomiting 11/02/19 07/25/22 History tablet acetaminophen 325 mg tablet 650 mg PO Q4 PRN pain mild scale 05/01/22 07/25/22 History (Tylenol) 1-4 acetaminophen 325 mg tablet 650 mg PO Q4 PRN temp>100.4 05/01/22 07/25/22 History (Tylenol) acetaminophen 500 mg tablet 500 mg PO QID PAIN 05/01/22 07/25/22 History carboxymethylcellulose sodium 1 % 1 drp OPB QID PRN Dry Eyes 05/01/22 07/25/22 History eye gel in a dropperette (Refresh Celluvisc) cholecalciferol (vitamin D3) 25 1,000 unit PO QAM 05/01/22 07/25/22 History mcg (1,000 unit) capsule famotidine 20 mg tablet 20 mg PO BID 05/01/22 07/25/22 History megestrol 400 mg/10 mL (40 mg/mL) 400 mg PO DAILY 05/01/22 07/25/22 History oral suspension melatonin 5 mg tablet 5 mg PO HS 05/01/22 07/25/22 History bisacodyl 10 mg rectal suppository 10 mg [place] DAILY PRN Constipation 07/25/22 07/25/22 History (Dulcolax (bisacodyl)) camphor-menthol 0.5 %-0.5 % lotion 1 applic topical Q2H PRN itching 07/25/22 07/25/22 History (Sarna Original) magnesium hydroxide 400 mg/5 mL 30 ml PO DAILY PRN Constipation 07/25/22 07/25/22 History oral suspension (Milk of Magnesia) miconazole nitrate 2 % topical 1 applic topical BID 07/25/22 07/25/22 History powder oxcarbazepine 150 mg tablet 150 mg PO DAILY 07/25/22 07/25/22 History sertraline 50 mg tablet 50 mg PO QAM 07/25/22 07/25/22 History sodium phosphates 19 gram-7 118 ml [place] DAILY PRN Constipation 07/25/22 07/25/22 History gram/118 mL enema (Fleet Enema) zinc oxide 1 ea topical DAILY PRN Loose Stool 07/25/22 07/25/22 History Patient History Medical History Cerebrovascular disease Closed right hip fracture Generalized weakness GERD (gastroesophageal reflux disease) Hypotension Lumbar stenosis (03/23/14) Metabolic acidosis Nicotine dependence Observed seizure-like activity Prostate cancer UTI (urinary tract infection) Vitamin D deficiency Surgical History History of heart surgery History of hip surgery History of prostatectomy History of urostomy S/P TAVR (transcatheter aortic valve replacement) Family History Other Family history non-contributory Social History Smoking Status: Former smoker Tobacco Type: Smokeless Tobacco (Dip or Chew) Second Hand Exposure: No; Do You Dip or Chew Tobacco: No; Tobacco Cessation Education Requested by Patient: No Hx Alcohol Use: No Hx Substance Use: No Preferred Language: Tajik Communication Ability: Impaired Communication Ability Comment: [employer] Educator Required: No Beliefs That Will Affect Care: None Current Living Situation: Jail Current Living Situation Comment: fiance Other Information That Helps Us Care for You: No Feels Safe at Home: Yes Safety Concerns: Feels Safe At This Time Assistive Devices: Walker and Wheelchair Physical Exam Physical Exam: PAtient was seen and examined. he is asleep but arouses to voice. He appears in no distress. Disoriented to age and location. Following simple commands like stick out your tongue. Eyes midline. Face symmetric. Tongue midline w no abrasion. Moving all 4 extremities. Sensation intact. Abdomen non tender to palpation. No lower extremity edema. No tremor. Grasp reflex is present. Results & Data Vital Signs (Past 12 Hours) Vital Signs Temp Pulse Resp BP BP Pulse Ox O2 Del Method 07/26/22 15:40 36.8 C 84 18 125/74 95 Room Air 07/26/22 10:49 36.7 C 74 18 125/77 98 Room Air 07/26/22 07:00 36.7 C 75 17 106/70 94 Room Air Diagnostic Findings EEG showed generalized slowing with triphasic waves. MRI brain on 07/25/22 Brain: Advanced nonspecific white matter changes. Remote ischemic injuries of the cerebellum bilaterally.. No mass. No hemorrhage. No acute infarct. There is a moderate sized focus of susceptibility artifact within the interhemispheric fissure, which may represent the sequelae of prior trauma. No evidence of abnormal enhancement. Ventricles: Advanced ventriculomegaly. Bones/joints: Unremarkable. Sinuses: Unremarkable as visualized. No acute sinusitis. Mastoid air cells: Unremarkable as visualized. No mastoid effusion. Orbits: Bilateral lens replacements. IMPRESSION: No evidence of acute intracranial pathology.
--- NOTE | 2022-07-26 17:16 | Psychiatric Consultation ---
Date of Consultation July 26, 2022 Impression / Recommendations Impression 86 yo man with dementia and seemingly recent increase in disinhibited and impulsive behaviors which may represent worsening prefrontal cortex function as dementia advances versus due to delirium component from previously undiagnosed UTI. Given that he doesn't not appear depressed currently, denies any current SI and resides in a secure environment of a penit[facility] this is felt to be an appropriate place for him to return on discharge. (1) UTI (urinary tract infection): (2) Dementia: (3) Impulsive: Plan -1-on-1 at discretion of hospitalist given hx of impulsivity and dementia -Restart prior to admission sertraline 50mg qd, trileptal 150mg daily and melatonin 3 or 5mg HS once medically appropriate -In future [facility] Moreau could consider use of antipsychotic if trileptal does not offer enough benefit for impulsive behaviors -Psych liason to discuss safety planning recommendations with [facility] Moreau before he returns there -Continue medical workup to rule out and treat any underlying causes contributing to potential delirium, avoid or limit use of deliriogenic medications (benzodiazepines, opioids, anticholinergics) -Continue with delirium prevention measures: raising blinds during the day, closing at night, frequent re-orientation, contact with family/friends, explaining procedures/nursing care measures prior to physical contact, correct any hearing and visual impairments -For behavioral emergency: olanzapine 2.5 mg IM x 1 (DO NOT exceed 10mg per 24 hours, check EKG if IM dose required, NEVER co-administer with IM or IV benzodiazepines). Psych History Identifying Data 86 yo man who lives at [facility] with a history of vascular dementia, history of CVA, history of bladder and prostate cancer, HTN, HLD and depression admitted medically after seizure and now with UTI. Psychiatry consulted due to statements of SI. Chief Complaint "ok I'll be right down". History of Present Illness Donny has a history of depression and dementia with increased impulsivity recently including making sexually inappropriate statements and intermittently making statements of wanting to . Apparently recently tried to put his phone cord around his neck while at [facility] and so Trileptal 150mg qd was started to help with impulsivity. He is also on sertraline 50mg qd for depression. On my assessment Donny is not able to answer many questions but knows his name, asks why he is not wearing pants and seems to think we are in his home. Does deny any SI currently stating "no no" and doesn't recall event with telephone cord rather thinks states "I was trying to move a towel away from my face". Allergies Allergy/AdvReac Type Severity Reaction Status Date / Time ciprofloxacin [From Cipro] Allergy Unknown Unknown Verified 07/25/22 14:46 tetanus toxoid, adsorbed AdvReac Mild ITCHING Verified 07/25/22 14:46 RASH Home Medications Medication Instructions Recorded Confirmed Type ondansetron 4 mg disintegrating 4 mg PO Q6H PRN Nausea / Vomiting 11/02/19 07/25/22 History tablet acetaminophen 325 mg tablet 650 mg PO Q4 PRN pain mild scale 05/01/22 07/25/22 History (Tylenol) 1-4 acetaminophen 325 mg tablet 650 mg PO Q4 PRN temp>100.4 05/01/22 07/25/22 History (Tylenol) acetaminophen 500 mg tablet 500 mg PO QID PAIN 05/01/22 07/25/22 History carboxymethylcellulose sodium 1 % 1 drp OPB QID PRN Dry Eyes 05/01/22 07/25/22 History eye gel in a dropperette (Refresh Celluvisc) cholecalciferol (vitamin D3) 25 1,000 unit PO QAM 05/01/22 07/25/22 History mcg (1,000 unit) capsule famotidine 20 mg tablet 20 mg PO BID 05/01/22 07/25/22 History megestrol 400 mg/10 mL (40 mg/mL) 400 mg PO DAILY 05/01/22 07/25/22 History oral suspension melatonin 5 mg tablet 5 mg PO HS 05/01/22 07/25/22 History bisacodyl 10 mg rectal suppository 10 mg [place] DAILY PRN Constipation 07/25/22 07/25/22 History (Dulcolax (bisacodyl)) camphor-menthol 0.5 %-0.5 % lotion 1 applic topical Q2H PRN itching 07/25/22 07/25/22 History (Sarna Original) magnesium hydroxide 400 mg/5 mL 30 ml PO DAILY PRN Constipation 07/25/22 07/25/22 History oral suspension (Milk of Magnesia) miconazole nitrate 2 % topical 1 applic topical BID 07/25/22 07/25/22 History powder oxcarbazepine 150 mg tablet 150 mg PO DAILY 07/25/22 07/25/22 History sertraline 50 mg tablet 50 mg PO QAM 07/25/22 07/25/22 History sodium phosphates 19 gram-7 118 ml [place] DAILY PRN Constipation 07/25/22 07/25/22 History gram/118 mL enema (Fleet Enema) zinc oxide 1 ea topical DAILY PRN Loose Stool 07/25/22 07/25/22 History Patient History Medical History Cerebrovascular disease Closed right hip fracture Generalized weakness GERD (gastroesophageal reflux disease) Hypotension Lumbar stenosis (03/23/14) Metabolic acidosis Nicotine dependence Observed seizure-like activity Prostate cancer UTI (urinary tract infection) Vitamin D deficiency Surgical History History of heart surgery History of hip surgery History of prostatectomy History of urostomy S/P TAVR (transcatheter aortic valve replacement) Family History Other Family history non-contributory Social History Smoking Status: Former smoker Tobacco Type: Smokeless Tobacco (Dip or Chew) Second Hand Exposure: No; Do You Dip or Chew Tobacco: No; Tobacco Cessation Education Requested by Patient: No Hx Alcohol Use: No Hx Substance Use: No Preferred Language: Telugu Communication Ability: Impaired Communication Ability Comment: [employer]a [employer] Broker Required: No Beliefs That Will Affect Care: None Current Living Situation: [facility] Current Living Situation Comment: fiance Other Information That Helps Us Care for You: No Feels Safe at Home: Yes Safety Concerns: Feels Safe At This Time Assistive Devices: Walker and Wheelchair Physical Exam Psychiatric: Orientation: alert and oriented to person; + not oriented to place and + not oriented to time Apperance: + disheveled Eye Contact: + fair eye contact Motor Behavior: no abnormal motor movements Speech: + abnormal rate/rhythm/volume of speech (brief ) Affect: euthymic affect (smiles) Mood: no depressed mood and no anxious mood Thought Process: + looseness of associations Thought Content: + preoccupation Suicidal Thoughts: denies suicidal thoughts Homicidal Thoughts: denies homicidal thoughts Hallucinations: no auditory hallucinations and no visual hallucinations Cognition: language grossly intact; + recent memory not intact and + attention not intact Insight: + severely impaired insight Judgment: + severely impaired judgement Vital Signs (Past 24 Hours): Last Vital Signs Temp 36.8 C 07/26/22 15:40 Pulse 84 07/26/22 15:40 Resp 18 07/26/22 15:40 BP 125/74 07/26/22 15:40 Pulse Ox 95 07/26/22 15:40 O2 Del Method Room Air 07/26/22 15:40 Review of Systems Unobtainable due to cognitive status Results & Data (PSY) Medications Administered Enoxaparin Sodium (Enoxaparin Inj 40 Mg/0.4 Ml Syr) 40 mg SQ HS YOUSIF Stop: 08/24/22 20:59 Last Admin: 07/25/22 20:28 Dose: 40 mg Documented By: FRANCISCO Lactated Ringer's (Lr) 1,000 mls @ 80 mls/hr IV .[id number] YOUSIF Stop: 08/24/22 16:44 Last Admin: 07/26/22 05:41 Dose: 80 mls/hr Documented By: Infusion: 07/26/22 05:41 Dose: 80 mls/hr Documented By: Admin: 07/25/22 17:52 Dose: 80 mls/hr Documented By: JUAN M Levetiracetam 500 mg/ Sodium (Chloride) 105 mls @ 440 mls/hr IV Q12H YOUSIF Stop: 08/25/22 03:59 Last Infusion: 07/26/22 03:23 Dose: 0 mls/hr Documented By: Admin: 07/26/22 03:08 Dose: 440 mls/hr Documented By: FRANCISCO Coding Level of Care Code 25996 IN/OBS CONSULT LVL 2,35M Diagnoses UTI (urinary tract infection) N39.0 Dementia F03.90 Impulsive R45.87 Time Spent (min) 40
[2022-07-26] MEDS: cefTRIAXone SODIUM 2,000 MG in DEXTROSE 5% 50 ML IV SCH (17:39)
[2022-07-26] MEDS: ENOXAPARIN INJ 40 MG/0.4 ML SYR SQ SCH (20:22)
[2022-07-27] MEDS: levETIRAcetam 500 MG in 0.9 % SODIUM CHLORIDE 100 ML IV SCH ×2 (03:21→15:23)
[2022-07-27 08:35] LABS: BUN Creatinine Ratio 18.5 (10-20); Creatinine Clr Calc Pharmacy 87.1 ml/min; Est GFR (African American) 103.5 ml/min; Est GFR (Non-African American) 89.3 ml/min; Hematocrit (blood only) 34.7 % (42.0-52.0); Hemoglobin 11.7 g/dl (14.0-18.0); Magnesium 1.9 mg/dl (1.7-2.4); Mean Corpuscular Hemoglobin 32.9 pg (25.0-34.0); Mean Corpuscular Hgb Conc 33.7 g/dL (32.0-36.0); Mean Corpuscular Volume 97.5 fL (80.0-100.0); Mean Platelet Volume 11.6 fL (9.4-12.4); Phosphorus 3.3 mg/dl (2.5-4.9); Platelet Count 241 K/uL (130-400); Potassium 3.9 mmol/L (3.5-5.1); RDW Coefficient of Variation 15.3 % (11.5-14.5); RDW Standard Deviation 54.6 fL (36.4-46.3); Red Blood Count 3.56 M/uL (4.70-6.10); White Blood Count 10.55 K/ul (4.8-10.8)
[2022-07-27] MEDS ORDERED: SOD PHOSPHATE/SOD BIPHOSPHATE ENEMA 132 ML BTL PR PRN (08:41)
[2022-07-27] MEDS ORDERED: BUTT PASTE (ZINC OXIDE 16%) 171 APPLN/57 GM JAR EXT PRN (08:56)
[2022-07-27] MEDS: SERTRALINE HCL 50 MG TABLET PO SCH (10:05)
[2022-07-27] MEDS: FAMOTIDINE 20 MG TAB PO SCH ×2 (10:05→20:31)
[2022-07-27] MEDS: MEGESTROL ACETATE SUSP 400 MG/10 ML UDC PO SCH (10:06)
[2022-07-27] MEDS: LACTATED RINGER'S 1,000 ML IV SCH (11:16)
[2022-07-27] MEDS: OXcarbazepine 150 MG TABLET PO SCH (12:06)
[2022-07-27] MEDS: cefTRIAXone SODIUM 2,000 MG in DEXTROSE 5% 50 ML IV SCH (15:23)
--- NOTE | 2022-07-27 15:36 | Hospitalist Progress Note ---
Date of Service July 27, 2022 Assessment & Plan (1) Observed seizure-like activity: (2) Sepsis: (3) UTI (urinary tract infection): (4) Dementia: Plan 86-year-old male who has a significant past medical history of vascular dementia, history of bladder and prostate cancer with urostomy in place, HTN, HLD, protein calorie malnutrition with adult failure to thrive, DDD, history of aortic valve replacement, history of lacunar infarct and depression who presents to ED 07/25 from [facility] after concern for seizure-like activity. Patient with witnessed generalized tonic-clonic seizure at [facility] for approximately 1 minute followed by drooling and bowel/bladder incontinence. Post-ictal state followed which gradually resolved in the ED. He was loaded w/ Keppra in the ED. He is being managed for the following: Seizure-like activity Observed at the [facility], see above. Received Keppra loading dose in the ED. CT head and MRI brain with no acute findings. Continue with Keppra 500 Mg twice daily. Seizure precaution, neurology consultappreciate recommendation. f/u w/ neuro on DC. speech evaled, appreciate recs - on minced and moist diet. No further seizure noted in hospital. Sepsis POA: WBC and pulse elevated at presentation, urinalysis positive for infection. Lactate normal. UTI Upon admission patient met criteria for sepsis secondary to leukocytosis and tachycardia Patient tachycardia has since resolved with proper fluid resuscitation Per pt's daughter - he typically runs with blood pressure in the low 90s. Continue with Rocephin 07/25. Await urine and blood culture Afebrile, WBC wnl Suicidal ideation: Noted overnight per cleaner touch up worker. Was not very much communicative to me in the morning. Discussed with psychiatry, appreciate recommendation. Patient is quite impulsive and has history of making statements of suicidal ideation, psychiatry made recommendations/alternative medical options to Trileptal if Trileptal does not offer enough benefit for his impulsivity/frontal release symptoms. We will continue with 1 and 1 for now. Vascular dementia Depression with impulsiveness History of suicidal ideations Patient on Zoloft Recently started on Trileptal due to impulsiveness and worsening depression At baseline is mostly pleasant, alert and oriented to self and family History of bladder and prostate cancer status post urostomy: Routine urostomy care Sacral wound: Consult wound nurse, Turn reposition every 2 hours. DVT ppx: SQ Lovenox DNR/DNI Dispo: medically stable. PT/OT, CM to assist. PCP: [facility] Admission and Anticipated Discharge Date Admission Date: July 25, 2022 Subjective Patient seen and examined at bedside as a follow-up of sepsis, UTI, observed seizure-like activity. Patient has a history of dementia. Patient was lying in bed, on room air, NAD, does not appear to be in distress, denies pain, oriented x1, ROS not able due to cognition status and hard of hearing status. Physical Exam Physical Exam: GENERAL: Alert and awake. NAD, on RA. [place] HEENT: No pallor, no icterus. Pupils equal, round and reactive to light. Oral mucosa moist. NECK: No JVD, no neck masses. HEART: S1 and S2 heard. Regular rate and rhythm. No murmur, no gallop. RESPIRATORY SYSTEM: Normal AP diameter. No accessory muscle use. No wheezing, no crackles. ABDOMEN: Soft, bowel sounds present, nontender, no distention. Rt urostomy bag w/ clear urine. CENTRAL NERVOUS SYSTEM: No facial droop. Speech is clear. Moves extremities. EXTREMITIES: No edema, no erythema seen. Results & Data Results & Data Vital Signs (Past 12 Hours) Vital Signs Temp Pulse Pulse Resp BP BP Pulse Ox 07/27/22 15:04 36.5 C 76 16 109/67 96 07/27/22 11:39 36.4 C L 74 16 111/60 95 07/27/22 09:45 75 07/27/22 06:54 36.9 C 74 18 115/75 94 O2 Del Method 07/27/22 15:04 Room Air 07/27/22 11:39 Room Air 07/27/22 09:45 07/27/22 06:54 Room Air
[2022-07-27] MEDS: MELATONIN 3 MG TAB PO SCH (20:30)
[2022-07-27] MEDS: ENOXAPARIN INJ 40 MG/0.4 ML SYR SQ SCH (20:30)
[2022-07-28] MEDS: levETIRAcetam 500 MG in 0.9 % SODIUM CHLORIDE 100 ML IV SCH ×2 (04:11→15:54)
[2022-07-28] MEDS: FAMOTIDINE 20 MG TAB PO SCH ×2 (08:41→20:38)
[2022-07-28] MEDS: SERTRALINE HCL 50 MG TABLET PO SCH (08:41)
[2022-07-28] MEDS: MEGESTROL ACETATE SUSP 400 MG/10 ML UDC PO SCH (08:41)
[2022-07-28] MEDS: OXcarbazepine 150 MG TABLET PO SCH (12:56)
[2022-07-28] MEDS: cefTRIAXone SODIUM 2,000 MG in DEXTROSE 5% 50 ML IV SCH (15:03)
--- NOTE | 2022-07-28 16:54 | Hospitalist Progress Note ---
Date of Service July 28, 2022 Assessment & Plan (1) Observed seizure-like activity: (2) Sepsis: (3) UTI (urinary tract infection): (4) Dementia: Plan 86-year-old male who has a significant past medical history of vascular dementia, history of bladder and prostate cancer with urostomy in place, HTN, HLD, protein calorie malnutrition with adult failure to thrive, DDD, history of aortic valve replacement, history of lacunar infarct and depression who presents to ED 07/25 from [facility] after concern for seizure-like activity. Patient with witnessed generalized tonic-clonic seizure at halfway for approximately 1 minute followed by drooling and bowel/bladder incontinence. Post-ictal state followed which gradually resolved in the ED. He was loaded w/ Keppra in the ED. He is being managed for the following: Seizure-like activity Observed at the halfway, see above. Received Keppra loading dose in the ED. CT head and MRI brain with no acute findings. Continue with Keppra 500 Mg twice daily. Seizure precaution, neurology consultappreciate recommendation. f/u w/ neuro on DC. speech evaled, appreciate recs - on minced and moist diet. No further seizure noted in hospital. Sepsis POA: WBC and pulse elevated at presentation, urinalysis positive for infection. Lactate normal. UTI Upon admission patient met criteria for sepsis secondary to leukocytosis and tachycardia Patient tachycardia has since resolved with proper fluid resuscitation Per pt's daughter - he typically runs with blood pressure in the low 90s. Continue with Rocephin 07/25. Await urine and blood culture Afebrile, WBC wnl Suicidal ideation: Noted overnight per scrap iron loader. Was not very much communicative to me in the morning. Discussed with psychiatry, appreciate recommendation. Patient is quite impulsive and has history of making statements of suicidal ideation, psychiatry made recommendations/alternative medical options to Trileptal if Trileptal does not offer enough benefit for his impulsivity/frontal release symptoms. pt has not been agitated lately, c/w q15 min check. Vascular dementia Depression with impulsiveness History of suicidal ideations Patient on Zoloft Recently started on Trileptal due to impulsiveness and worsening depression At baseline is mostly pleasant, alert and oriented to self and family History of bladder and prostate cancer status post urostomy: Routine urostomy care Sacral wound: Consult wound nurse, Turn reposition every 2 hours. DVT ppx: SQ Lovenox DNR/DNI Dispo: medically stable. PT/OT, CM to assist. PCP: [facility] Admission and Anticipated Discharge Date Admission Date: July 25, 2022 Subjective Patient seen and examined at bedside as a follow-up of sepsis, UTI, observed seizure-like activity. Patient has a history of dementia. Patient was lying in bed, on room air, NAD, does not appear to be in distress, denies pain, oriented x1, ROS not able due to cognition status and hard of hearing status. Per RN, pt is eating ok but didn't take his meds today. Physical Exam Physical Exam: GENERAL: Alert and awake. NAD, on RA. [place] HEENT: No pallor, no icterus. Pupils equal, round and reactive to light. Oral mucosa moist. NECK: No JVD, no neck masses. HEART: S1 and S2 heard. Regular rate and rhythm. No murmur, no gallop. RESPIRATORY SYSTEM: Normal AP diameter. No accessory muscle use. No wheezing, no crackles. ABDOMEN: Soft, bowel sounds present, nontender, no distention. Rt urostomy bag w/ clear urine. CENTRAL NERVOUS SYSTEM: No facial droop. Speech is clear. Moves extremities. EXTREMITIES: No edema, no erythema seen. Results & Data Results & Data Vital Signs (Past 12 Hours) Vital Signs Temp Pulse Pulse Resp BP BP Pulse Ox 07/28/22 15:04 36.4 C L 97 H 16 97/59 L 97 07/28/22 15:21 103 H 07/28/22 11:19 37.1 C 88 16 90/60 L 94 07/28/22 07:50 36.7 C 100 H 20 104/68 95 07/28/22 07:46 76 O2 Del Method 07/28/22 15:04 Room Air 07/28/22 15:21 07/28/22 11:19 Room Air 07/28/22 07:50 Room Air 07/28/22 07:46
[2022-07-28] MEDS: MELATONIN 3 MG TAB PO SCH (20:38)
[2022-07-28] MEDS: ENOXAPARIN INJ 40 MG/0.4 ML SYR SQ SCH (20:38)
[2022-07-29] MEDS: levETIRAcetam 500 MG in 0.9 % SODIUM CHLORIDE 100 ML IV SCH (04:25)
[2022-07-29] MEDS: MEGESTROL ACETATE SUSP 400 MG/10 ML UDC PO SCH (09:51)
[2022-07-29] MEDS: FAMOTIDINE 20 MG TAB PO SCH (09:51)
[2022-07-29] MEDS: SERTRALINE HCL 50 MG TABLET PO SCH (09:51)
[2022-07-29] MEDS: OXcarbazepine 150 MG TABLET PO SCH (11:53)
--- NOTE | 2022-07-29 15:01 | Discharge Summary ---
Date of Service July 29, 2022 Admission HPI Per Admitting Provider This is an 86-year-old male who has a significant past medical history of vascular dementia, history of bladder and prostate cancer with urostomy in place, HTN, HLD, protein calorie malnutrition with adult failure to thrive, DDD, history of aortic valve replacement, history of lacunar infarct and depression who presents to ED from [facility] after concern for seizure-like activity. History unable to be obtained from patient due to underlying dementia. Daughter is at bedside. Records from [facility] were reviewed in [employer]. KATERIN from [facility] was called to bedside today after staff witnessed patient having sudden on set of contracture of both arms with bilateral lower extremity flailing and jerking movements for approximately 1 minute. He then became unresponsive to deep physical and verbal stimulation. His vital signs remained stable and there was evidence of drooling. Per daughters at bedside patient did have bowel bladder incontinence. He was then transported via EMS to ED. Patient remained mostly unresponsive and while staying in ED had a gradual improvement of his mental state and during my examination was alert, responsive, and oriented x2. Daughters feel like he is slowly coming back to his baseline. Up until today seizure-like activity he has been in his normal state of health. For the most part he is pleasant despite the dementia. He does have underlying depression/impulsiveness and was recently started on Trileptal. He had suicidal behavior per family members and frequently states, "I want to ." Family numbers at bedside state that they are aware he is ready to be with his loved ones. Because of this he wrapped a telephone cord around his neck while in the jail and therefore was evaluated by psychiatry. Admission Exam Per Admitting Provider Constitutional: Elderly, male, arousable to verbal and tactile stimulation, very hard of hearing, vitals as above, NAD, sitting up in bed, pleasant, conversing easily Head: Normocephalic, Atraumatic Eyes: PERRL, conjunctivae normal, anicteric sclerae ENMT: external ear and nose normal, oropharynx dry membranes Neck: trachea midline, no thyromegaly normal visual inspection Respiratory: normal respiratory effort, lungs clear to auscultation, no wheeze, rales, rhonchi. Normal insp/exp effort, no accessory muscle use Cardiovascular: RRR, no murmur, no edema Vessels: no JVD or carotid bruit Chest: normal inspection of chest Abdomen: Positive right-sided urostomy with clear urine output, normal bowel sounds, soft, nontender, no hepatosplenomegaly Musculoskeletal: no cyanosis or clubbing, active range of motion to bilateral upper extremities, good passive range of motion of bilateral lower extremities but patient does not follow commands to actively raise his lower extremities Skin: no rashes, warm and dry normal turgor Neurologic: PERRL, EOMI, accommodation nl, no face palsy, no dysarthria CN's II-XI intact bilaterally and moves all extremities Psychiatric: A+Ox2 oriented to self, place and daughters about, euthymic affect Lymphatic: no cervical or axillary lymphadenopathy : +urostomy status Principal Diagnosis New Onset seizure Sepsis POA UTI Discharge Exam GENERAL: Alert and awake. NAD, on RA. [place] HEENT: No pallor, no icterus. Pupils equal, round and reactive to light. Oral mucosa moist. NECK: No JVD, no neck masses. HEART: S1 and S2 heard. Regular rate and rhythm. No murmur, no gallop. RESPIRATORY SYSTEM: Normal AP diameter. No accessory muscle use. No wheezing, no crackles. ABDOMEN: Soft, bowel sounds present, nontender, no distention. Rt urostomy bag w/ clear urine. CENTRAL NERVOUS SYSTEM: No facial droop. Speech is clear. Moves extremities. EXTREMITIES: No edema, no erythema seen. Discharge Data Allergies Allergy/AdvReac Type Severity Reaction Status Date / Time ciprofloxacin [From Cipro] Allergy Unknown Unknown Verified 07/25/22 14:46 tetanus toxoid, adsorbed AdvReac Mild ITCHING Verified 07/25/22 14:46 RASH Consultations 07/25/22 15:25 ED Decision to Admit Stat 07/25/22 22:11 Consult Psychiatry Routine 07/26/22 07:00 Consult Neurology Routine Ordered Studies 07/25/22 12:51 CT head/brain wo con Stat 07/25/22 17:20 MR brain seizure wo/w con Routine Hospital Course (1) New onset seizure: Plan 86-year-old male who has a significant past medical history of vascular dementia, history of bladder and prostate cancer with urostomy in place, HTN, HLD, protein calorie malnutrition with adult failure to thrive, DDD, history of aortic valve replacement, history of lacunar infarct and depression who presents to ED 07/25 from [facility] after concern for seizure-like activity. Patient with witnessed generalized tonic-clonic seizure at jail for approximately 1 minute followed by drooling and bowel/bladder incontinence. Post-ictal state followed which gradually resolved in the ED. He was loaded w/ Keppra in the ED. He was managed for the following: Seizure-like activity Observed at the jail, see above. Received Keppra loading dose in the ED. CT head and MRI brain with no acute findings. Continue with Keppra 500 Mg twice daily. Seizure precaution,neurology evaledappreciate recommendation. f/u w/neuro on DC. speech evaled, appreciate recs - on minced and moist diet. No further seizure noted in hospital. Sepsis POA:WBC and pulse elevated at presentation, urinalysis positive for in fection. Lactate normal. UTI Upon admission patient met criteria for sepsis secondary to leukocytosis and tachycardia Patient tachycardia has since resolved with proper fluid resuscitation Per pt's daughter - he typically runs with blood pressure in the low 90s. Continue with Rocephin 07/25. to po on dc to complete course. Afebrile, WBC wnl Suicidal ideation:Noted overnight per culinary assistant early in admission, none for me in last few days. Psychiatry evaled, appreciate recommendation. Patient is quite impulsive and has history of making statements of suicidal ideation, psychiatry made recommendations/alternative medical options to Trileptal if Trileptal does not offer enough benefit for his impulsivity/frontal release symptoms. Pt hemodynamically stable, not agitated lately. Vascular dementia Depression with impulsiveness History of suicidal ideations Patient on Zoloft Recently started on Trileptal due to impulsiveness and worsening depression At baseline is mostly pleasant, alert and oriented to self and family History of bladder and prostate cancer status post urostomy:Routine urostomy care Sacral wound:Consult wound nurse, Turn reposition every 2 hours. DVT ppx:SQ Lovenox DNR/DNI Dispo: medically stable. PT/OT, CM to assist. PCP: Alma Patient being discharged to SNF with following instruction at the point of discharge: Follow-up with your primary care physician within a week time and likely you will need labs CBC/CMP/magnesium/phosphorus. Follow-up with the neurology as an outpatient in 1 month's time. Complete antibiotic for UTI. For your new onset seizure, you have been prescribed Keppra, take them as prescribed. Take your medications as prescribed. Home Health Attestation I certify that this patient is under my care and that I, or a physicians assistant professor of radiology working with me, had a face to-face encounter that meets the home health [id number] encounter requirements with this patient. The encounter with the patient was in whole, or in part, for the following medical condition, which is the primary reason for home health care (list medical condition): I certify that, based on my findings, the following services are medically necessary home health services: My clinical findings support the need for the above services because: Further, I certify that my clinical findings support that this patient is homebound (i.e. absences from home require considerable and taxing effort and are for medical reasons or christianity services or infrequently or of short durati on when for other reasons) because: Certification for Home Health Services: Based on the above findings, I certify that this patient is confined to the home and needs intermittent half-way care, physical therapy and/or speech therapy or continues to need occupational therapy. The patient is under my care, and I have initiated the establishment of the plan of care. This patient will be followed by a physician who will periodically review the plan of care. Total Time Total Time Spent Total Time Spent (In Minutes): 45 Discharge Plan Discharge Items Patient Disposition: Transfer Detention Fac Reason For Visit: UTI, SEPSIS, SEIZURE Discharge Diagnosis: New Onset seizure Sepsis POA UTI Activity: Resume your previous activity Non-emergency contact: Primary Care Provider Call non-emergency contact if: you have any medication questions Follow-up/Referrals: Aylin Mcintyre [Primary Care Provider] - Diet: Regular Diet Texture: Mechanical soft (ground) Diet Comment: Minced and moist diet Addtl Attending Provider Instructions: Follow-up with your primary care physician within a week time and likely you will need labs CBC/CMP/magnesium/phosphorus. Follow-up with the neurology as an outpatient in 1 month's time. Complete antibiotic for UTI. For your new onset seizure, you have been prescribed Keppra, take them as prescribed. Take your medications as prescribed. Pending Studies at Discharge: No Stand-Alone Forms: My [facility] Skilled Items Patient informed of condition?: Yes DNR: Yes Discharge Level of Care: Skilled Communicable Disease: No Discharge Prognosis: Stable Lines: None Urinary Catheter: Yes Medications and DC Order Prescriptions: New cephalexin 500 mg capsule 500 mg PO Q8H 4 Days Qty: 12 0RF Probiotic 3 billion cell capsule 3,000 mmu cells PO DAILY 7 Days Qty: 7 0RF Rx Instructions: administer with a meal levetiracetam 500 mg tablet 500 mg PO BID Qty: 60 0RF Continued ondansetron 4 mg Tablet,Disintegrating 4 mg PO Q6H PRN (Reason: Nausea / Vomiting) acetaminophen 500 mg tablet 500 mg PO QID Rx Instructions: Schedule: 09:01am, 01:01pm, 05:01pm and 09:01pm. Do not exceed 3gram in 24 hours. megestrol 400 mg/10 mL (40 mg/mL) suspension 400 mg PO DAILY Rx Instructions: Scheduled at 09:01am famotidine 20 mg tablet 20 mg PO BID Rx Instructions: Scheduled at 06:31am and 05:01pm melatonin 5 mg tablet 5 mg PO HS Rx Instructions: Scheduled at 09:01pm cholecalciferol (vitamin D3) 25 mcg (1,000 unit) capsule 1,000 unit PO QAM Rx Instructions: do not crush, scheduled at 09:01am acetaminophen [Tylenol] 325 mg Tablet 650 mg PO Q4 MDD 3g PRN (Reason: temp>100.4) acetaminophen [Tylenol] 325 mg Tablet 650 mg PO Q4 MDD 3g PRN (Reason: pain mild scale 1-4) carboxymethylcellulose sodium [Refresh Celluvisc] 1 % dropperette,gel 1 drp OPB QID PRN (Reason: Dry Eyes) oxcarbazepine 150 mg tablet 150 mg PO DAILY Rx Instructions: Scheduled at 12:00pm miconazole nitrate 2 % Powder 1 applic TOPICAL BID Rx Instructions: Apply to perineum area magnesium hydroxide [Milk of Magnesia] 400 mg/5 mL Suspension 30 ml PO DAILY PRN (Reason: Constipation) Rx Instructions: Only if no bowel movement x3 days, give on day 4 in the morning bisacodyl [Dulcolax (bisacodyl)] 10 mg Suppository 10 mg NC DAILY PRN (Reason: Constipation) Rx Instructions: Give one time only if Milk of Magnesia is ineffective, on day 5 of no bowel movement Fleet Enema 19-7 gram/118 mL Enema 118 ml NC DAILY PRN (Reason: Constipation) Rx Instructions: Only use if Dulcolax is not effective on day 6 of no bowel movement. Sarna Original 0.5-0.5 % lotion 1 applic TOPICAL Q2H PRN (Reason: itching) Rx Instructions: Apply to the legs sertraline 50 mg tablet 50 mg PO QAM Rx Instructions: Scheduled at 09:01am zinc oxide Paste 1 ea TOPICAL DAILY PRN (Reason: Loose Stool) Discharge Orders: Discharge Order (Routine); Ordered 07/29/22 Ordered By: Rusty Holland Admission Data Admit Date/Time: 07/25/22 16:09 Attending Provider: Rusty Holland Admit Provider: Trinity Walsh [facility] Other Providers: Trinity Walsh ; Leana Arboleda ; Breanna Latif ; Alan Pan ; [facility]
--- NOTE | 2022-07-30 12:23 | Coding Query ---
To promote full compliance with coding requirements relating to patient care, provider participation is requested in all cases of research fellow uncertainty. Please assist us with the question(s) below: Coding Question(s): The diagnosis below was documented in the 07/26 Neurology Consultation, then subsequently fell off all further documentation. Please indicate if it is still a possible diagnosis or ruled out. Physician's Response(s): METABOLIC ENCEPHALOPATHY ( x ) Diagnosed and POA ( ) Diagnosed and not POA ( ) Ruled out ( ) Other (please specify) MTDD
== END 2022-07-29 16:12 | DRG 100 ==
LOC: ED 12:18 → 2S 16:09 → SUATTDRO 16:09 → 2S 17:12